=== PATIENT | male | born 1955 | race African-American/Black ===

== ENCOUNTER 2017-03-17 07:35 | Day surgery (SDC) | payer MEDICARE, MEDICAID ==
[2017-03-16 09:30] VITALS: BMI 19.5
--- NOTE | 2017-03-17 05:53 | HP ---
DATE OF ADMISSION: 03/17/2017 HISTORY OF PRESENT ILLNESS: This is a 61-year-old -Vietnamese male with hypertension, chronic h epatitis C, chronic kidney disease. The patient also has had ulcer disease in the past. The patient was seen in the office because of abdominal pain and nausea over the last several weeks. The patien t has been treated in the past with some PPI and also Zantac. He says it markedly improved with win tment, but then comes back again . The patient comes for an EGD because of abdominal pain, which has been recurrent over the last several months. ALLERGIES: None. MEDICAL ILLNESSES: 1. Hypertension. 2. Chronic kidney disease on dialysis. 3. Chronic hepatitis C. 4. Gastric ulcer in the past. PHYSICAL EXAMINATION: GENERAL: Thin built, appears comfortable. VITAL SIGNS: Pulse is 70, blood pressure 130/80. CARDIOVASCULAR: First and second heart sounds normal. LUNGS: Clear to auscultation. ABDOMEN: Soft to palpate. Abdomen is tender over the epigastric area. There is no rebound or guard ing. No organomegaly or masses. Admits to having abdominal pain. PLAN: EGD and also abdominal sonogram.
--- NOTE | 2017-03-17 08:45 | ULT ---
ULTRASOUND ABDOMEN COMPLETE HISTORY: Hepatitis C, abdominal pain. TECHNIQUE: Doshi-scale ultrasound evaluation of the liver, gallbladder, spleen, pancreas, common bile duct, kidne ys, abdominal aorta, and inferior vena cava (IVC). FINDINGS: There is prior surgical removal of the gallbladder. Common duct is normal at 3 mm. Enlargement of the spleen is demonstrated measuring greater than 14 cm in length. There is a fairly circumferential inc reased echogenicity about the periphery of the spleen, compatible with calcification. There are multi ple cysts of the small sized kidneys bilaterally. No overt hydronephrosis is seen. Imaged portions of the pancreas are grossly unremarkable. There is a coarsened echotexture of the hepatic parenchyma wh ich demonstrates a nodular contour. There are foci of increased echogenicity about the periphery of t he liver, compatible with calcification. IMPRESSION: 1. Splenomegaly, with peripheral calcification. 2. Status post cholecystectomy. 3. Coarsened echotexture of the liver with calcification and nodular contour. POS: [facility]
[2017-03-17] MEDS ORDERED: PROPOFOL 200 MG/20 ML VIAL ONE (14:59)
[2017-03-17] MEDS ORDERED: Lidocaine 1% PF 5 ML VIAL ONE (14:59)
--- NOTE | 2017-03-17 14:59 | OP ---
DATE OF PROCEDURE: 03/17/2017 OPERATIVE PROCEDURE: Esophagogastroduodenoscopy with 7 Estonian heater probe therapy. PREOPERATIVE DIAGNOSES: Abdominal pain, nausea, anemia. POSTOPERATIVE DIAGNOSES: 1. A 2-3+ esophageal varices. 2. 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 3. Normal duodenum. PROCEDURE IN DETAIL: The patient was placed on his left lateral position and was given sedation by [facility] Anesthesia Department. A Pentax video gastroscope under direct vision was passed down the orophar ynx, past the gastroesophageal junction, into the stomach and subsequently into the descending duoden um. The patient has a 2-3+ varicosities over the distal esophagus. The GE junction, no pathology se en. The fundus and cardia, no pathology seen. No gastric varices seen. Over the gastric body, the patient was found to have mild oozing of blood from the gastric AVM. There were two more gastric AVM s over the gastric body and plus antrum. All the three were cauterized with 7 Estonian heater probe wi th good hemostasis. The incisura angularis, no pathology seen. The duodenal bulb and descending duo denum, no pathology seen. The stomach was decompressed and the scope removed. DISCHARGE PLANNING: This is a 61-year-old -Malagasy male who came in for an EGD, because of a bdominal pain. The patient has history of gastric ulcers from before. The patient had an abdominal sonogram, which showed findings of liver cirrhosis and the liver appears normal, splenomegaly. The E GD showed gastric AVMs with mild oozing of blood. He underwent EGD with heater probe therapy. There is no pathology seen to explain abdominal pain. DISCHARGE RECOMMENDATIONS: 1. The patient advised to continue the medicines as before. 2. He will come back to me next week. We will talk to him about coming back for an EGD later on for possible variceal banding. He is already on beta-blockers, continue beta denny as before.
== END 2017-03-17 13:15 | disposition home or self-care (01) ==
LOC: SDC 07:35
PROVIDERS: ATTEND Internal Medicine Gastroenterology
PROC: 0D568ZZ Destruction of Stomach, Via Natural or Artificial Opening Endoscopic (ICD-10-PCS; principal; 2017-03-17)
DX: Q27.33 Arteriovenous malformation of digestive system vessel (principal); I85.00 Esophageal varices without bleeding; K74.60 Unspecified cirrhosis of liver; R16.1 Splenomegaly, not elsewhere classified; I12.9 Hypertensive chronic kidney disease with stage 1 through stage 4 chronic kidney disease, or unspecified chronic kidney disease; N18.9 Chronic kidney disease, unspecified; B18.2 Chronic viral hepatitis C; Z87.11 Personal history of peptic ulcer disease; Z90.49 Acquired absence of other specified parts of digestive tract; Z98.890 Other specified postprocedural states
CPT/HCPCS: 76700; J2001; J2704

== ENCOUNTER 2017-04-07 10:57 | Outpatient (CLI) | payer MEDICARE, MEDICAID ==
[2017-04-07] MEDS ORDERED: Iopamidol 370 76% 100 ML VIAL ONE (13:38)
--- NOTE | 2017-04-07 14:09 | CT ---
CT ABDOMEN WITH IV CONTRAST: INDICATIONS: A 61-year-old male with a history of left mid abdominal pain for two to three months. COMPARISON: Prior exam, dated 06/05/2016. FINDINGS: There is bibasilar emphysema. Capsular calcification involving the spleen and liver appear within normal limits. Mild hepatospleno megaly is stable. The pancreas and adrenal glands are unremarkable. Atrophic, cystic kidneys are similar appearing. Prominent vascular calcification is seen involving the abdominal vasculature. The visualized small and large bowel appear within normal limits. There is levoscoliosis of the lumbar spine, with scattered degenerative changes. There is a coarsene d appearance of the bony architecture, likely related to underlying osteodystrophy. IMPRESSION: Stable examination of the abdomen when compared to a recent CT evaluation, dated 06/05/2016. POS: [facility]
== END 2017-04-07 10:58 | disposition home or self-care (01) ==
LOC: CT 10:57
PROVIDERS: ATTEND Internal Medicine Gastroenterology
DX: R10.9 Unspecified abdominal pain (principal)
CPT/HCPCS: 74160

== ENCOUNTER 2017-04-14 09:02 | Observation (INO) | payer MEDICARE, MEDICAID ==
--- NOTE | 2017-04-14 01:24 | HP ---
SHORT STAY HISTORY AND PHYSICAL DATE OF ADMISSION: 04/14/2017 HISTORY OF PRESENT ILLNESS: This is a 61-year-old -[place]er male with chronic kidney disease on dialysis 3 times a week. The patient also has had chronic hepatitis C and was successfully treate d with medication. The most recent hepatitis C panel came back negative. The patient is having abdo carl pain over the last several weeks. The patient's EGD was negative recently. The patient had pa in across the upper abdomen. The pain is persistent. The patient also has history of colon polyp fr om before. The patient was brought in today for an EGD and colonoscopy because of abdominal pain and also history of colon polyp. ALLERGIES: None. MEDICAL ILLNESSES: 1. Hypertension. 2. Chronic kidney disease on dialysis. 3. 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 PHYSICAL EXAMINATION: GENERAL: The patient is a fragile looking black male, who appears comfortable. VITAL SIGNS: He is afebrile, pulse is 70, blood pressure 120/70. HEENT: Conjunctivae are clear. CARDIOVASCULAR: Lungs within normal limits. ABDOMEN: Soft to palpate. Abdomen is tender across the upper abdomen. There is no rebound or guard ing. No organomegaly or masses. Bowel sounds are normal. ADMITTING DIAGNOSIS: Persistent abdominal pain, history of colon polyp. PLAN: Colonoscopy.
--- NOTE | 2017-04-14 12:54 | OP ---
DATE OF PROCEDURE: 04/14/2017 SURGEON: Edilma Gant M.D. OPERATIVE PROCEDURE: Colonoscopy with biopsy. PREOPERATIVE DIAGNOSES: This is a 61-year-old male with abdominal pain that is chronic in nature. The patient had abdominal CAT scan a week ago. The CAT scan is basically negative. The patient is undergoing colonoscopy because of abdominal pain and also history of colon polyp. POSTOPERATIVE DIAGNOSES: 1. Hemorrhoids. 2. Occasional sigmoid diverticular disease. 3. Mucosal edma and hyperemia over the rectum, biopsied of unknown etiology. PROCEDURE NOTE: The patient was placed on his left lateral position and was given sedation by Anesthesia Department. A rectal exam was done before the scope was advanced into the rectum. No lesions were felt on rectal exam. A Pentax video colonoscope was introduced into the rectum and advanced all the way to the cecum. The prep was very good. The mucosa appeared normal. The appendiceal orifice, ileocecal valve, and cecum, no pathology seen. The ascending colon, hepatic flexure, and transverse colon, no pathology seen. The splenic flexure, no pathology seen. The descending colon, no pathology seen. The sigmoid colon showed occasional diverticular disease. The rectal wall shows some hyperemia and edema. This was biopsied. I could not retroflex the scope in the rectum. However, the rectum does show hemorrhoids. DISCHARGE PLANNING: This is a 61-year-old male who came in for an EGD and colonoscopy because of abdominal pain and history of colon polyp. The polyp was biopsied. DISCHARGE RECOMMENDATIONS: 1. The patient was advised to call me if he develops abdominal pain, hematochezia. 2. In the absence of any of the above symptoms he will come back to me in 2 weeks. MTDD
[2017-04-14 14:21] LABS: Hemoglobin 8.6 g/dL (14.0-18.0); Mean Corpuscular HGB CONC 30.7 g/dL (32.0-36.0); Mean Corpuscular Hemoglobin 28.9 pg (27.0-31.0); Mean Corpuscular Volume 93.9 fl (80.0-94.0); Mean Platelet Volume 10.7 fL (7.4-10.4); Platelet Count 79 thou/uL (130-400); RBC Distribution Width 15.7 % (11.5-14.5); Red Blood Cell (RBC) Count 2.97 mill/uL (4.70-6.10); White Blood Cell (WBC) Count 4.5 thou/uL (4.8-10.8)
[2017-04-14 14:42] LABS: Anisocytosis SLIGHT = 6-15 cells (100X) (0-5/hpf); Eosinophils 3 % (0-10); Lymphocytes 43 % (21-51); MDiff Complete? YES; Monocytes 7 % (0-10); Neutrophil 47 % (42-75); Ovalocytes SLIGHT = 2-5 cells (100X) (0-1/hpf); PLT Morphology Comment Appears Decreased; Polychromasia SLIGHT = 2-3 cells (100X) (0-2/hpf); Schistocytes SLIGHT = 2-5 cells (100X) (0-1/hpf)
[2017-04-14] MEDS ORDERED: Lidocaine 1% PF 5 ML VIAL ONE (15:47)
[2017-04-14] MEDS ORDERED: Propofol 200 MG/20 ML VIAL ONE ×2 (15:47→15:48)
[2017-04-14] MEDS ORDERED: Metoprolol Tartrate 5 MG/5 ML VIAL ONE (15:47)
[2017-04-14 16:11] LABS: #Eosinphils 0.1 thou/uL (0.0-0.7); #Monocytes 0.5 thou/uL (0.11-0.59); %Basophils 1.3 % (0.0-1.0); %Eosinophils 1.4 % (0.0-10.0); %Lymphocytes 28.6 % (21.0-51.0); %Neutrophils 55.7 % (42.0-75.0); Hemoglobin 8.5 g/dL (14.0-18.0); Mean Corpuscular Hemoglobin 30.2 pg (27.0-31.0); Mean Corpuscular Volume 91.6 fl (80.0-94.0); Mean Platelet Volume 10.4 fL (7.4-10.4); Platelet Count 66 thou/uL (130-400); RBC Distribution Width 15.5 % (11.5-14.5); White Blood Cell (WBC) Count 3.6 thou/uL (4.8-10.8)
[2017-04-14] MEDS ORDERED: Ondansetron ODT 4 MG TAB PO PRN (20:14)
[2017-04-14] MEDS ORDERED: Ondansetron ODT 4 MG TAB PO SCH (20:15)
[2017-04-14] MEDS: Lisinopril 20 MG TAB PO SCH (21:11)
[2017-04-14] MEDS: Metoprolol Tartrate 25 MG TAB PO SCH (21:11)
[2017-04-14] MEDS: Terazosin HCl 1 MG CAP PO SCH (21:12)
[2017-04-14 23:38] VITALS: BMI 19.1
[2017-04-15 05:48] LABS: Mean Corpuscular HGB CONC 31.9 g/dL (32.0-36.0); Mean Corpuscular Hemoglobin 29.7 pg (27.0-31.0); Mean Corpuscular Volume 93.1 fl (80.0-94.0); Mean Platelet Volume 10.6 fL (7.4-10.4); Platelet Count 64 thou/uL (130-400); RBC Distribution Width 15.1 % (11.5-14.5); Red Blood Cell (RBC) Count 2.36 mill/uL (4.70-6.10); White Blood Cell (WBC) Count 4.1 thou/uL (4.8-10.8)
--- NOTE | 2017-04-15 06:04 | HP ---
HISTORY OF PRESENT ILLNESS: Mr. Sharif Cruz is a 61-year-old -Mauritian male with chroni c kidney disease, hypertension, chronic hepatitis C. The patient take and tolerates Harvoni, and his hepatitis C virus came back negative. The patient had abdominal pain and nausea off and on. The rodrick zavala underwent an EGD recently and also had abdominal sonogram. Subsequently, an abdominal CAT scan showed negative for any pathology. He was brought in for EGD and colonoscopy today, because of abdo carl pain and also history of colon polyp. The colonoscopy showed mild sigmoid diverticulosis and t he rectum showed hemorrhoids. He had an area of edematous and erythematous mucosa over the rectal wa ll. This was biopsied. Three biopsies were obtained. The patient was able to go from day surgery a nd he started having bleeding from the rectum. Apparently, he passed quite a fairly large amount of fresh blood and clots. He was kept there for a while and he had another bleeding spell. He was take n back into a room. He underwent a flexible colonoscopy and was found to have a visible vessel at th e biopsy sites with active bleeding. This was cauterized and also injected with epinephrine. He had a stat CBC after surgery. The blood count was 8.6. The patient was in day surgery for a while and started having another bloody stool. He had another CBC done and blood count did not drop down. It was elected to admit the patient to the hospital for observation overnight. PHYSICAL EXAMINATION: GENERAL: He appears very comfortable. He is a fragile looking black male, in no distress. VITAL SIGNS: Stable. His pulse is 76, blood pressure 170/85. CARDIOVASCULAR: First and second heart sounds were normal. LUNGS: Clear to auscultation. ABDOMEN: Soft to palpate. No organomegaly. No tenderness. No masses. CLINICAL IMPRESSION: His active bleeding from the biopsy site controlled with injection of epinephri ne and also with heater probe. PLAN: 1. Clear liquid diet. 2. Repeat CBC tomorrow. 3. If there is no recurrence of bleeding and blood count is stable, we will consider discharge tomor row morning.
--- NOTE | 2017-04-15 08:04 | OP ---
DATE OF SURGERY: 04/14/2017 OPERATIVE PROCEDURE: Flexible sigmoidoscopy with injection of epinephrine followed by 10-Ukrainian heat er probe therapy. PREOPERATIVE DIAGNOSIS: Hematochezia following colonoscopy and biopsy. POSTOPERATIVE DIAGNOSES: 1. Active bleeding from the biopsy site with visible vessel with large amount of fresh clots and blo od in the rectum. 2. Two of the biopsy sites appears to have a clot on top of the surface and do not see any bleeding. PROCEDURE NOTE: The patient was placed on the left lateral position and was given sedation by Anesth esia department. A rectal exam was done, the scope was advanced into the rectum. There is blood see n in the exam finger. A Pentax video colonoscope was introduced into the rectum. The patient had th ree biopsies from the rectal area. Two of the biopsy sites appear to have a clot on top with good he mostasis. The biopsy site appears showing visible vessel with active bleeding. There is large amoun t of fresh blood and clots seen in the rectum. Water was used to irrigate and wash out. The visible vessel was injected with 1:10,000 epinephrine. A total of 10 mL injected. Following injection, the bleeding actually stopped. It was elected to cauterize the area with 10-Ukrainian probe with good hemo stasis. The biopsy site was also cauterized slightly with heater probe. At the end of the procedure , I do not see any bleeding. The scope was withdrawn and advanced back into the rectum one more time again. The cauterized areas appears very healthy and do not see any bleeding. Rectum was decompres sed and the scope removed. RECOMMENDATION: 1. To obtain stat CBC. 2. We will observe him for a while on the day of surgery and if there is no recurrence of bleeding, we will discharge him today.
[2017-04-15 08:10] VITALS: BP 144/78; TEMP 98.1
[2017-04-15] MEDS ORDERED: Amlodipine 5 MG TAB PO SCH (09:00)
[2017-04-15] MEDS ORDERED: FLU VACC QS2017-18 36 mo. & older 0.5 ML SYRINGE IM ONE (09:00)
[2017-04-15] MEDS: Metoprolol Tartrate 25 MG TAB PO SCH (09:48)
[2017-04-15] MEDS: Terazosin HCl 1 MG CAP PO SCH (09:49)
[2017-04-15] MEDS: Lisinopril 20 MG TAB PO SCH (09:49)
[2017-04-15] MEDS ORDERED: Cinacalcet HCl 30 MG TAB PO SCH (21:00)
== END 2017-04-15 12:15 | disposition home or self-care (01) ==
LOC: SDC 09:02 → ONC 18:02
PROVIDERS: ADMIT Internal Medicine Gastroenterology; ATTEND Internal Medicine Gastroenterology
PROC: 0DBP8ZX Excision of Rectum, Via Natural or Artificial Opening Endoscopic, Diagnostic (ICD-10-PCS; principal; 2017-04-14)
DX: R10.12 Left upper quadrant pain (principal); R10.11 Right upper quadrant pain; G89.29 Other chronic pain; K91.841 Postprocedural hemorrhage of a digestive system organ or structure following other procedure; K57.30 Diverticulosis of large intestine without perforation or abscess without bleeding; K64.9 Unspecified hemorrhoids; I12.0 Hypertensive chronic kidney disease with stage 5 chronic kidney disease or end stage renal disease; N18.6 End stage renal disease; K74.60 Unspecified cirrhosis of liver; B18.2 Chronic viral hepatitis C; Z99.2 Dependence on renal dialysis; Z79.899 Other long term (current) drug therapy; Z90.49 Acquired absence of other specified parts of digestive tract; Z98.890 Other specified postprocedural states
CPT/HCPCS: 45380; 85025 ×2; 85027; 88305; G0378; 36415; J2001; J2704; Q0162

== ENCOUNTER 2017-04-21 08:16 | Inpatient (IN) | payer MEDICARE, MEDICAID ==
[~2017-04-21 08:16] MED LIST: ISOVUE-370 76%-LOCM 1 ML ONE
[2017-04-21 09:02] LABS: ALT (SGPT) Less than 7 U/L (8-55); AST (SGOT) 21 U/L (5-34); Alkaline Phosphatase 97 U/L (40-150); Anion Gap 17 mmol/L (10-20); BUN (Urea Nitrogen) 36 mg/dL (8.4-25.7); Bilirubin, Total 0.4 mg/dL (0.2-1.2); Calc. Creatinine Clearance 0 mL/min (70-130); Calcium 8.4 mg/dL (7.8-10.44); Carbon Dioxide 30 mmol/L (22-29); Chloride 96 mmol/L (98-107); Estimated GFR-MDRD 7; Globulin 3.2 g/dL (2.4-3.5); Glucose 110 mg/dL (70-105); Lipase 35 U/L (8-78); Potassium 4.9 mmol/L (3.5-5.1); Protein, Total 6.2 g/dL (6.0-8.3); Sodium 138 mmol/L (136-145)
[2017-04-21 09:04] LABS: #Basophils 0.1 thou/uL (0.0-0.2); #Eosinphils 0.1 thou/uL (0.0-0.7); #Lymphocytes 1.3 thou/uL (1.20-3.40); #Monocytes 0.6 thou/uL (0.11-0.59); #Neutrophils 2.5 thou/uL (1.40-6.50); %Basophils 1.4 % (0.0-1.0); %Eosinophils 2.1 % (0.0-10.0); %Lymphocytes 28.1 % (21.0-51.0); %Monocytes 13.4 % (0.0-10.0); Hemoglobin 6.2 g/dL (14.0-18.0); Mean Corpuscular HGB CONC 33.6 g/dL (32.0-36.0); Mean Corpuscular Hemoglobin 30.6 pg (27.0-31.0); Mean Corpuscular Volume 91.1 fl (80.0-94.0); Platelet Count 92 thou/uL (130-400); RBC Distribution Width 15.4 % (11.5-14.5); Red Blood Cell (RBC) Count 2.03 mill/uL (4.70-6.10); White Blood Cell (WBC) Count 4.6 thou/uL (4.8-10.8)
[2017-04-21 09:10] LABS: CKMB 2.5 ng/mL (0-6.6); Troponin I 0.025 ng/mL (< 0.028)
[2017-04-21 09:35] LABS: INR-International Normal Ratio 1.5; Prothrombin Time 18.4 SEC (12.0-14.7)
--- NOTE | 2017-04-21 09:37 | CT ---
CT ABDOMEN WITH CONTRAST CT PELVIS WITH CONTRAST: DATE: 04-21-17 TIME: 8:58 a.m. HISTORY: 61-year-old male with generalized abdominal pain and rectal bleeding. COMPARISON: 04-07-17 CT of abdomen and 06-05-16 CT of abdomen and pelvis. TECHNIQUE: IV injection of iodinated contrast media: Isovue Oral contrast media: Not administered FINDINGS: Lung bases are clear. No pneumoperitoneum or ascites. High density fluid in the lumen of the rectum a nd sigmoid colon, consistent with blood. Dense subcapsular calcifications along the periphery of the liver, and to a lesser degree the periphery of the spleen. Mild splenomegaly. No portal vein thrombos is. No pancreatic abnormality. Heavy atherosclerotic calcification of the abdominal aorta and its bra nches, especially the common and internal iliac arteries. No interval change in the approximately 4 x 3.5 cm cystic mass extrinsically indenting the right anterior surface of the rectum. Suture lines at the rectum are again noted. Multiple prominent subchondral cysts at the bilateral femoral heads. Lev oscoliosis. Atrophic kidneys with innumerable small cysts. No adrenal mass. No small bowel dilation. The bilateral small pleural effusions on 06-05-16 are currently not present. The blood within the lume n of the distal colon is new compared to the previous CTs. No other major interval change. IMPRESSION: 1. Hemorrhagic fluid within the lumen of the distal colon. 2. Apparently benign 4 cm cystic mass extrinsically indenting the rectum, stable since for 06-05-16. 3. Chronic renal failure. 4. A very large number of bilateral small renal cysts. 5. Bilateral mild nephrolithiasis. 6. Splenomegaly. 7. Renal osteodystrophy. 8. Lumbar spondylosis and scoliosis. 9. Extensive calcifications along the hepatic and splenic capsules. MIGUEL ANGEL R POS: [facility]
--- NOTE | 2017-04-21 09:38 | RAD ---
CHEST 1 VIEW: Date: 04/21/17 HISTORY: Lightheadedness. Rectal bleeding. COMPARISON: 02/19/05. FINDINGS: Normal cardiac silhouette. Pulmonary vessels and hilum are normal. Costophrenic angles are clear. Que stionable opacity in the left lung apex. Nonspecific nodule in the right lung base. Better interrogat ion with chest CT is recommended. Vascular stent is noted. No pneumothorax or osseous abnormalities. Focal area of scarring/atelectasis in the right lung base is noted. Calcification along the lateral h epatic capsular margin in the left subdiaphragmatic region is noted. IMPRESSION: 1. Focal opacity in the left upper lobe which may be due to infiltrate. 2. Possible calcified granuloma in the right lung base. CODE LN. POS: [facility]
[2017-04-21] MEDS ORDERED: cefTRIAXone\\ROCEPHIN 2 GM in Sodium Chloride 0.9% 100 ML IVPB SCH (09:45)
[2017-04-21] MEDS ORDERED: Azithromycin 500 MG in Sodium Chloride 0.9% 250 ML 250 ML IVPB SCH (09:45)
--- NOTE | 2017-04-21 11:52 | HP ---
PRIMARY CARE PHYSICIAN: Selina Herring M.D. REASON FOR ADMISSION: Acute lower gastrointestinal bleed, symptomatic anemia, left upper lobe consolidation. HISTORY OF PRESENT ILLNESS: A 61-year-old -Finnish male with a history of end-stage renal disease who came to emergency room with complaint of hematochezia. This patient has chronic lower abdominal discomfort as well as dyspepsia symptoms. He has history of cholecystectomy and he had ultrasound of gallbladder, which showed perisplenic calcification and capsular calcification around liver as well with nodular contour. Subsequently, he also had CT abdomen which showed similar finding. Patient underwent upper endoscopy on and at that time, patient was found with esophageal varices and gastric AV malformation and normal duodenum. Subsequently, patient had colonoscopy on 04/14/2017, which showed hemorrhoid diverticular disease and erythema of the rectum and the patient had a biopsy of that area. Per patient, two polyps were removed, but based on colonoscopy report, biopsy was obtained from erythema of the rectum. The patient came back on the same day in the evening time after colonoscopy with bleeding and that is why patient required a flexible sigmoidoscope with injection of epinephrine followed by heater probe therapy, which was done and subsequently patient did not have any problem up until today. This morning he woke up, at that time he did not have any complaints. He had regular bowel movement first time, but subsequently 3 bowel movements was bloody and fresh blood. He was feeling dizzy and weak. The patient reports that since colonoscopy and biopsy, he was getting intermittent crampy abdominal pain, especially on last Thursday, but otherwise he did not have any pain, fever. He denies any weight loss. He denies any hematemesis, melena or vomiting. He denies any nausea as well. He denies any chest pain, palpitation or shortness of breath. Yesterday, he was in dialysis center and his dialysis was only 1-1/2 hours and it was interrupted because of loss of power supply at dialysis center. The patient does report mild cough. He denies any fever or chills. He denies any pleuritic chest pain, but today chest x-ray showed left upper lobe infiltration and he has lactic acid elevated. REVIEW OF SYSTEMS: The following complete review of systems was negative unless otherwise mentioned in the HPI or below: Constitutional: Weight loss or gain, ability to conduct usual activities. Skin: Rash, itching. Eyes: Double vision, pain. ENT/Mouth: Nose bleeding, neck stiffness, pain, tenderness. Cardiovascular: Palpitations, dyspnea on exertion, orthopnea. Respiratory: Shortness of breath, wheezing, cough, hemoptysis, fever or night sweats. Gastrointestinal: Poor appetite, abdominal pain, heartburn, nausea, vomiting, constipation, or diarrhea. Genitourinary: Urgency, frequency, dysuria, nocturia. Musculoskeletal: Pain, swelling. Neurologic/Psychiatric: Anxiety, depression. Allergy/Immunologic: Skin rash, bleeding tendency. Please see my HPI for pertinent positive and negative. All other review of system reviewed and negative except as mentioned in the HPI. PAST MEDICAL HISTORY: End-stage renal disease, on hemodialysis Thursday, Thursday, Thursday, followed by Dr. James Regan, hypertension, chronic hepatitis C, liver cirrhosis with portal hypertension and anemia of renal disease. PAST SURGICAL HISTORY: Appendicectomy, cholecystectomy, dialysis shunt placement in left upper extremity, left knee surgery. The patient had a colonoscopy and subsequently flexible sigmoidoscope. The patient also had upper endoscopy. PAST PSYCHIATRIC HISTORY: Reviewed and negative. SOCIAL HISTORY: Patient lives at home. He smokes about half pack per day. He denies any alcohol or other illicit drug abuse. FAMILY HISTORY: No strong family history of premature coronary artery disease, stroke or cancer. ALLERGIES: No known drug allergy. CURRENT HOME MEDICATIONS: Amlodipine 5 mg twice daily, Sensipar 30 mg daily, Harvoni 90/400 one tablet p.o. daily, lisinopril 20 mg twice daily, metoprolol 50 mg twice daily, omeprazole 40 mg p.o. daily, terazosin 3 mg p.o. twice daily. EMERGENCY ROOM COURSE: Patient is receiving a blood transfusion. The patient has received 1 liter of fluid and he is receiving Rocephin and azithromycin. PHYSICAL EXAMINATION: VITAL SIGNS: On arrival, blood pressure 139/78, pulse 81, respiratory rate 17, temperature 97.8, saturation 100% on room air, weight 65.2 kilograms. GENERAL: Patient is currently alert, awake, no obvious acute distress. HEENT: Head, normocephalic, atraumatic. Eyes: Pupils round, reactive to light. Extraocular muscle intact. ENT: Oropharynx within normal limits. Moist mucous membranes, no oral lesion, no pharyngeal erythema, no exudate. NECK: Supple, no JVD, no thyromegaly, no carotid bruit. LUNGS: Air entry reduced on both sides, but coarse breath sound at left upper lobe. No rales. CARDIAC: S1, S2 regular. No murmur. ABDOMEN: Vague lower abdominal discomfort. No guarding, no rigidity, no rebound, blood present in the rectal vault. The patient does have discomfort on deep palpation. BACK: Unremarkable, no CVA tenderness. EXTREMITIES: Upper extremity AV fistula and left upper extremity with good thrill. Lower extremity, no edema. Good peripheral pulsation. SKIN: No skin rash. HEMATOLOGICAL SYSTEM: No lymphadenopathy. PSYCHIATRIC: Normal affect. SIGNIFICANT LABORATORY DATA: EKG showing normal sinus rhythm, nonspecific ST-T changes. Chest x-ray showing left upper lobe infiltrate, right-sided lower lung base nodule, calcification of the hepatic capsular region. CT of the abdomen and pelvis showing calcification, hemorrhagic fluid within the lumen of the distal colon, 4 cm cystic mass in the rectum, bilateral nephrolithiasis, splenomegaly, renal osteodystrophy, lumbar spondylosis, calcification of the hepatic and splenic capsule. CBC: WBC 4.6, hemoglobin 6.2, platelet 92. INR 1.5. BMP: Sodium 138, potassium 4.9, chloride 96, carbon dioxide 30, anion gap 17, BUN 36, creatinine 9.49, glucose 110, calcium 8.4. Lactic acid 2.7. LFT: AST 21, ALT 7, alkaline phosphatase 97, albumin 3.0, lipase 35, CK-MB 2.5 , troponin 0.025. ASSESSMENT AND PLAN: 1. Acute lower gastrointestinal bleed. This patient has vague lower abdominal discomfort and fresh hematochezia. This patient also had recently colonoscopy and subsequent bleeding require a flexible sigmoidoscopy and heater probe therapy as well as epinephrine injection and subsequently bleeding stopped up until today and now patient has recurrent bleeding, most likely the patient might have biopsy site probably visible vessel or ulcer. He has underlying coagulopathy that contributing to his bleeding. He is also getting heparin with dialysis. At this point, we will consult individual pension adviser and they will decide whether this patient requires any repeat flexible sigmoidoscopy versus colonoscopy. We will keep him on clear liquid diet. We will monitor H and H every 6 hourly. Patient is getting 1 unit of blood now and we will monitor his H and H and if hemoglobin remains below 7.5, then we will consider transfusing him again. 2. Anemia due to acute blood loss. This patient has chronic disease anemia as well as renal disease anemia, but currently acutely dropped from bleeding that is why the patient is receiving 1 unit of blood and we will monitor the H and H every 6 hourly and transfuse if hemoglobin is less than 7.5. Patient will receive Procrit as well as Nephro-Isabella therapy. 3. Pancytopenia including leukopenia and thrombocytopenia, likely due to hypersplenism from cirrhosis of liver and portal hypertension. 4. Cirrhosis of liver with portal hypertension secondary to chronic hepatitis C. 5. Lactic acidosis due to underlying infection. We will repeat lactic acid level tomorrow. 6. Left upper lobe community-acquired pneumonia. Patient will be given Rocephin and azithromycin while in hospital, DuoNeb therapy p.r.n. basis. We will follow up on culture result. 7. End-stage renal disease, on hemodialysis. Patient will need hemodialysis and that is why we will consult Dr. James Regan for maintenance hemodialysis while in hospital. 8. Secondary hyperparathyroidism of renal origin. Continue Sensipar 1 tablet daily. 9. Hypertension. If blood pressure permits, then we will continue amlodipine 5 mg p.o. b.i.d., lisinopril 20 mg p.o. b.i.d., metoprolol 50 mg twice daily. 10. Gastroesophageal reflux disease. We will continue Protonix 40 mg p.o. daily. 11. Benign enlargement of prostate. We will continue terazosin 3 mg p.o. b.i.d. 12. Coagulopathy due to liver disease. 13. Deep venous thrombosis prophylaxis. Sequential compression device boots. No Lovenox because of bleeding. 14. Gastrointestinal prophylaxis. Protonix 40 mg p.o. daily. CODE STATUS: The patient is FULL CODE. Patient does not have any surrogate decision maker. Disposition plan based on clinical course. We are expecting patient's stay in hospital more than 2 midnights. Plan of care discussed with the patient in detail. MTDD
[2017-04-21] MEDS ORDERED: Zolpidem Tartrate 5 MG TAB PO PRN (11:58)
[2017-04-21] MEDS ORDERED: Acetaminophen 325 MG TAB PO PRN (11:58)
[2017-04-21] MEDS ORDERED: Artificial Tears 18 DROP/0.9 ML EA EYE PRN (11:58)
[2017-04-21] MEDS ORDERED: Sodium Chloride 0.65% Nasal 44 ML BOT EA NARE PRN (11:58)
[2017-04-21] MEDS ORDERED: hydrALAZINE 20 MG/ML VIAL SLOW IVP PRN (11:58)
[2017-04-21] MEDS ORDERED: Mag-Al 1200 mg/1200 mg/30 ML UDCUP PO PRN (11:58)
[2017-04-21] MEDS ORDERED: Milk Of Magnesia 30 ML UDCUP PO PRN (11:58)
[2017-04-21] MEDS ORDERED: Ondansetron HCl/PF 4 MG/2 ML Vial IVP PRN ×2 (11:58→22:31)
[2017-04-21] MEDS ORDERED: Loperamide HCl 2 MG CAP PO PRN (11:58)
[2017-04-21] MEDS ORDERED: Senokot 8.6 MG TAB PO PRN (11:58)
[2017-04-21] MEDS ORDERED: Eucerin (Mineral Oil/Petrolatum,White) 30 gm Jar TOP PRN (11:58)
[2017-04-21] MEDS ORDERED: Chloraseptic Spray 180 ml Bottle PO PRN (11:58)
[2017-04-21] MEDS ORDERED: Loratadine 10 MG TAB PO PRN (11:58)
[2017-04-21] MEDS ORDERED: Nitroglycerin 0.4 MG TAB (25 Tab Bottle) SL PRN (11:58)
[2017-04-21] MEDS ORDERED: Ondansetron ODT 4 MG TAB PO PRN (11:58)
[2017-04-21] MEDS ORDERED: HYDROcodone/Acetaminophen 5/325 mg Tablet PO PRN (11:58)
[2017-04-21] MEDS ORDERED: Diabetic Tussin 200 MG/10 ML UDCUP PO PRN (11:58)
[2017-04-21] MEDS ORDERED: cefTRIAXone\\ROCEPHIN 1 GM in Sodium Chloride 0.9% 100 ML IVPB SCH (12:00)
[2017-04-21] MEDS ORDERED: Epoetin (ESRD) 10,000 UNITS/ML VIAL SC SCH (12:00)
[2017-04-21 13:52] LABS: Lactic Acid 1.3 mmol/L (0.5-2.2)
[2017-04-21] MEDS ORDERED: Lidocaine 1% PF 5 ML VIAL ONE (14:02)
[2017-04-21] MEDS ORDERED: Esmolol 100 MG/10 ML VIAL ONE (14:02)
[2017-04-21] MEDS ORDERED: GoLYTELY 4,000 ml Bottle PO SCH (16:30)
[2017-04-21 17:04] LABS: Hemoglobin 6.9 g/dL (14.0-18.0)
[2017-04-21 17:33] LABS: Troponin I 0.023 ng/mL (< 0.028)
[2017-04-21] MEDS ORDERED: EPINEPHrine 1 MG/10 ML Abboject SYRINGE ONE (22:15)
[2017-04-22] MEDS: Lisinopril 20 MG TAB PO SCH ×3 (00:15→21:34)
[2017-04-22] MEDS: Cinacalcet HCl 30 MG TAB PO SCH ×2 (00:15→21:34)
[2017-04-22] MEDS: Metoprolol Tartrate 50 MG TAB PO SCH ×3 (00:16→21:35)
[2017-04-22] MEDS: Terazosin HCl 1 MG CAP PO SCH ×3 (00:16→21:35)
[2017-04-22] MEDS: Amlodipine 5 MG TAB PO SCH ×3 (00:16→21:34)
[2017-04-22 00:19] LABS: Hemoglobin 7.4 g/dL (14.0-18.0)
[2017-04-22 05:32] LABS: #Eosinphils 0.2 thou/uL (0.0-0.7); #Lymphocytes 1.1 thou/uL (1.20-3.40); #Monocytes 0.5 thou/uL (0.11-0.59); %Eosinophils 3.3 % (0.0-10.0); %Lymphocytes 22.8 % (21.0-51.0); %Monocytes 9.9 % (0.0-10.0); Hemoglobin 7.2 g/dL (14.0-18.0); Mean Corpuscular HGB CONC 33.4 g/dL (32.0-36.0); Mean Corpuscular Hemoglobin 30.4 pg (27.0-31.0); Mean Platelet Volume 10.2 fL (7.4-10.4); Platelet Count 82 thou/uL (130-400); RBC Distribution Width 15.5 % (11.5-14.5); Red Blood Cell (RBC) Count 2.36 mill/uL (4.70-6.10); White Blood Cell (WBC) Count 4.8 thou/uL (4.8-10.8)
[2017-04-22 05:36] LABS: ALT (SGPT) Less than 7 U/L (8-55); AST (SGOT) 15 U/L (5-34); Albumin 2.9 g/dL (3.5-5.0); Alkaline Phosphatase 82 U/L (40-150); Anion Gap 17 mmol/L (10-20); BUN (Urea Nitrogen) 42 mg/dL (8.4-25.7); Bilirubin, Total 0.5 mg/dL (0.2-1.2); Calc. Creatinine Clearance 8 mL/min (70-130); Calcium 8.6 mg/dL (7.8-10.44); Carbon Dioxide 26 mmol/L (22-29); Chloride 100 mmol/L (98-107); Estimated GFR-MDRD 6; Globulin 2.9 g/dL (2.4-3.5); Glucose 71 mg/dL (70-105); Potassium 5.1 mmol/L (3.5-5.1); Protein, Total 5.8 g/dL (6.0-8.3); Sodium 138 mmol/L (136-145)
[2017-04-22 05:40] LABS: Lactic Acid 1.1 mmol/L (0.5-2.2)
--- NOTE | 2017-04-22 06:40 | OP ---
DATE OF PROCEDURE: 04/21/2017 SURGEON: Edilma Gant M.D. OPERATIVE PROCEDURE: 1. Colonoscopy. 2. Injection of 1:10,000 epinephrine over the visible vessel in the rectum. 3. Two Hemoclip placements. 4. A 10-Welsh heater probe therapy. PREOPERATIVE DIAGNOSIS: Acute gastrointestinal bleeding. POSTOPERATIVE DIAGNOSES: Two large ulcerations in the rectum with a visible vessel. At the time of endoscopy, the colon was completely free of any blood. I do not see bleeding from the proximal colon. PROCEDURE IN DETAIL: The patient was placed on his left lateral position and was given sedation by Anesthesia Department. A rectal exam was done. The scope was advanced into the rectum. No lesions felt on rectal exam. A Pentax video colonoscope was introduced into the rectum advanced into the rectum, advanced into the descending and sigmoid colon. On endoscopy, no active bleeding was seen. The colon lumen was free of any blood or any blood clots. There were 2 ulcerations in the rectal vault. Both ulcerations showed visible vessel. The scope was advanced in the proximal colon up to the hepatic flexure. There was no blood in the proximal colon. The scope was withdrawn into the rectum. Initially, the base of the ulceration of the visible vessel was injected with epinephrine solution at 1 mL increment to total of 9 mL. Following injection, 2 Hemoclips were placed. After Hemoclip placement there was mild oozing of blood noted. It was not very active bleeding, but a lot of oozing. Because of above reason I did pass a 10 Welsh probe and the area was cauterized. However, with more cautery there seemed to be more oozing of blood. The heater probe was withdrawn and I injected another 5 mL of epinephrine around the ulcer base. At the end of the procedure there is mild oozing of blood, but no active bleeding seen. The rectum was decompressed and the scope removed. RECOMMENDATIONS: 1. Clear liquid diet. 2. Follow up H&H. 3. We will decide if he needs another second look sigmoidoscopy tomorrow. [facility]PITALSandra
--- NOTE | 2017-04-22 06:51 | CON ---
DATE OF CONSULTATION: 04/21/2017 REFERRING PHYSICIAN: Dr. Ninfa Rabago REASON FOR CONSULTATION: Abdominal pain, hematochezia. HISTORY OF PRESENT ILLNESS: Mr. Sharif Cruz is a 61-year-old male who is known to have chronic kidney disease on dialysis 3 times a week. The patient also has had chronic hepatitis C many years. The patient take treatment in 2017 for 3 months with Harvoni. After 12 weeks of therapy his HCV came back negative. The patient apparently developed liver cirrhosis. The last CAT scan showed nodular liver. The patient has been having persistent abdominal pain over the last several weeks. He initially was tried on omeprazole 40 once a day. His symptoms persisted. Because of persistence he underwent an EGD. The EGD showed no pathology for abdominal pain. Subsequently , an abdominal CAT scan is negative. The patient had a colonoscopy on 2017 because of abdominal pain and history of colon polyp. He was found to have edematous and erythematous mucosa in the rectum. Took biopsy at [address] There were no polyps seen. The patient was found to have hematochezia on the biopsy and was taken back to the endoscopy room and had a flexible sigmoidoscopy and injection of epinephrine and the biopsy area was cauterized. He did well and was kept overnight for observation. He was discharged home approximately a week ago. The patient woke up this morning abdominal cramping and hematochezia. He passed a fairly large amount of blood. He came to the ER and had a CBC done. He was found to have anemia. The hemoglobin was around 6.7. He got 2 units of packed RBCs. The hemoglobin came up to 7. The patient was admitted after also because of hematochezia and anemia. PAST MEDICAL HISTORY: 1. Chronic kidney disease. 2. Hypertension. 3. Chronic hepatitis C, resolved with Harvoni treatment. 4. Liver cirrhosis. 5. Portal hypertension. 6. Anemia of chronic disease. SURGERIES: 1. Appendectomy. 2. Cholecystectomy. 3. Dialysis shunt placement. 4. Left knee surgery. 5. He also had a colonoscopy and EGD in the last couple of months. The colonoscopy done approximately a week ago. MEDICATIONS: List reviewed. SOCIAL HISTORY: The patient is a smoker. Smokes 1-1/2 packs per day. There is no alcohol abuse, drug abuse. ALLERGIES: None. REVIEW OF SYSTEMS: Remarkable for abdominal cramping, hematochezia. PHYSICAL EXAMINATION: GENERAL: The patient is thin built, appears comfortable. VITAL SIGNS: Vital signs are actually stable in spite of bleeding. His pulse rate is around 81, blood pressure 130/70. HEENT: Conjunctivae clear. CARDIOVASCULAR: First and second heart sounds normal. LUNGS: Clear to auscultation. ABDOMEN: Soft to palpate. Abdomen is nontender. No organomegaly or masses. Bowel sounds are normal. LABORATORY DATA: CBC shows WBC 4600, hemoglobin 6.2, platelet count 92,000. INR 1.5, sodium 138, potassium 4.9, chloride 97, bicarbonate 30, BUN is 36, creatinine 9.49, glucose 110, calcium 8.4, lipase 35. Liver function tests are normal. Abdominal CAT scan showed a pelvic calcification of hemorrhagic fluid within the lumen of distal colon. Mild nephrolithiasis and splenomegaly. CLINICAL IMPRESSION: Acute hematochezia, rectal bleeding, most likely from the previous biopsy site. The biopsy was done in 3 different locations and all the 3 different occasions had some blood clots after the biopsy. One of the areas showed a visible vessel, some bleeding actively a week ago. This was injected with epinephrine and cauterized. The patient comes in with bleeding again. The patient most likely has bleeding from the biopsy site. RECOMMENDATIONS: 1. Transfuse. 2. We will plan for colonoscopy later on today after bowel prep.. MTDD
--- NOTE | 2017-04-22 09:39 | PRG ---
DATE OF SERVICE: 04/22/2017 HISTORY OF PRESENT ILLNESS: Mr. Sharif Cruz is a 61-year-old male with chroni c abdominal pain, chronic kidney disease and also liver cirrhosis. The patient had been treated for hepatitis C last year and the hepatitis C has resolved. The patient underwent EGD and colonoscopy wi th biopsy approximately 8 days ago. The rectal mucosa appears slightly different and it was edematou s and swollen with some bile. The patient had bleeding after biopsy. He was taken back to the opera tin room and underwent injection of epinephrine and control of bleeding with heater probe therapy. The patient was sent home the following day. He came back yesterday with abdominal cramping, hematoc hezia. He was taken to endoscopy suite last night and again he was found to have a rectal ulcer x2. Both ulcers showed distal vessel. At the time of endoscopy, no active bleeding was seen. The ulcer base was injected with epinephrine 1 mL increments to a total dose of 14 mL There were 2 Hemoclips applied. Also, the area was lightly cauterized with heater probe. The patient had slept through the night. Yesterday the patient had no stool. He is not having stool today. He is not having abdomin al pain, no nausea, no vomiting. After 3 units of blood transfusions blood count really has come up very little. Admission hemoglobin was 6.2 and this morning it was 7.2, hematocrit 21.5. PHYSICAL EXAMINATION: GENERAL: He appears very comfortable. VITAL SIGNS: Pulse is 77, blood pressure is 139/70. CARDIOVASCULAR/LUNGS: Within normal limits. ABDOMEN: The abdomen is soft. The abdomen is nondistended. Abdomen is nontender. CLINICAL IMPRESSION: Rectal bleeding from a rectal biopsy a week ago. The sigmoidoscopy did show re ctal ulcer with visible vessel. He underwent a Hemoclip placement and lightly cauterized with heater probe. Through the night he has had no stool. RECOMMENDATIONS: Will keep him on clear liquid diet for another day in case he bleeds. If his blood count is stable, can advance diet to renal diet hopefully, either tonight or tomorrow. If the patie nt has recurrence of bleeding, one option is to send him out of town for angiogram and embolization. Apparently, this cannot be done in this hospital because of lack of interventional radiologist. Th is was conveyed to the patient and he has agreed.
[2017-04-22] MEDS: Folic Acid/Vit B Comp W-C PO SCH (10:17)
[2017-04-22] MEDS: Ferrous Sulfate 325 MG TAB PO SCH (10:18)
--- NOTE | 2017-04-22 10:21 | PDOC.PN ---
- Subjective Encounter Start Date: 04/22/17 Encounter Start Time: 07:30 Patient seen and examined. No new complaints. No overnight events - Objective Resuscitation Status: Resuscitation Status FULL:Full Resuscitation MAR Reviewed: Yes Vital Signs & Weight: Vital Signs (12 hours) Temp Pulse Resp BP Pulse Ox 04/22/17 08:00 98.1 F 77 16 139/75 96 04/22/17 04:00 98.8 F 82 18 128/75 98 04/21/17 23:57 97.3 F L 86 18 152/76 H 99 Weight Weight 162 lb 6.4 oz I&O: 04/21/17 04/22/17 04/23/17 06:59 06:59 06:59 Intake Total 2470 Output Total 1600 Balance 870 Result Diagrams: 04/22/17 05:02 04/22/17 05:02 EKG Reviewed by me: Yes Phys Exam - Physical Examination Constitutional: NAD HEENT: PERRLA, moist MMs, sclera anicteric Neck: no JVD, supple Respiratory: no wheezing, no rales, no rhonchi Cardiovascular: RRR, no significant murmur, no rub Gastrointestinal: soft, non-tender, no distention, positive bowel sounds Musculoskeletal: no edema, pulses present Neurological: non-focal, normal sensation Lymphatic: no nodes Psychiatric: normal affect, A&O x 3 Skin: no rash, normal turgor Dx/Plan (1) Community acquired bacterial pneumonia Code(s): J15.9 - UNSPECIFIED BACTERIAL PNEUMONIA Status: Acute (2) Anemia due to acute blood loss Code(s): D62 - ACUTE POSTHEMORRHAGIC ANEMIA Status: Acute (3) Lower GI bleed Code(s): K92.2 - GASTROINTESTINAL HEMORRHAGE, UNSPECIFIED Status: Acute (4) Rectal ulcer Code(s): K62.6 - ULCER OF ANUS AND RECTUM Status: Acute (5) Anemia of renal disease Code(s): D63.1 - ANEMIA IN CHRONIC KIDNEY DISEASE Status: Chronic (6) BPH (benign prostatic hyperplasia) Code(s): N40.0 - BENIGN PROSTATIC HYPERPLASIA WITHOUT LOWER URINRY TRACT SYMP Status: Chronic (7) Chronic hepatitis C Code(s): B18.2 - CHRONIC VIRAL HEPATITIS C Status: Chronic (8) Cirrhosis of liver Code(s): K74.60 - UNSPECIFIED CIRRHOSIS OF LIVER Status: Chronic (9) Coagulopathy Status: Chronic (10) ESRD (end stage renal disease) on dialysis Code(s): N18.6 - END STAGE RENAL DISEASE; Z99.2 - DEPENDENCE ON RENAL DIALYSIS Status: Chronic (11) GERD (gastroesophageal reflux disease) Code(s): K21.9 - GASTRO-ESOPHAGEAL REFLUX DISEASE WITHOUT ESOPHAGITIS Status: Chronic (12) Hypertension Code(s): I10 - ESSENTIAL (PRIMARY) HYPERTENSION Status: Chronic (13) Hypoalbuminemia Code(s): E88.09 - OTH DISORDERS OF PLASMA-PROTEIN METABOLISM, NEC Status: Chronic (14) Macrocytosis Code(s): D75.89 - OTHER SPECIFIED DISEASES OF BLOOD AND BLOOD-FORMING ORGANS Status: Chronic (15) Secondary hyperparathyroidism of renal origin Code(s): N25.81 - SECONDARY HYPERPARATHYROIDISM OF RENAL ORIGIN Status: Chronic - Plan cont current plan of care, continue antibiotics * monitor H & h and transfuse as needed. * HD as per nephrology * continue rocephin and azithromycin * GI following * continue clear liquid diet * selected home medication * medication reviewed as below * symptomatic treatment * will repeat labs tomorrow Review of Systems - Review of Systems Constitutional: negative: fever, chills, sweats, weakness, malaise, other Eyes: negative: Pain, Vision Change, Conjunctivae Inflammation, Eyelid Inflammation, Redness, Other ENT: negative: Ear Pain, Ear Discharge, Nose Pain, Nose Discharge, Nose Congestion, Mouth Pain, Mouth Swelling, Throat Pain, Throat Swelling, Other Respiratory: negative: Cough, Dry, Shortness of Breath, Hemoptysis, SOB with Excertion, Pleuritic Pain, Sputum, Wheezing Cardiovascular: negative: chest pain, palpitations, orthopnea, paroxysmal nocturnal dyspnea, edema, light headedness, other Gastrointestinal: negative: Nausea, Vomiting, Abdominal Pain, Diarrhea, Constipation, Melena, Hematochezia, Other Genitourinary: negative: Dysuria, Frequency, Incontinence, Hematuria, Retention , Other Musculoskeletal: negative: Neck Pain, Shoulder Pain, Arm Pain, Back Pain, Hand Pain, Leg Pain, Foot Pain, Other Skin: negative: Rash, Lesions, Seferino, Bruising, Other - Medications/Allergies Allergies/Adverse Reactions: Allergies Allergy/AdvReac Type Severity Reaction Status Date / Time No Known Allergies Allergy Verified 04/15/17 06:33 Medications: Current Medications Acetaminophen (Tylenol) 650 mg PO Q4H PRN PRN Reason: Headache/Fever or Pain Hydrocodone Bitart/Acetaminophen ([place] 5/325) 1 tab PO Q4H PRN PRN Reason: Moderate Pain (4-6) Al Hydroxide/Mg Hydroxide (Maalox) 30 ml PO Q6H PRN PRN Reason: Heartburn or Indigestion Amlodipine Besylate (Norvasc) 5 mg PO BID [facility] Last Admin: 04/22/17 10:18 Dose: 5 mg Artificial Tears (Tears Naturale) 0 drop EA EYE PRN PRN PRN Reason: Dry Eyes Cinacalcet (Sensipar) 30 mg PO QPM [facility] Last Admin: 04/22/17 00:15 Dose: Not Given Ferrous Sulfate (Feosol) 325 mg PO QAM[facility] Last Admin: 04/22/17 10:18 Dose: 325 mg Guaifenesin (Robitussin Sf) 200 mg PO Q4H PRN PRN Reason: Cough Hydralazine HCl (Apresoline) 10 mg SLOW IVP Q4H PRN PRN Reason: Systolic BP > 180 Azithromycin 500 mg/ Sodium (Chloride) 250 mls @ 250 mls/hr IVPB Q24HR [facility] Ceftriaxone Sodium 1 gm/ (Syringe 0.4 ml/ Sterile Water) 10 mls @ 120 mls/hr SLOW IVP 1000 [facility] Lisinopril (Zestril) 20 mg PO BID [facility] Last Admin: 04/22/17 10:18 Dose: 20 mg Loperamide HCl (Imodium) 2 mg PO PRN PRN PRN Reason: Diarrhea/Loose Stools Loratadine (Claritin) 10 mg PO DAILYPRN PRN PRN Reason: Sinus Symptoms Magnesium Hydroxide (Milk Of Magnesium) 30 ml PO DAILYPRN PRN PRN Reason: Constipation Metoprolol Tartrate (Lopressor) 50 mg PO BID [facility] Last Admin: 04/22/17 10:18 Dose: 50 mg Mineral Oil/White Petrolatum (Eucerin Cream) 0 gm TOP BIDPRN PRN PRN Reason: Dry Skin Nitroglycerin (Nitrostat) 0.4 mg SL Q5MIN PRN PRN Reason: Chest Pain Ondansetron HCl (Zofran Odt) 4 mg PO Q6H PRN PRN Reason: Nausea/Vomiting Ondansetron HCl (Zofran) 4 mg IVP Q6H PRN PRN Reason: Nausea/Vomiting Pantoprazole Sodium (Protonix) 40 mg PO DAILY [facility] Last Admin: 04/22/17 10:18 Dose: 40 mg Phenol (Chloraseptic [place] 180 Ml Bot) 0 ml PO PRN PRN PRN Reason: Sore Throat Senna (Senokot) 2 tab PO HSPRN PRN PRN Reason: Constipation Sodium Chloride ([place] Nasal [place] 0.65%) 0 ml EA NARE QIDPRN PRN PRN Reason: Nasal Congestion Terazosin HCl (Hytrin) 3 mg PO BID [facility] Last Admin: 04/22/17 10:17 Dose: 3 mg Vitamin B Complex/Vit C/Folic Acid (Nephro-Isabella Tablet) 1 tab PO DAILY [facility] Last Admin: 04/22/17 10:17 Dose: 1 tab Zolpidem Tartrate (Ambien) 5 mg PO HSPRN PRN PRN Reason: Insomnia
[2017-04-22] MEDS: cefTRIAXone\\ROCEPHIN 1 GM, Syringe 0.4 ML in Sterile Water 9.6 ML SLOW IVP SCH (10:23)
[2017-04-22 17:19] LABS: INR-International Normal Ratio 1.4; PTT 31.9 SEC (22.9-36.1); Prothrombin Time 17.1 SEC (12.0-14.7)
[2017-04-22] MEDS: Azithromycin 500 MG in Sodium Chloride 0.9% 250 ML 250 ML IVPB SCH (18:03)
[2017-04-23 05:46] LABS: #Eosinphils 0.2 thou/uL (0.0-0.7); #Lymphocytes 1.5 thou/uL (1.20-3.40); #Monocytes 0.7 thou/uL (0.11-0.59); #Neutrophils 3.9 thou/uL (1.40-6.50); %Basophils 0.7 % (0.0-1.0); %Eosinophils 3.1 % (0.0-10.0); %Lymphocytes 23.7 % (21.0-51.0); %Monocytes 10.3 % (0.0-10.0); %Neutrophils 62.2 % (42.0-75.0); Hemoglobin 8.8 g/dL (14.0-18.0); Mean Corpuscular HGB CONC 31.4 g/dL (32.0-36.0); Mean Corpuscular Hemoglobin 28.3 pg (27.0-31.0); Mean Corpuscular Volume 90.1 fl (80.0-94.0); Mean Platelet Volume 10.2 fL (7.4-10.4); Platelet Count 76 thou/uL (130-400); RBC Distribution Width 15.4 % (11.5-14.5); Red Blood Cell (RBC) Count 3.12 mill/uL (4.70-6.10); White Blood Cell (WBC) Count 6.3 thou/uL (4.8-10.8)
[2017-04-23 06:00] LABS: Albumin 2.8 g/dL (3.5-5.0); Anion Gap 16 mmol/L (10-20); BUN (Urea Nitrogen) 16 mg/dL (8.4-25.7); Calc. Creatinine Clearance 13 mL/min (70-130); Calcium 8.3 mg/dL (7.8-10.44); Carbon Dioxide 24 mmol/L (22-29); Chloride 100 mmol/L (98-107); Estimated GFR-MDRD 11; Glucose 71 mg/dL (70-105); Phosphorus 3.6 mg/dL (2.3-4.7); Potassium 4.1 mmol/L (3.5-5.1); Sodium 136 mmol/L (136-145)
[2017-04-23] MEDS: Metoprolol Tartrate 50 MG TAB PO SCH ×2 (08:52→20:24)
[2017-04-23] MEDS: Terazosin HCl 1 MG CAP PO SCH ×2 (08:52→20:48)
[2017-04-23] MEDS: Ferrous Sulfate 325 MG TAB PO SCH (08:52)
[2017-04-23] MEDS: Folic Acid/Vit B Comp W-C PO SCH (08:52)
[2017-04-23] MEDS: Lisinopril 20 MG TAB PO SCH ×2 (08:52→20:24)
[2017-04-23] MEDS: Amlodipine 5 MG TAB PO SCH ×2 (08:52→20:25)
--- NOTE | 2017-04-23 09:50 | PDOC.PN ---
- Subjective Encounter Start Date: 04/23/17 Encounter Start Time: 07:40 Patient seen and examined. No new complaints. No overnight events no further bleeding hunger pain - Objective Resuscitation Status: Resuscitation Status FULL:Full Resuscitation MAR Reviewed: Yes Vital Signs & Weight: Vital Signs (12 hours) Temp Pulse Resp BP Pulse Ox 04/23/17 08:52 75 04/23/17 07:43 98.8 F 75 16 168/88 H 96 04/23/17 04:00 98 F 75 14 148/75 H 98 04/22/17 23:15 92 14 164/82 H 96 Weight Weight 159 lb 4.48 oz I&O: 04/22/17 04/23/17 04/24/17 06:59 06:59 06:59 Intake Total 2470 1070 Output Total 1600 900 Balance 870 170 Result Diagrams: 04/23/17 05:17 04/23/17 05:17 EKG Reviewed by me: Yes Phys Exam - Physical Examination Constitutional: NAD HEENT: PERRLA, moist MMs, sclera anicteric Neck: no JVD, supple Respiratory: no wheezing, no rales, no rhonchi Cardiovascular: RRR, no significant murmur, no rub Gastrointestinal: soft, non-tender, no distention, positive bowel sounds Musculoskeletal: no edema, pulses present Neurological: non-focal, normal sensation, moves all 4 limbs Psychiatric: normal affect, A&O x 3 Skin: no rash, normal turgor Dx/Plan (1) Community acquired bacterial pneumonia Code(s): J15.9 - UNSPECIFIED BACTERIAL PNEUMONIA Status: Acute (2) Anemia due to acute blood loss Code(s): D62 - ACUTE POSTHEMORRHAGIC ANEMIA Status: Acute (3) Lower GI bleed Code(s): K92.2 - GASTROINTESTINAL HEMORRHAGE, UNSPECIFIED Status: Acute (4) Rectal ulcer Code(s): K62.6 - ULCER OF ANUS AND RECTUM Status: Acute (5) Anemia of renal disease Code(s): D63.1 - ANEMIA IN CHRONIC KIDNEY DISEASE Status: Chronic (6) BPH (benign prostatic hyperplasia) Code(s): N40.0 - BENIGN PROSTATIC HYPERPLASIA WITHOUT LOWER URINRY TRACT SYMP Status: Chronic (7) Chronic hepatitis C Code(s): B18.2 - CHRONIC VIRAL HEPATITIS C Status: Chronic (8) Cirrhosis of liver Code(s): K74.60 - UNSPECIFIED CIRRHOSIS OF LIVER Status: Chronic (9) Coagulopathy Status: Chronic (10) ESRD (end stage renal disease) on dialysis Code(s): N18.6 - END STAGE RENAL DISEASE; Z99.2 - DEPENDENCE ON RENAL DIALYSIS Status: Chronic (11) GERD (gastroesophageal reflux disease) Code(s): K21.9 - GASTRO-ESOPHAGEAL REFLUX DISEASE WITHOUT ESOPHAGITIS Status: Chronic (12) Hypertension Code(s): I10 - ESSENTIAL (PRIMARY) HYPERTENSION Status: Chronic (13) Hypoalbuminemia Code(s): E88.09 - OTH DISORDERS OF PLASMA-PROTEIN METABOLISM, NEC Status: Chronic (14) Macrocytosis Code(s): D75.89 - OTHER SPECIFIED DISEASES OF BLOOD AND BLOOD-FORMING ORGANS Status: Chronic (15) Secondary hyperparathyroidism of renal origin Code(s): N25.81 - SECONDARY HYPERPARATHYROIDISM OF RENAL ORIGIN Status: Chronic - Plan cont current plan of care, continue antibiotics * continue antibiotics for pneumonia * DC tele * transfer to medical * start renal diet * monitor one more day * medication reviewed as below * symptomatic treatment. Review of Systems - Review of Systems Eyes: negative: Pain, Vision Change, Conjunctivae Inflammation, Eyelid Inflammation, Redness, Other ENT: negative: Ear Pain, Ear Discharge, Nose Pain, Nose Discharge, Nose Congestion, Mouth Pain, Mouth Swelling, Throat Pain, Throat Swelling, Other Respiratory: negative: Cough, Dry, Shortness of Breath, Hemoptysis, SOB with Excertion, Pleuritic Pain, Sputum, Wheezing Cardiovascular: negative: chest pain, palpitations, orthopnea, paroxysmal nocturnal dyspnea, edema, light headedness, other Gastrointestinal: negative: Nausea, Vomiting, Abdominal Pain, Diarrhea, Constipation, Melena, Hematochezia, Other Genitourinary: negative: Dysuria, Frequency, Incontinence, Hematuria, Retention , Other Musculoskeletal: negative: Neck Pain, Shoulder Pain, Arm Pain, Back Pain, Hand Pain, Leg Pain, Foot Pain, Other Skin: negative: Rash, Lesions, Seferino, Bruising, Other - Medications/Allergies Allergies/Adverse Reactions: Allergies Allergy/AdvReac Type Severity Reaction Status Date / Time No Known Allergies Allergy Verified 04/15/17 06:33 Medications: Current Medications Acetaminophen (Tylenol) 650 mg PO Q4H PRN PRN Reason: Headache/Fever or Pain Hydrocodone Bitart/Acetaminophen ([place] 5/325) 1 tab PO Q4H PRN PRN Reason: Moderate Pain (4-6) Al Hydroxide/Mg Hydroxide (Maalox) 30 ml PO Q6H PRN PRN Reason: Heartburn or Indigestion Amlodipine Besylate (Norvasc) 5 mg PO BID [facility] Last Admin: 04/23/17 08:52 Dose: 5 mg Artificial Tears (Tears Naturale) 0 drop EA EYE PRN PRN PRN Reason: Dry Eyes Cinacalcet (Sensipar) 30 mg PO QPM [facility] Last Admin: 04/22/17 21:34 Dose: 30 mg Ferrous Sulfate (Feosol) 325 mg PO QAM-[facility] Last Admin: 04/23/17 08:52 Dose: 325 mg Guaifenesin (Robitussin Sf) 200 mg PO Q4H PRN PRN Reason: Cough Hydralazine HCl (Apresoline) 10 mg SLOW IVP Q4H PRN PRN Reason: Systolic BP > 180 Azithromycin 500 mg/ Sodium (Chloride) 250 mls @ 250 mls/hr IVPB Q24HR [facility] Last Admin: 04/22/17 18:03 Dose: 250 mls Ceftriaxone Sodium 1 gm/ (Syringe 0.4 ml/ Sterile Water) 10 mls @ 120 mls/hr SLOW IVP 1000 [facility] Last Admin: 04/22/17 10:23 Dose: 10 mls Lisinopril (Zestril) 20 mg PO BID [facility] Last Admin: 04/23/17 08:52 Dose: 20 mg Loperamide HCl (Imodium) 2 mg PO PRN PRN PRN Reason: Diarrhea/Loose Stools Loratadine (Claritin) 10 mg PO DAILYPRN PRN PRN Reason: Sinus Symptoms Magnesium Hydroxide (Milk Of Magnesium) 30 ml PO DAILYPRN PRN PRN Reason: Constipation Last Admin: 04/23/17 08:53 Dose: 30 ml Metoprolol Tartrate (Lopressor) 50 mg PO BID [facility] Last Admin: 04/23/17 08:52 Dose: 50 mg Mineral Oil/White Petrolatum (Eucerin Cream) 0 gm TOP BIDPRN PRN PRN Reason: Dry Skin Nitroglycerin (Nitrostat) 0.4 mg SL Q5MIN PRN PRN Reason: Chest Pain Ondansetron HCl (Zofran Odt) 4 mg PO Q6H PRN PRN Reason: Nausea/Vomiting Ondansetron HCl (Zofran) 4 mg IVP Q6H PRN PRN Reason: Nausea/Vomiting Pantoprazole Sodium (Protonix) 40 mg PO DAILY [facility] Last Admin: 04/23/17 08:52 Dose: 40 mg Phenol (Chloraseptic [place] 180 Ml Bot) 0 ml PO PRN PRN PRN Reason: Sore Throat Senna (Senokot) 2 tab PO HSPRN PRN PRN Reason: Constipation Sodium Chloride ([place] Nasal [place] 0.65%) 0 ml EA NARE QIDPRN PRN PRN Reason: Nasal Congestion Terazosin HCl (Hytrin) 3 mg PO BID [facility] Last Admin: 04/23/17 08:52 Dose: 3 mg Vitamin B Complex/Vit C/Folic Acid (Nephro-Isabella Tablet) 1 tab PO DAILY [facility] Last Admin: 04/23/17 08:52 Dose: 1 tab Zolpidem Tartrate (Ambien) 5 mg PO HSPRN PRN PRN Reason: Insomnia
[2017-04-23] MEDS: cefTRIAXone\\ROCEPHIN 1 GM, Syringe 0.4 ML in Sterile Water 9.6 ML SLOW IVP SCH (10:41)
[2017-04-23] MEDS: Azithromycin 500 MG in Sodium Chloride 0.9% 250 ML 250 ML IVPB SCH (13:20)
[2017-04-23 17:58] VITALS: BMI 18.8
[2017-04-23] MEDS: Cinacalcet HCl 30 MG TAB PO SCH (20:24)
--- NOTE | 2017-04-23 22:47 | PRG ---
DATE OF SERVICE: 04/23/2017 SUBJECTIVE: This is a 61-year-old -[place] male hospitalized 2 days ago with hematochezia an d abdominal cramping. He underwent a sigmoidoscopy and was found to have also the rectal vault with the stool as well. This was cauterized and also had a Hemoclip placement. Over the last 36 ho urs, he did very well. He states he has multiple loose stools and the stools are actually greenish a nd not bloody. Blood count is stable. He has abdominal pain, no nausea or vomiting. The CBC done t taylor shows hemoglobin 8.8, hematocrit 28.1, platelet count is 76,000. PHYSICAL EXAMINATION: GENERAL: He appears comfortable. VITAL SIGNS: Afebrile. Pulse is 76, blood pressure 168/84. HEENT: Conjunctivae clear. CARDIOVASCULAR AND LUNGS: Within normal limits. ABDOMEN: Soft to palpate. No organomegaly. No tenderness. No masses. RECOMMENDATIONS: 1. Advance diet to renal diet. 2. Follow up H&H. If he has no recurrence of bleeding, hopefully he can be discharged home tomorrow .
--- NOTE | 2017-04-24 10:48 | PDOC.PN ---
- Subjective Encounter Start Date: 04/24/17 Encounter Start Time: 09:40 Patient seen and examined. No new complaints. No overnight events - Objective Resuscitation Status: Resuscitation Status FULL:Full Resuscitation MAR Reviewed: Yes Vital Signs & Weight: Vital Signs (12 hours) Temp Pulse Resp BP Pulse Ox 04/24/17 07:43 98.1 F 73 18 160/76 H 99 04/24/17 07:20 98.1 F 73 18 99 04/24/17 05:00 98 F 73 18 158/82 H 100 04/24/17 00:50 97.7 F 70 16 140/67 97 04/24/17 00:00 97.7 F 70 16 140/67 97 Weight Weight 143 lb 11.2 oz I&O: 04/23/17 04/24/17 04/25/17 06:59 06:59 06:59 Intake Total 1070 310 Output Total 900 Balance 170 310 Result Diagrams: 04/23/17 05:17 04/23/17 05:17 Phys Exam - Physical Examination Constitutional: NAD HEENT: PERRLA, moist MMs, sclera anicteric Neck: no JVD, supple Respiratory: no wheezing, no rales, no rhonchi Cardiovascular: RRR, no significant murmur, no rub Gastrointestinal: soft, non-tender, no distention, positive bowel sounds Musculoskeletal: no edema, pulses present Neurological: non-focal, normal sensation Lymphatic: no nodes Psychiatric: normal affect Skin: no rash, normal turgor Dx/Plan (1) Community acquired bacterial pneumonia Code(s): J15.9 - UNSPECIFIED BACTERIAL PNEUMONIA Status: Acute (2) Anemia due to acute blood loss Code(s): D62 - ACUTE POSTHEMORRHAGIC ANEMIA Status: Acute (3) Lower GI bleed Code(s): K92.2 - GASTROINTESTINAL HEMORRHAGE, UNSPECIFIED Status: Acute (4) Rectal ulcer Code(s): K62.6 - ULCER OF ANUS AND RECTUM Status: Acute (5) Anemia of renal disease Code(s): D63.1 - ANEMIA IN CHRONIC KIDNEY DISEASE Status: Chronic (6) BPH (benign prostatic hyperplasia) Code(s): N40.0 - BENIGN PROSTATIC HYPERPLASIA WITHOUT LOWER URINRY TRACT SYMP Status: Chronic (7) Chronic hepatitis C Code(s): B18.2 - CHRONIC VIRAL HEPATITIS C Status: Chronic (8) Cirrhosis of liver Code(s): K74.60 - UNSPECIFIED CIRRHOSIS OF LIVER Status: Chronic (9) Coagulopathy Status: Chronic (10) ESRD (end stage renal disease) on dialysis Code(s): N18.6 - END STAGE RENAL DISEASE; Z99.2 - DEPENDENCE ON RENAL DIALYSIS Status: Chronic (11) GERD (gastroesophageal reflux disease) Code(s): K21.9 - GASTRO-ESOPHAGEAL REFLUX DISEASE WITHOUT ESOPHAGITIS Status: Chronic (12) Hypertension Code(s): I10 - ESSENTIAL (PRIMARY) HYPERTENSION Status: Chronic (13) Hypoalbuminemia Code(s): E88.09 - OTH DISORDERS OF PLASMA-PROTEIN METABOLISM, NEC Status: Chronic (14) Macrocytosis Code(s): D75.89 - OTHER SPECIFIED DISEASES OF BLOOD AND BLOOD-FORMING ORGANS Status: Chronic (15) Secondary hyperparathyroidism of renal origin Code(s): N25.81 - SECONDARY HYPERPARATHYROIDISM OF RENAL ORIGIN Status: Chronic - Plan cont current plan of care, continue antibiotics * medication reviewed as below * symptomatic treatment * see discharge crow. Review of Systems - Review of Systems ENT: negative: Ear Pain, Ear Discharge, Nose Pain, Nose Discharge, Nose Congestion, Mouth Pain, Mouth Swelling, Throat Pain, Throat Swelling, Other Respiratory: negative: Cough, Dry, Shortness of Breath, Hemoptysis, SOB with Excertion, Pleuritic Pain, Sputum, Wheezing Cardiovascular: negative: chest pain, palpitations, orthopnea, paroxysmal nocturnal dyspnea, edema, light headedness, other Gastrointestinal: negative: Nausea, Vomiting, Abdominal Pain, Diarrhea, Constipation, Melena, Hematochezia, Other Genitourinary: negative: Dysuria, Frequency, Incontinence, Hematuria, Retention , Other Musculoskeletal: negative: Neck Pain, Shoulder Pain, Arm Pain, Back Pain, Hand Pain, Leg Pain, Foot Pain, Other Skin: negative: Rash, Lesions, Seferino, Bruising, Other - Medications/Allergies Allergies/Adverse Reactions: Allergies Allergy/AdvReac Type Severity Reaction Status Date / Time No Known Allergies Allergy Verified 04/15/17 06:33 Medications: Current Medications Acetaminophen (Tylenol) 650 mg PO Q4H PRN PRN Reason: Headache/Fever or Pain Hydrocodone Bitart/Acetaminophen ([place] 5/325) 1 tab PO Q4H PRN PRN Reason: Moderate Pain (4-6) Al Hydroxide/Mg Hydroxide (Maalox) 30 ml PO Q6H PRN PRN Reason: Heartburn or Indigestion Amlodipine Besylate (Norvasc) 5 mg PO BID [facility] Last Admin: 04/23/17 20:25 Dose: 5 mg Artificial Tears (Tears Naturale) 0 drop EA EYE PRN PRN PRN Reason: Dry Eyes Cinacalcet (Sensipar) 30 mg PO QPM [facility] Last Admin: 04/23/17 20:24 Dose: 30 mg Ferrous Sulfate (Feosol) 325 mg PO QAM-WM [facility] Last Admin: 04/23/17 08:52 Dose: 325 mg Guaifenesin (Robitussin Sf) 200 mg PO Q4H PRN PRN Reason: Cough Hydralazine HCl (Apresoline) 10 mg SLOW IVP Q4H PRN PRN Reason: Systolic BP > 180 Azithromycin 500 mg/ Sodium (Chloride) 250 mls @ 250 mls/hr IVPB Q24HR [facility] Last Admin: 04/23/17 13:20 Dose: 250 mls Ceftriaxone Sodium 1 gm/ (Syringe 0.4 ml/ Sterile Water) 10 mls @ 120 mls/hr SLOW IVP 1000 [facility] Last Admin: 04/23/17 10:41 Dose: 10 mls Lisinopril (Zestril) 20 mg PO BID [facility] Last Admin: 04/23/17 20:24 Dose: 20 mg Loperamide HCl (Imodium) 2 mg PO PRN PRN PRN Reason: Diarrhea/Loose Stools Loratadine (Claritin) 10 mg PO DAILYPRN PRN PRN Reason: Sinus Symptoms Magnesium Hydroxide (Milk Of Magnesium) 30 ml PO DAILYPRN PRN PRN Reason: Constipation Last Admin: 04/23/17 08:53 Dose: 30 ml Metoprolol Tartrate (Lopressor) 50 mg PO BID [facility] Last Admin: 04/23/17 20:24 Dose: 50 mg Mineral Oil/White Petrolatum (Eucerin Cream) 0 gm TOP BIDPRN PRN PRN Reason: Dry Skin Nitroglycerin (Nitrostat) 0.4 mg SL Q5MIN PRN PRN Reason: Chest Pain Ondansetron HCl (Zofran Odt) 4 mg PO Q6H PRN PRN Reason: Nausea/Vomiting Ondansetron HCl (Zofran) 4 mg IVP Q6H PRN PRN Reason: Nausea/Vomiting Pantoprazole Sodium (Protonix) 40 mg PO DAILY [facility] Last Admin: 04/23/17 08:52 Dose: 40 mg Phenol (Chloraseptic [place] 180 Ml Bot) 0 ml PO PRN PRN PRN Reason: Sore Throat Senna (Senokot) 2 tab PO HSPRN PRN PRN Reason: Constipation Sodium Chloride ([place] Nasal [place] 0.65%) 0 ml EA NARE QIDPRN PRN PRN Reason: Nasal Congestion Terazosin HCl (Hytrin) 3 mg PO BID [facility] Last Admin: 04/23/17 20:48 Dose: 3 mg Vitamin B Complex/Vit C/Folic Acid (Nephro-Isabella Tablet) 1 tab PO DAILY [facility] Last Admin: 04/23/17 08:52 Dose: 1 tab Zolpidem Tartrate (Ambien) 5 mg PO HSPRN PRN PRN Reason: Insomnia
--- NOTE | 2017-04-24 11:56 | DIS ---
DATE OF ADMISSION: 04/21/2017 DATE OF DISCHARGE: 04/24/2017 PRIMARY CARE PROVIDER: Selina Herring M.D. DISCHARGE DISPOSITION: Home. PRIMARY DISCHARGE DIAGNOSES: 1. Lower gastrointestinal bleed due to rectal ulcer. 2. Anemia due to acute blood loss, status post 4 units transfusion. 3. Community-acquired pneumonia. 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 PRIMARY PROCEDURES/OPERATIONS: Colonoscopy by Dr. Gant. The patient had epinephrine injection and heater probe therapy was done. RADIOLOGICAL INVESTIGATION: Chest x-ray was normal. Abdomen and pelvis CT scan showed hemorrhagic f luid within the distal colon, cystic mass in the rectum, chronic renal failure, bilateral renal cysts , nephrolithiasis, splenomegaly, renal osteodystrophy, lumbar spondylosis and extensive calcification of the hepatic and splenic capsule. SIGNIFICANT LABORATORY DATA: WBC 6.3, hemoglobin 8.8 and platelet 276. INR 1.4. Sodium 136, potass ium 4.1, BUN 16, creatinine 6.40 and calcium 8.3. LFT normal. Cardiac enzymes negative. Stool for guaiac positive. DISCHARGE MEDICATIONS: Amlodipine 5 mg p.o. b.i.d., Omnicef 300 mg p.o. daily for 7 days for pneumon ia, Sensipar 1 tablet p.o. daily, ferrous sulfate 325 mg p.o. daily, Nephro-Isabella 1 tablet p.o. daily, lisinopril 20 mg p.o. b.i.d., metoprolol 50 mg p.o. b.i.d., omeprazole 40 mg p.o. daily and Hytrin 3 mg p.o. b.i.d. CONTRAINDICATIONS: None. CODE STATUS: FULL CODE. INPATIENT SECURITIES TRADER: Dr. Gant was following while in hospital. TEST RESULTS PENDING ON DISCHARGE: None. ALLERGIES: No known drug allergy. DISCHARGE PLAN: Post hospital, the patient is advised to follow up with primary care physician in [address] Gant as instructed. HOSPITAL COURSE: A 61-year-old male who is suffering from chronic abdominal symptoms and that is why he had upper endoscopy and subsequently colonoscopy was performed and biopsy was taken from the rect um. The patient had a post colonoscopy bleeding that required epinephrine injection and he did not h ave any further problem up until this admission. He had again similar problem with lower GI bleed an d he was brought to the ER. In the emergency room, his hemoglobin this time was 6.2. He was given t otal of 4 units of blood transfusion and then his hemoglobin is 8.8. During this admission, Dr. Twan mendez did a colonoscopy and epinephrine injection was given over the rectal ulcer with visible vessel and heater probe therapy was performed and Hemoclip was applied. Subsequently, this patient did not have any further bleeding. At this point, if this patient recurrently gets bleeding, then in that case, the patient will need tr ansfer to other hospital as this patient may need IR-guided procedure, which is not done in our [facility]ospi [facility]. This patient may need angiogram and embolization of artery in case of recurrent bleeding. At t his point, the patient does not have any further bleeding in our hospital since couple of days and hi s hemoglobin and hematocrit also remained stable and improving. The patient is also tolerating his d iet. The rest of medication was continued as per previous. During this admission, the patient also had pneumonia based on chest x-ray and that is why we treated him with Rocephin and azithromycin. On discharge, we changed to Omnicef for 7 more days. While in hospital, he remained hemodynamically st able, afebrile, tolerating p.o. well. The patient is seen and examined at bedside today. Please see my progress note from today for furthe r details.
[2017-04-24 12:08] VITALS: BP 157/79; TEMP 97.7
[2017-04-24] MEDS: Lisinopril 20 MG TAB PO SCH (12:09)
[2017-04-24] MEDS: Metoprolol Tartrate 50 MG TAB PO SCH (12:09)
[2017-04-24] MEDS: Folic Acid/Vit B Comp W-C PO SCH (12:09)
[2017-04-24] MEDS: Ferrous Sulfate 325 MG TAB PO SCH (12:09)
[2017-04-24] MEDS: Amlodipine 5 MG TAB PO SCH (12:09)
[2017-04-24] MEDS: Terazosin HCl 1 MG CAP PO SCH (12:10)
[2017-04-24] MEDS: cefTRIAXone\\ROCEPHIN 1 GM, Syringe 0.4 ML in Sterile Water 9.6 ML SLOW IVP SCH (12:15)
[2017-04-24] MEDS: Azithromycin 500 MG in Sodium Chloride 0.9% 250 ML 250 ML IVPB SCH (12:16)
--- NOTE | 2017-04-27 12:50 | PQF ---
ISAIAH COLON, FRANCISCO HUNTER MD [id number] [facility]-[id number] CLINICAL DOCUMENTATION CLARIFICATION FORM: POST DISCHARGE Addendum to original discharge summary date: 04/24/2017 DATE: 04/27/2017 ATTN: Dr. Rabago Please exercise your independent, professional judgment in responding to the clarification form. Clinical indicators are provided on the bottom of this form for your review Please check appropriate box(s): Please specify the cause of patient's acute lower gastrointestinal bleed as: [ x ] Due to rectal ulcer at previous biopsy site [ ] Due to rectal ulcer not due to previous biopsy [ ] Other (please specify) [ ] Unable to determine In addition, please specify: Present on Admission (POA): [x ] Yes [ ] No [ ] Unable to determine For continuity of documentation, please document condition throughout progress notes and discharge summary. Thank You. CLINICAL INDICATORS - SIGNS / SYMPTOMS / LABS (per H&P) Bloody bowel movements. Intermittent crampy abdominal pain. Dizziness/weakness. Per 04/21 consultation: Acute hematochezia/rectal bleeding, most likely from the previous biopsy site. Per discharge summary: Lower gastrointestinal bleed due to rectal ulcer. RISK FACTORS (per H&P) Status post rectal biopsy 04/14/17. Finding of rectal ulcer on colonoscopy. TREATMENTS: (per operative report) Epinephrine injection of visible vessel in the rectum with 10-[place] heater probe therapy and two hemoclips placed on 04/21. . (This form is maintained as a part of the permanent medical record) 2014 [employer]. All Rights Reserved Adrienne [email or web address] [phone] MTDD
== END 2017-04-24 13:41 | disposition home or self-care (01) | DRG 919 ==
LOC: ERS 08:16 → ERHOLD 10:19 → 2NO 13:56 → T4-B 04-23 16:04 → 2NO 04-23 16:34 → T4-B 04-23 17:23
PROVIDERS: ADMIT Internal Medicine; ATTEND Internal Medicine
PROC: 0W3P8ZZ Control Bleeding in Gastrointestinal Tract, Via Natural or Artificial Opening Endoscopic (ICD-10-PCS; principal; 2017-04-21)
PROC: 30233N1 Transfusion of Nonautologous Red Blood Cells into Peripheral Vein, Percutaneous Approach (ICD-10-PCS; 2017-04-21)
PROC: 5A1D70Z Performance of Urinary Filtration, Intermittent, Less than 6 Hours Per Day (ICD-10-PCS; 2017-04-22)
PROC: 5A1D70Z Performance of Urinary Filtration, Intermittent, Less than 6 Hours Per Day (ICD-10-PCS; 2017-04-24)
DX: K91.840 Postprocedural hemorrhage of a digestive system organ or structure following a digestive system procedure (principal); J18.9 Pneumonia, unspecified organism; N18.6 End stage renal disease; D68.4 Acquired coagulation factor deficiency; E87.2 Acidosis; I12.0 Hypertensive chronic kidney disease with stage 5 chronic kidney disease or end stage renal disease; K62.6 Ulcer of anus and rectum; E88.09 Other disorders of plasma-protein metabolism, not elsewhere classified; K76.6 Portal hypertension; D62 Acute posthemorrhagic anemia; N25.81 Secondary hyperparathyroidism of renal origin; K74.60 Unspecified cirrhosis of liver; Z99.2 Dependence on renal dialysis; K21.9 Gastro-esophageal reflux disease without esophagitis; N40.0 Benign prostatic hyperplasia without lower urinary tract symptoms; F17.210 Nicotine dependence, cigarettes, uncomplicated; D75.89 Other specified diseases of blood and blood-forming organs; D63.1 Anemia in chronic kidney disease; Z79.899 Other long term (current) drug therapy; Y84.8 Other medical procedures as the cause of abnormal reaction of the patient, or of later complication, without mention of misadventure at the time of the procedure
CPT/HCPCS: 36415; 36430; 71045; 74177; 80053; 80069; 82274; 82553; 83605; 83690; 84484; 85025; 85610; 85730; 86850; 86900; 86901; 90935; 93005; 96361; 96365; 96367; A4216; G0257; J0171; J0456; J0696; J2001; J7050; P9016; Q4081

== ENCOUNTER 2017-05-03 08:45 | Inpatient (IN) | payer MEDICARE, OTHER ==
[2017-05-03 09:49] LABS: #Basophils 0.1 thou/uL (0.0-0.2); #Eosinphils 0.2 thou/uL (0.0-0.7); #Lymphocytes 1.3 thou/uL (1.20-3.40); #Monocytes 0.7 thou/uL (0.11-0.59); #Neutrophils 3.8 thou/uL (1.40-6.50); %Eosinophils 2.7 % (0.0-10.0); %Lymphocytes 21.7 % (21.0-51.0); %Monocytes 11.7 % (0.0-10.0); Mean Corpuscular HGB CONC 32.2 g/dL (32.0-36.0); Mean Corpuscular Hemoglobin 29.5 pg (27.0-31.0); Mean Corpuscular Volume 91.6 fl (80.0-94.0); Mean Platelet Volume 9.5 fL (7.4-10.4); Platelet Count 107 thou/uL (130-400); RBC Distribution Width 15.7 % (11.5-14.5); Red Blood Cell (RBC) Count 2.73 mill/uL (4.70-6.10); White Blood Cell (WBC) Count 6.1 thou/uL (4.8-10.8)
[2017-05-03 09:54] LABS: INR-International Normal Ratio 1.4; PTT 36.2 SEC (22.9-36.1); Prothrombin Time 17.4 SEC (12.0-14.7)
[2017-05-03 10:08] LABS: ALT (SGPT) 8 U/L (8-55); AST (SGOT) 24 U/L (5-34); Albumin 3.1 g/dL (3.5-5.0); Alkaline Phosphatase 110 U/L (40-150); Anion Gap 15 mmol/L (10-20); BUN (Urea Nitrogen) 28 mg/dL (8.4-25.7); Bilirubin, Total 0.4 mg/dL (0.2-1.2); Calc. Creatinine Clearance 0 mL/min (70-130); Calcium 9.3 mg/dL (7.8-10.44); Carbon Dioxide 31 mmol/L (22-29); Chloride 96 mmol/L (98-107); Estimated GFR-MDRD 9; Globulin 3.4 g/dL (2.4-3.5); Glucose 131 mg/dL (70-105); Protein, Total 6.5 g/dL (6.0-8.3); Sodium 138 mmol/L (136-145)
[2017-05-03 10:27] LABS: CKMB 1.7 ng/mL (0-6.6)
[2017-05-03 10:51] LABS: D-Dimer Test 1.81 *mcg/mL (0.27-0.43)
[2017-05-03] MEDS ORDERED: Iopamidol 370 76% 50 ML VIAL FS ONE (13:57)
--- NOTE | 2017-05-03 14:11 | RAD ---
AP VIEW CHEST: HISTORY: Rectal bleeding, abdominal pain onset, dizziness. FINDINGS: AP view chest was obtained on 05/03/17. Comparison is made to previous exam from 04/21/17. AP view chest demonstrates the lungs to be well aerated. No evidence of active intrathoracic disease is seen. There is a left subclavian endovascular stent in place. No evidence of effusions, pneumonia, or pneumothorax seen. IMPRESSION: Unremarkable AP view chest. POS: [facility]
--- NOTE | 2017-05-03 14:29 | CT ---
NONCONTRAST ENHANCED CT IMAGES OF THE ABDOMEN AND PELVIS: History: 61-year-old with rectal bleeding. The patient is on dialysis. Technique: Noncontrast enhanced CT images of the abdomen and pelvis obtained after administration of oral contrast. FINDINGS: Images demonstrate intraperitoneal calcification compatible with possible previous infection. The nicol g bases are unremarkable. No evidence of free intraperitoneal air is seen at this time. Evaluation of the solid organs is less than optimal as IV contrast was not given. There is some enlargement of the left cardiac lateral ventricle. Splenomegaly. No definite evidence of hepatic parenchymal lesions seen. The pancreas is unremarkable. The gallbladder has been surgically removed. Both kidneys are atrophied with some cystic changes see n. No evidence of periaortic lymphadenopathy is seen. Atherosclerotic calcification of the abdominal aorta and iliac arteries seen. No dilated loops of small bowel seen. The colon is not significantly d istended but colonic pathology cannot be excluded on CT, correlate with direct visualization if this is of concern. IMPRESSION: 1. No evidence of free intraperitoneal air. 2. Predominate upper peritoneal calcifications possibly due to previous infection or inflammatory pro cess. Correlate with clinical history. These calcifications appear to have been previous on the patie nt's previous CT in May 2016. POS: [facility]
[2017-05-03] MEDS ORDERED: Ondansetron HCl/PF 4 MG/2 ML Vial IVP PRN (15:30)
[2017-05-03] MEDS ORDERED: Ondansetron ODT 4 MG TAB PO PRN (15:30)
--- NOTE | 2017-05-03 17:33 | HP ---
PRIMARY CARE PHYSICIAN: Selina Herring M.D. PRESENTING COMPLAINT: Bright red blood per rectum. HISTORY OF PRESENT ILLNESS: A 61-year-old male with a history of end-stage renal disease, on hemodia lysis; rectal ulcer; thrombocytopenia; chronic hepatitis C; liver cirrhosis; with portal hypertension ; hypertension; and anemia of chronic inflammation; who presents to the emergency room with complaint s of passing bright red blood per rectum. This started yesterday where he had 1 episode and the seco nd episode today and then again in the emergency room. He had a polypectomy from his colon removed a bout 2 weeks ago, on colonoscopy had revealed a rectal ulcer. He has had 2 failed attempts at clippi ng and cauterization by Gastroenterology. His incident episode is associated with dizziness. He den ies abdominal pain, reports rectal pain, sharp, 5/10, does not radiate. He has no other complaints. PAST MEDICAL HISTORY: As stated in the HPI. PAST SURGICAL HISTORY: Appendectomy, cholecystectomy, left knee surgery. PSYCHIATRIC HISTORY: None. SOCIAL HISTORY: He smokes cigarettes, half a pack a day. He does not drink alcohol or use illicit d rugs. FAMILY HISTORY: Reviewed. Noncontributory. No family history of premature CAD, stroke, cancers, or early . ALLERGIES: None. HOME MEDICATIONS: Omnicef 300 mg daily, cinacalcet 1 tablet q.p.m., ferrous sulfate 325 mg q.a.m., f olic acid/vitamin B complex 1 tablet daily, omeprazole 40 mg q.a.m., terazosin 3 mg b.i.d., amlodipin e 5 mg b.i.d., lisinopril 20 mg b.i.d., metoprolol tartrate 50 mg b.i.d. ALLERGIES: None. REVIEW OF SYSTEMS: Constitutional: Denies fevers, chills, malaise. HEENT: Negative. Cardiovascul ar: Negative. Respiratory: Negative. GI: Per HPI. No nausea or vomiting. Genitourinary: No dy suria, hematuria, urgency, frequency. Musculoskeletal: Negative. Skin: Negative. Neurological: Positive for dizziness. No headaches or other neurological symptoms . Hematologic/Lymphatic: Negative. Allergy/Immunology: Negative. Psychiatric: Negative. PHYSICAL EXAMINATION: VITAL SIGNS: Blood pressure 118/69; pulse 103 on arrival, but improved to 75; respiratory rate 17; o xygen saturation 100% on room air; temperature 97.4 degree Fahrenheit. GENERAL: Not in acute distress, sitting comfortably in a wheelchair. HEENT: Normocephalic, atraumatic, pale conjunctivae, anicteric, PERRLA, EOMI. NECK: Supple, full range of movements. RESPIRATORY: Vesicular breath sounds bilaterally. No wheezes, rales, or rhonchi. CARDIOVASCULAR: S1 and S2, only with regular rate and rhythm. No murmurs, rubs, or gallops. ABDOMEN: Soft, nontender, nondistended. Bowel sounds positive. No hepatosplenomegaly. MUSCULOSKELETAL: No skeletal abnormalities. NEUROLOGIC: Alert and well oriented to time, place, and person. No focal deficits. SKIN: Warm, dry, well-perfused. PSYCHIATRIC: Normal mood and affect. LABORATORY DATA: Important labs include hemoglobin of 8.0 with hematocrit of 25, platelet count of 1 07. Serum chemistry showed elevated BUN/creatinine of 28/7.62, glucose of 131. BNP of 1005. Initia l troponin 0.020. EKG: Chest x-ray, this showed unremarkable image. CT abdomen/pelvis showed no ev idence of free intraperitoneal air. There were predominate upper peritoneal calcification possibly d ue to previous infection or inflammatory process. ASSESSMENT AND PLAN: 1. Bright red blood per rectum. This is likely from patient's previous rectal ulcers as seen on his colonoscopy. Previous clipping and cauterization attempts have failed by Gastroenterology. He has been scheduled for a tagged red blood cell study. We will also consult General Surgery for further m anagement. For now, we will keep n.p.o. Type and screen at least 2 units of PRBC, trend hemoglobin, and transfuse for hemoglobin less than 7. Monitor vital signs closely. 2. Thrombocytopenia. This seems to be chronic and could be due to his underlying cirrhosis. No sig ns of acute bleeding. We will avoid heparin products and place on sequential compression devices. 3. End-stage renal disease, patient on hemodialysis. We will consult Nephrology and patient will be dialyzed while in the hospital. 4. Hypertension. Patient takes amlodipine, lisinopril, and metoprolol. Due to his gastrointestinal bleed, we will hold medications. 5. Gastroesophageal reflux disease. We will continue the patient on Protonix p.o. when able to take orally. 6. Coagulopathy due to liver disease. No signs of active bleeding. We will monitor. 7. Cirrhosis of liver with portal hypertension. This is secondary to chronic hepatitis C. We will monitor. 8. Anemia of chronic inflammation. We will monitor vital signs. Patient has ongoing gastrointestin al bleed.
--- NOTE | 2017-05-03 17:57 | CON ---
DATE OF CONSULTATION: 05/03/2017 HISTORY OF PRESENT ILLNESS: The patient is a 61-year-old -[place] gentleman who was in yvonne state of health until this morning when he passed a large amount of blood per rectum. He did not h ave any abdominal pain, no nausea or vomiting. He has had no recent weight loss. He was seen by Dr. Gant in 04/2016 and underwent EGD and colonoscopy for passing some dark stools. EGD revealed g rade I esophageal varix and nonbleeding gastric AV. Colonoscopy was also performed and was normal ex cept for hemorrhoids. The patient was seen by Dr. Gant in February of this year and the patient underwent an EGD for abdominal pain. Upper endoscopy in February showed 2+ to 3+ esophageal varices. No other abnormalities were noted. There were two also gastric AVMs which were oozing and those wer e treated with a Citizen [place] BiCap probe. On 04/14/2017, patient underwent a colonoscopy which showed chad e hyperemic and edematous rectal wall and this was biopsied. Histopathology of the biopsy showed unr emarkable colonic mucosa. On 04/14/2017, the patient returned from active bleeding from the biopsy s ite and these were appeared to be clotted off, one was treated with 1:10,000 epinephrine injection an d A 10-Citizen [place] BiCap electrocautery probe was also instituted. On 04/21/2017, the patient underwent a colonoscopy. Two ulcerations were noted in the rectal vault. Both ulcerations showed visible vesse l. This ulceration was injected with epinephrine and Hemoclips were placed. [facility]. He has had passed some large amount of blood and clots going approxi mately 5 times. PAST MEDICAL HISTORY: Includes end-stage renal disease on hemodialysis, chronic hepatitis C, cirrhos is, portal hypertension, esophageal varices. PAST MEDICAL HISTORY: Includes appendectomy, cholecystectomy, dialysis shunt placement, left knee santo rgery, previous endoscopies as mentioned above. HOME MEDICATIONS: Hytrin 3 mg p.o. b.i.d., omeprazole 40 mg p.o. q.a.m., metoprolol 50 mg p.o. b.i.d ., lisinopril 20 mg p.o. b.i.d., Nephro-Isabella 1 p.o. daily, ferrous sulfate 325 mg p.o. daily, Sensipa r 1 p.o. daily, Omnicef 300 mg p.o. daily, Norvasc 5 mg p.o. b.i.d. ALLERGIES: No known allergies. SOCIAL HISTORY: He does smoke. No alcohol. FAMILY HISTORY: Negative for GI or liver disease. REVIEW OF SYSTEMS: Constitutional: No fever or chills, no weight loss. Eyes: No blurred vision or double vision. ENT: No sore throat or earaches. Cardiovascular: No chest pain or palpitations. Pulmonary: No shortness of breath, cough or wheezing. Gastrointestinal: See above. : No hematu harry or dysuria. Musculoskeletal: No joint pain or muscle weakness. Skin: No rashes. Neurologic: No numbness or seizure activity. PHYSICAL EXAMINATION: GENERAL: Shows a thin -[place] gentleman in no acute distress. VITAL SIGNS: Stable. He is afebrile. HEENT: Significant for poor dentition. NECK: Supple. CHEST: Clear. CARDIOVASCULAR: Regular rate and rhythm. ABDOMEN: Soft, nontender, without organomegaly or masses. Bowel sounds are present and normoactive. RECTAL: Deferred. EXTREMITIES: Normal. NEUROLOGIC: Nonfocal. LABORATORY DATA: Shows hemoglobin 8.0 compared to a hemoglobin of 8.8 ten days earlier. His platele t count is 107. PT is 17.4 with an INR of 1.4. Chemistry significant for a CO2 of 31, BUN 28, creat inine 7.62, glucose 131, albumin 3.1. BNP of 1005. ASSESSMENT: 1. Recurrent gastrointestinal bleeding -- I suspect the patient's bleeding from sites that were win my in the rectum previously for bleeding. 2. Cirrhosis with portal hypertension and esophageal varices. 3. History of hepatitis C with sustained viral response. 4. End-stage renal disease, on hemodialysis. RECOMMENDATIONS: 1. Serial H&H. 2. Flexible sigmoidoscopy in a.m.
[2017-05-03] MEDS ORDERED: GoLYTELY 4,000 ml Bottle PO SCH (18:00)
[2017-05-03 18:20] LABS: Hemoglobin 6.5 g/dL (14.0-18.0)
[2017-05-03 18:44] LABS: Troponin I 0.029 ng/mL (< 0.028)
[2017-05-03 18:46] VITALS: BMI 19.1
--- NOTE | 2017-05-03 19:24 | NM ---
NUCLEAR MEDICINE GI BLEEDING SCAN: Date: 05-03-17 Comparison: None. History: 61-year-old male with rectal bleeding. Technique: Anterior planar imaging of the abdomen is obtained over 93 minutes following the intravenous administ ration of 27 mCi Technetium 99M labelled tagged red blood cells. FINDINGS: There is normal blood flow activity noted. There is no scintigraphic evidence of active GI bleeding. IMPRESSION: No scintigraphic evidence of active GI bleeding. POS: [facility]
[2017-05-03 22:28] LABS: Troponin I 0.024 ng/mL (< 0.028)
[2017-05-04 04:32] LABS: #Basophils 0.1 thou/uL (0.0-0.2); #Eosinphils 0.1 thou/uL (0.0-0.7); #Lymphocytes 1.5 thou/uL (1.20-3.40); #Monocytes 0.6 thou/uL (0.11-0.59); #Neutrophils 2.9 thou/uL (1.40-6.50); %Basophils 1.2 % (0.0-1.0); %Eosinophils 2.8 % (0.0-10.0); %Lymphocytes 29.4 % (21.0-51.0); %Monocytes 11.4 % (0.0-10.0); %Neutrophils 55.2 % (42.0-75.0); Mean Corpuscular HGB CONC 32.3 g/dL (32.0-36.0); Mean Corpuscular Hemoglobin 29.8 pg (27.0-31.0); Mean Corpuscular Volume 92.2 fl (80.0-94.0); Mean Platelet Volume 9.5 fL (7.4-10.4); Platelet Count 86 thou/uL (130-400); RBC Distribution Width 15.5 % (11.5-14.5); Red Blood Cell (RBC) Count 2.01 mill/uL (4.70-6.10); White Blood Cell (WBC) Count 5.2 thou/uL (4.8-10.8)
[2017-05-04 04:43] LABS: Anion Gap 18 mmol/L (10-20); BUN (Urea Nitrogen) 36 mg/dL (8.4-25.7); Calc. Creatinine Clearance 7 mL/min (70-130); Calcium 8.5 mg/dL (7.8-10.44); Carbon Dioxide 28 mmol/L (22-29); Chloride 97 mmol/L (98-107); Estimated GFR-MDRD 7; Glucose 66 mg/dL (70-105); Potassium 4.9 mmol/L (3.5-5.1); Sodium 138 mmol/L (136-145)
[2017-05-04 07:28] LABS: Hemoglobin 5.8 g/dL (14.0-18.0)
--- NOTE | 2017-05-04 10:28 | OP ---
DATE OF PROCEDURE: 05/04/2017 SURGEON: Dr. Barrie Doshi PREOPERATIVE DIAGNOSIS: Gastrointestinal bleed. PROCEDURE: After informed consent was obtained, the patient placed in the left lateral decubitus pos ition. Anesthesia administered per the Anesthesia Department. Forward-viewing endoscope was inserte d into the rectum after perianal inspection and rectal exam were normal. There was no blood seen in the colon. The scope was passed to the mid descending colon and upon withdrawal there was an ulcer i n the rectum. This ulcer had no visible vessels, no active bleeding. It was unclear whether this wa s a source of the bleeding. Retroflexion in rectum was normal. ASSESSMENT: 1. Rectal ulcer - unsure if this is the source of the bleeding, no visible vessel or active bleeding seen, no blood in the colon. 2. Otherwise, normal unsedated flexible sigmoidoscopy. RECOMMENDATIONS: 1. Would consider EGD at this point; however, would not be able to do that unsedated and would not b e able to do it with a hemoglobin of 5.6. 2. Transfuse. 3. Continue proton-pump inhibitor. 4. Will consider EGD at a later date if the patient concurs.
--- NOTE | 2017-05-04 11:55 | CON ---
DATE OF CONSULTATION: 05/04/2017 HISTORY OF PRESENT ILLNESS: Sharif Cruz is a 61-year-old black male admitted for GI bleed. He has a history of cirrhosis, gastroesophageal varices, rectal ulcers and AVMs previously, endoscopies performed Dr. Gant and Dr. Doshi. He is an end-stage renal disease on hemodialysis. I have pro vided his dialysis access. In the past he has been known to have bilateral subclavian vein stents, a rterial inflow problems in a left upper arm fistula. I have seen him for prolapsing hemorrhoids and in 2008 he underwent PPH stapled hemorrhoidectomy with excision of other complexes. The patient has a left upper arm fistula and I have used reverse greater saphenous vein from the right leg interposit ion between the proximal radial artery, left forearm to the fistula with removal of infected prosthet ic PTFE graft and repair of brachial artery above the antecubital fossa with saphenous vein patch art erioplasty. This fistula has served him well for dialysis since that time. The patient underwent fl exible sigmoidoscopy today by Dr. Doshi, noted to have a rectal ulcer. His hemoglobin was 5.7. Thus upper endoscopy was not performed until he can be transfused. The patient has remained hemodynamical ly stable, temperature 97.1, 18, 120/69, heart rate 70. Surgical Service was asked to see him for his anemia, GI bleeding, although he is stable and has not had any bleeding since this morning. ALLERGIES: None. TOBACCO: More or less half pack a day. ALCOHOL: None. DRUG USE: None. PAST SURGICAL HISTORY: Appendectomy, cholecystectomy, left knee surgery, dialysis access left arm, m ultiple operations for fistula access, subclavian vein stents, multiple dialysis access. PAST MEDICAL HISTORY: Cirrhosis, hepatitis C, history of varices, thrombocytopenia, history of recta l ulcer, portal hypertension, history of polypectomies with post-polypectomy bleeding. NOTE: Chest x-ray reveals a left subclavian vein stent and he has a patent left arm fistula. PHYSICAL EXAMINATION: VITAL SIGNS: Height 6 foot, 140 pounds, 19 kilograms. He is in no distress, temperature 97.1, 18, 1 20/69, heart rate 78. LUNGS: Clear to auscultation. CARDIAC: Regular rate and rhythm without murmur or gallop. ABDOMEN: Soft, nontender. EXTREMITIES: Left arm fistula, good thrill and bruit. Extremities unremarkable otherwise. ASSESSMENT AND PLAN: Gastrointestinal bleeding with the above medical problems. Continue medical th erapy, observe. No indication for surgical intervention at this time. We will follow along with you .
--- NOTE | 2017-05-04 12:06 | PDOC.PN ---
- Subjective Encounter Start Date: 05/04/17 Encounter Start Time: 12:18 Subjective: No new complaints. No dizziness and has remained asymptomatic -: No acute events overnight. - Objective Resuscitation Status: Resuscitation Status FULL:Full Resuscitation MAR Reviewed: Yes Vital Signs & Weight: Vital Signs (12 hours) Temp Pulse Pulse Resp BP BP Pulse Ox 05/04/17 11:45 97 F L 91 18 114/65 05/04/17 11:33 97.1 F L 81 18 119/67 05/04/17 11:15 97.1 F L 78 18 120/69 05/04/17 11:00 96.4 F L 76 18 126/72 05/04/17 10:40 96.4 F L 77 18 125/66 05/04/17 10:25 96.2 F L 75 16 129/73 05/04/17 09:02 98.1 F 80 14 148/77 H 100 05/04/17 05:07 98.1 F 83 20 131/69 99 Weight Weight 140 lb 9 oz I&O: 05/03/17 05/04/17 05/05/17 06:59 06:59 06:59 Intake Total 3097 0 Output Total 2178 Balance 919 0 Result Diagrams: 05/04/17 07:12 05/04/17 03:58 Phys Exam - Physical Examination Constitutional: NAD HEENT: PERRLA, moist MMs, sclera anicteric Neck: no JVD, supple, full ROM Respiratory: no wheezing, no rales, no rhonchi, clear to auscultation bilateral Cardiovascular: RRR, no significant murmur, no rub Gastrointestinal: soft, non-tender, no distention, positive bowel sounds Musculoskeletal: no edema, pulses present Neurological: non-focal, moves all 4 limbs Psychiatric: normal affect, A&O x 3 Skin: no rash, normal turgor Dx/Plan (1) Lower GI bleed Code(s): K92.2 - GASTROINTESTINAL HEMORRHAGE, UNSPECIFIED Status: Acute Comment: Likely 2/2 previously diagnosed rectal ulcers. Going for flexible sigmoidoscopy today. GI and General Surgery on board. Recs appreciated. (2) Anemia due to acute blood loss Code(s): D62 - ACUTE POSTHEMORRHAGIC ANEMIA Status: Acute Comment: 2/2 GI bleed. Will transfuse with 2 units PRBC during dialysis and recheck Hb. (3) ESRD (end stage renal disease) on dialysis Code(s): N18.6 - END STAGE RENAL DISEASE; Z99.2 - DEPENDENCE ON RENAL DIALYSIS Status: Chronic Comment: On MWF HD. Will dialyse per Renal. (4) BPH (benign prostatic hyperplasia) Code(s): N40.0 - BENIGN PROSTATIC HYPERPLASIA WITHOUT LOWER URINRY TRACT SYMP Status: Chronic Qualifiers: Lower urinary tract symptom presence: symptoms absent Qualified Code(s): N40.0 - Benign prostatic hyperplasia without lower urinary tract symptoms Comment: Will continue home meds once BP permits. (5) Cirrhosis of liver Code(s): K74.60 - UNSPECIFIED CIRRHOSIS OF LIVER Status: Chronic (6) Coagulopathy Status: Chronic (7) GERD (gastroesophageal reflux disease) Code(s): K21.9 - GASTRO-ESOPHAGEAL REFLUX DISEASE WITHOUT ESOPHAGITIS Status: Chronic Qualifiers: Esophagitis presence: esophagitis presence not specified Qualified Code(s) : K21.9 - Gastro-esophageal reflux disease without esophagitis Comment: Continue PPI (8) Hypertension Code(s): I10 - ESSENTIAL (PRIMARY) HYPERTENSION Status: Chronic Qualifiers: Hypertension type: essential hypertension Qualified Code(s): I10 - Essential (primary) hypertension Comment: Medications being held 2/2 GI bleed. - Plan cont current plan of care, out of bed/ambulate, DVT proph w/SCDs * . Review of Systems - Medications/Allergies Allergies/Adverse Reactions: Allergies Allergy/AdvReac Type Severity Reaction Status Date / Time No Known Allergies Allergy Verified 04/15/17 06:33 Medications: Current Medications Acetaminophen (Tylenol) 650 mg PO Q4H PRN PRN Reason: Headache/Fever or Pain Ondansetron HCl (Zofran Odt) 4 mg PO Q6H PRN PRN Reason: Nausea/Vomiting Ondansetron HCl (Zofran) 4 mg IVP Q6H PRN PRN Reason: Nausea/Vomiting
[2017-05-04 15:22] LABS: INR-International Normal Ratio 1.3
[2017-05-04 15:37] LABS: Hemoglobin 9.3 g/dL (14.0-18.0)
[2017-05-04] MEDS: Acetaminophen 325 MG TAB PO PRN (18:37)
[2017-05-04] MEDS: Terazosin HCl 1 MG CAP PO SCH (20:23)
[2017-05-04] MEDS: Cinacalcet HCl 30 MG TAB PO SCH (20:23)
[2017-05-04] MEDS ORDERED: Cinacalcet HCl 30 MG TAB PO SCH (21:00)
[2017-05-04] MEDS ORDERED: Terazosin HCl 1 MG CAP PO SCH (21:00)
[2017-05-05 05:12] LABS: Anion Gap 14 mmol/L (10-20); BUN (Urea Nitrogen) 18 mg/dL (8.4-25.7); Calc. Creatinine Clearance 10 mL/min (70-130); Calcium 8.5 mg/dL (7.8-10.44); Carbon Dioxide 29 mmol/L (22-29); Chloride 99 mmol/L (98-107); Estimated GFR-MDRD 11; Glucose 77 mg/dL (70-105); Potassium 4.4 mmol/L (3.5-5.1); Sodium 138 mmol/L (136-145)
[2017-05-05 05:13] LABS: #Eosinphils 0.2 thou/uL (0.0-0.7); #Lymphocytes 1.6 thou/uL (1.20-3.40); #Monocytes 0.6 thou/uL (0.11-0.59); #Neutrophils 2.7 thou/uL (1.40-6.50); %Basophils 0.8 % (0.0-1.0); %Lymphocytes 30.9 % (21.0-51.0); %Monocytes 12.4 % (0.0-10.0); %Neutrophils 52.8 % (42.0-75.0); Hemoglobin 8.1 g/dL (14.0-18.0); Mean Corpuscular Hemoglobin 29.2 pg (27.0-31.0); Mean Corpuscular Volume 88.7 fl (80.0-94.0); Mean Platelet Volume 9.5 fL (7.4-10.4); Platelet Count 88 thou/uL (130-400); RBC Distribution Width 15.1 % (11.5-14.5); Red Blood Cell (RBC) Count 2.76 mill/uL (4.70-6.10); White Blood Cell (WBC) Count 5.2 thou/uL (4.8-10.8)
[2017-05-05] MEDS: Ferrous Sulfate 325 MG TAB PO SCH (08:27)
[2017-05-05] MEDS: Folic Acid/Vit B Comp W-C PO SCH (08:27)
[2017-05-05] MEDS: Terazosin HCl 1 MG CAP PO SCH ×2 (08:27→22:03)
[2017-05-05] MEDS ORDERED: Non-Formulary Item 1 EACH (Omeprazole [Omeprazole] 40 MG) PO SCH (09:00)
--- NOTE | 2017-05-05 11:33 | PDOC.PN ---
- Subjective Encounter Start Date: 05/05/17 Encounter Start Time: 11:34 Subjective: No new complaints. -: No acute events overnight. - Objective Resuscitation Status: Resuscitation Status FULL:Full Resuscitation MAR Reviewed: Yes Vital Signs & Weight: Vital Signs (12 hours) Temp Pulse Resp BP Pulse Ox 05/05/17 08:00 98.8 F 83 16 100 05/05/17 07:41 98.8 F 83 16 131/75 100 05/05/17 04:00 98.5 F 86 18 111/67 100 Weight Weight 129 lb I&O: 05/04/17 05/05/17 05/06/17 06:59 06:59 06:59 Intake Total 3097 1390 Output Total 2178 0 Balance 919 1390 Result Diagrams: 05/05/17 08:36 05/05/17 03:56 Phys Exam - Physical Examination Constitutional: NAD HEENT: PERRLA, moist MMs, sclera anicteric Neck: supple, full ROM Respiratory: no wheezing, no rales, no rhonchi, clear to auscultation bilateral Cardiovascular: RRR, no significant murmur, no rub Gastrointestinal: soft, non-tender, no distention, positive bowel sounds Musculoskeletal: no edema, pulses present Neurological: non-focal, moves all 4 limbs Psychiatric: normal affect, A&O x 3 Skin: no rash, normal turgor Dx/Plan (1) Lower GI bleed Code(s): K92.2 - GASTROINTESTINAL HEMORRHAGE, UNSPECIFIED Status: Acute Comment: Hb trended down somewhat overnight. GI bleed likely 2/2 previously diagnosed rectal ulcers. Flexible sigmoidoscopy w no findings. GI and General Surgery on board. Recs appreciated. (2) Anemia due to acute blood loss Code(s): D62 - ACUTE POSTHEMORRHAGIC ANEMIA Status: Acute Plan: Monitor Hb. Comment: 2/2 GI bleed. Will transfuse with 2 units PRBC during dialysis and recheck Hb. (3) ESRD (end stage renal disease) on dialysis Code(s): N18.6 - END STAGE RENAL DISEASE; Z99.2 - DEPENDENCE ON RENAL DIALYSIS Status: Chronic Comment: On MWF HD. Will dialyse per Renal. (4) BPH (benign prostatic hyperplasia) Code(s): N40.0 - BENIGN PROSTATIC HYPERPLASIA WITHOUT LOWER URINRY TRACT SYMP Status: Chronic Qualifiers: Lower urinary tract symptom presence: symptoms absent Qualified Code(s): N40.0 - Benign prostatic hyperplasia without lower urinary tract symptoms Comment: Will continue home meds once BP permits. (5) Hypertension Code(s): I10 - ESSENTIAL (PRIMARY) HYPERTENSION Status: Chronic Qualifiers: Hypertension type: essential hypertension Qualified Code(s): I10 - Essential (primary) hypertension Comment: Medications being held 2/2 GI bleed. (6) GERD (gastroesophageal reflux disease) Code(s): K21.9 - GASTRO-ESOPHAGEAL REFLUX DISEASE WITHOUT ESOPHAGITIS Status: Chronic Qualifiers: Esophagitis presence: esophagitis presence not specified Qualified Code(s) : K21.9 - Gastro-esophageal reflux disease without esophagitis Comment: Continue PPI (7) Cirrhosis of liver Code(s): K74.60 - UNSPECIFIED CIRRHOSIS OF LIVER Status: Chronic Qualifiers: Hepatic cirrhosis type: other cirrhosis Qualified Code(s): K74.69 - Other cirrhosis of liver (8) Coagulopathy Status: Chronic - Plan cont current plan of care, plan discussed w/ family, out of bed/ambulate, DVT proph w/SCDs * . Review of Systems - Medications/Allergies Allergies/Adverse Reactions: Allergies Allergy/AdvReac Type Severity Reaction Status Date / Time No Known Allergies Allergy Verified 04/15/17 06:33 Medications: Current Medications Acetaminophen (Tylenol) 650 mg PO Q4H PRN PRN Reason: Headache/Fever or Pain Last Admin: 05/04/17 18:37 Dose: 650 mg Cinacalcet (Sensipar) 30 mg PO QPM [facility] Last Admin: 05/04/17 20:23 Dose: 30 mg Ferrous Sulfate (Feosol) 325 mg PO QAM[facility] Last Admin: 05/05/17 08:27 Dose: 325 mg Ondansetron HCl (Zofran Odt) 4 mg PO Q6H PRN PRN Reason: Nausea/Vomiting Ondansetron HCl (Zofran) 4 mg IVP Q6H PRN PRN Reason: Nausea/Vomiting Pantoprazole Sodium (Protonix) 40 mg PO DAILY [facility] Last Admin: 05/05/17 08:27 Dose: 40 mg Sodium Chloride (Flush - Normal Saline) 10 ml IVF Q12HR [facility] Last Admin: 05/05/17 08:28 Dose: 10 ml Sodium Chloride (Flush - Normal Saline) 10 ml IVF PRN PRN PRN Reason: Saline Flush Terazosin HCl (Hytrin) 3 mg PO BID [facility] Last Admin: 05/05/17 08:27 Dose: 3 mg Vitamin B Complex/Vit C/Folic Acid (Nephro-Isabella Tablet) 1 tab PO DAILY [facility] Last Admin: 05/05/17 08:27 Dose: 1 tab
--- NOTE | 2017-05-05 13:28 | PRG ---
DATE OF SERVICE: 05/05/2017 SUBJECTIVE: The patient is having little pink tinge water when he has a bowel movement, but no blood clots or other abnormalities. LABORATORY DATA: Hemoglobin is 9.0, hematocrit 27.0, white blood cell count 5.2, platelet count 88,0 00. Chemistries are normal except for a creatinine 6.3. ASSESSMENT: 1. Rectal ulcer - unclear whether this is the source of the bleeding. 2. Anemia secondary to gastrointestinal blood loss. 3. End-stage renal disease. RECOMMENDATIONS: EGD tomorrow.
[2017-05-05 14:14] LABS: Hemoglobin 7.8 g/dL (14.0-18.0)
[2017-05-05] MEDS: Cinacalcet HCl 30 MG TAB PO SCH (21:49)
[2017-05-06 05:27] LABS: #Eosinphils 0.1 thou/uL (0.0-0.7); #Lymphocytes 1.3 thou/uL (1.20-3.40); #Monocytes 0.7 thou/uL (0.11-0.59); #Neutrophils 3.8 thou/uL (1.40-6.50); %Basophils 0.7 % (0.0-1.0); %Eosinophils 2.3 % (0.0-10.0); %Lymphocytes 21.3 % (21.0-51.0); %Monocytes 11.5 % (0.0-10.0); %Neutrophils 64.1 % (42.0-75.0); Hemoglobin 7.7 g/dL (14.0-18.0); Mean Corpuscular HGB CONC 32.9 g/dL (32.0-36.0); Mean Corpuscular Hemoglobin 29.1 pg (27.0-31.0); Mean Corpuscular Volume 88.3 fl (80.0-94.0); Mean Platelet Volume 9.7 fL (7.4-10.4); Platelet Count 83 thou/uL (130-400); RBC Distribution Width 14.8 % (11.5-14.5); Red Blood Cell (RBC) Count 2.65 mill/uL (4.70-6.10); White Blood Cell (WBC) Count 5.9 thou/uL (4.8-10.8)
[2017-05-06 05:36] LABS: Anion Gap 14 mmol/L (10-20); BUN (Urea Nitrogen) 31 mg/dL (8.4-25.7); Calc. Creatinine Clearance 7 mL/min (70-130); Calcium 8.3 mg/dL (7.8-10.44); Carbon Dioxide 29 mmol/L (22-29); Chloride 98 mmol/L (98-107); Estimated GFR-MDRD 7; Glucose 74 mg/dL (70-105); Potassium 4.8 mmol/L (3.5-5.1); Sodium 136 mmol/L (136-145)
--- NOTE | 2017-05-06 10:10 | PDOC.PN ---
- Subjective Encounter Start Date: 05/06/17 Encounter Start Time: 10:12 Subjective: No complaints today. Had one episode w speckled blood and one normal BM -: No acute events overnight. - Objective Resuscitation Status: Resuscitation Status FULL:Full Resuscitation Vital Signs & Weight: Vital Signs (12 hours) Temp Pulse Resp BP Pulse Ox 05/06/17 07:29 97.9 F 85 16 100 05/06/17 07:27 97.9 F 85 16 130/73 100 05/06/17 04:00 98.3 F 90 18 136/75 100 05/06/17 00:00 98.2 F 87 18 141/78 H 100 Weight Weight 130 lb 1.164 oz I&O: 05/05/17 05/06/17 05/07/17 06:59 06:59 06:59 Intake Total 1390 1360 Output Total 0 Balance 1390 1360 Result Diagrams: 05/06/17 04:32 05/06/17 04:32 Phys Exam - Physical Examination Constitutional: NAD HEENT: PERRLA, moist MMs, sclera anicteric Neck: no JVD, supple, full ROM Respiratory: no wheezing, no rales, no rhonchi, clear to auscultation bilateral Cardiovascular: RRR, no significant murmur, no rub Gastrointestinal: soft, non-tender, no distention, positive bowel sounds Musculoskeletal: no edema, pulses present Neurological: non-focal, moves all 4 limbs Psychiatric: normal affect, A&O x 3 Skin: no rash, normal turgor Dx/Plan (1) Lower GI bleed Code(s): K92.2 - GASTROINTESTINAL HEMORRHAGE, UNSPECIFIED Status: Acute Comment: Hb stabilized. Source of GI bleed unclear- Flexible sigmoidoscopy w no findings. GI and General Surgery on board. Recs appreciated. Will have EGD today. (2) Anemia due to acute blood loss Code(s): D62 - ACUTE POSTHEMORRHAGIC ANEMIA Status: Acute Comment: 2/2 GI bleed. Will transfuse with 1 unit PRBC during dialysis and recheck Hb. (3) ESRD (end stage renal disease) on dialysis Code(s): N18.6 - END STAGE RENAL DISEASE; Z99.2 - DEPENDENCE ON RENAL DIALYSIS Status: Chronic Comment: On MWF HD. Will dialyse per Renal recommendations. (4) BPH (benign prostatic hyperplasia) Code(s): N40.0 - BENIGN PROSTATIC HYPERPLASIA WITHOUT LOWER URINRY TRACT SYMP Status: Chronic Qualifiers: Lower urinary tract symptom presence: symptoms absent Qualified Code(s): N40.0 - Benign prostatic hyperplasia without lower urinary tract symptoms Comment: Continue Terazosin. (5) Hypertension Code(s): I10 - ESSENTIAL (PRIMARY) HYPERTENSION Status: Chronic Qualifiers: Hypertension type: essential hypertension Qualified Code(s): I10 - Essential (primary) hypertension Comment: At goal. Medications being held 2/2 GI bleed. (6) GERD (gastroesophageal reflux disease) Code(s): K21.9 - GASTRO-ESOPHAGEAL REFLUX DISEASE WITHOUT ESOPHAGITIS Status: Chronic Qualifiers: Esophagitis presence: esophagitis presence not specified Qualified Code(s) : K21.9 - Gastro-esophageal reflux disease without esophagitis Comment: Continue PPI (7) Cirrhosis of liver Code(s): K74.60 - UNSPECIFIED CIRRHOSIS OF LIVER Status: Chronic Qualifiers: Hepatic cirrhosis type: other cirrhosis Qualified Code(s): K74.69 - Other cirrhosis of liver (8) Coagulopathy Status: Chronic - Plan cont current plan of care, DVT proph w/SCDs Transfuse with PRBC during Dialysis * . Review of Systems - Medications/Allergies Allergies/Adverse Reactions: Allergies Allergy/AdvReac Type Severity Reaction Status Date / Time No Known Allergies Allergy Verified 04/15/17 06:33 Medications: Current Medications Acetaminophen (Tylenol) 650 mg PO Q4H PRN PRN Reason: Headache/Fever or Pain Last Admin: 05/04/17 18:37 Dose: 650 mg Cinacalcet (Sensipar) 30 mg PO QPM [facility] Last Admin: 05/05/17 21:49 Dose: 30 mg Ferrous Sulfate (Feosol) 325 mg PO QAM[facility] Last Admin: 05/05/17 08:27 Dose: 325 mg Ondansetron HCl (Zofran Odt) 4 mg PO Q6H PRN PRN Reason: Nausea/Vomiting Ondansetron HCl (Zofran) 4 mg IVP Q6H PRN PRN Reason: Nausea/Vomiting Pantoprazole Sodium (Protonix) 40 mg PO DAILY [facility] Last Admin: 05/05/17 08:27 Dose: 40 mg Sodium Chloride (Flush - Normal Saline) 10 ml IVF Q12HR [facility] Last Admin: 05/05/17 21:55 Dose: 10 ml Sodium Chloride (Flush - Normal Saline) 10 ml IVF PRN PRN PRN Reason: Saline Flush Terazosin HCl (Hytrin) 3 mg PO BID [facility] Last Admin: 05/05/17 22:03 Dose: 3 mg Vitamin B Complex/Vit C/Folic Acid (Nephro-Isabella Tablet) 1 tab PO DAILY [facility] Last Admin: 05/05/17 08:27 Dose: 1 tab
[2017-05-06] MEDS ORDERED: Ondansetron HCl/PF 4 MG/2 ML Vial IVP PRN (11:22)
--- NOTE | 2017-05-06 11:51 | OP ---
DATE OF PROCEDURE: 05/06/2017 SURGEON: Damien Ordonez M.D. PREOPERATIVE DIAGNOSES: 1. History of gastrointestinal bleed. 2. History of cirrhosis. 3. Possible varices. ANESTHESIA: TIVA. POSTOPERATIVE DIAGNOSES: 1. No evidence of esophageal varices. 2. No evidence of gastric varices. 3. Gastritis nodular antrum, biopsied. 4. Duodenum, normal to the third portion. RECOMMENDATIONS: 1. Await histopathology. 2. Advance diet. 3. Monitor H&H. PROCEDURE IN DETAIL: After the patient was informed of the risks, benefits, and possible complicatio ns of endoscopy including perforation, bleeding, reaction to medications and aspiration, informed con sent was obtained. The patient was brought to endoscopy suite where he was sedated in gradual fashio n. Once he was comfortable, a bite block was placed in the incisor orifice. The endoscope was intro duced esophagus, stomach, second and third portion of duodenum. The esophagus was normal. No eviden ce of varices. There were no varices on retroflexed views in the proximal stomach and there were no gastric varices noted. There was no overt portal hypertensive gastropathy. There was some mild nodu lar gastritis in the antrum with one small erosion, but no bleeding. Biopsies were taken from this. There was quite a bit of oozing, but ultimately hemostasis was achieved without intervention. Retro flexion in the stomach were normal with a normally distensible stomach and the duodenum was entered a nd traversed to the third portion, which was normal. The scope was removed. The patient tolerated t he procedure well with no complications.
[2017-05-06] MEDS: Folic Acid/Vit B Comp W-C PO SCH (12:19)
[2017-05-06] MEDS: Ferrous Sulfate 325 MG TAB PO SCH (12:19)
[2017-05-06] MEDS: Terazosin HCl 1 MG CAP PO SCH ×2 (12:20→22:12)
[2017-05-06 12:29] LABS: Hemoglobin 8.2 g/dL (14.0-18.0)
[2017-05-06 15:07] LABS: Hemoglobin 7.4 g/dL (14.0-18.0)
[2017-05-06] MEDS ORDERED: Propofol 200 MG/20 ML VIAL ONE (15:37)
[2017-05-06] MEDS ORDERED: Lidocaine 1% PF 5 ML VIAL ONE (15:37)
[2017-05-06 19:07] LABS: Hemoglobin 10.1 g/dL (14.0-18.0)
[2017-05-06 19:11] LABS: INR-International Normal Ratio 1.3; PTT 31.9 SEC (22.9-36.1); Prothrombin Time 16.4 SEC (12.0-14.7)
[2017-05-06] MEDS: Cinacalcet HCl 30 MG TAB PO SCH (22:12)
[2017-05-06] MEDS: Acetaminophen 325 MG TAB PO PRN (22:15)
[2017-05-07 05:09] LABS: Anion Gap 13 mmol/L (10-20); BUN (Urea Nitrogen) 13 mg/dL (8.4-25.7); Calc. Creatinine Clearance 13 mL/min (70-130); Calcium 8.5 mg/dL (7.8-10.44); Carbon Dioxide 28 mmol/L (22-29); Chloride 99 mmol/L (98-107); Estimated GFR-MDRD 14; Glucose 78 mg/dL (70-105); Potassium 4.4 mmol/L (3.5-5.1); Sodium 136 mmol/L (136-145)
[2017-05-07 05:28] LABS: Eosinophils 1 % (0-10); Hemoglobin 9.7 g/dL (14.0-18.0); Lymphocytes 26 % (21-51); MDiff Complete? YES; Mean Corpuscular HGB CONC 32.5 g/dL (32.0-36.0); Mean Corpuscular Hemoglobin 29.2 pg (27.0-31.0); Monocytes 11 % (0-10); Neutrophil 61 % (42-75); PLT Morphology Comment Appears Decreased; Platelet Count 76 thou/uL (130-400); RBC Morphology Normal; Reactive Lymphocytes 1 % (0-10); Red Blood Cell (RBC) Count 3.31 mill/uL (4.70-6.10); White Blood Cell (WBC) Count 6.7 thou/uL (4.8-10.8)
[2017-05-07 07:42] VITALS: BP 152/77; TEMP 98.6
[2017-05-07] MEDS: Folic Acid/Vit B Comp W-C PO SCH (09:12)
[2017-05-07] MEDS: Ferrous Sulfate 325 MG TAB PO SCH (09:12)
[2017-05-07] MEDS: Terazosin HCl 1 MG CAP PO SCH (09:13)
--- NOTE | 2017-05-07 16:27 | DIS ---
DATE OF ADMISSION: 05/03/2017 DATE OF DISCHARGE: 05/07/2017 DISCHARGE DIAGNOSES: Lower gastrointestinal bleed; end-stage renal disease, on hemodialysis; anemia due to blood loss; benign prostatic hypertrophy; hypertension; gastroesophageal reflux disease; liver cirrhosis and coagulopathy. HISTORY OF PRESENT ILLNESS/HOSPITAL COURSE: Mr. Sharif Cruz is a 61-year-old male with a histo ry of end-stage renal disease on hemodialysis, rectal ulcers, thrombocytopenia, chronic hepatitis C, liver cirrhosis with portal hypertension, hypertension, and anemia of chronic disease, who presented to the emergency room with bright red blood per rectum, which started the day before presentation. H e had about 2 episodes in total. He recently had a polypectomy from his colon removed 2 weeks before he presented to the hospital and he was admitted for a similar presentation where a colonoscopy reve aled rectal ulcers. He has had two attempts at clipping and catheterization by Gastroenterology. Hi s recent episode is associated with dizziness. Denied abdominal pain, but reports some sharp rectal 5/10 pain that does not radiate. He had no other complaints. His labs are significant for hemoglobi n of 8 with hematocrit of 25. Chest x-ray was unremarkable. He had a CT of his abdomen/pelvis, whic h showed no evidence of free intraperitoneal air. There was some predominate upper peritoneal calcif ication possibly due to previous infection, inflammatory process and assessment of lower GI bleed was made and his hemoglobin was trended. It trended downwards and patient eventually received a total o f 4 units of packed red blood cells. He was also reviewed by General Surgery and there was no indica tion for surgery. He underwent an EGD and colonoscopy, which showed no major findings. His gastriti s was found and samples were taken for biopsy. He also had a tagged red blood cell study, which came up negative as well. On the day of discharge, he was stable. He no longer had bleeding episodes ov ernight and his hemoglobin was trended and was stable. He was therefore deemed stable for discharge and patient agreed with this plan. He is to follow up with his primary care physician within 1 week for repeat labs. DISCHARGE MEDICATIONS: Amlodipine 5 mg twice a day, omeprazole 40 mg daily, cinacalcet 1 tab every e vening, metoprolol tartrate 50 mg twice a day, lisinopril 20 mg twice a day, terazosin 3 tablets twic e daily, cefdinir 300 mg daily, ferrous sulfate 325 mg every morning with breakfast, folic acid/vitam in B complex 1 tablet daily. PHYSICAL EXAMINATION: He was examined on the day of discharge. VITAL SIGNS: Temperature 98.6 degree Fahrenheit, respiratory rate 18, pulse rate 88, oxygen saturati on 100% on room air and blood pressure 152/77. GENERAL: Not in acute distress, lying comfortably in bed. HEENT: PERRLA, EOMI. Moist mucous membranes, not pale, anicteric. NECK: No JVD. Supple, with full range of movement. RESPIRATORY: Vesicular breath sounds bilaterally with no wheezing, rales or rhonchi. CARDIOVASCULAR: Regular rate and rhythm with no significant murmurs, rubs or gallops. GASTROINTESTINAL: Soft, nontender and nondistended. Positive bowel sounds. No hepatosplenomegaly. MUSCULOSKELETAL: No edema. Pulses present. NEUROLOGIC: Nonfocal, moves all limbs. Alert and well oriented to time, place and person. PSYCHIATRIC: Normal mood and affect. SKIN: Warm, dry and well-perfused. No rashes or lesions. LABORATORY DATA: Hemoglobin 9.7, WBC 6.7 and platelet count 76. Chemistry with normal electrolytes, apart from BUN and creatinine of 13/5.07. IMAGING DATA: GI nuclear medicine, red tagged scan, chest x-ray, abdomen and pelvis CT. CONSULTS: General Surgery, Nephrology and GI. PROCEDURES: Esophagogastroduodenoscopy and colonoscopy. CONDITION AT DISCHARGE: Stable and improved. DIET: Renal. ACTIVITY: To resume as tolerated. HEALTH CARE GOALS: To follow up with his primary care physician within 1 week of discharge. The pat ient is encouraged to keep his appointment and return to the emergency room if he develops any furthe r bleeding episodes. Discharge time 55 minutes including chart review and documentation. Of note, the patient also had end-stage renal disease and received hemodialysis on his regularly sche duled days while he was in hospital.
== END 2017-05-07 10:56 | disposition home or self-care (01) | DRG 377 ==
LOC: ERS 08:45 → 2NO 14:34 → T4-A 05-05 19:11
PROVIDERS: ADMIT Internal Medicine; ATTEND Internal Medicine
PROC: 0DJD8ZZ Inspection of Lower Intestinal Tract, Via Natural or Artificial Opening Endoscopic (ICD-10-PCS; 2017-05-04)
PROC: 5A1D70Z Performance of Urinary Filtration, Intermittent, Less than 6 Hours Per Day (ICD-10-PCS; 2017-05-04)
PROC: 0DB68ZX Excision of Stomach, Via Natural or Artificial Opening Endoscopic, Diagnostic (ICD-10-PCS; principal; 2017-05-06)
PROC: 5A1D70Z Performance of Urinary Filtration, Intermittent, Less than 6 Hours Per Day (ICD-10-PCS; 2017-05-06)
PROC: 30233N1 Transfusion of Nonautologous Red Blood Cells into Peripheral Vein, Percutaneous Approach (ICD-10-PCS; 2017-05-06)
DX: K92.1 Melena (principal); N18.6 End stage renal disease; D69.6 Thrombocytopenia, unspecified; I12.0 Hypertensive chronic kidney disease with stage 5 chronic kidney disease or end stage renal disease; K76.6 Portal hypertension; K62.6 Ulcer of anus and rectum; D62 Acute posthemorrhagic anemia; Z99.2 Dependence on renal dialysis; K74.60 Unspecified cirrhosis of liver; D63.1 Anemia in chronic kidney disease; B18.2 Chronic viral hepatitis C; F17.210 Nicotine dependence, cigarettes, uncomplicated; K21.9 Gastro-esophageal reflux disease without esophagitis; K29.70 Gastritis, unspecified, without bleeding; N40.0 Benign prostatic hyperplasia without lower urinary tract symptoms; M19.90 Unspecified osteoarthritis, unspecified site; I25.10 Atherosclerotic heart disease of native coronary artery without angina pectoris
CPT/HCPCS: 36415; 36430; 71045; 74176; 78278; 80048; 80053; 82553; 83880; 84484; 85025; 85379; 85610; 85730; 86850; 86900; 86901; 88305; 88312; 90935; 99152; A4216; A9604; G0257; J2001; J2704; P9016; Q0162

== ENCOUNTER 2017-05-28 10:56 | Emergency (ER) | payer MEDICARE, OTHER ==
[2017-05-28 12:01] LABS: #Basophils 0.1 thou/uL (0.0-0.2); #Eosinphils 0.1 thou/uL (0.0-0.7); #Lymphocytes 0.9 thou/uL (1.20-3.40); #Monocytes 0.5 thou/uL (0.11-0.59); #Neutrophils 3.5 thou/uL (1.40-6.50); %Basophils 1.3 % (0.0-1.0); %Eosinophils 1.4 % (0.0-10.0); %Lymphocytes 17.7 % (21.0-51.0); %Monocytes 9.8 % (0.0-10.0); %Neutrophils 69.8 % (42.0-75.0); Hemoglobin 7.7 g/dL (14.0-18.0); Mean Corpuscular Hemoglobin 28.7 pg (27.0-31.0); Mean Corpuscular Volume 95.5 fl (80.0-94.0); Mean Platelet Volume 10.3 fL (7.4-10.4); Platelet Count 94 thou/uL (130-400); RBC Distribution Width 16.6 % (11.5-14.5); Red Blood Cell (RBC) Count 2.68 mill/uL (4.70-6.10)
[2017-05-28 12:16] LABS: ALT (SGPT) 8 U/L (8-55); AST (SGOT) 22 U/L (5-34); Albumin 3.3 g/dL (3.5-5.0); Alkaline Phosphatase 120 U/L (40-150); Anion Gap 13 mmol/L (10-20); BUN (Urea Nitrogen) 15 mg/dL (8.4-25.7); Bilirubin, Total 0.4 mg/dL (0.2-1.2); Calc. Creatinine Clearance 0 mL/min (70-130); Calcium 9.2 mg/dL (7.8-10.44); Carbon Dioxide 31 mmol/L (22-29); Chloride 99 mmol/L (98-107); Estimated GFR-MDRD 13; Globulin 3.6 g/dL (2.4-3.5); Glucose 85 mg/dL (70-105); Potassium 3.8 mmol/L (3.5-5.1); Protein, Total 6.9 g/dL (6.0-8.3); Sodium 139 mmol/L (136-145)
== END 2017-05-28 14:59 | disposition home or self-care (01) ==
LOC: ERS 10:56
DX: D64.9 Anemia, unspecified (principal); I12.0 Hypertensive chronic kidney disease with stage 5 chronic kidney disease or end stage renal disease; N18.6 End stage renal disease; F17.210 Nicotine dependence, cigarettes, uncomplicated; Z99.2 Dependence on renal dialysis
CPT/HCPCS: 36430; 80053; 85025; 86850; 86900; 86901; 86920; 99284; P9016

== ENCOUNTER 2017-06-09 08:45 | Outpatient (CLI) | payer MEDICARE, MEDICAID ==
--- NOTE | 2017-06-09 14:25 | RAD ---
UPPER GI STUDY: HISTORY: Gastrointestinal hemorrhage. COMPARISON: None. TECHNIQUE/FINDINGS: The metal fabricating supervisor radiograph of the chest demonstrates left axillary vascular stent. The patient was taken to the nephrostomy suite. All questions were answered. The patient was initially given gas-forming crystals. The patient tolerated this well. Subsequently, the patient was given thick liquid barium. Primary and secondary peristalsis is poor. The esophagus has trouble draining the contrast. On the left lateral margin of the distal 1/3 of th e esophagus is what appears to be a shelf of extrinsic compression. Small sliding hiatal hernia. Numerous tertiary contractions. There is reflux at the upper 1/3 esoph dawit. There is an abnormal thickening of the gastric folds of the fundus. The proximal small bowel rotatio n is normal. The contrast is seen throughout the small and large bowel. Terminal ileum is normal. The patient did talk about his focal area of pain in the left hemiabdomen. No abnormality was seen in this area. IMPRESSION: 1. Extrinsic mass effect along the left lateral margin of the distal 1/[address] of the chest recommended. This may be an extrinsic or intramural-based mass. Recommend correlation with the pat ient's prior upper endoscopy. 2. Poor primary and secondary peristalsis, likely the sequelae of chronic reflux. 3. Thickened gastric mucosa of the fundus suggesting chronic gastritis. CODE T POS: [facility]
== END 2017-06-09 08:46 | disposition home or self-care (01) ==
LOC: RAD 08:45
PROVIDERS: ATTEND Internal Medicine Nephrology
DX: K92.2 Gastrointestinal hemorrhage, unspecified (principal); K22.8 Other specified diseases of esophagus; K31.89 Other diseases of stomach and duodenum
CPT/HCPCS: 74247; 74250

== ENCOUNTER 2017-06-11 19:03 | Inpatient (IN) | payer MEDICARE, OTHER ==
[2017-06-11 20:40] LABS: #Basophils 0.1 thou/uL (0.0-0.2); #Eosinphils 0.1 thou/uL (0.0-0.7); #Lymphocytes 1.1 thou/uL (1.20-3.40); #Monocytes 0.4 thou/uL (0.11-0.59); #Neutrophils 2.6 thou/uL (1.40-6.50); %Basophils 1.2 % (0.0-1.0); %Eosinophils 1.9 % (0.0-10.0); %Lymphocytes 26.4 % (21.0-51.0); %Monocytes 8.9 % (0.0-10.0); %Neutrophils 61.6 % (42.0-75.0); Hemoglobin 7.4 g/dL (14.0-18.0); Mean Corpuscular HGB CONC 33.6 g/dL (32.0-36.0); Mean Corpuscular Hemoglobin 30.5 pg (27.0-31.0); Mean Corpuscular Volume 90.9 fl (80.0-94.0); Mean Platelet Volume 10.8 fL (7.4-10.4); Platelet Count 65 thou/uL (130-400); Red Blood Cell (RBC) Count 2.43 mill/uL (4.70-6.10); White Blood Cell (WBC) Count 4.3 thou/uL (4.8-10.8)
[2017-06-11 21:09] LABS: ALT (SGPT) Less than 7 U/L (8-55); AST (SGOT) 19 U/L (5-34); Albumin 3.3 g/dL (3.5-5.0); Alkaline Phosphatase 125 U/L (40-150); Anion Gap 19 mmol/L (10-20); BUN (Urea Nitrogen) 37 mg/dL (8.4-25.7); Bilirubin, Total 0.4 mg/dL (0.2-1.2); Calc. Creatinine Clearance 0 mL/min (70-130); Calcium 8.8 mg/dL (7.8-10.44); Carbon Dioxide 27 mmol/L (22-29); Chloride 96 mmol/L (98-107); Estimated GFR-MDRD 6; Globulin 3.4 g/dL (2.4-3.5); Glucose 82 mg/dL (70-105); Magnesium 2.1 mg/dL (1.6-2.6); Phosphorus 5.9 mg/dL (2.3-4.7); Potassium 4.2 mmol/L (3.5-5.1); Protein, Total 6.7 g/dL (6.0-8.3); Sodium 138 mmol/L (136-145)
[2017-06-12] MEDS ORDERED: Ondansetron ODT 4 MG TAB SL PRN (00:08)
[2017-06-12] MEDS ORDERED: Acetaminophen 325 MG TAB PO PRN (00:08)
[2017-06-12] MEDS ORDERED: Ondansetron HCl/PF 4 MG/2 ML Vial IVP PRN (00:08)
[2017-06-12 01:11] VITALS: BMI 19.8
--- NOTE | 2017-06-12 11:23 | PDOC.FPRHP ---
- History of Present Illness Chief Complaint: HD fistula clogged History of Present Illness: 61 yo male with PMH ESRD on HD MWF who is here for clotted fistula yesterday at HD. Missed HD Thursday because he was not feeling well. Patient was sent to ER for evaluation and possible revision. He reports last HD was Thursday. Denies any LEE, N/V, CP, SOB, swelling in legs. Only reports abd pain which he reports is from GI bleed which is being worked up in outpatient setting. ED Course: Electrolytes stable - Allergies/Adverse Reactions Allergies Allergy/AdvReac Type Severity Reaction Status Date / Time No Known Allergies Allergy Verified 04/15/17 06:33 - Home Medications Medication Instructions Recorded Confirmed Type Amlodipine Besylate [amLODIPine 5 mg PO BID 03/13/16 06/12/17 History Besylate] Cinacalcet HCl [Sensipar] 1 tab PO QPM 03/13/16 06/12/17 History Lisinopril 20 mg PO BID 03/13/16 06/12/17 History Metoprolol Tartrate 50 tab PO BID 03/13/16 06/12/17 History Omeprazole 40 mg PO QAM 03/13/16 06/12/17 History Terazosin HCl [Hytrin] 3 tab PO BID 03/13/16 06/12/17 History Ranitidine HCl 150 mg PO DAILY 06/12/17 06/12/17 History - History PMHx: Hepatitis C, treated ESRD on HD MWF gastric bleed, distal 1/3 esophageal varices HTN PSHx: cholecystectomy 2004 appendectomy 1968 carpal tunnel 2006 knee surgery 1971 FHx: non-contrib Social: 1/2ppd smoker - Review of Systems General: reports: weight/appetite/sleep changes (2kg weight gain yesterday at HD , unable to be removed). denies: fever/chills ENT: denies: nasal congestion Respiratory: denies: cough, congestion Cardiovascular: denies: chest pain, edema Gastrointestinal: reports: abdominal pain, GI bleeding. denies: nausea, vomiting Genitourinary: reports: other (on hemodialysis, produces a small amount of urine ) Skin: denies: rashes, lesions Musculoskeletal: reports: pain (pain on right lateral hip when walking, chronic) Psychological: denies: anxiety, depression - Vital signs BP: 168 HR: 77 RR: 18 Tmax: 97.7 Pox: 100% on RA Wt: 66kg - Physical Exam Constitutional: NAD, awake, alert and oriented HEENT: normocephalic and atraumatic Heart: RRR, normal S1/S2 Lungs: CTAB, no respiratory distress Abdomen: soft -Abdomen: LLQ TTP Neurological: no focal deficit Skin: no rash/lesions -Skin: no sign of infection at site of HD fistula on left arm Heme/Lymphatic: no unusual bruising or bleeding Psychiatric: normal mood and affect FMR H&P: Results - Labs Result Diagrams: 06/11/17 20:29 06/11/17 20:29 Lab results: WBC 4.3 thou/uL (4.8-10.8) L 06/11/17 20: Hgb 7.4 g/dL (14.0-18.0) L 06/11/17 20: Hct 22.1 % (42.0-52.0) L 06/11/17 20: MCV 90.9 fl (80.0-94.0) 06/11/17 20: Plt Count 65 thou/uL (130-400) L 06/11/17 20: Neutrophils % 61.6 % (42.0-75.0) 06/11/17 20: Sodium 138 mmol/L (136-145) 06/11/17 20: Potassium 4.2 mmol/L (3.5-5.1) 06/11/17 20: Chloride 96 mmol/L (98-107) L 06/11/17 20: Carbon Dioxide 27 mmol/L (22-29) 06/11/17 20: BUN 37 mg/dL (8.4-25.7) H 06/11/17 20: Creatinine 10.27 mg/dL (0.6-1.3) H 06/11/17 20: Glucose 82 mg/dL (70-105) 06/11/17 20: Calcium 8.8 mg/dL (7.8-10.44) 06/11/17 20: Total Bilirubin 0.4 mg/dL (0.2-1.2) 06/11/17 20: AST 19 U/L (5-34) 06/11/17 20: ALT Less than 7 U/L (8-55) L 06/11/17 20:29 Alkaline Phosphatase 125 U/L (40-150) 06/11/17 20:29 Serum Total Protein 6.7 g/dL (6.0-8.3) 06/11/17 20:29 Albumin 3.3 g/dL (3.5-5.0) L 06/11/17 20:29 FMR H&P: A/P - Problem List (1) ESRD (end stage renal disease) on dialysis Current Visit: No Status: Chronic Code(s): N18.6 - END STAGE RENAL DISEASE; Z99.2 - DEPENDENCE ON RENAL DIALYSIS Comment: On MWF HD. Will dialyse per Renal recommendations. (2) Anemia of renal disease Current Visit: No Status: Chronic Code(s): D63.1 - ANEMIA IN CHRONIC KIDNEY DISEASE (3) GERD (gastroesophageal reflux disease) Current Visit: No Status: Chronic Code(s): K21.9 - GASTRO-ESOPHAGEAL REFLUX DISEASE WITHOUT ESOPHAGITIS Qualifiers: Esophagitis presence: esophagitis presence not specified Qualified Code(s) : K21.9 - Gastro-esophageal reflux disease without esophagitis Comment: Continue PPI (4) Hypertension Current Visit: No Status: Chronic Code(s): I10 - ESSENTIAL (PRIMARY) HYPERTENSION Qualifiers: Hypertension type: essential hypertension Qualified Code(s): I10 - Essential (primary) hypertension Comment: At goal. Medications being held 2/2 GI bleed. - Plan 1. ESRD on HD with suspected clotted HD fistula Patient of Dr. Regan per patient, consulted from ER, recs greatly appreciated Dr. Parker consulted for possible revision of HD fistula; pt NPO at this time 2. HTN continue home meds 3. Pancytopenia has been present for the last couple hospital visits, unsure if patient has had workup; consider workup in outpatient setting 4. Hx of upper GI bleed continue home meds; continue with outpatient evaluation 5. Hx Hep C treated Disposition/LOS: Stable, inpatient heme/onc for likely at least 2 midnights depending on surgery eval Full code Attending Addendum - Attending Addendum Date/Time: 06/12/17 1030 I personally evaluated the patient and discussed the management with Dr. Hugo. H&P repeated by me. I agree with the History, Examination, Assessment and Plan documented above with any addition or exceptions noted below. Patient is a [facility] patient as he last saw Dr. Land over 6 years ago. Patient has ESRD with dialysis M,W,F. He missed Wed because he was fatigued and went yesterday to catch up. They couldn't access his left AV fistula and sent him to the [facility] where they were unable to unclog so sent him to the ER for admission. His electrolytes were normal. Dr. Parker consulted for evaluation of surgical evacuation of clot. This am his only complaint is some intermittent tingling in his R lateral thigh that comes and goes. Nothing currently. 1) Clotted AV fistula 2) ESRD-stable lytes 3) Chronic GI bleed-o/p workup 4) R leg pain- sounds like sciatica. Encouraged stretching exercises and f/u as outpatient. 5) Pancytopenia- mild dec WBC and chronically low Hgb/Plts- Asymptomatic. will need to see PCP for further outpatient evaluation.
[2017-06-12] MEDS ORDERED: CEFAZOLIN/Water 2 GM/20 ML SYRINGE SLOW IVP SCH ×2 (13:45→16:00)
[2017-06-12] MEDS ORDERED: Heparin 10,000 UNITS/ 10 ML VIAL FS SCH (15:00)
--- NOTE | 2017-06-12 15:46 | HP ---
HISTORY OF PRESENT ILLNESS: Sharif Cruz is a 61-year-old black male patient on dialysis, well known to me. He has not dialyzed since Thursday, it this Thursday. He has a left upper arm dialysi s fistula. Patient has left subclavian vein stents. He has exhausted his right upper extremity acce ss. He has left upper arm fistula. This fistula has been revised on several occasions. Patient's l eft upper arm fistula has been evaluated frequently with angiograms. He has undergone surveillance P TAs. Yesterday at the [facility], patient's fistula was thrombosed and covering radiologist adebayoo rmed an interventional procedure, but could not successfully declotted his left upper arm fistula. T he fistula inflow supposedly look good with a [employer]IDENT performed, fistula outflow and central circulation was patent, but [employer]IDENT cephalic vein was performed with good results, but the fistula could not be opene d. The patient's left arm fistula placed in 2005. He had a WORK[employer]EL[employer]ICE [employer]IDENT pre-segment as arterial inflow to th e arterial vein fistula. This segment became infected and had to be removed with reverse saphenous v ein from the thigh. He had been to the [facility] several occasions and stents have been placed in his left subclavian vein. He has had prior stents in his right subclavian vein. Today, he has undergone repeated interventions to keep the stents patent. On 08/12/2006, this PTFE segment wa s removed and a saphenous vein used to reestablish arterial inflow, previous sagittal vein from left thigh was found to be atretic and thus the PTFE segment used on that occasion when he presented with infected PTFE graft. Vein harvested from his right thigh and adequate vein obtained. The vein used to reestablish arterial inflow, proximal radial artery inflow established and the entire graft segmen t had been removed. Attempts to repair the brachiocephalic fistula on the right arm in 2004. This fistula thrombosed and the sidearm was abandoned due to subclavian vein stenting. The patient's electrolytes are normal. He is not dyspneic. He was admitted by Hospitalist from the ER and I found him on the list this morn ing as I was not notified by the hospital or any physicians. I called immediately and made him n.p.o . Plan is to place hemodialysis catheter today, dialyze him and I will plan to try to salvage his le ft arm fistula Thursday. ALLERGIES: None. SOCIAL HISTORY: Tobacco, half pack a day or less. Alcohol: None. DRUG USE: None. PAST SURGICAL HISTORY: Appendectomy, cholecystectomy, left knee surgery, dialysis access procedure a s described above. PAST MEDICAL HISTORY: Cirrhosis, hepatitis C, history of varices, thrombocytopenia, history of recta l ulcer, portal hypertension, history of polypectomy and post-polypectomy bleeding. REVIEW OF SYSTEMS: Noncontributory otherwise. PHYSICAL EXAMINATION: VITAL SIGNS: 97.8, 72, 157/83, 6 foot, 146 pounds, and 19 BMI. HEENT: Unremarkable. LUNGS: Clear to auscultation. CARDIAC: Regular rate and rhythm without murmur or gallop. ABDOMEN: Soft, nontender. There are no masses. EXTREMITIES: Unremarkable. Left upper extremity fistula thrombosed. ASSESSMENT AND PLAN: Thrombosed fistula in a difficult dialysis access patient. He has not dialyzed in 5 days. We will plan placement of hemodialysis catheter to dialyze him today and plan Thursday to perform thrombectomy of his fistula and revision is necessary to try to salvage this.
--- NOTE | 2017-06-12 16:50 | OP ---
DATE OF OPERATION: 06/12/2017 PREOPERATIVE DIAGNOSES: Thrombosed left upper arm dialysis fistula, need of dialysis access, and end -stage renal disease. POSTOPERATIVE DIAGNOSES: Thrombosed left upper arm dialysis fistula, need of dialysis access, and en d-stage renal disease. PROCEDURE: Right femoral vein temporary dialysis catheter. SURGEON: Jamse Parker M.D. ANESTHESIA: 1% Xylocaine. PROCEDURE: At the patient's bedside, right groin prepared with ChloraPrep, draped in routine fashion . Local anesthetic with 1% Xylocaine infiltrated skin seems tissue. Trocar catheter cannulated the femoral vein and J-wire threaded, trocar catheter removed. Skin incised and enlarged sharply. Seldi nger technique used to place a dual lumen large bore hemodialysis catheter into the femoral vein with some difficulty due to scarring from previous catheters. Each port aspirated blood and flushed with heparinized saline solution. The patient tolerated the procedure well.
[2017-06-12] MEDS ORDERED: Terazosin HCl 1 MG CAP PO SCH (21:00)
[2017-06-12] MEDS ORDERED: Metoprolol Tartrate 50 MG TAB PO SCH (21:00)
[2017-06-12] MEDS ORDERED: Cinacalcet HCl 30 MG TAB PO SCH (21:00)
[2017-06-12] MEDS: Amlodipine 5 MG TAB PO SCH (22:07)
[2017-06-12] MEDS: Cinacalcet HCl 30 MG TAB PO SCH (22:08)
[2017-06-12] MEDS: Lisinopril 20 MG TAB PO SCH (22:08)
[2017-06-12] MEDS: Metoprolol Tartrate 50 MG TAB PO SCH (22:09)
[2017-06-12] MEDS: Terazosin HCl 1 MG CAP PO SCH (22:09)
[2017-06-12] MEDS: traMADol HCl 50 MG TAB PO PRN (23:06)
[2017-06-13] MEDS: Acetaminophen 325 MG TAB PO PRN ×2 (01:47→19:59)
[2017-06-13 04:53] LABS: #Basophils 0.1 thou/uL (0.0-0.2); #Eosinphils 0.1 thou/uL (0.0-0.7); #Lymphocytes 0.9 thou/uL (1.20-3.40); #Monocytes 0.6 thou/uL (0.11-0.59); #Neutrophils 3.1 thou/uL (1.40-6.50); %Basophils 1.1 % (0.0-1.0); %Eosinophils 1.5 % (0.0-10.0); %Lymphocytes 19.1 % (21.0-51.0); %Monocytes 13.2 % (0.0-10.0); %Neutrophils 65.1 % (42.0-75.0); Hemoglobin 7.6 g/dL (14.0-18.0); Mean Corpuscular HGB CONC 32.4 g/dL (32.0-36.0); Mean Corpuscular Hemoglobin 29.3 pg (27.0-31.0); Mean Corpuscular Volume 90.5 fl (80.0-94.0); Mean Platelet Volume 10.8 fL (7.4-10.4); Platelet Count 65 thou/uL (130-400); White Blood Cell (WBC) Count 4.8 thou/uL (4.8-10.8)
[2017-06-13 05:21] LABS: Anion Gap 15 mmol/L (10-20); BUN (Urea Nitrogen) 24 mg/dL (8.4-25.7); Calc. Creatinine Clearance 10 mL/min (70-130); Calcium 8.4 mg/dL (7.8-10.44); Carbon Dioxide 26 mmol/L (22-29); Chloride 99 mmol/L (98-107); Estimated GFR-MDRD 9; Glucose 49 mg/dL (70-105); Magnesium 1.8 mg/dL (1.6-2.6); Phosphorus 4.1 mg/dL (2.3-4.7); Potassium 4.8 mmol/L (3.5-5.1); Sodium 135 mmol/L (136-145)
--- NOTE | 2017-06-13 06:07 | PDOC.FM ---
- Subjective Subjective: Patient is resting comfortably this morning. He reports mild pain at R groin where dialysis catheter was placed, improved from yesterday. Reports on and off black stools that he is seeing Dr. Gant for outpatient. He reports BM yesterday was normal. Did get dialysis yesterday and feels much improved. Early this morning, labs reveal low blood sugar of 49 which improved to the 110' s with food. - Objective MAR Reviewed: Yes Vital Signs & Weight: Vital Signs (12 hours) Temp Pulse Resp BP BP Pulse Ox 06/12/17 22:08 139/76 06/12/17 22:07 75 139/76 06/12/17 22:00 98.6 F 75 18 139/76 99 Weight Admit Weight 66.224 kg Weight 66.224 kg I&O: 06/11/17 06/12/17 06/13/17 06:59 06:59 06:59 Intake Total 480 Balance 480 Result Diagrams: 06/13/17 04:29 06/13/17 04:29 <Mari Smith - Last Filed: 06/13/17 07:09> - Objective Vital Signs & Weight: Vital Signs (12 hours) Temp Pulse Resp BP BP Pulse Ox 06/13/17 09:36 62 175/84 H 06/13/17 08:00 98 F 62 17 175/84 H 99 Weight Admit Weight 66.224 kg Weight 66.224 kg I&O: 06/12/17 06/13/17 06/14/17 06:59 06:59 06:59 Intake Total 840 Balance 840 Result Diagrams: 06/13/17 04:29 06/13/17 04:29 <Facundo Hills - Last Filed: 06/13/17 11:44> Phys Exam - Physical Examination Constitutional: NAD HEENT: moist MMs Neck: full ROM Respiratory: no wheezing, no rales, clear to auscultation bilateral Cardiovascular: RRR systolic murmur Gastrointestinal: soft R groin with dialysis catheter in place, no erythema or surrounding swellin Musculoskeletal: no edema, pulses present L arm fistula without bruit Psychiatric: normal affect, A&O x 3 Skin: cap refill <2 seconds <Mari Smith - Last Filed: 06/13/17 07:09> Dx/Plan (1) Arteriovenous fistula thrombosis Code(s): T82.868A - THROMBOSIS DUE TO VASCULAR PROSTH DEV/GRFT, INIT Status: Acute (2) Hypertension Code(s): I10 - ESSENTIAL (PRIMARY) HYPERTENSION Status: Chronic QualifierTitle: Hypertension type: essential hypertension Qualified Code( s): I10 - Essential (primary) hypertension (3) ESRD (end stage renal disease) on dialysis Code(s): N18.6 - END STAGE RENAL DISEASE; Z99.2 - DEPENDENCE ON RENAL DIALYSIS Status: Chronic (4) Lower GI bleed Code(s): K92.2 - GASTROINTESTINAL HEMORRHAGE, UNSPECIFIED Status: Acute (5) Chronic hepatitis C Code(s): B18.2 - CHRONIC VIRAL HEPATITIS C Status: Chronic - Plan Plan: 1. ESRD on HD with thrombosed fistula Patient of Dr. Regan per patient, consulted from ER, recs greatly appreciated Dr. Parker placed new dialysis access in groin, s/p dialysis yesterday. Labs improved. New fistula placement to be done on Thursday 2. HTN continue home meds 3. Pancytopenia has been present for the last couple hospital visits, unsure if patient has had workup; consider workup in outpatient setting 4. Hx of upper GI bleed continue home meds; continue with outpatient evaluation Hg stable 5. Hx Hep C treated 6. Hypoglycemia, resolved acute, with no hx of DM likely 2/2 poor intake. improved to 110's after feeding continue to monitor <Mari Smith - Last Filed: 06/13/17 07:09> Attending Addendum - Attending Addendum Date/Time: 06/13/17 1144 I personally evaluated the patient and discussed the management with Dr. Smith I agree with the History, Examination, Assessment and Plan documented above with any addition or exceptions noted below. <Facundo Hills - Last Filed: 06/13/17 11:44>
[2017-06-13] MEDS ORDERED: Non-Formulary Item 1 EACH (Omeprazole [Omeprazole] 40 MG) PO SCH (09:00)
[2017-06-13] MEDS: Terazosin HCl 1 MG CAP PO SCH ×2 (09:36→19:59)
[2017-06-13] MEDS: Lisinopril 20 MG TAB PO SCH ×2 (09:36→20:00)
[2017-06-13] MEDS: Metoprolol Tartrate 50 MG TAB PO SCH ×2 (09:36→20:00)
[2017-06-13] MEDS: Amlodipine 5 MG TAB PO SCH ×2 (09:36→20:01)
--- NOTE | 2017-06-13 10:25 | CT ---
CT CHEST WITH IV CONTRAST: DATE: 06/13/17. PROVIDED CLINICAL HISTORY: Abnormal upper GI. FINDINGS: Comparison is made with the CT examination dated 05/16/08. Correlation is made with the upper GI seri es dated 06/09/17. There is a coarse focus of calcification present adjacent to the left aspect of the thoracic esophagu s at the level of the left atrium. This presumably reflects the focus of extrinsic mass effect upon the thoracic esophagus in this location. This appears similar to findings on 05/16/08 CT examination and may reflect dystrophic calcification or sequelae of prior granulomatous disease. Vascular calcifications including coronary calcium are demonstrated. The heart, pericardium, and gre at vessels appear otherwise unremarkable. There are patchy foci of tree-in-bud nodular opacity present in the right upper lobe posterolaterally . The lungs appear otherwise clear. There is a small right pleural effusion. Capsular calcifications involving the liver and spleen are seen as are multiple partially visualized cysts involving each kidney. The osseous structures demonstrate no concerning lytic or blastic lesio ns. IMPRESSION: 1. Benign-appearing calcification in the posterior mediastinum at the level of the extrinsic mass ef fect upon the thoracic esophagus seen at recent UGI. This appears stable with respect to the 2009 st udy and is of uncertain etiology. This could reflect sequelae of prior granulomatous disease. 2. Findings compatible with infectious pneumonitis involving the right upper lobe. Small right pleu ral effusion. POS: [facility]
[2017-06-13] MEDS ORDERED: Epoetin (ESRD) 20,000 UNITS/ML SC SCH (11:00)
[2017-06-13] MEDS: traMADol HCl 50 MG TAB PO PRN (11:18)
[2017-06-13] MEDS: Cinacalcet HCl 30 MG TAB PO SCH (20:01)
[2017-06-14 05:53] LABS: INR-International Normal Ratio 1.4; Prothrombin Time 17.6 SEC (12.0-14.7)
--- NOTE | 2017-06-14 06:03 | PDOC.FM ---
Addendum entered and electronically signed by Mari Smith DO 06/14/17 11:01: Possible cirrhosis with hx of hep C, elevated coag studies, and thrombocytopenia. Will get RUQ u/s to evaluate. Original Note: - Subjective Subjective: Patient is doing well this morning. Reports good sleep, regular BM yesterday, no pain. He denies cough, congestion, fever/chills, and SOB. No acute events overnight. - Objective MAR Reviewed: Yes Vital Signs & Weight: Vital Signs (12 hours) Temp Pulse Resp BP BP Pulse Ox 06/14/17 03:35 99.6 F 06/13/17 23:22 99.1 F 61 12 114/60 98 06/13/17 20:01 121 H 141/76 H 06/13/17 20:00 99.8 F H 121 H 16 141/76 H 99 06/13/17 19:35 99.8 F H 121 H 16 141/76 H 99 Weight Admit Weight 66.224 kg Weight 66.224 kg I&O: 06/12/17 06/13/17 06/14/17 06:59 06:59 06:59 Intake Total 840 Balance 840 Result Diagrams: 06/14/17 05:22 06/14/17 05:22 <Mari Smith - Last Filed: 06/14/17 07:48> - Objective Vital Signs & Weight: Vital Signs (12 hours) Temp Pulse Resp BP BP Pulse Ox 06/14/17 08:48 66 140/72 06/14/17 08:00 98.9 F 66 14 140/72 99 06/14/17 03:35 99.6 F Weight Admit Weight 66.224 kg Weight 66.224 kg I&O: 06/13/17 06/14/17 06/15/17 06:59 06:59 06:59 Intake Total 840 Balance 840 Result Diagrams: 06/14/17 05:22 06/14/17 05:22 <Facundo Hills - Last Filed: 06/14/17 11:27> Phys Exam - Physical Examination Constitutional: NAD HEENT: moist MMs Respiratory: no wheezing, no rales, clear to auscultation bilateral Cardiovascular: RRR, no significant murmur Gastrointestinal: soft, non-tender Musculoskeletal: no edema Neurological: moves all 4 limbs Psychiatric: normal affect, A&O x 3 <Mari Smith - Last Filed: 06/14/17 07:48> Dx/Plan (1) Arteriovenous fistula thrombosis Code(s): T82.868A - THROMBOSIS DUE TO VASCULAR PROSTH DEV/GRFT, INIT Status: Acute (2) Hypertension Code(s): I10 - ESSENTIAL (PRIMARY) HYPERTENSION Status: Chronic QualifierTitle: Hypertension type: essential hypertension Qualified Code( s): I10 - Essential (primary) hypertension (3) ESRD (end stage renal disease) on dialysis Code(s): N18.6 - END STAGE RENAL DISEASE; Z99.2 - DEPENDENCE ON RENAL DIALYSIS Status: Chronic (4) Lower GI bleed Code(s): K92.2 - GASTROINTESTINAL HEMORRHAGE, UNSPECIFIED Status: Acute (5) Chronic hepatitis C Code(s): B18.2 - CHRONIC VIRAL HEPATITIS C Status: Chronic - Plan Plan: 1. ESRD on HD with thrombosed fistula Patient of Dr. Regan per patient, consulted from ER, recs greatly appreciated Dr. Parker placed new dialysis access in groin, s/p dialysis on Thursday. Will go to dialysis today and get2 units pRBC's during that time per Dr. Regan. Labs improved. New fistula placement to be done on Thursday 2. HTN continue home meds stable 3. Pancytopenia has been present for the last couple hospital visits, unsure if patient has had workup; consider workup in outpatient setting coag panel pending 4. Hx of upper GI bleed continue home meds; continue with outpatient evaluation Hg stable transfuse 2 units with dialysis today 5. Hx Hep C treated 6. CT chest finding of pneumonitis Patient without any fever or s/sx of pneumonitis at this point. Will continue to monitor. 7. Hyperphosphatemia Dialysis today 8. Hyponatremia Unknown cause. Not currently getting fluids. Will repeat after dialysis and order serum osm. Dispo: Likely d/c after permanent dialysis access obtained on Thursday. <Mari mSith - Last Filed: 06/14/17 07:48> Attending Addendum - Attending Addendum Date/Time: 06/14/17 1123 I personally evaluated the patient and discussed the management with Dr. Smith I agree with the History, Examination, Assessment and Plan documented above with any addition or exceptions noted below. ESRD with thrombosed fistula for revision, pancytopenia will receive 2 units RBC with dialysis today, history of prior treated hepatitis C questionable current status consider viral load studies,no further hypoglycemic episode ,c/o yesterday LLE pain c/w meralgia paresthetica <aFcundo Hills - Last Filed: 06/14/17 11:27>
[2017-06-14 06:14] LABS: Anion Gap 17 mmol/L (10-20); BUN (Urea Nitrogen) 34 mg/dL (8.4-25.7); Calc. Creatinine Clearance 8 mL/min (70-130); Calcium 8.2 mg/dL (7.8-10.44); Carbon Dioxide 23 mmol/L (22-29); Chloride 96 mmol/L (98-107); Estimated GFR-MDRD 7; Glucose 70 mg/dL (70-105); Phosphorus 5.3 mg/dL (2.3-4.7); Potassium 4.7 mmol/L (3.5-5.1); Sodium 131 mmol/L (136-145)
[2017-06-14 07:23] LABS: Anisocytosis SLIGHT = 6-15 cells (100X) (0-5/hpf); Band 1 % (5-11); Eosinophils 2 % (0-10); Hemoglobin 7.7 g/dL (14.0-18.0); Lymphocytes 20 % (21-51); MDiff Complete? YES; Mean Corpuscular HGB CONC 32.2 g/dL (32.0-36.0); Mean Corpuscular Hemoglobin 28.7 pg (27.0-31.0); Mean Platelet Volume 10.5 fL (7.4-10.4); Monocytes 10 % (0-10); Neutrophil 66 % (42-75); PLT Morphology Comment Appears Decreased; Platelet Count 64 thou/uL (130-400); RBC Distribution Width 16.4 % (11.5-14.5); Red Blood Cell (RBC) Count 2.68 mill/uL (4.70-6.10); White Blood Cell (WBC) Count 4.3 thou/uL (4.8-10.8)
[2017-06-14] MEDS: Amlodipine 5 MG TAB PO SCH ×2 (08:48→21:10)
[2017-06-14] MEDS: Lisinopril 20 MG TAB PO SCH ×2 (08:48→21:11)
[2017-06-14] MEDS: Metoprolol Tartrate 50 MG TAB PO SCH ×2 (08:48→21:10)
[2017-06-14] MEDS: Terazosin HCl 1 MG CAP PO SCH ×2 (08:49→21:09)
[2017-06-14] MEDS ORDERED: Heparin 1,000 UNITS/ML VIAL ONE (11:11)
--- NOTE | 2017-06-14 11:38 | ULT ---
RIGHT UPPER QUADRANT ULTRASOUNDRT UPPER QUADRANT ULTRASOUND: DATE: 06/14/17. PROVIDED CLINICAL HISTORY: Evidence for cirrhosis. FINDINGS: Comparison is made with the chest CT dated 06/13/17. The pancreas and IVC are obscured. Evaluation o f the hepatic parenchyma is limited due to shadowing from the capsular calcifications seen on prior C T. The liver demonstrates no evidence for focal mass or intrahepatic biliary ductal dilatation. The common duct is not dilated. Gallbladder is surgically absent. Numerous cysts are seen involving th e right kidney. Normal flow is seen within the main portal vein. IMPRESSION: No definite sonographic characteristics to suggest cirrhosis. Evaluation is somewhat limited due to capsular calcifications. POS: [facility]
[2017-06-14] MEDS: Acetaminophen 325 MG TAB PO PRN (21:10)
[2017-06-14] MEDS: Cinacalcet HCl 30 MG TAB PO SCH (21:11)
[2017-06-14] MEDS ORDERED: Bisacodyl 5 MG TAB PO PRN (21:39)
[2017-06-15 06:05] LABS: Eosinophils 2 % (0-10); Hemoglobin 9.4 g/dL (14.0-18.0); Lymphocytes 10 % (21-51); MDiff Complete? YES; Mean Corpuscular HGB CONC 32.8 g/dL (32.0-36.0); Mean Corpuscular Hemoglobin 29.1 pg (27.0-31.0); Mean Corpuscular Volume 88.7 fl (80.0-94.0); Mean Platelet Volume 11.2 fL (7.4-10.4); Monocytes 20 % (0-10); Neutrophil 68 % (42-75); PLT Morphology Comment Appears Decreased; Platelet Count 65 thou/uL (130-400); RBC Distribution Width 15.5 % (11.5-14.5); Red Blood Cell (RBC) Count 3.24 mill/uL (4.70-6.10); White Blood Cell (WBC) Count 4.3 thou/uL (4.8-10.8)
[2017-06-15 06:08] LABS: Anion Gap 13 mmol/L (10-20); BUN (Urea Nitrogen) 19 mg/dL (8.4-25.7); Calc. Creatinine Clearance 11 mL/min (70-130); Calcium 8.2 mg/dL (7.8-10.44); Carbon Dioxide 27 mmol/L (22-29); Chloride 98 mmol/L (98-107); Estimated GFR-MDRD 10; Glucose 74 mg/dL (70-105); Magnesium 1.9 mg/dL (1.6-2.6); Phosphorus 3.9 mg/dL (2.3-4.7); Potassium 4.2 mmol/L (3.5-5.1); Sodium 134 mmol/L (136-145)
--- NOTE | 2017-06-15 06:34 | PDOC.FM ---
- Subjective Subjective: Pt doing well overnight. No acute events. HD yesterday and L arm procedure scheduled today. - Objective MAR Reviewed: Yes Vital Signs & Weight: Vital Signs (12 hours) Temp Pulse Resp BP BP Pulse Ox 06/15/17 00:00 99.1 F 06/14/17 21:11 161/80 H 06/14/17 21:10 75 161/80 H 06/14/17 20:00 100.6 F H 75 16 161/80 H 99 Weight Admit Weight 66.224 kg Weight 66.224 kg I&O: 06/13/17 06/14/17 06/15/17 06:59 06:59 06:59 Intake Total 840 Balance 840 Result Diagrams: 06/15/17 05:02 06/15/17 05:02 <Thony Valentin - Last Filed: 06/15/17 08:02> - Objective Vital Signs & Weight: Vital Signs (12 hours) Temp Pulse Resp BP Pulse Ox 06/15/17 07:26 98.0 F 69 18 151/75 H 98 06/15/17 00:00 99.1 F Weight Admit Weight 66.224 kg Weight 66.224 kg Result Diagrams: 06/15/17 05:02 06/15/17 05:02 <Tojna Plata - Last Filed: 06/15/17 11:26> Phys Exam - Physical Examination Constitutional: NAD thin HEENT: PERRLA, moist MMs Neck: no nodes, no JVD Respiratory: no wheezing, no rales, no rhonchi Cardiovascular: RRR, no significant murmur, no rub LUE Fistula in place. Gastrointestinal: soft, non-tender, no distention Musculoskeletal: no edema, pulses present Psychiatric: normal affect, A&O x 3 Skin: no rash, normal turgor <Thony Valentin - Last Filed: 06/15/17 08:02> Dx/Plan (1) Arteriovenous fistula thrombosis Code(s): T82.868A - THROMBOSIS DUE TO VASCULAR PROSTH DEV/GRFT, INIT Status: Acute (2) Anemia due to acute blood loss Code(s): D62 - ACUTE POSTHEMORRHAGIC ANEMIA Status: Acute (3) ESRD (end stage renal disease) on dialysis Code(s): N18.6 - END STAGE RENAL DISEASE; Z99.2 - DEPENDENCE ON RENAL DIALYSIS Status: Chronic (4) GERD (gastroesophageal reflux disease) Code(s): K21.9 - GASTRO-ESOPHAGEAL REFLUX DISEASE WITHOUT ESOPHAGITIS Status: Chronic QualifierTitle: Esophagitis presence: esophagitis presence not specified Qualified Code(s): K21.9 - Gastro-esophageal reflux disease without esophagitis (5) Hypertension Code(s): I10 - ESSENTIAL (PRIMARY) HYPERTENSION Status: Chronic QualifierTitle: Hypertension type: essential hypertension Qualified Code( s): I10 - Essential (primary) hypertension (6) Hypoalbuminemia Code(s): E88.09 - OTH DISORDERS OF PLASMA-PROTEIN METABOLISM, NEC Status: Chronic (7) Macrocytosis Code(s): D75.89 - OTHER SPECIFIED DISEASES OF BLOOD AND BLOOD-FORMING ORGANS Status: Chronic (8) Secondary hyperparathyroidism of renal origin Code(s): N25.81 - SECONDARY HYPERPARATHYROIDISM OF RENAL ORIGIN Status: Chronic - Plan Plan: 1. ESRD on HD with thrombosed fistula Dr. Parker placed new dialysis access in groin, s/p dialysis on Thursday/ Thursday. New fistula placement to be done today. 2. HTN stable, continue home meds 3. Pancytopenia has been present for the last couple hospital visits, unsure if patient has had workup; consider workup in outpatient setting coag panel pending 4. Hx of upper GI bleed continue home meds; continue with outpatient evaluation Hg stable s/p 2u PRBC with HD 5. Hx Hep C treated 6. CT chest finding of pneumonitis Patient without any fever or s/sx of pneumonitis at this point. Will continue to monitor. 7. Hyperphosphatemia Resolved with HD 8. Hyponatremia Unknown cause. Not currently getting fluids. Now 134, continue to monitor Dispo: Likely d/c after permanent dialysis access today <Thony Valentin - Last Filed: 06/15/17 08:02> Attending Addendum - Attending Addendum Date/Time: 06/15/17 1122 I personally evaluated the patient and discussed the management with Dr. Valentin on 06/15/17. I agree with the History, Examination, Assessment and Plan documented above with any addition or exceptions noted below. Patient going to OR today for fistula placement. Per Dr. Parker, patient OK to discharge at that point. <Tonja Plata - Last Filed: 06/15/17 11:26>
[2017-06-15] MEDS: Metoprolol Tartrate 50 MG TAB PO SCH (08:02)
[2017-06-15] MEDS ORDERED: Promethazine HCl 25 MG/ML VIAL IM PRN ×2 (08:46→11:33)
[2017-06-15] MEDS ORDERED: Promethazine HCl 25 MG/ML VIAL SLOW IVP PRN ×2 (08:46→11:33)
[2017-06-15] MEDS ORDERED: Ondansetron HCl/PF 4 MG/2 ML Vial IVP PRN ×2 (08:46→11:33)
[2017-06-15] MEDS ORDERED: Midazolam HCl 2 mg/2 ml Vial ONE ×2 (08:52→10:37)
[2017-06-15] MEDS ORDERED: Fentanyl 100 MCG/2 ML VIAL ONE ×2 (08:52→10:36)
[2017-06-15] MEDS ORDERED: CEFAZOLIN/Water 2 GM/20 ML SYRINGE ONE (09:16)
[2017-06-15] MEDS ORDERED: Bupivacaine HCl 0.5%/Epinephrine 1:200,000/PF 30 ml Vial ONE ×2 (10:24→14:57)
[2017-06-15] MEDS ORDERED: Lidocaine 2% 10 ML INJ ONE (10:24)
[2017-06-15] MEDS ORDERED: Heparin 5,000 UNITS/ML VIAL ONE (10:24)
[2017-06-15] MEDS ORDERED: Protamine Sulfate 50 MG/5 ML VIAL ONE (10:24)
[2017-06-15] MEDS ORDERED: Ioversol 68 % 50 ML VIAL ONE (10:30)
[2017-06-15] MEDS ORDERED: Propofol 500 MG/50 ML VIAL ONE (10:37)
[2017-06-15] MEDS ORDERED: Ketamine 50 MG/ML VIAL ONE (10:38)
[2017-06-15] MEDS ORDERED: Morphine Sulfate 2 MG/ML SYRINGE SLOW IVP PRN (11:33)
[2017-06-15] MEDS ORDERED: Meperidine HCl/PF 25 MG/ML VIAL SLOW IVP PRN (11:33)
[2017-06-15] MEDS ORDERED: HYDROmorphone 2 MG/ML VIAL SLOW IVP PRN (11:33)
[2017-06-15] MEDS ORDERED: Sodium Chloride 0.9% 20 ML ONE (11:38)
[2017-06-15] MEDS ORDERED: Heparin 10,000 UNITS/1 ML VIAL ONE ×2 (11:38→11:45)
--- NOTE | 2017-06-15 13:14 | OP ---
DATE OF OPERATION: 06/15/2017 PREOPERATIVE DIAGNOSES: End-stage renal disease, left subclavian vein stent, prior history of fistul ous right arm thrombosed including basilic vein fistula transposition and PTAs right subclavian-axill migel vein without stenting on the right. POSTOPERATIVE DIAGNOSES: End-stage renal disease, left subclavian vein stent, prior history of fistu lous right arm thrombosed including basilic vein fistula transposition and PTAs right subclavian-axil claire vein without stenting on the right with multiple stents in the left arm fistula including the ar terial inflow, antecubital fossa and above, and upper left arm. PROCEDURE: Thrombectomy left arm fistula with unsuccessful confucianism of function. Ultrasound-guid ed placement of left internal jugular cuffed tunnel dialysis catheter. Ultrasound of the right side of the neck revealed failure to visualize internal jugular vein right (multiple previous catheters). SURGEON: Dr. James Parker. ANESTHESIA: TIVA, local 0.5% Marcaine with epinephrine 30 mL mixed with 2% Xylocaine 10 mL and left arm regional anesthesia. PLAN: Future thigh dialysis graft, palpable pedal pulses both legs, despite history of tobacco use. PROCEDURE IN DETAIL: The patient was taken to the operating room where under regional anesthesia and intravenous sedation, neck and chest and left arm and axilla prepared with ChloraPrep and draped in routine fashion. Patient had had a fistula in his left arm, origin proximal radial artery, outflow a xillary vein with previous revisions using PTFE graft, because of atretic saphenous vein left thigh. He subsequently developed an infection of the PTFE graft segment and that was removed and a right sa phenous vein used successfully. The patient, in the last 8-9 years, has had multiple interventions w ith stents in his left subclavian vein, stents along his fistula as described above. This patient wa s not able to communicate this history to me, but this was discovered in the operating room. I made an incision transversely in the distal upper arm above the antecubital fossa, dissecting the fistula, surrounded with Silastic loop, transverse venotomy made appreciating the stent within this. Thrombe ctomy performed restoring arterial inflow, but I could not restore venous outflow, although multiple clots were removed. The catheter would pass throughout the fistula length. The patient was noted to have a stent in his upper arm, and with his subclavian vein stent, it was felt not to be worthwhile to persist and efforts to restore function of this fistula. The fistula was closed with a running co ntinuous suture of 4-0 Prolene, subcutaneous tissues, 3-0 Monocryl, skin with subdermal 4-0 Monocryl, DermaGlue applied. Attention was then turned to placement of a hemodialysis catheter. The right side of neck was inspec my with an ultrasound and there was no visible internal jugular vein due to the patient's multiple p rior catheters. The left internal jugular vein was visualized and the trocar catheter placed under u ltrasound guidance and J-wire threaded and trocar catheter removed. J-wire passed easily the superio r vena cava. Local anesthetic infiltrated into skin and subcutaneous tissue about the operative site s. A stab incision made over the left chest and the J-wire entrance site, and using the tunneling de vice, the precurved angiodynamics cuffed tunneled hemodialysis catheter, precurved tunnel between the 2 incisions, placing the fabric cuff beneath the skin exit site and catheter secured with 2 interrup my sutures of 3-0 nylon. Smaller medium-sized dilators placed over the J-wire in the internal jugul ar vein and removed. Dilator and pull-away sheath placed under fluoroscopic visualization in the sup erior vena cava. Dilator and J-wire removed. Catheter placed with pull-away sheath and pull-away sh eath removed. Platysma approximated 4-0 Monocryl, skin with subdermal 4-0 Monocryl, and DermaGlue ap plied. Each port aspirated blood and flushed with saline solution and heparinized saline solution, 1 000 units of heparin per mL indicated volume of the port.
--- NOTE | 2017-06-15 13:21 | RAD ---
PORTABLE CHEST 1 VIEW: Date: 06/15/17 Time: 1211 hours HISTORY: Dialysis catheter placement. FINDINGS/IMPRESSION: Comparison made with exam of 05/03/17. There has been interval placement of left-sided internal jugular dialysis catheter with tip in the pr ojection of the SVC. Stent in the left subclavian region is again seen. The heart size is normal. No focal areas of consolidation, pneumothorax, or pleural effusions are seen. POS: ANISAH
[2017-06-15] MEDS: Lisinopril 20 MG TAB PO SCH (13:57)
[2017-06-15] MEDS: Terazosin HCl 1 MG CAP PO SCH (14:00)
[2017-06-15] MEDS: Amlodipine 5 MG TAB PO SCH (14:56)
[2017-06-15] MEDS ORDERED: Lidocaine 1% PF 5 ML VIAL ONE (15:10)
[2017-06-15] MEDS ORDERED: PROPOFOL 200 MG/20 ML VIAL ONE (15:10)
[2017-06-15] MEDS: traMADol HCl 50 MG TAB PO PRN (19:19)
[2017-06-15 20:14] VITALS: BP 143/73; TEMP 97.8
--- NOTE | 2017-06-16 21:55 | DIS-2 ---
DATE OF ADMISSION: 06/11/2017 DATE OF DISCHARGE: 06/15/2017 RESIDENT: Thony Valentin DO. ADMITTING ATTENDING: Christy Hernandez M.D. DISCHARGE ATTENDING: Tonja Plata D.O. CONSULTATIONS: Dr. Regan and Dr. James Parker. PROCEDURES: 1. The patient underwent attempted left arm AV fistula repair that was unsuccessful. 2. Femoral Vas-Cath placement and removal as temporary dialysis line. PRIMARY DIAGNOSIS: End-stage renal disease on dialysis. SECONDARY DIAGNOSES: Chronic anemia, hypertension, pancytopenia, hyperphosphatemia, sciatica, chroni c hyponatremia, also history of upper gastrointestinal bleed and also history of treated hepatitis C. DISCHARGE MEDICATIONS: Amlodipine 5 mg b.i.d., cinacalcet HCL 1 tab p.o. nightly resume that, lisino pril 20 mg p.o. b.i.d. resume that, metoprolol tartrate 50 mg p.o. b.i.d. resume that, 40 mg of omepr azole p.o. q.a.m. resume that, ranitidine 150 mg p.o. daily resume that, terazosin 1 mg tablet p.o. b .i.d. resume that. There were no new medications added during this hospital stay. HISTORY OF PRESENT ILLNESS AND HOSPITAL COURSE: A 61-year-old male with past medical history of end- stage renal disease on hemodialysis Thursday, Thursday, Thursday, who presented to the ER initially for a clotted fistula yesterday at dialysis. He did miss dialysis the Thursday before admission because he was not feeling well. He was having abdominal pain upon presentation to the hospital for history of GI bleed, which is currently being worked up in outpatient setting. During the hospital stay, he underwent dialysis through a temporary femoral Vas-Cath that was removed on discharge day. He was g iven 2 units of packed red blood cells during dialysis. Overall, patient went for AV fistula revisio n on 06/15/[address] Parker which was unsuccessful. Dr. Parker was unable to fix the fistula. H e did arrange to have an IJ tunneled catheter placed outpatient. Mr. Cruz remained pancytopenic throughout the admission; however, hemoglobin and hematocrit improved with the packed red blood cell s. DISPOSITION: The patient was stable. DISCHARGE INSTRUCTIONS: 1. Location: Home. 2. Diet: Regular diet. 3. Activity: Regular activity. 4. Followup: That is going to be with Dr. Regan, his electro mechanical designer within 7 days. Also, he is woodrow g to follow up with the surgeon, Dr. James Parker.
== END 2017-06-15 19:28 | disposition home or self-care (01) | DRG 252 ==
LOC: ERS 19:03 → ONC 21:49
PROVIDERS: ADMIT Family Medicine; ATTEND Family Medicine
PROC: 5A1D70Z Performance of Urinary Filtration, Intermittent, Less than 6 Hours Per Day (ICD-10-PCS; 2017-06-14)
PROC: 05CB0ZZ Extirpation of Matter from Right Basilic Vein, Open Approach (ICD-10-PCS; principal; 2017-06-15)
PROC: 03CB0ZZ Extirpation of Matter from Right Radial Artery, Open Approach (ICD-10-PCS; 2017-06-15)
PROC: 02HV33Z Insertion of Infusion Device into Superior Vena Cava, Percutaneous Approach (ICD-10-PCS; 2017-06-15)
PROC: B548ZZA Ultrasonography of Superior Vena Cava, Guidance (ICD-10-PCS; 2017-06-15)
DX: T82.868A Thrombosis due to vascular prosthetic devices, implants and grafts, initial encounter (principal); N18.6 End stage renal disease; D61.818 Other pancytopenia; I12.0 Hypertensive chronic kidney disease with stage 5 chronic kidney disease or end stage renal disease; E83.39 Other disorders of phosphorus metabolism; E87.1 Hypo-osmolality and hyponatremia; D62 Acute posthemorrhagic anemia; E88.09 Other disorders of plasma-protein metabolism, not elsewhere classified; N25.81 Secondary hyperparathyroidism of renal origin; Z99.2 Dependence on renal dialysis; D63.1 Anemia in chronic kidney disease; M54.30 Sciatica, unspecified side; J44.9 Chronic obstructive pulmonary disease, unspecified; F17.210 Nicotine dependence, cigarettes, uncomplicated; K21.9 Gastro-esophageal reflux disease without esophagitis
CPT/HCPCS: 36415; 36416; 36430; 71045; 71260; 74247; 74250; 76705; 80048; 80053; 82274; 83735; 83930; 84100; 85025; 85610; 85730; 86850; 86900; 86901; 93005; 99406; A4216; C1752; C1769; J0670; J1644; J2001; J2250; J2704; J2720; J3010; P9016; Q4081; Q9967

== ENCOUNTER 2017-06-22 06:07 | Inpatient (IN) | payer MEDICARE, MEDICAID ==
[2017-06-22] MEDS ORDERED: Midazolam HCl 2 mg/2 ml Vial ONE ×2 (06:37→06:38)
[2017-06-22] MEDS ORDERED: Fentanyl 100 MCG/2 ML VIAL ONE ×5 (06:37→10:39)
[2017-06-22] MEDS ORDERED: Protamine Sulfate 50 MG/5 ML VIAL ONE (06:38)
[2017-06-22] MEDS ORDERED: Bupivacaine HCl 0.5%/Epinephrine 1:200,000/PF 30 ml Vial ONE (06:38)
[2017-06-22] MEDS ORDERED: Lidocaine 2% 10 ML INJ ONE (06:38)
[2017-06-22] MEDS ORDERED: Heparin 5,000 UNITS/ML VIAL ONE (06:38)
[2017-06-22] MEDS ORDERED: HYDROmorphone 0.5 MG/0.5 ML SYRINGE ONE (06:57)
[2017-06-22 07:03] LABS: #Eosinphils 0.2 thou/uL (0.0-0.7); #Lymphocytes 1.5 thou/uL (1.20-3.40); #Monocytes 0.5 thou/uL (0.11-0.59); #Neutrophils 2.6 thou/uL (1.40-6.50); %Basophils 0.6 % (0.0-1.0); %Lymphocytes 30.7 % (21.0-51.0); %Monocytes 10.9 % (0.0-10.0); %Neutrophils 52.8 % (42.0-75.0); Hemoglobin 8.6 g/dL (14.0-18.0); Mean Corpuscular HGB CONC 31.8 g/dL (32.0-36.0); Mean Corpuscular Hemoglobin 28.3 pg (27.0-31.0); Mean Corpuscular Volume 89.1 fl (80.0-94.0); Mean Platelet Volume 10.2 fL (7.4-10.4); Platelet Count 98 thou/uL (130-400); RBC Distribution Width 15.1 % (11.5-14.5); Red Blood Cell (RBC) Count 3.02 mill/uL (4.70-6.10)
[2017-06-22] MEDS ORDERED: CEFAZOLIN/Water 2 GM/20 ML SYRINGE ONE (07:10)
[2017-06-22 07:25] LABS: Anion Gap 18 mmol/L (10-20); BUN (Urea Nitrogen) 39 mg/dL (8.4-25.7); Calc. Creatinine Clearance 8 mL/min (70-130); Calcium 8.6 mg/dL (7.8-10.44); Carbon Dioxide 27 mmol/L (22-29); Chloride 94 mmol/L (98-107); Estimated GFR-MDRD 7; Glucose 79 mg/dL (70-105); Sodium 135 mmol/L (136-145)
[2017-06-22] MEDS ORDERED: Promethazine HCl 25 MG/ML VIAL SLOW IVP PRN (09:13)
[2017-06-22] MEDS ORDERED: Meperidine HCl/PF 25 MG/ML VIAL SLOW IVP PRN (09:13)
[2017-06-22] MEDS ORDERED: Ondansetron HCl/PF 4 MG/2 ML Vial IVP PRN (09:13)
[2017-06-22] MEDS ORDERED: Promethazine HCl 25 MG/ML VIAL IM PRN (09:13)
[2017-06-22] MEDS ORDERED: Dextrose 50% Abboject 50 ML SYRINGE SLOW IVP PRN (09:54)
[2017-06-22] MEDS ORDERED: Dextrose 5% in Water 1,000 ML IV PRN (09:54)
[2017-06-22] MEDS ORDERED: hydrALAZINE 20 MG/ML VIAL SLOW IVP PRN (09:54)
[2017-06-22] MEDS ORDERED: Acetaminophen 500 MG TAB PO PRN (09:59)
[2017-06-22] MEDS ORDERED: HYDROcodone/Acetaminophen 5/325 mg Tablet PO PRN (09:59)
[2017-06-22] MEDS ORDERED: traMADol HCl 50 MG TAB PO PRN ×4 (09:59→10:35)
--- NOTE | 2017-06-22 11:11 | OP ---
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 PROCEDURE: Left thigh loop PTFE graft tapered 4 T07 between the superficial femoral artery and the c ommon femoral vein. SURGEON: Dr. James Parker ANESTHESIA: General. Local 0.5% Marcaine with epinephrine, 30 mL total volume mixture used. ESTIMATED BLOOD LOSS: 50 mL. PROCEDURE: The patient was taken to the operating room where under general anesthesia, the left thig h, groin prepared with ChloraPrep, draped in routine fashion. Local anesthetic infiltrated in the sk in and subcutaneous tissue about the operative site. Longitudinal incision made in left groin dissec ting the common, superficial and profunda femoral artery and the femoral vein, surrounding them proxi lucho and distally with vessel loops. A Autumn-Wick tunneler used to tunnel the graft for a loop rusty t configuration with the 4 mm tapered end of the graft laterally overlying the artery and the 7 mm gr aft overlying the vein. A counter incision closed with approximated subcutaneous tissue, 3-0 Monocry l, skin with subdermal 4-0 Monocryl. The patient given 6000 units heparin intravenously. After adeq uate circulation time, the common femoral vein and profunda femoral vein clamped proximally and dista lly with vascular clamps. Longitudinal venotomy made sharply and elongated with the Pereira scissors a nd graft 7 mm tapered appropriately for a 3 cm anastomosis using continuous sutures of 5-0 Prolene. SurgiSeal applied. The venous control released. Good backflow of blood noted in the graft. Vascula r clamp placed on the graft. Common profunda and superficial femoral artery clamped with vascular cl amps. Longitudinal arteriotomy made sharply, and the superficial femoral artery and graft tailored a ccordingly for a 2 cm anastomosis using continuous suture of 5-0 Prolene for the anastomosis. After completing anastomosis prior to tying the final knot the graft was filled with blood releasing the ve nous backflow and then the common superficial and profunda femoral artery clamps were released and he mostasis gained with 5-0 Prolene and SurgiSeal. The patient was given 50 mg of protamine intravenous ly. Surgicel applied. Subcutaneous tissues approximated with 3-0 Monocryl in 3 layers and skin appr oximated with 4-0 Monocryl. DermaGlue applied.
[2017-06-22] MEDS ORDERED: Heparin 10,000 UNITS/ 10 ML VIAL ONE (11:58)
[2017-06-22] MEDS ORDERED: Lidocaine 1% PF 5 ML VIAL ONE (11:58)
[2017-06-22] MEDS ORDERED: PROPOFOL 200 MG/20 ML VIAL ONE (11:58)
[2017-06-22] MEDS ORDERED: Heparin 10,000 UNITS/ 10 ML VIAL FS PRN (12:45)
[2017-06-22] MEDS ORDERED: Prevnar 13-Val Conj/PF 0.5 ML SYRINGE IM ONE (13:00)
[2017-06-22] MEDS: HYDROcodone/Acetaminophen 5/325 mg Tablet PO PRN (18:09)
[2017-06-22] MEDS: Amlodipine 5 MG TAB PO SCH (20:47)
[2017-06-22] MEDS: Lisinopril 20 MG TAB PO SCH (20:47)
[2017-06-22] MEDS: Terazosin HCl 1 MG CAP PO SCH (20:48)
[2017-06-22] MEDS: Metoprolol Tartrate 50 MG TAB PO SCH (20:48)
[2017-06-22] MEDS ORDERED: Cinacalcet HCl 30 MG TAB PO SCH (21:00)
[2017-06-22] MEDS ORDERED: Famotidine 20 MG TAB PO SCH (21:00)
[2017-06-23] MEDS: HYDROcodone/Acetaminophen 5/325 mg Tablet PO PRN (04:07)
[2017-06-23 05:22] LABS: #Eosinphils 0.1 thou/uL (0.0-0.7); #Lymphocytes 0.9 thou/uL (1.20-3.40); #Monocytes 0.5 thou/uL (0.11-0.59); #Neutrophils 3.5 thou/uL (1.40-6.50); %Basophils 0.4 % (0.0-1.0); %Eosinophils 1.5 % (0.0-10.0); %Monocytes 10.7 % (0.0-10.0); %Neutrophils 69.4 % (42.0-75.0); Mean Corpuscular HGB CONC 32.4 g/dL (32.0-36.0); Mean Corpuscular Hemoglobin 28.5 pg (27.0-31.0); Mean Corpuscular Volume 87.8 fl (80.0-94.0); Mean Platelet Volume 10.7 fL (7.4-10.4); Platelet Count 99 thou/uL (130-400); RBC Distribution Width 14.9 % (11.5-14.5); White Blood Cell (WBC) Count 5.1 thou/uL (4.8-10.8)
[2017-06-23 05:23] LABS: Anion Gap 17 mmol/L (10-20); BUN (Urea Nitrogen) 46 mg/dL (8.4-25.7); Calc. Creatinine Clearance 7 mL/min (70-130); Calcium 7.8 mg/dL (7.8-10.44); Carbon Dioxide 27 mmol/L (22-29); Chloride 95 mmol/L (98-107); Estimated GFR-MDRD 6; Potassium 4.3 mmol/L (3.5-5.1); Sodium 135 mmol/L (136-145)
[2017-06-23 05:26] LABS: Glucose 51 mg/dL (70-105)
[2017-06-23] MEDS: Amlodipine 5 MG TAB PO SCH (07:59)
[2017-06-23] MEDS: Lisinopril 20 MG TAB PO SCH (07:59)
[2017-06-23] MEDS: Metoprolol Tartrate 50 MG TAB PO SCH (07:59)
--- NOTE | 2017-06-23 08:31 | PRG ---
DATE OF SERVICE: 06/23/2017 PHYSICAL EXAMINATION: VITAL SIGNS: Stable, afebrile, 98 degrees, 79, 141/72. GENERAL: He has delayed dialysis this morning so he can eat breakfast. He has refused to go down un til after breakfast. LUNGS: Clear to auscultation. CARDIAC: Regular rate and rhythm without murmur or gallop. ABDOMEN: Soft, nontender. White count 5, hemoglobin 8. Basic metabolic profile consistent with end-stage renal disease. LUNGS: Clear to auscultation. CARDIAC: Regular rate and rhythm without murmur or gallop. ABDOMEN: Soft, nontender. EXTREMITIES: Left groin wound and thigh wounds clean and dry. Good thrill and bruit in his graft. ASSESSMENT AND PLAN: End-stage renal disease. Plan to continue dialysis through his hemodialysis ca theter until 3-4 weeks at which time they can begin accessing his graft. He can be discharged home t [facility] after dialysis. Follow up in my office in 2-3 weeks. Hydrocodone given for pain. Resume home pain medication.
[2017-06-23] MEDS ORDERED: Polyethylene Glycol 3350 17 GM Packet PO SCH (09:00)
[2017-06-23] MEDS ORDERED: Non-Formulary Item 1 EACH (Ranitidine Hcl [Ranitidine Hcl] 150 MG) PO SCH (09:00)
--- NOTE | 2017-06-23 09:09 | DIS ---
DATE OF ADMISSION: 06/22/2017 DATE OF DISCHARGE: 06/23/2017 DISCHARGE DIAGNOSES: End-stage renal disease, exhausted left upper extremity access with subclavian vein stent and multiple stents in his left upper arm fistula thrombosed. Failed attempt at thrombect lit recently. 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 Multiple fistulas and right arm unsuccessful. DISCHARGE MEDICATIONS: Hydrocodone 5/325. DISCHARGE DIAGNOSES: Cirrhosis; hepatitis C; history of varices; thrombocytopenia; history of peptic ulcer; portal hypertension; and end-stage renal disease, on dialysis. PROCEDURES: Left thigh dialysis graft, femoral artery vein tapered graft, PTFE 4T07. Consultation, Dr. James Regan this hospitalization. Dialysis this hospitalization. Patient will resume home medications, tramadol, terazosin three tabs b.i.d., ranitidine 150 mg a day, omeprazole 4 0 mg a day, metoprolol 50 mg b.i.d., lisinopril 20 mg b.i.d., Sensipar 1 tab p.o. q.p.m., amlodipine 5 mg b.i.d. Follow up in my office in 2-3 weeks.
[2017-06-23 13:41] VITALS: BP 149/78; TEMP 98.6
[2017-06-23] MEDS: Terazosin HCl 1 MG CAP PO SCH (13:41)
== END 2017-06-23 14:49 | disposition home or self-care (01) | DRG 252 ==
LOC: SDC 06:07 → T4-A 10:45
PROVIDERS: ADMIT Specialist; ATTEND Specialist
PROC: 041 Lower Arteries, Bypass (ICD-10-PCS; principal; 2017-06-22)
DX: T82.868A Thrombosis due to vascular prosthetic devices, implants and grafts, initial encounter (principal); N18.6 End stage renal disease; K76.6 Portal hypertension; F17.210 Nicotine dependence, cigarettes, uncomplicated; K74.60 Unspecified cirrhosis of liver; Y71.3 Surgical instruments, materials and cardiovascular devices (including sutures) associated with adverse incidents; B19.20 Unspecified viral hepatitis C without hepatic coma; D69.6 Thrombocytopenia, unspecified
CPT/HCPCS: 36415; 80048; 85025; 86850; 86900; 86901; 90935; G0257; J0131; J0670; J1170; J1644; J2001; J2250; J2704; J2720; J3010; L8670

== ENCOUNTER 2017-08-25 19:57 | Inpatient (IN) | payer MEDICARE, OTHER ==
[2017-08-25 21:38] LABS: ALT (SGPT) Less than 7 U/L (8-55); AST (SGOT) 16 U/L (5-34); Albumin 3.5 g/dL (3.5-5.0); Alkaline Phosphatase 98 U/L (40-150); Anion Gap 14 mmol/L (10-20); BUN (Urea Nitrogen) 22 mg/dL (8.4-25.7); Bilirubin, Total 0.5 mg/dL (0.2-1.2); CK (CPK) 133 U/L (30-200); Calc. Creatinine Clearance 0 mL/min (70-130); Calcium 9.2 mg/dL (7.8-10.44); Carbon Dioxide 31 mmol/L (22-29); Chloride 96 mmol/L (98-107); Estimated GFR-MDRD 10; Globulin 3.6 g/dL (2.4-3.5); Glucose 109 mg/dL (70-105); Lipase 26 U/L (8-78); Potassium 3.7 mmol/L (3.5-5.1); Protein, Total 7.1 g/dL (6.0-8.3); Sodium 137 mmol/L (136-145)
[2017-08-25 21:40] LABS: CKMB 2.1 ng/mL (0-6.6); Troponin I 0.016 ng/mL (< 0.028)
[2017-08-25 21:42] LABS: #Basophils 0.1 thou/uL (0.0-0.2); #Eosinphils 0.1 thou/uL (0.0-0.7); #Lymphocytes 1.5 thou/uL (1.20-3.40); #Monocytes 0.7 thou/uL (0.11-0.59); #Neutrophils 2.2 thou/uL (1.40-6.50); %Basophils 1.3 % (0.0-1.0); %Eosinophils 2.7 % (0.0-10.0); %Lymphocytes 32.8 % (21.0-51.0); %Monocytes 14.7 % (0.0-10.0); %Neutrophils 48.6 % (42.0-75.0); Anisocytosis SLIGHT = 6-15 cells (100X) (0-5/hpf); Elliptocytes SLIGHT = 2-5 cells (100X) (0-1/hpf); Hemoglobin 6.9 g/dL (14.0-18.0); MDiff Complete? YES; Mean Corpuscular HGB CONC 32.1 g/dL (32.0-36.0); Mean Corpuscular Hemoglobin 27.2 pg (27.0-31.0); Mean Corpuscular Volume 84.7 fL (78.0-98.0); Mean Platelet Volume 10.8 fL (7.4-10.4); PLT Morphology Comment Appears Decreased; Platelet Count 99 thou/uL (130-400); RBC Distribution Width 16.3 % (11.5-14.5); Red Blood Cell (RBC) Count 2.53 mill/uL (4.70-6.10); White Blood Cell (WBC) Count 4.5 thou/uL (4.8-10.8)
[2017-08-26] MEDS ORDERED: Calcium Carbonate 500 MG ChewTAB PO PRN (03:15)
[2017-08-26] MEDS ORDERED: Ondansetron ODT 4 MG TAB PO PRN (03:15)
[2017-08-26] MEDS ORDERED: Acetaminophen 325 MG TAB PO PRN (03:15)
--- NOTE | 2017-08-26 03:29 | PDOC.FPRHP ---
- History of Present Illness Chief Complaint: SOB, weakness, tingling, abdominal pain History of Present Illness: 61 yo M with PMH of ESRD came into ED for SOB, weakness, tingling, lower extremity muscle pain for the past several months. Last night he received a call from Dr. Regan (snowsport instructor) saying to come to ED because of recent labs showing a low hemoglobin and concern for bleeding. Mr. Cruz endorses worsening of symptoms over past several months reporting a few episodes of black stool, most recently a few days ago. Per patient he's been hospitalized twice this year for actively bleeding stomach polyps. ED Course: Type and cross was ordered in ED, but pending transfusion. - Allergies/Adverse Reactions Allergies Allergy/AdvReac Type Severity Reaction Status Date / Time No Known Allergies Allergy Verified 08/26/17 03:38 - Home Medications Medication Instructions Recorded Confirmed Type Amlodipine Besylate [amLODIPine 5 mg PO BID 03/13/16 08/26/17 History Besylate] Cinacalcet HCl [Sensipar] 1 tab PO QPM 03/13/16 06/19/17 History Lisinopril 20 mg PO BID 03/13/16 08/26/17 History Metoprolol Tartrate 50 tab PO BID 03/13/16 06/19/17 History Omeprazole 40 mg PO QAM 03/13/16 08/26/17 History Terazosin HCl [Hytrin] 3 tab PO BID 03/13/16 06/19/17 History Ranitidine HCl 150 mg PO QAM 06/12/17 08/26/17 History traMADol HCl [Tramadol HCl] 50 mg PO Q4H PRN 06/19/17 08/26/17 History Acetaminophen [Tylenol Extra 1,000 mg PO Q6H PRN tab 06/23/17 08/26/17 Rx Strength] HYDROcodone Bit/APAP 5/325 [[place] 1 - 2 tab PO Q6HR PRN 06/23/17 08/26/17 History 5/325] - History PMHx:ESRD, chronic Anemia, GI bleeds, PSHx: AV fistula placement (RUE) FHx: HTN (brother, sister) Social: 20 pack year history, denies EtOH and drug use - Review of Systems General: reports: weight/appetite/sleep changes (decreased appetite and weight loss). denies: fever/chills, night sweats, fatigue Eyes: denies: eye pain, vision changes ENT: denies: nasal congestion, rhinorrhea Respiratory: reports: shortness of breath Cardiovascular: denies: chest pain, palpitation, edema Gastrointestinal: reports: GI bleeding (black, tarry stool a few days ago). denies: nausea, vomiting, diarrhea Skin: denies: rashes Musculoskeletal: reports: pain (lower extremity pain worse with walking and movement) Neurological: denies: numbness, syncope, weakness Psychological: denies: anxiety, depression - Vital signs BP: [135/75] HR: [82] RR: [18] Tmax: [97.9] Pox: [98]% on [RA] Wt: [16.4] - Physical Exam Constitutional: NAD, awake, alert and oriented HEENT: normocephalic and atraumatic, PERRLA, EOMI, other (scleral icterus, conjunctival pallor) Neck: supple Chest: no-tender to palpation Heart: RRR, other (right upper extremity AV fistula) Lungs: CTAB, no respiratory distress, no wheezing Abdomen: soft, other (tender to palpation, no guarding or ridgidity) Musculoskeletal: normal tone Skin: no rash/lesions, other (increased capillary refill, skin tenting) Heme/Lymphatic: no unusual bruising or bleeding Psychiatric: normal mood and affect FMR H&P: Results - Labs Result Diagrams: 08/26/17 04:31 08/26/17 04:31 Lab results: WBC 4.5 thou/uL (4.8-10.8) L 08/25/17 21:06 Hgb 6.9 g/dL (14.0-18.0) L 08/25/17 21:06 Hct 21.5 % (42.0-52.0) L 08/25/17 21:06 MCV 84.7 fL (78.0-98.0) 08/25/17 21:06 Plt Count 99 thou/uL (130-400) L 08/25/17 21:06 Neutrophils % 48.6 % (42.0-75.0) 08/25/17 21:06 Sodium 137 mmol/L (136-145) 08/25/17 21:06 Potassium 3.7 mmol/L (3.5-5.1) 08/25/17 21:06 Chloride 96 mmol/L (98-107) L 08/25/17 21:06 Carbon Dioxide 31 mmol/L (22-29) H 08/25/17 21:06 BUN 22 mg/dL (8.4-25.7) 08/25/17 21:06 Creatinine 6.65 mg/dL (0.6-1.3) H 08/25/17 21:06 Glucose 109 mg/dL (70-105) H 08/25/17 21:06 Calcium 9.2 mg/dL (7.8-10.44) 08/25/17 21:06 Total Bilirubin 0.5 mg/dL (0.2-1.2) 08/25/17 21:06 AST 16 U/L (5-34) 08/25/17 21:06 ALT Less than 7 U/L (8-55) L 08/25/17 21:06 Alkaline Phosphatase 98 U/L (40-150) 08/25/17 21:06 Creatine Kinase 133 U/L (30-200) 08/25/17 21:06 CK-MB (CK-2) 2.1 ng/mL (0-6.6) 08/25/17 21:06 Serum Total Protein 7.1 g/dL (6.0-8.3) 08/25/17 21:06 Albumin 3.5 g/dL (3.5-5.0) 08/25/17 21:06 Lipase 26 U/L (8-78) 08/25/17 21:06 - EKG Interpretation EKG: Normal sinus rhythm with possible left atrial enlargement FMR H&P: A/P - Problem List (1) Symptomatic anemia Current Visit: Yes Status: Acute Code(s): D64.9 - ANEMIA, UNSPECIFIED (2) Anemia of renal disease Current Visit: No Status: Chronic Code(s): D63.1 - ANEMIA IN CHRONIC KIDNEY DISEASE (3) Hypertension Current Visit: No Status: Chronic Code(s): I10 - ESSENTIAL (PRIMARY) HYPERTENSION Qualifiers: Hypertension type: essential hypertension Qualified Code(s): I10 - Essential (primary) hypertension Comment: At goal. Medications being held 2/2 GI bleed. (4) ESRD (end stage renal disease) on dialysis Current Visit: No Status: Chronic Code(s): N18.6 - END STAGE RENAL DISEASE; Z99.2 - DEPENDENCE ON RENAL DIALYSIS Comment: On MWF HD. Will dialyse per Renal recommendations. (5) Pancytopenia Current Visit: Yes Status: Chronic Code(s): D61.818 - OTHER PANCYTOPENIA (6) History of GI bleed Current Visit: Yes Status: Chronic Code(s): Z87.19 - PERSONAL HISTORY OF OTHER DISEASES OF THE DIGESTIVE SYSTEM - Plan 61 yo M with ESRD on HD MWF with symptomatic anemia and concern for possible active bleeding. 1. Symptomatic anemia -Hb 6.9, concern for active bleeding -Vitally stable -Ordered Type & cross, will transfuse x1 -CBC, BMP -Will collect and send for stool guaiac test -Trend H/H 2. Pancytopenia 2/2 likely to liver disease -Will monitor for now 3. ESRD -Scheduled for HD today -Renal function around baseline 4. HTN -Pressures have been stable and wnl -Continue Lisinopril 20mg and Amlodipine 5mg 5. History of GI bleeds -Stool guaiac pending 6. Anemia of chronic disease -Treating for symptomatic anemia DVT ppx: SCDs FMR H&P: Upper Level - Pertinent history 61 yr old male with history of ESRD 2/2 HTN, chronic anemia presents for low hgb. He was called by his dialysis center to come in for low hgb. He reports being SOB with exertion for 2 weeks. He reports feeling weak/fatigue. He states he has black tarry stools every couple days for the last 2 weeks- seems to be worse on days he has dialysis. He reports a chronic abdominal pain- worse in LLQ. He states this has been present every since he has been having a workup for GI bleeds. - Pertinent findings Gen: NAD, cardiac: RRR, no M/R/G lungs: Expiratory wheezes in post bases, no rhales/rhonchi Abd: LLQ tenderness, no guarding, no rebound, no rigidity eXT: no edema - Plan Date/Time: 08/26/17 0323 I, [Nkechi Lai], have evaluated this patient and agree with findings/plan as outlined by real estate internship resident. Pertinent changes/additions are listed here. 1. Symptomatic chronic anemia -possible upper GI bleed- no evidence for esophageal or gastric varices on recent EGD. -pending stool guiac- consider GI consult -recent colonscopy 05/03 with evidence for diverticular disease/large ulcerations in rectum -GI bleed scan in 05/03- Neg -type and crossmatch 1 unit and transfuse during dialysis. -trend H/H- no evidence for active GI bleed, no tachy, SOB with exertion 2. ESRD on dialysis -M/W/F dialysis -plan for dialysis today 3. chronic pancytopenia -cont to monitor 4. history of upper GI bleed 5. hep C s/p treatment 6. HTN -cont home meds. Attending Addendum - Attending Addendum Date/Time: 08/26/17 1922 I personally evaluated the patient and discussed the management with Dr. Evangelista/ Ming. I agree with the History, Examination, Assessment and Plan documented above with any addition or exceptions noted below. Patient is 61 yo male with history of ESRD on HD, and multiple hospitalizations for GI bleeds though no active bleed seems to have been noted on any imaging modality. He endorses symptoms of anemia over the last several months, and was advised to present to the hospital after outpatient lab draw indicated low Hgb. Upon arrival, patient was hemodynamically stable, but noted to have Hgb of 6.6. He will be admitted for symptomatic anemia 2/2 either chronic renal disease or possibly GI bleed recurrence. Will transfuse 1u PRBCs, in addition to arranging HD for patient so as to prevent volume overload. FOBT pending, but if positive or if evidence of continued bleeding occurs, will need GI consult. Continue Protonix as he has been noted previously to have a chronic gastropathy. Continue home medications for his chronic medical conditions.
[2017-08-26 04:54] LABS: Anion Gap 12 mmol/L (10-20); BUN (Urea Nitrogen) 25 mg/dL (8.4-25.7); Calc. Creatinine Clearance 9 mL/min (70-130); Calcium 9.2 mg/dL (7.8-10.44); Carbon Dioxide 33 mmol/L (22-29); Chloride 97 mmol/L (98-107); Estimated GFR-MDRD 9; Glucose 88 mg/dL (70-105); Potassium 3.5 mmol/L (3.5-5.1); Sodium 138 mmol/L (136-145)
[2017-08-26 05:44] LABS: Anisocytosis SLIGHT = 6-15 cells (100X) (0-5/hpf); Band 1 % (5-11); Elliptocytes SLIGHT = 2-5 cells (100X) (0-1/hpf); Eosinophils 2 % (0-10); Hemoglobin 6.6 g/dL (14.0-18.0); Lymphocytes 38 % (21-51); MDiff Complete? YES; Mean Corpuscular HGB CONC 32.5 g/dL (32.0-36.0); Mean Corpuscular Hemoglobin 27.7 pg (27.0-31.0); Mean Corpuscular Volume 85.1 fL (78.0-98.0); Mean Platelet Volume 10.4 fL (7.4-10.4); Monocytes 3 % (0-10); Neutrophil 55 % (42-75); PLT Morphology Comment Appears Decreased; Platelet Count 85 thou/uL (130-400); RBC Distribution Width 16.1 % (11.5-14.5); White Blood Cell (WBC) Count 3.9 thou/uL (4.8-10.8)
[2017-08-26 07:08] LABS: HIV (1/2) Antibody/Antigen Non-Reactive (NonReactive); HIV 1/2 INDEX 0.12 S/CO (<1.00)
[2017-08-26] MEDS ORDERED: Amlodipine 5 MG TAB PO SCH (09:00)
[2017-08-26] MEDS ORDERED: Heparin 5,000 UNITS/ML VIAL SC SCH (09:00)
[2017-08-26] MEDS ORDERED: Lisinopril 20 MG TAB PO SCH (09:00)
[2017-08-26] MEDS ORDERED: Metoprolol Tartrate 50 MG TAB PO SCH (09:00)
[2017-08-26 10:38] LABS: Syphilis Antibody Index 13.52 S/CO (<1.00 Non-Reactive)
[2017-08-26 13:41] LABS: Hep C IgG Ab Reflex HepC Qnt (NonReactive)
[2017-08-26 14:23] VITALS: BMI 18.2
[2017-08-26 17:38] VITALS: BP 168/82; TEMP 98.5
--- NOTE | 2017-08-26 18:18 | PDOC.EVN ---
Event Note - Event Note Event Note: Paged to bedside due to pt complaint of wanting to leave hospital. Pt had HD today and received 2 units of pRBC for symptomatic acute on chronic anemia 2/2 ESRD. Pt had FOBT that was negative and recent extensive GI workup that revealed no evidence of GI bleeding. Discussed case with Dr. James Regan who was ok with discharging patient home. Pt has f/u with nephrology for HD on Thursday and can have labs rechecked at that time. Pt stable for discharge at this time.
[2017-08-27 00:31] LABS: Syphilis Antibody INDETERMINATE (Nonreactive)
[2017-08-27 00:32] LABS: Syphilis Titer Non-Reactive (Negative)
--- NOTE | 2017-08-27 03:11 | DIS-2 ---
DATE OF ADMISSION: 08/26/2017 DATE OF DISCHARGE: 08/26/2017 RESIDENT: Asher Garner MD ADMITTING ATTENDING: Lior Kirk MD DISCHARGE ATTENDING: Lior Kirk MD CONSULTATION: Nephrology, Dr. James Regan. PROCEDURE: Hemodialysis performed on 08/26/2017 with 2 units packed red blood cells transfused during dialysis. PRIMARY DIAGNOSES: 1. Symptomatic acute on chronic anemia secondary to end-stage renal disease. 2. 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 3. History of hepatitis C virus cirrhosis. 4. Pancytopenia, likely secondary to hepatitis C virus cirrhosis. SECONDARY DIAGNOSES: 1. Hypertension. 2. End-stage renal disease; on Thursday, Thursday, Thursday dialysis. 3. Gastritis. DISCHARGE MEDICATIONS: 1. Amlodipine 5 mg p.o. b.i.d. 2. Omeprazole 40 mg p.o. daily. 3. Sensipar 1 tab p.o. q.p.m. 4. Metoprolol tartrate 50 mg p.o. b.i.d. 5. Lisinopril 20 mg p.o. b.i.d. 6. Terazosin 1 mg 3 tabs p.o. b.i.d. 7. Tramadol 50 mg p.o. q.4 hours p.r.n. 8. Tylenol p.r.n. 9. [place] 5 p.o. q.6 hours p.r.n. DISCONTINUED MEDICATION: Ranitidine 150 mg p.o. daily. HISTORY OF PRESENT ILLNESS AND HOSPITAL COURSE: The patient is a 61-year-old -[place] gentleman with a history of end-stage renal disease on Thursday, Thursday, Thursday hemodialysis who initially presented after his creative resource manager called with recent outpatient lab work that revealed an acute on chronic anemia. The patient was found on admission to have a hemoglobin of 6.9 with previous baseline around 8. The patient complained of shortness of breath on exertion at the time of admission, likely secondary to his acute on chronic anemia. Recommendation was made by the patient's creative resource manager to have 2 units of packed red blood cells transfused with his hemodialysis session on 2017. The patient tolerated hemodialysis extremely well. Due to the patient's chronic pancytopenia, a workup was completed including screening for HIV, hepatitis C, and syphilis. His initial syphilis screening antibody test came back positive with a reflex for an RPR titer pending at this time. The patient was counseled about this and was not aware of any previous diagnosis of syphilis. The patient was instructed as to the importance of following up with his primary care physician for potential treatment of latent syphilis. The patient also had an initial hepatitis C virus antibody positive that is being reflexed as well at the time of this dictation. With the patient's history of gastritis, his home medication reconciliation revealed he was on Omeprazole and Ranitidine. His Ranitidine was discontinued and the patient was told to continue his Omeprazole daily for the time being until follow up can be established with his PCP or cigar bander hand. After tolerating dialysis, the patient was very adamant to be discharged home as he has followup on Thursday with his creative resource manager and planned dialysis. A courtesy call was placed to Dr. James Regan, who was content with discharge as the patient has close followup. The patient's hospital course was otherwise uncomplicated. DISPOSITION: Stable. DISCHARGE INSTRUCTIONS: 1. Location: To home. 2. Diet: Renal diet. 3. Activity: As tolerated. 4. Followup: The patient was instructed to follow up with his primary care physician, Dr. Land, within 1 week to follow up on hospital stay. The patient was also instructed to follow up with creative resource manager, Dr. James Regan, for his scheduled dialysis on Mondays, Wednesdays and Fridays. The patient was counseled on the importance of following up for his potential treatment for latent syphilis and voiced understanding. LAYO
== END 2017-08-26 18:52 | disposition home or self-care (01) | DRG 682 ==
LOC: ERS 19:57 → ERHOLD 08-26 00:48 → 2SW 08-26 03:13
PROVIDERS: ADMIT Student in an Organized Health Care Education/Training Program; ATTEND Student in an Organized Health Care Education/Training Program
PROC: 30233N1 Transfusion of Nonautologous Red Blood Cells into Peripheral Vein, Percutaneous Approach (ICD-10-PCS; principal; 2017-08-26)
PROC: 5A1D70Z Performance of Urinary Filtration, Intermittent, Less than 6 Hours Per Day (ICD-10-PCS; 2017-08-26)
DX: I12.0 Hypertensive chronic kidney disease with stage 5 chronic kidney disease or end stage renal disease (principal); N18.6 End stage renal disease; D61.818 Other pancytopenia; Z68.1 Body mass index [BMI] 19.9 or less, adult; D63.1 Anemia in chronic kidney disease; K29.70 Gastritis, unspecified, without bleeding; B19.20 Unspecified viral hepatitis C without hepatic coma; A53.0 Latent syphilis, unspecified as early or late; Z99.2 Dependence on renal dialysis; R63.4 Abnormal weight loss; Z87.891 Personal history of nicotine dependence; Z87.19 Personal history of other diseases of the digestive system
CPT/HCPCS: 36415; 36430; 80048; 80053; 82274; 82553; 83690; 84484; 85025; 86593; 86780; 86803; 86850; 86900; 86901; 87389; 87522; 93005; P9016

== ENCOUNTER 2017-09-29 08:07 | Emergency (ER) | payer MEDICARE, OTHER ==
[2017-09-29 09:06] LABS: #Lymphocytes 0.6 thou/uL (1.20-3.40); #Monocytes 0.6 thou/uL (0.11-0.59); #Neutrophils 7.2 thou/uL (1.40-6.50); %Basophils 0.6 % (0.0-1.0); %Eosinophils 0.3 % (0.0-10.0); %Lymphocytes 6.7 % (21.0-51.0); %Monocytes 7.5 % (0.0-10.0); Hemoglobin 11.1 g/dL (14.0-18.0); Mean Corpuscular HGB CONC 32.6 g/dL (32.0-36.0); Mean Corpuscular Hemoglobin 29.1 pg (27.0-31.0); Mean Corpuscular Volume 89.4 fL (78.0-98.0); Mean Platelet Volume 11.4 fL (7.4-10.4); Platelet Count 75 thou/uL (130-400); RBC Distribution Width 19.6 % (11.5-14.5); Red Blood Cell (RBC) Count 3.82 mill/uL (4.70-6.10); White Blood Cell (WBC) Count 8.4 thou/uL (4.8-10.8)
[2017-09-29 09:17] LABS: ALT (SGPT) Less than 7 U/L (8-55); AST (SGOT) 15 U/L (5-34); Albumin 3.8 g/dL (3.4-4.8); Alkaline Phosphatase 106 U/L (40-150); Anion Gap 18 mmol/L (10-20); BUN (Urea Nitrogen) 18 mg/dL (8.4-25.7); Bilirubin, Total 1.1 mg/dL (0.2-1.2); Calc. Creatinine Clearance 0 mL/min (70-130); Calcium 10.2 mg/dL (7.8-10.44); Carbon Dioxide 27 mmol/L (23-31); Chloride 95 mmol/L (98-107); Estimated GFR-MDRD 13; Globulin 4.2 g/dL (2.4-3.5); Glucose 91 mg/dL (80-115); Potassium 4.3 mmol/L (3.5-5.1); Sodium 136 mmol/L (136-145)
[2017-09-29] MEDS ORDERED: Acetaminophen 325 MG TAB ONE (10:20)
== END 2017-09-29 12:44 | disposition home or self-care (01) ==
LOC: ERS 08:07
DX: K92.2 Gastrointestinal hemorrhage, unspecified (principal); I12.0 Hypertensive chronic kidney disease with stage 5 chronic kidney disease or end stage renal disease; N18.6 End stage renal disease; F17.210 Nicotine dependence, cigarettes, uncomplicated; Z79.899 Other long term (current) drug therapy
CPT/HCPCS: 36415; 80053; 82274; 85025; 99285

== ENCOUNTER 2018-02-17 11:09 | Inpatient (IN) | payer MEDICARE, OTHER ==
[2018-02-17 13:30] LABS: #Lymphocytes 0.9 thou/uL (1.20-3.40); #Monocytes 0.7 thou/uL (0.11-0.59); #Neutrophils 13.3 thou/uL (1.40-6.50); %Basophils 0.1 % (0.0-1.0); %Eosinophils 0.3 % (0.0-10.0); %Lymphocytes 6.3 % (21.0-51.0); %Monocytes 4.8 % (0.0-10.0); %Neutrophils 88.6 % (42.0-75.0); Hemoglobin 9.3 g/dL (14.0-18.0); Mean Corpuscular HGB CONC 30.4 g/dL (32.0-36.0); Mean Corpuscular Hemoglobin 27.2 pg (27.0-31.0); Mean Corpuscular Volume 89.3 fL (78.0-98.0); Mean Platelet Volume 11.3 fL (7.4-10.4); Platelet Count 77 thou/uL (130-400); RBC Distribution Width 15.3 % (11.5-14.5); Red Blood Cell (RBC) Count 3.42 mill/uL (4.70-6.10)
--- NOTE | 2018-02-17 13:51 | CT ---
NONCONTRAST CT ABDOMEN AND PELVIS: 02/17/2018 HISTORY: Abdominal pain and weight loss. COMPARISON: 04/23/2017 as well as post contrast study on 06/05/2016. FINDINGS: There are incompletely imaged nodular parenchymal densities seen within the right middle lobe and at the right lung base, which were not present on the CT thorax from 06/13/2017. Findings could be rela my to focal areas of pneumonitis. There is a tiny left pleural effusion present. Again noted is extensive peripheral calcification about the liver and spleen, which is unchanged when compared to the prior exams. The spleen is at the upper limits of normal in size. There are extensive vascular calcifications again noted. The bilateral kidneys are atrophic with multiple hypodense lesions seen involving each kidney, with a stable increased density lesion within the right kidney, which may be related to associated calcific ations. The pancreas and bilateral adrenal glands demonstrate a grossly normal nonenhanced CT appearance. The urinary bladder is mostly decompressed. There is a large amount of intraperitoneal free fluid, which is an interval change from prior exam. There are thickened loops of small bowel seen, but this may be related to generalized edema; however, enteritis cannot be entirely excluded. There are multilevel severe degenerative changes seen within the lumbar spine, greatest at the L3-L4 level, where there are prominent endplate degenerative changes, which were also seen on the prior exa m, as well as a study on 06/05/2016. There are also endplate irregularities involving the left lateral aspect of the L5-S1 level, also see n on prior exams, likely attributable to degenerative changes as well. There is left convex scoliosi s of the lumbar spine. There are greater endplate degenerative changes seen at the T12-L1 level. There is no significant lo ss of intervertebral disk height, but the findings are thought to most likely be attributable to dege nerative changes, which have progressed from the prior exam, as opposed to endplate changes from oste omyelitis. There is narrowing of the central spinal canal at the L3-L4 level due to disk osteophyte complex and ligamentous thickening, with severe right-sided neural foraminal narrowing at this level. There is also bilateral neural foraminal narrowing at the L4-L5 level, which also appears to be sev ere in severity. There is also bilateral neural foraminal narrowing at the L5-S1 level, greater on t he left. There is a generalized sclerotic appearance of the osseous structures, likely related to renal osteod ystrophy. There are stable subchondral cystic areas within each femoral neck and femoral head/neck j unctions, similar to the prior exam. There is a stable cystic mass seen in the pelvis, which abuts the right lateral aspect of the sigmoid colon. This is unchanged when compared to the study on 06/05/2016. There is mild subcutaneous edema present. There is also a small to moderate sized pericardial effusi on identified. IMPRESSION: 1. Large volume ascites. 2. Small to moderate sized pericardial effusion. 3. Renal atrophy with multiple hypodense lesions seen in each kidney, with areas of calcification, s table from prior study. 4. Extensive peripheral calcifications involving the liver and spleen. 5. Mildly thickened [place] of loops of small bowel, which may be related to edema; however, enteritis cannot be excluded. 6. Findings suggestive of renal osteodystrophy with multilevel degenerative changes in the lumbar sp ine. POS: [facility]
[2018-02-17] MEDS ORDERED: Morphine 4 MG/ML VIAL ONE (14:06)
[2018-02-17 14:07] LABS: ALT (SGPT) 11 U/L (8-55); AST (SGOT) 38 U/L (5-34); Albumin 2.2 g/dL (3.4-4.8); Alkaline Phosphatase 108 U/L (40-150); Anion Gap 22 mmol/L (10-20); BUN (Urea Nitrogen) 56 mg/dL (8.4-25.7); Bilirubin, Total 0.8 mg/dL (0.2-1.2); Calc. Creatinine Clearance 0 mL/min (70-130); Carbon Dioxide 22 mmol/L (23-31); Chloride 97 mmol/L (98-107); Estimated GFR-MDRD 7; Globulin 4.7 g/dL (2.4-3.5); Glucose 97 mg/dL (80-115); Potassium 5.4 mmol/L (3.5-5.1); Protein, Total 6.9 g/dL (5.8-8.1); Sodium 136 mmol/L (136-145)
--- NOTE | 2018-02-17 14:34 | CT ---
CT LUMBAR SPINE WITHOUT CONTRAST: Date: 02/17/18 Multiple axial tomograms obtained through lumbar spine with multiplanar reconstruction. INDICATION: Low back pain with bilateral leg pain. Comparison made to CT of abdomen and pelvis with evaluation of the lumbar spine from 06/05/16 and . FINDINGS: Lumbar vertebra maintain height in the sagittal projection. Degenerative disc and end plate changes a re very prominent at L3-4. There are end plate abnormalities seen involving both superior and inferio r end plates at T12-L1. Superior end plate deformity at L3. The degenerative disc and end plate changes are most pronounced at the L3-4 level. There is loss of d isc space. There is irregularity of both superior and inferior end plates at this L3-4 level with abn ormal sclerosis and cystic changes along both end plates, primarily to the right of midline. These ch anges were present on CTs dating through 06/05/16. At L1-2, no significant disc bulge or protrusion. No central canal or foraminal stenosis. At L2-3, there is mild disc bulge. Mild facet hypertrophy. Mild central canal stenosis. At L3-4, severe degenerative disc and end plate changes with irregularity of the end plates as discus sed above. These end plate changes were present on the exam dating back to 2017 which would indicate a chronic process. These changes have progressed since that exam. There is a broad based disc bulge c ombined with facet and ligamentous hypertrophy resulting in moderate central canal stenosis. There is bilateral foraminal stenosis, more pronounced on the right due to asymmetric disc bulge extending to the right combined with facet hypertrophy. At L4-5, a broad based disc bulge/protrusion flattening the thecal sac. Facet and ligamentous hypertr ophy. Moderate to severe central canal stenosis. Bilateral foraminal stenosis. At L5-S1, broad based disc bulge combined with facet and ligamentous hypertrophy results in moderate central canal stenosis. Bilateral foraminal stenosis due to the diffuse disc bulge extending into bot h foramina. IMPRESSION: 1. Degenerative disc and end plate changes throughout the lumbar spine, most pronounced at L3-4, wit h irregularity of the end plates with cystic and sclerotic changes. The disc and end plate changes at this level were present in 2017 although there has been progression. Disc bulge with central canal s tenosis at L3-4, L4-5, and L5-S1 as described above with foraminal encroachment as noted above. 2. Incidentally noted on review of soft tissues, is evidence of a large amount of free fluid in the abdomen and deep pelvis consistent with ascites. Recommend clinical correlation. A cystic lesion whic h appears to involve the rectal wall on the right is again seen and was noted on the 2018 exam. Atrop hic and cystic kidneys are partially imaged on today's exam and were noted previously. POS: [facility]
[2018-02-17] MEDS ORDERED: Heparin 1,000 UNITS/ML VIAL ONE ×3 (15:00→15:38)
[2018-02-17 15:30] LABS: CKMB 9.3 ng/mL (0-6.6)
[2018-02-17 15:34] LABS: INR-International Normal Ratio 1.6; PTT 38.3 SEC (22.9-36.1); Prothrombin Time 18.9 SEC (12.0-14.7)
--- NOTE | 2018-02-17 15:39 | CT ---
CT ANGIOGRAM ABDOMEN AND PELVIS WITH RUNOFF TO THE FEET: Date: 02/17/18 HISTORY: Lower extremity claudication. COMPARISON: CT angiogram from 2007. TECHNIQUE: CT angiogram of the abdomen and pelvis with runoff to the feet performed. 3D rendering provided. FINDINGS: There is a triangular shaped nodular mass within the right middle lobe which is incompletely evaluate d and measures at least up to 1.9 cm. Mild atelectatic changes in the lung bases. No pericardial effu esther. There is peripheral calcification of the spleen and liver, likely from chronic ascites. There is larg e volume ascites in the abdomen and pelvis. Polycystic kidneys are present, which are relatively poor parenchymal enhancement. Both kidneys are s mall. Pancreas is unremarkable. No dilated loops of large or small bowel. No retroperitoneal adenopathy. Th ere is moderate third spacing of fluid with poor visual enhancement. There is mild S-shape scoliosis thoracolumbar spine. There are erosive end plate changes at L3-4, whi ch are similar dating back to comparison examinations. There are large subcortical cyst formation of both femoral heads/neck junctions. There is poor corticomedullary differentiation throughout the skeleton suggesting chronic hyperparath yroidism. Vessels: There is narrowing of the celiac trunk due to arcuate ligament of the diaphragm, approximately 50-60% narrowing, with mild post-stenotic dilatation. Splenic artery and hepatic arteries are patent. The r ight hepatic artery emanates from the superior mesenteric artery, which is patent. Inferior mesenteri c artery is patent proximally, although there is a central thrombus approximately 2.6 cm from the erin gin. There is peripheral flow past this, likely from collaterals. There is complete thrombosis of the left renal artery 2.0 cm after its origin. There is high grade na rrowing of the right renal artery due to atherosclerotic plaque. The aorta is nonaneurysmal. Extensive atherosclerotic plaque. There is a graft to the left common femoral artery and vein which is patent, with significant flow wi thin the left iliac system. The external iliac arteries are patent and the internal iliac arteries sh ow moderate atherosclerotic plaque. There appears to be complete occlusion of the left internal iliac artery for a length of approximately 4.0 cm for distal reconstitution due to calcific and soft plaqu e. Right Side: Common femoral artery is patent. Femoral artery is patent. The deep femoral artery is patent. Popliteal artery is patent with mild atherosclerotic plaque. There is multifocal 30-40% narrowing of the popliteal artery. The trifurcation is patent. Slow flow within the peroneal and posterior tibial arteries. Left Side: Common femoral artery is patent. Femoral artery is patent. The left popliteal vein has peripheral lawrence cifications, likely chronic thrombosis. Complete occlusion distal popliteal artery just above the trifurcation. The posterior tibial and quin gonzález artery is completely occluded. Minimal flow within the proximal anterior tibial artery for a gissell gth of about 5.0 cm without any significant flow from mid tib-fib down to the ankle. IMPRESSION: 1. 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 There is no flow distal to this. N o flow within the left posterior tibial or peroneal arteries. 2. Old left distal femur fracture with bone infarcts. 3. Nodule in the right middle lobe, for which a nonemergent CT of chest is recommended to evaluate a s this is concerning for underlying mass. 4. Osseous findings with secondary hyperparathyroidism. CODE T.
[2018-02-17] MEDS ORDERED: Iopamidol 370 76% 100 ML VIAL ONE (16:31)
[2018-02-17] MEDS ORDERED: Ondansetron PF 4 MG/2 ML Vial IVP PRN (19:27)
[2018-02-17] MEDS ORDERED: Pantoprazole 40 MG VIAL ONE (21:36)
[2018-02-17 22:26] LABS: Critical Call Chem Troponin I RESULT DECREASING; Troponin I 1.611 ng/mL (< 0.028)
--- NOTE | 2018-02-17 22:45 | CON ---
DATE OF CONSULTATION: 02/17/2018 TYPE OF CONSULTATION: GI Inpatient. REASON FOR CONSULTATION: Concern for GI bleeding. HISTORY OF PRESENT ILLNESS: Sharif Cruz is a 62-year-old gentleman normally seen by Dr. Gant, also seen in the past by my GI Colleague Dr. Ahmet Norman. Mr. Cruz has a history significant for end-stage renal disease and severe peripheral vascular disease. He also evidently has a history of hepatitis C treated in the past by Dr. Gant with sustained virologic response. Over the past year, he has had several endoscopic workups for gastrointestinal bleeding. Looking back, it appears his baseline hemoglobin is anywhere between 7 and 8. He has had multiple presentations complaining of dark tarry stools or more overt bright red bleeding. Briefly, in April 2016, he underwent EGD and colonoscopy. EGD demonstrated nonbleeding gastric AVM and mention of a grade 1 esophageal varix. The colonoscopy was normal except for hemorrhoids. Then, in February 2017, the patient again underwent EGD and there were noted 2 gastric arteriovenous malformations, which were oozing and treated with bipolar probe. In March 2017, the patient underwent another colonoscopy, which showed some hyperemic and edematous rectal wall mucosa. This was biopsied and the biopsies came back normal, but the patient returned later in March with active bleeding from the biopsy site, one of which was treated with epinephrine injection and bipolar cautery. Then again in April 2017, the patient underwent another colonoscopy, 2 ulcerations were noted in the rectal vault, both with visible vessels, injected with epinephrine and hemoclips placed to these areas. He was seen again later in April 2017 with recurrent gastrointestinal bleeding. He underwent repeat colonoscopy on 05/04/2017; there was a rectal ulcer with no visible vessel demonstrated and the exam was otherwise normal. So, then he underwent repeat EGD on 05/06/2017; he was noted to have no esophageal or gastric varices and some nodular antral gastritis with gastric biopsy showing only reactive gastropathy. Since that time, the patient has been dealing with some intermittent pains in the left upper quadrant, shooting down to the right lower quadrant. He says that intermittently his stools will be very dark; they have been dark again for about the past week; there has been no bright red blood per rectum. Bowel habits are generally irregular, particularly since having started dicyclomine recently. On presentation, his FOBT is positive and hemoglobin is 9.3, which is actually a bit above his prior baseline. He is thrombocytopenic with platelets 77, and his INR is 1.6. His presentation today is actually for severe leg pain for about the past 3 weeks, particularly in the left lower extremity consistent with claudication. He had a CT angiogram, which shows complete left popliteal artery occlusion and he also has an indeterminate 1.9 cm mass in the right middle lobe of the lung. The CT angiogram is also significant for ascites. He has elevated BNP as well as elevated troponin. We are consulted due to concern for gastrointestinal bleeding in the context of arterial occlusion and possible upcoming intervention for this. REVIEW OF SYSTEMS: Full review of systems including constitutional, head, eyes, ears, nose, throat, GI, , cardiovascular, respiratory, musculoskeletal, and neurologic systems is negative except as noted in the HPI. PAST MEDICAL HISTORY: 1. End-stage renal disease, on dialysis. 2. Severe peripheral vascular disease. 3. Left popliteal artery occlusion. 4. Multiple EGDs and colonoscopies within the past year as detailed in the HPI. 5. Hepatitis C, status post successful treatment with sustained virologic response. 6. Gastric arteriovenous malformations, status post APC treatment in February 2017. 7. Rectal ulcer, secondary to biopsies taken in March 2017, subsequently managed with epinephrine injection and hemoclip placement. 8. Cirrhosis. 9. Portal hypertension. 10. Appendectomy. 11. Cholecystectomy. 12. Dialysis shunt placement. 13. Left knee surgery. ALLERGIES: NO KNOWN DRUG ALLERGIES. FAMILY HISTORY: Negative for GI or liver disease. SOCIAL HISTORY: The patient continues to smoke cigarettes one-half pack per day since age 19. No alcohol or drug abuse. OUTPATIENT MEDICATIONS: 1. Amlodipine. 2. Lisinopril. 3. Omeprazole 40 mg daily. 4. Terazosin. 5. Metoprolol. 6. Ranitidine 150 mg daily. 7. Dicyclomine 10 mg 3 times daily. PHYSICAL EXAMINATION: VITAL SIGNS: Temperature 97.6, pulse 88, blood pressure 106/62, and 100% oxygen saturation on room air. GENERAL: Chronically ill-appearing 62-year-old man, lying in bed comfortably, in no distress. SKIN: No rash. No jaundice. EYES: No scleral icterus. Extraocular movements intact. ENT: Mucous membranes moist. No oral lesions. LYMPH: No submandibular or supraclavicular lymphadenopathy. Thyroid nontender to palpation. HEART: Regular rate and rhythm. LUNGS: Bibasilar crackles. No wheezing. No respiratory distress. ABDOMEN: Mild distention. Dull to percussion throughout. Bowel sounds present. Soft. Some tenderness to palpation in the periumbilical area. No guarding or rebound tenderness. EXTREMITIES: The left lower extremity is definitely cold to the touch. There is bilateral 1+ to 2+ lower extremity edema. NEURO: Cranial nerves 2 through 12 intact bilaterally. LABORATORY STUDIES: Hemoglobin 9.3, WBC 15.0, platelets 77. INR 1.6. Sodium 136, potassium 5.4, BUN 56, creatinine 9.29. Total bilirubin 0.8, alkaline phosphatase 108, AST 38, ALT 11, albumin 2.2. BNP is 1736. Troponin is 1.748. CK-MB is 9.3. IMAGING STUDIES: CT angiogram as detailed in the HPI. ASSESSMENT AND PLAN: 1. Melena, intermittent, chronic. 2. Heme-positive stool. 3. Chronic anemia. DISCUSSION: I had a long discussion with the patient today regarding his presentation as well as his prior, fairly recent extensive endoscopic workups for the gastrointestinal bleeding. He has had various findings, but what most stands out to me are the gastric arteriovenous malformations, which were treated earlier in 2018. These were not apparent on subsequent EGD in April 2017, but it is likely that he has arteriovenous malformations throughout the small intestine. He had no other findings on prior colonoscopy other than internal hemorrhoids and those rectal ulcerations, which were actually complications of biopsies that have been taken on a prior exam. With this current presentation, note his hemoglobin is about at baseline and I really do not see evidence of acute bleeding, but rather he probably has chronic low-level gastrointestinal blood loss and this is likely from AVMs. I really do not see any clear utility to performing repeat endoscopy at this time. I think if he is going to require anticoagulation or anti-platelet therapy for whatever interventions he needs for his lower extremity, then performing endoscopy is really not going to affect that risk one way or another. Even if the exams were normal, again he likely has arteriovenous malformations throughout the small bowel. Particularly since he ate a meal earlier today and has not yet gotten a hospital room, we will not plan on any bowel preparation right now or any endoscopy tomorrow. I would have him on a clear liquid diet tomorrow, I will keep our options open, and welcome the input of the Vascular Surgery Team as well. We will reassess with the patient tomorrow, but right now, no plan for any endoscopy. Job ID: [id number]
--- NOTE | 2018-02-17 23:00 | HP ---
PRIMARY CARE PHYSICIAN: Dr. Selina Herring. CHIEF COMPLAINT: Left leg pain and abdominal pain. HISTORY OF PRESENT ILLNESS: Mr. Cruz is a pleasant 62-year-old gentleman, who has a history of end-stage renal disease, on hemodialysis. He also has a history of hypertension and chronic hepatitis C. He says that about 3 weeks ago, he started feeling numbness and coldness in his left leg. He says he tried to walk, but he would have difficulty using his leg and he would stumble. He also noted some pain in the leg as well. He also says that his appetite has been off and he says that he has been having difficulty swallowing at times. He says that he has been having some weight loss. He also admits to having abdominal pain. When asked how long he has had abdominal pain, he says for 14 years. He says that over the years he has had multiple what sounds like endoscopies and colonoscopies and has seen several human resources operations specialist in the past including Dr. Cat at [facility], Dr. Doshi, as well as Dr. Gant and says that they really had not found much other than polyps and some type of "scar tissue" in his abdomen. He also does admit to having a bleeding ulcer at times. Due to the pain in his leg and the abdominal pain, he came to the ER for evaluation. He had an extensive workup done in the ER and then found that he had an occlusion of the popliteal artery on the left and mild anemia as well as some guaiac positive stools and he is being admitted for further evaluation and treatment. REVIEW OF SYSTEMS: All systems are reviewed and are negative. PAST MEDICAL HISTORY: Past medical history is significant for end-stage renal disease, on hemodialysis; anemia of chronic renal disease; hypertension; chronic hepatitis C; and history of bleeding ulcer in the past. PAST SURGICAL HISTORY: He has had a cholecystectomy, appendectomy, carpal tunnel surgery, right knee surgery, AV fistulas in both arms as well as an AV fistula in the left leg. ALLERGIES: NO KNOWN DRUG ALLERGIES. SOCIAL HISTORY: He is a smoker. He smokes about a third of a pack of cigarettes for the last 40 years. He denies any alcohol use. He has a common-law with whom they have been living together for 17 years. He has 4 children. He would like to be a full code. His surrogate decision makers are his common-law and her name is Brannon Churchill and his sister Ivelisse Crabtree is also able to make decisions for him. FAMILY HISTORY: Significant for cancer, diabetes, and heart disease. CURRENT MEDICATIONS: Current medications are taken from the ER records and include; 1. Amlodipine 5 mg twice a day. 2. Lisinopril 20 mg twice a day. 3. Omeprazole 40 mg daily. 4. Terazosin 5 mg once daily. 5. Metoprolol 50 mg twice a day. 6. Ranitidine 150 mg once daily. 7. Dicyclomine 10 mg three times a day. PHYSICAL EXAMINATION: GENERAL: He is alert and oriented. He appears to be in no acute distress. He is cachectic with severe muscle wasting and temporal wasting. HEENT: His pupils are equal, round, and reactive. Extraocular muscles are intact. Sclerae anicteric. Throat, there is no erythema. No exudates. However, he has very poor dentition and missing and broken teeth. NECK: There is no adenopathy. No bruits. CHEST: His lungs are clear to auscultation. There is no wheezing, no rales. CARDIOVASCULAR: He has normal S1, S2. There is no S3 or S4. No murmurs, clicks, or rubs. ABDOMEN: Scaphoid. He has some positive fluid wave, mildly distended, and he has some diffuse tenderness primarily in the right upper and lower quadrant. There is no rebound, no guarding. EXTREMITIES: He has some trace pedal edema. Changes of chronic venous stasis in both lower extremities, and the left extremity is cool as compared to the right. I am able to palpate a dorsalis pedis pulse on the right but not on the left. However, capillary refill is present on the left, but somewhat sluggish. There are no gangrenous ulcers on the extremities. NEUROLOGIC: He is moving all of his extremities and grossly it is nonfocal. SKIN AND INTEGUMENT: As above. No skin breakdown. No changes. No ulcers. DIAGNOSTIC STUDIES: He had the CT scan showing an occlusion of the popliteal artery. On his CT angiogram, there is an evidence of old femur fracture and a nodule in the right mid lung. He had a CT scan of the abdomen and pelvis, showing a large volume of ascites and a small to moderate pericardial effusion and some renal osteodystrophy. CT scan of the lumbar spine showed significant degenerative disease. LABORATORY DATA: His white blood cell count 15.0, hemoglobin 9.3, hematocrit is 30.6, and platelet count is 77. INR is 1.6. Sodium is 136, potassium 5.4, chloride is 97, CO2 is 22, BUN of 56, creatinine 9.29, and glucose is 97. He had a natriuretic peptide of 1736. Troponin is 1.7, albumin is 2.2. ASSESSMENT: 1. Arterial occlusive disease of the left lower extremity. CV surgery has been consulted. He is already auto-anticoagulated likely due to his liver disease. Further recommendations will be as per the Vascular Surgery Team. 2. Occult gastrointestinal bleed. GI has been consulted. We will place him on a Protonix IV q.12 for now and continue to monitor his hemoglobins and hematocrits. 3. Chronic hepatitis C. The patient's INR is elevated at 1.6. He also has thrombocytopenia I suspect and he also has ascites. These are all findings of probable chronic liver disease and cirrhosis. We will need to obtain his records from [facility]. We will consider a diagnostic paracentesis given his complaint of abdominal pain, however, we will allow GI to make this call. 4. End-stage renal disease, on hemodialysis. 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 5. Elevated troponin as well as elevated BNP. Cardiology will be consulted and again records from [facility] will be requested as the patient says he has had numerous "echos and studies" for his heart, which had been "negative." He is again auto-anticoagulated with an INR of 1.6 and thrombocytopenia, therefore, we will not place him on any anticoagulation, also with concerns for gastrointestinal bleed. The patient has multiple medical conditions and is generally severely deconditioned and has [id number] malnutrition and therefore, his prognosis is guarded. 6. Pulmonary nodule. This was discussed with the patient in the emergency room as well as his common-law and the need for pulmonary followup was discussed. Job ID: [id number]
--- NOTE | 2018-02-17 23:13 | CON ---
DATE OF CONSULTATION: HISTORY OF PRESENT ILLNESS: Mr. Cruz is a 62-year-old gentleman who is on chronic renal dialysis. He has had a left leg dialysis graft placed which he has recently had thrombectomized. He presented to the emergency department with 2 weeks of left leg coolness and pain. He had a CT angiogram performed which showed popliteal occlusion just below the knee joint. He has poor runoff to his foot with heavily calcified tibial arteries. I have been asked to see him for further recommendations. PAST MEDICAL HISTORY: 1. End-stage renal disease, on hemodialysis. 2. Hypertension. 3. Chronic anemia. 4. History of multiple GI bleeds. PAST SURGICAL HISTORY: 1. Multiple fistulas. 2. Cholecystectomy. 3. Multiple endoscopies. SOCIAL HISTORY: He continues to smoke. He does not use alcohol or other drugs. REVIEW OF SYSTEMS: A 10-point review of systems is performed, is negative except as above. PHYSICAL EXAMINATION: GENERAL: This is a well-developed, very thin, cachectic almost appearing gentleman, resting in the emergency department. VITAL SIGNS: His heart rate is 80 and regular, blood pressure 130/72. LUNGS: Clear. NECK: Supple without bruit. CHEST: Heart rhythm is regular. ABDOMEN: Soft. EXTREMITIES: The right lower extremity is warm. He has palpable femoral pulses bilaterally. He has a thrill in his AV fistula on the left leg. At the midcalf level on the left, the leg becomes cool. He has Doppler signal only in the dorsalis pedis and posterior tibial arteries. LABORATORY DATA: I reviewed his CT angio which shows good flow down into the popliteal artery, but just below the knee joint is occluded. The tibials do reconstitute, but they are heavily calcified throughout. ASSESSMENT AND PLAN: Peripheral vascular disease with history of 2 weeks of pain in his left lower extremity and coolness below the knee. He has had a greater saphenous vein harvested from the right leg for a previous fistula operation. His left femoral artery and vein are compromised due to the fistula which overlies this area. He does not appear to have adequate saphenous vein in the lower thigh for any sort of bypass. While we were discussing our plans, he had melenic stool and is going to need to be seen by GI and further workup for his GI bleed. My guess is he is going to require amputation of this leg if his pain is severe enough to warrant this. I will follow along with you and make decisions accordingly. Job ID: [id number] MTDD
[2018-02-18 00:35] LABS: Critical Call Chem Troponin I RESULT DECREASING; Troponin I 1.506 ng/mL (< 0.028)
[2018-02-18] MEDS: Pantoprazole 40 MG VIAL IVP SCH ×3 (01:14→20:37)
[2018-02-18] MEDS: Nitroglycerin 2% Ointment 1 INCH/1 GM Packet TOP SCH ×4 (02:06→20:37)
[2018-02-18 05:48] LABS: INR-International Normal Ratio 1.7; Prothrombin Time 19.8 SEC (12.0-14.7)
[2018-02-18 06:00] LABS: #Eosinphils 0.1 thou/uL (0.0-0.7); #Lymphocytes 0.9 thou/uL (1.20-3.40); #Monocytes 0.5 thou/uL (0.11-0.59); #Neutrophils 13.4 thou/uL (1.40-6.50); %Basophils 0.1 % (0.0-1.0); %Eosinophils 0.4 % (0.0-10.0); %Lymphocytes 6.1 % (21.0-51.0); %Monocytes 3.5 % (0.0-10.0); Hemoglobin 8.4 g/dL (14.0-18.0); Mean Corpuscular HGB CONC 31.8 g/dL (32.0-36.0); Mean Corpuscular Hemoglobin 27.4 pg (27.0-31.0); Mean Corpuscular Volume 86.1 fL (78.0-98.0); Mean Platelet Volume 10.5 fL (7.4-10.4); Platelet Count 67 thou/uL (130-400); RBC Distribution Width 15.1 % (11.5-14.5); Red Blood Cell (RBC) Count 3.08 mill/uL (4.70-6.10); White Blood Cell (WBC) Count 14.9 thou/uL (4.8-10.8)
[2018-02-18 06:02] LABS: Anion Gap 18 mmol/L (10-20); BUN (Urea Nitrogen) 61 mg/dL (8.4-25.7); Calc. Creatinine Clearance 6 mL/min (70-130); Calcium 8.6 mg/dL (7.8-10.44); Carbon Dioxide 27 mmol/L (23-31); Cardiac Risk 5.2 (Less than 4.5); Chloride 96 mmol/L (98-107); Cholesterol 94 mg/dl (< 200 Desired); Estimated GFR-MDRD 7; Glucose 65 mg/dL (80-115); HDL Cholesterol 18 mg/dL (>60 Neg Risk); LDL Cholesterol, Calculated 57 mg/dL; Potassium 5.2 mmol/L (3.5-5.1); Sodium 136 mmol/L (136-145); Triglycerides 93 mg/dL (Less than 150)
[2018-02-18] MEDS ORDERED: Digoxin 0.5 MG/2 ML AMP SLOW IVP SCH (06:15)
[2018-02-18] MEDS: HYDROcodone/Acetaminophen 5/325 mg Tablet PO PRN ×2 (08:55→13:24)
[2018-02-18 10:11] LABS: HBSAg Index 0.21 S/CO (0-0.99); Hep B Surf Ag Non-Reactive S/CO (NonReactive)
[2018-02-18] MEDS ORDERED: Morphine 4 MG/ML VIAL SLOW IVP PRN (10:37)
[2018-02-18] MEDS: Morphine 4 MG/ML VIAL SLOW IVP PRN ×2 (11:02→14:55)
[2018-02-18] MEDS ORDERED: Lidocaine 2% Jelly 5 ML TUBE TOP SCH (12:00)
--- NOTE | 2018-02-18 13:56 | PRG ---
DATE OF SERVICE: 02/18/2018 SUBJECTIVE: This is a 62-year-old male hospitalized with peripheral vascular disease of the left leg. He has been having some pain over the left leg over the last couple of weeks. The pain started yesterday and underwent evaluation and was found to have a left popliteal artery occlusion. He has been seen by Dr. Timothy Goodwin, vascular surgeon. The patient was seen by GI because of history of melena. However, the patient has had history of melena for many years. The patient has had multiple endoscopies done in 2018. I believe he has had 3 colonoscopies in 2018 and also had 2 or 3 EGDs in 2018 also. Most of the time , the findings were very minimal. The patient's last EGD was done by Dr. Ordonez in April of 2017 and at that time, he had no pathology except for some. The colonoscopy was again was basically negative. The patient's blood count has been fairly stable and has not been dropping any more. He has had no stool today. He currently is complaining of pain over the left lower extremity and plan is being made for possible surgery later on today. The CBC today; WBC 14,900, hemoglobin 8.4, slight drop from 9.3, hematocrit 26.5, MCV 86.1, platelet count is 67,000. OBJECTIVE: GENERAL: He is very skinny, fragile looking male, in moderate distress. VITAL SIGNS: Afebrile. Pulse is 97, blood pressure 123/70. CARDIOVASCULAR: Within normal limits. LUNGS: Within normal limits. ABDOMEN: Soft. Abdomen is nontender. EXTREMITIES: The left leg is cold to touch, but does have good left femoral pulse. IMPRESSION: 1. Peripheral vascular disease with pain and also cold to touch of the left leg. 2. Intermittent melena, most likely from AVMs of the small bowel. The patient has had multiple esophagogastroduodenoscopies and colonoscopies. RECOMMENDATIONS: 1. May proceed with surgical intervention as planned. 2. Follow up H and H. 3. Transfuse p.r.n. 4. I do not see any benefit in repeating the endoscopic studies at the present time. Job ID: [id number] MTDD
--- NOTE | 2018-02-18 14:43 | PDOC.PN ---
- Subjective Encounter Start Date: 02/18/18 Encounter Start Time: 11:00 Mr. Mckeon was seen today in follow-up of arterial occlusion of the left leg. He complains of severe pain in his left leg. - Objective Resuscitation Status - Order Detail: 02/17/18 16:51 Resuscitation Status Routine Resuscitation Status: FULL: Full Resuscitation Vital Signs & Weight: Vital Signs (12 hours) Temp Pulse Resp BP Pulse Ox 02/18/18 11:02 97.7 F 97 18 123/70 99 02/18/18 08:56 97 02/18/18 07:40 99.2 F 97 20 108/66 99 02/18/18 06:04 99 02/18/18 03:35 99.1 F 95 14 121/70 98 Weight Admit Weight 127 lb Weight 127 lb Result Diagrams: 02/18/18 05:30 02/18/18 05:30 Phys Exam - Physical Examination HEENT: PERRLA poor dentition Respiratory: no wheezing, no rales, no rhonchi, clear to auscultation bilateral Cardiovascular: RRR, no significant murmur, no rub Gastrointestinal: soft, non-tender, no distention, positive bowel sounds Musculoskeletal: no edema palpable pulse on the right, absent on the left left foot is cooler than the right Neurological: non-focal, moves all 4 limbs Dx/Plan (1) Peripheral arterial occlusive disease Code(s): I77.9 - DISORDER OF ARTERIES AND ARTERIOLES, UNSPECIFIED Status: Acute (2) AVM (arteriovenous malformation) of colon Code(s): K55.20 - ANGIODYSPLASIA OF COLON WITHOUT HEMORRHAGE Status: Chronic (3) GERD (gastroesophageal reflux disease) Code(s): K21.9 - GASTRO-ESOPHAGEAL REFLUX DISEASE WITHOUT ESOPHAGITIS Status: Chronic Qualifiers: Esophagitis presence: esophagitis presence not specified Qualified Code(s) : K21.9 - Gastro-esophageal reflux disease without esophagitis Comment: Continue PPI (4) Hypertension Code(s): I10 - ESSENTIAL (PRIMARY) HYPERTENSION Status: Chronic Qualifiers: Hypertension type: essential hypertension Qualified Code(s): I10 - Essential (primary) hypertension Comment: At goal. Medications being held 2/2 GI bleed. (5) End stage renal disease on dialysis Code(s): N18.6 - END STAGE RENAL DISEASE; Z99.2 - DEPENDENCE ON RENAL DIALYSIS Status: Chronic - Plan * Peripheral Arterial occlusive disease- CTA results noted, and Vascular Surgery recommendations noted * Chronic GI blood loss from AVM's- He has had extensive work-up in he past- will monitor his H&H and transfuse if needed * ESRD- continue dialysis as per Nephrology * HTN- blood pressure is controlled * Chronic Hepatitis C- ? treatment in the past- he has some findings suggestive of Cirrhosis * Plan was for amputation of the left leg, as he does not have saphenous veins which are amenable to bypass- patient has refused this- will re-assess tomorrow .
--- NOTE | 2018-02-18 19:02 | CON ---
DATE OF CONSULTATION: 02/18/2018 REASON FOR CONSULTATION: Elevated BNP and positive troponins. HISTORY OF PRESENT ILLNESS: Mr. Cruz is a 62-year-old gentleman, who comes to the hospital for abdominal pain and leg pain. He is on hemodialysis for end-stage renal disease and has chronic hepatitis C. He started feeling numbness and coldness of his left leg, tried to walk, but could not do this, he would stumble. He noted some pain both in the leg as well. He was admitted for this and had an angiogram of both lower extremities. CT angiogram and it shows severe occlusive disease. During his admission, he was found to have an elevated troponin and elevated BNP, so Cardiology is being consulted for further evaluation of this. He tells me that he has been at [facility] and was seen by Dr. Doshi, and he had a full evaluation of his heart; however, we have asked for records from [facility], and we do not see any cardiac workup. Currently, he denies any chest pain, tightness, or pressure. His only issue is bilateral lower extremity pain. PAST MEDICAL HISTORY: 1. End-stage renal disease, on hemodialysis. 2. Anemia of chronic disease. 3. Hypertension. 4. Chronic hepatitis C. 5. Bleeding ulcer in the past. 6. Severe PVD. PAST SURGICAL HISTORY: 1. Cholecystectomy. 2. Appendectomy. 3. Carpal tunnel release. 4. Right knee surgery. 5. AV fistula in both arms. 6. AV fistula in left leg. OUTPATIENT MEDICATIONS: Include: 1. Lidocaine/prilocaine cream. 2. Ranitidine 150 mg a day. 3. Bentyl. 4. Lisinopril 20 mg b.i.d. 5. Amlodipine 5 mg a day. 6. Terazosin 5 mg a day. 7. Omeprazole 40 mg q.a.m. 8. Metoprolol 50 mg b.i.d. 9. Tramadol p.r.n. ALLERGIES: NO KNOWN DRUG ALLERGIES. SOCIAL HISTORY: Smokes probably half a pack a day much more before for about 40 years. No alcohol. No drug use. FAMILY HISTORY: There is coronary artery disease in parents. REVIEW OF SYSTEMS: A 12-point review of systems is done, is all negative unless stated in the history of present illness. PHYSICAL EXAMINATION: VITAL SIGNS: Temperature 97.3, pulse 95, respiratory rate 20, saturating 100% on room air, and blood pressure 127/70. GENERAL: Awake, alert, and oriented x3, in no distress. HEENT: Normocephalic and atraumatic. NECK: Supple. LUNGS: Clear. Reduced breath sounds bilaterally. CARDIOVASCULAR: S1 and S2. No S3 or S4. No murmurs. ABDOMEN: Soft. Positive bowel sounds. EXTREMITIES: 1+ edema. Cannot palpate any pulses distally in both legs. DIAGNOSTIC DATA: CT of the lower extremities shows occlusion of the left popliteal artery and proximal trifurcation with minimal flow in the left anterior tibial artery and collaterals for the first 5 cm before. No flow distal to this. No flow within the left posterior tibial or peroneal arteries. There is an old distal femur fracture with bone infarct. There is a nodule in the right middle lobe of the chest, concerning for underlying mass. Abdominal pelvic CT shows a large amount of ascites, auqox-cq-viwggphw pericardial effusion, renal atrophy, peripheral calcifications in liver and spleen, thick loops of small bowel which could be edema or enteritis. ASSESSMENT: 1. Anasarca. 2. Critical limb ischemia. PLAN: 1. We will get an echocardiogram as we cannot find any cardiac records on the [facility] reports that were sent over. We will evaluate for LV function and valvular structures. 2. Volume overload can be treated with hemodialysis. 3. May need amputation of his left lower extremity given to severe PVD and critical ischemia. 4. Echocardiogram. 5. Hemodialysis for volume extraction. 6. We will follow. Job ID: [id number]
--- NOTE | 2018-02-19 03:08 | HP ---
HISTORY OF PRESENT ILLNESS: Sharif Cruz is a 62-year-old black male with end-stage renal disease with complicated dialysis access past history. The patient on 06/12/2017 had right femoral vein temporary dialysis catheter. He had a thrombosed left upper arm dialysis fistula. He underwent on 06/15/2017 thrombectomy of left arm fistula with unsuccessful lutheran of function. Ultrasound-guided placement of left internal jugular vein cuffed tunneled dialysis catheter. Ultrasound of the right side of the neck revealed failure to visualize internal jugular vein right from previous catheters. It was thrombosed. He has had prior history of fistulas in his right arm thrombosed including basilic vein fistula transposition and PTH, right subclavian axillary vein without stenting on the right with multiple stents in the left arm fistula including the arterial inflow antecubital fossa and above the upper left arm. On 09/04/2017, left thigh dialysis graft tapered for T07. Dr. Eva Navarro has since then performed intervention on the graft. The patient has a left subclavian vein stent. Multiple stents in the fistula in left upper arm and left arm is exhausted for dialysis access. He has had multiple PTAs of the right subclavian pain without stenting and previously thrombosed right upper arm fistula, but not amenable to salvage. He has history of tobacco abuse. I saw the patient in my office recently. He complained of lower extremity weakness. He complained of weakness in his legs on ambulation. He complained of pain in his left foot. He did not have palpable pedal pulses nor dopplerable in his left foot. It was felt on that evaluation that he had a combination of neurogenic claudication and PAD as a cause of weakness in both legs and specifically pain in his left foot. Arrangements were made to see Cardiovascular Surgery as an outpatient. A lumbar CT scan ordered and followup ordered. In the interim, the patient reports to the emergency room because of pain in his left foot. From the emergency room, because of his weight loss and cachexia, he had abdominal pelvis CAT scan that was essentially unremarkable except for extensive vascular calcifications. There is nothing to suggest malignancy. The patient had a lumbar CT scan on 04/15/2017 noting mild central canal stenosis at L2-L3. At L3-L4, he had severe degenerative disk disease with endplate changes, progressive since 2017, broad disk bulge with resultant moderate central canal stenosis, bilateral foraminal stenosis more pronounced on the right. At L4-5, he had a broad disk bulge and flattening of the thecal sac, facet and ligamentous hypertrophy with moderate to severe canal stenosis and bilateral foraminal stenosis. At L5-S1, broad-based disk bulge, ligamentous hypertrophy with moderate central canal stenosis, bilateral foraminal stenosis. I had initially ordered Neurosurgery consultation, but that has been canceled by medical services. Also asked emergency room physician to order a CTA, which was performed. This revealed occluded left internal iliac artery, patent deep femoral system. On the right side, the popliteal artery is patent with multi focal 30-40% narrowing of the popliteal artery trifurcation. Patent slow flow within the peroneal and posterior tibial arteries. On the left side, the common femoral artery is patent. The left popliteal vein has chronic thrombosis. There is complete occlusion of the distal popliteal artery above the trifurcation. The posterior tibial and peroneal arteries are completely occluded. Minimal flow within the anterior tibial artery for a length of 5 cm noted without any significant flow from the mid tibia fibula down to the ankle. There is a nodule noted in the right middle lobe for which nonemergent CAT scan was recommended. Dr. Timothy Goodwin has seen the patient, evaluated him and I discussed the situation with Dr. Goodwin. There is nothing interventional or bypass to offer the patient as there was no available vein and his PAD is so severe with small-vessel disease. Recommendations are for a left yhxdq-wdr-drze amputation. The patient has a functioning left thigh dialysis graft. This is certainly contributing to some ischemia of his left foot. He does need dialysis access. His upper extremities are exhausted. Options are to ligate his left thigh dialysis graft and he may still end up with a wcrjq-jit-bzxg amputation despite efforts to optimize circulation. Another option is left oxofb-njb-mjqf amputation considering the patient's combined neurogenic claudication and ischemic changes. His foot pain is probably due to a combination of both neurogenic and vascular problems. He is able to move his left toes and left foot and color in the left foot is symmetrical to the right. There is no evidence of gangrene. For this reason, I think he has a combination of neurogenic and vascular problems. I do not think he would be a good candidate for Neurosurgery, but I did ask Neurosurgery to see him. ALLERGIES: NONE. TOBACCO: Ongoing use. ALCOHOL: None. PAST SURGICAL HISTORY: Cholecystectomy, appendectomy, carpal tunnel release, right knee surgery, dialysis access surgery as outlined above, left arm dialysis prosthetic graft due to exhausted access left upper extremity. PAST MEDICAL HISTORY: Exhausted stenting left subclavian vein and fistula of left arm, exhausted left upper arm non-stenting, but PTAs of the right subclavian vein making the right arm unacceptable for dialysis access. End-stage renal disease, PAD, ongoing tobacco abuse, hepatitis C, history of multiple AVMs, status post multiple upper and lower endoscopies. GI has been consulted this hospitalization, Dr. Claire has seen him and outlined his gastrointestinal bleeding workup and there is nothing to offer from a GI standpoint. He has had several upper and lower endoscopies performed by Dr. Cat at [facility] and Dr. Doshi as well as Dr. Gant performed at [facility] and [facility]. LABORATORY DATA: His hemoglobin is stable. There is no evidence of bleeding currently. He has been having some dysphagia, but has had upper endoscopy. There is no evidence of malignancy accounting for his difficulty swallowing. Note, Dr. Jack saw him this hospitalization on 02/18/2018 for elevated BNP and positive troponins. It was felt he had anasarca. Echocardiogram has been ordered. PHYSICAL EXAMINATION: VITAL SIGNS: Height 6 foot, 127 pounds, 17 BMI, temperature 97.3, heart rate 95, blood pressure 127/70. LUNGS: Clear to auscultation. CARDIAC: Regular rate and rhythm. No murmur or gallop. ABDOMEN: Soft and nontender. EXTREMITIES: Left thigh dialysis graft. Good thrill and bruit. The patient is able to move his left toes and foot and ankle without problems. Skin color, left foot, left leg symmetrical to the right foot and leg. No evidence of gangrene. The patient has femoral pulses palpable bilaterally. Left foot is cool relative to the right. He has Doppler signal only in the dorsalis pedis and posterior tibial arteries. ASSESSMENT AND PLAN: Left foot pain due to combination of neurogenic and vascular problems. His left foot is cool and there is evidence of peripheral arterial disease. Options include ligation of his left thigh graft, establishment of a temporary hemodialysis catheter, consideration of either a HeRO graft left arm or right thigh graft in the future could be considered. Another amputation would be amputation of the left leg below the knee. This likely would heal and leave him with a BK stump for mobility and transfers. Overall prognosis is poor. Regardless of the options, I have talked to the family extensively as well as the patient consideration of DNR status and if he decides no operative intervention, we could treat him palliative, consider hospice care. He has multiple medical problems with severe weight loss, ongoing anasarca, cachexia. Job ID: [id number]
[2018-02-19] MEDS: Nitroglycerin 2% Ointment 1 INCH/1 GM Packet TOP SCH ×3 (05:14→21:39)
[2018-02-19 05:47] LABS: Anion Gap 19 mmol/L (10-20); BUN (Urea Nitrogen) 47 mg/dL (8.4-25.7); Calc. Creatinine Clearance 8 mL/min (70-130); Calcium 8.6 mg/dL (7.8-10.44); Carbon Dioxide 26 mmol/L (23-31); Chloride 98 mmol/L (98-107); Estimated GFR-MDRD 9; Potassium 4.8 mmol/L (3.5-5.1); Sodium 138 mmol/L (136-145)
[2018-02-19 05:51] LABS: Glucose 51 mg/dL (80-115)
[2018-02-19] MEDS ORDERED: Dextrose 50% Abboject 50 ML SYRINGE ONE (05:54)
[2018-02-19 06:09] LABS: Band 9 % (5-11); Eosinophils 1 % (0-10); Hemoglobin 8.7 g/dL (14.0-18.0); Lymphocytes 3 % (21-51); MDiff Complete? YES; Mean Corpuscular Hemoglobin 27.6 pg (27.0-31.0); Mean Corpuscular Volume 86.2 fL (78.0-98.0); Mean Platelet Volume 10.7 fL (7.4-10.4); Monocytes 5 % (0-10); Neutrophil 82 % (42-75); Platelet Count 61 thou/uL (130-400); Platelet Morphology Comment Appears Decreased; RBC Distribution Width 15.3 % (11.5-14.5); Red Blood Cell (RBC) Count 3.14 mill/uL (4.70-6.10); Target Cells SLIGHT = 2-5 cells (100X) (0-1/hpf); White Blood Cell (WBC) Count 21.7 thou/uL (4.8-10.8)
[2018-02-19] MEDS ORDERED: Vancomycin HCl 1 GM in Premix Bag 1 BAG IVPB SCH ×2 (07:45→09:00)
[2018-02-19] MEDS ORDERED: Vancomycin Sliding Scale 1 EACH FS ONE (07:45)
[2018-02-19] MEDS ORDERED: Vancomycin HCl 500 MG in Sodium Chloride 0.9% 100 ML IVPB SCH (07:45)
[2018-02-19] MEDS ORDERED: Vancomycin HCl 250 MG in Sodium Chloride 0.9% 100 ML IVPB SCH (07:45)
[2018-02-19] MEDS ORDERED: HOLD VANCOMYCIN FOR LEVEL >20 FS SCH (07:45)
[2018-02-19] MEDS ORDERED: Vancomycin HCl 750 MG in Sodium Chloride 0.9% 250 ML 250 ML IVPB SCH (07:45)
[2018-02-19] MEDS: Pantoprazole 40 MG VIAL IVP SCH ×2 (10:49→21:40)
--- NOTE | 2018-02-19 11:18 | SPC ---
INJECTION FOR VENOGRAPHY BILATERAL: HISTORY: Jugular vein thrombosis. COMPARISON: None. TECHNIQUE: The patient was brought to the special suite. All questions were answered. Informed consent was obt ained. A time out was performed. The patient's neck, bilaterally, was prepped and draped in the normal sterile fashion. Access to bot h internal jugular veins was performed using a micropuncture set. Contrast was instilled into the in ternal jugular vein. There was thrombosis of both internal jugular veins, proximal to the communicat ion with the subclavian vein in the neck. There is a large right-sided collateral and a small left c ollateral. IMPRESSION: Thrombosed bilateral internal jugular veins. CODE: DARNELL POS: RALPH
[2018-02-19] MEDS: Piperacillin/Tazobactam 3.375 GM in Sodium Chloride 0.9% 100 ML IVPB SCH ×2 (12:00→21:36)
[2018-02-19] MEDS ORDERED: PHENYLEPHRINE-NS 100 MCG/ML 10 ML SYRINGE ONE (12:09)
[2018-02-19] MEDS ORDERED: Dexamethasone 20 MG/5 ML VIAL ONE (12:09)
[2018-02-19] MEDS ORDERED: Lidocaine 1% PF 5 ML VIAL ONE (12:09)
[2018-02-19] MEDS ORDERED: Ondansetron PF 4 MG/2 ML Vial ONE (12:09)
[2018-02-19] MEDS ORDERED: ePHEDrine/0.9% NaCl/PF SYRINGE 50 mg/10 ml ONE (12:09)
[2018-02-19] MEDS ORDERED: PROPOFOL 200 MG/20 ML VIAL ONE (12:09)
[2018-02-19] MEDS: Epoetin (ESRD) 20,000 UNITS/ML SC SCH (12:10)
[2018-02-19] MEDS ORDERED: Fentanyl 100 MCG/2 ML VIAL ONE (14:27)
[2018-02-19] MEDS ORDERED: traMADol HCl 50 MG TAB PO PRN ×2 (14:43)
[2018-02-19] MEDS ORDERED: Acetaminophen 500 MG TAB PO PRN (14:43)
[2018-02-19] MEDS ORDERED: fentaNYL 50 mcg/hour Patch TD SCH (15:00)
--- NOTE | 2018-02-19 15:27 | PDOC.CTH ---
Cardiology Progress Note - Subjective No new issues. Still significant leg pain. - Objective Vital Signs Temp Pulse Resp BP Pulse Ox 02/19/18 08:00 97.8 F 95 16 132/72 95 02/19/18 05:41 99 02/19/18 03:44 99.1 F 118 H 20 128/88 99 Admit Weight 127 lb Weight 126 lb 02/18/18 02/19/18 02/20/18 06:59 06:59 06:59 Intake Total 325 Output Total 1000 Balance -675 - Physical Examination General/Neuro: NAD Neck: no JVD present Lungs: unlabored respirations Heart: RRR Abdomen: NT/ND Extremities: other: (no edema) - Telemetry Telemetry Rhythm: NSR - Labs Result Diagrams: 02/19/18 04:43 02/19/18 04:43 Troponin/CKMB CK-MB (CK-2) 9.3 ng/mL (0-6.6) H* 02/17/18 13:12 Troponin I 1.611 ng/mL (< 0.028) H* 02/17/18 21:51 - Assessment/Plan 1. Flailing mas attached to Aortic valve concerning for endocarditis. 2. Moderate AI 3. Flailing mass on Tricuspid valve concerning for endocarditis versus thrombus. Given thrombosis of bilateral jugular veins would favor thrombus. 4. Critical limb ischemia. 5. Anasarca 6. ESRD PLAN: - IV abx per primary team. - Consider full anticoagulation - Poor nursing home prognosis. - If valve replacement were to be required he would not survive valve replacement surgery at this time. - Most likely will need amputation.
[2018-02-19] MEDS ORDERED: Promethazine HCl 25 MG/ML VIAL SLOW IVP PRN (16:28)
[2018-02-19] MEDS ORDERED: diphenhydrAMINE 50 MG/ML VIAL IVP PRN (16:28)
[2018-02-19] MEDS ORDERED: Promethazine HCl 25 MG/ML VIAL IM PRN (16:28)
[2018-02-19] MEDS ORDERED: Ondansetron HCl/PF 4 MG/2 ML Vial IVP PRN (16:28)
[2018-02-19] MEDS ORDERED: diphenhydrAMINE 25 MG CAP PO PRN (16:28)
[2018-02-19] MEDS ORDERED: diphenhydrAMINE 50 MG/ML VIAL IM PRN (16:28)
[2018-02-19] MEDS ORDERED: Zolpidem Tartrate 5 MG TAB PO PRN (16:28)
[2018-02-19] MEDS ORDERED: Naloxone HCl 0.4 mg/ml Vial IV PRN (16:28)
[2018-02-19] MEDS ORDERED: Communication Order-Pharmacy FS SCH (16:30)
--- NOTE | 2018-02-19 16:30 | CON ---
DATE OF CONSULTATION: 02/19/2018 REASON FOR CONSULTATION: Cardiac valve vegetations. HISTORY OF PRESENT ILLNESS: A 62-year-old gentleman who has history of end- stage renal disease of unknown etiology associated with hypertension as well as a chronic hepatitis C, recently treated with presumptive cure and liver cirrhosis as well as peripheral vascular disease, who was admitted with left lower extremity pain. The patient also has a history of chronic abdominal pain and continues to have this pain intermittently, which has not been formally diagnosed after extensive evaluation. Possibility of ischemic bowel disease is considered. The patient is quite cachectic and he was admitted because of the lower extremity pain, mostly after workup, there was evidence of obstruction of the popliteal left side above the knee. Since he has an AV graft in the left lower extremity and has no options for other dialysis access after having exhausted all other sites, the patient has been offered a left below-knee amputation, which he seems to have accepted. As part of the evaluation, an echocardiogram was done, which demonstrated vegetations in tricuspid, aortic , and mitral valves. We are asked to evaluate that finding. Currently, Mr. Cruz is lying on bed in the right lateral decubitus, family members in the room with him. He is not in acute distress. He is has some vfov-op-oogqpuuq pain in the left lower extremity. Denies headaches. No sore throat, odynophagia or dysphagia. No dyspnea or chest pain. Intermittent abdominal cramps which have been present for the past 14 years. He does not have urine output. PAST MEDICAL HISTORY: End-stage renal disease of uncertain etiology, hemodialysis through a graft in the left thigh after exhaustion of other access options. Hypertension, chronic hep C with liver cirrhosis, chronic hepatitis C has been treated successfully last year. PAST SURGICAL HISTORY: Cholecystectomy, appendectomy, multiple dialysis access placements. ALLERGIES: NONE. SOCIAL HISTORY: Still currently a smoker. One of his children works at [employer]. MEDICATION: Baisden, Procrit, xylocaine, morphine, vancomycin, sliding scale, piperacillin/tazobactam. PHYSICAL EXAMINATION: VITAL SIGNS: T-max 99.1, blood pressure 130/72, pulse 95, respirations 16, and O2 saturation 95%. GENERAL/HEENT: Cachectic with temporal wasting. Yellow discoloration of his sclerae. Pupils are equal. Oral cavity dry with only a few remaining teeth. NECK: Supple. No jugular vein distention. LUNGS: Symmetric air entry. No crackles or wheezing S1, S2. Diminished heart sounds. Soft aortic murmur. ABDOMEN: Soft. Mild tenderness in various areas. No distention. No ascites. No bladder distention. No genital abnormalities. EXTREMITIES: The temperature of the extremities is very similar and appears to be normal temperature. I could not palpate pulses in dorsalis pedis on either side. Calf refill is delayed on the left side. He is able to move extremities, but is diffusely weak but no focal weakness. He knows where he is, knows his name, recognizes the family members. There is no edema in lower extremities. LABORATORY DATA: White cell count was 15,000, now 21,700, hemoglobin 8.7, platelets 61,000. INR 1.7. Sodium 138, creatinine 7.82. AST 38, ALT 11, alkaline phosphatase 108, total bilirubin 0.8, albumin 2.2, globulin 4.7. The echo report identified an EF of 50% to 55%, aortic valve vegetation, mitral valve vegetation , and tricuspid vegetation as well. Azkeqavx-bv-dtbzpp aortic regurgitation noted and moderate mitral regurgitation. The patient had an abdomen and pelvis CT scan from February 17 with large volume ascites, small to moderate sized pericardial effusion, and renal atrophy. Calcifications in the liver and spleen. Mildly thickened walden of loops of small bowel, renal osteodystrophy noted and aorta with runoff. CTA demonstrated complete occlusion of the distal popliteal artery just above the trifurcation of the popliteal artery, posterior tibial and peroneal artery completely occluded with minimal flow within the proximal anterior tibial artery. ASSESSMENT: 1. End-stage renal disease of unclear etiology, on chronic hemodialysis, having exhausted all access options for dialysis except for the current left femoral graft site. 2. Peripheral vascular disease with ischemia of the left lower extremity and occlusion of the popliteal artery without options for revascularization in view of the anatomy and the graft in the left lower extremity. 3. Abnormalities found serendipitously in the echocardiogram with multiple areas of vegetations. DISCUSSION: The patient is headed for a BK amputation at least, I believe, is a BKA in the left lower extremity and we will submit blood cultures and the usual workup for vegetations without positive blood cultures. The vegetations could be result of thrombosis without actual infection, but infective endocarditis will be difficult to rule out. Therefore, unless something grows in blood cultures or we have a positive serology, we will have to treat empirically with either oral Cipro or a oral cephalosporin plus vancomycin sliding scale given at dialysis. Job ID: [id number] MTDD
[2018-02-19] MEDS ORDERED: Iopamidol 300 61% 100 ML VIAL FS ONE (17:05)
--- NOTE | 2018-02-19 17:11 | PQF ---
ISAIAH COLON TONI MD [id number] EFRAIN SCHUSTER [id number] CLINICAL DOCUMENTATION IMPROVEMENT CLARIFICATION FORM: ICD-10 Updated PLEASE DO AN ADDENDUM TO THE PROGRESS NOTE WITH ANY DOCUMENTATION UPDATES OR ADDITIONS AND CARRY THROUGH TO DC SUMMARY. THANK YOU. Date: 02/19/2018 ATTN: DR. ESPINOSA Please exercise your independent, professional judgment in responding to the clarification form. Clinical indicators are provided on the bottom of this form for your review Please check appropriate box(s): [ ] Protein Calorie Malnutrition: [ ] Mild [ ] Moderate [ X] Severe [ ] Cachexia [ ] Other diagnosis [ ] Unable to determine CLINICAL INDICATORS - SIGNS / SYMPTOMS / LABS Malnutrition BMI of 17.2; WT 127-lbs, HT 6-0 Two or More of the Following: Unintentional Insufficient Energy Intake/Weight Loss: 1-AVM MALFORMATIONS THROUGHOUT SMALL BOWEL. 2-WEIGHT WAS 134.6-LBS DURING 08/26/2017 ADMIT; 127-LBS ON THIS ADMIT 3-POOR APPETITE FOR THE LAST 6 WKS; EATING TIFFANY SMALL AMOUNTS. DRINKS NEPRO EVERY DAY OR EVERY OTHER DAY Loss of Muscle Mass: SEVERE MUSCLE WASTING AND TEMPORAL WASTING Loss of Subcutaneous Fat: 1-CACHECTIC APPEARING IN FACE 2-SCAPHOID ABDOMEN Localized/Generalized Fluid Accumulation: POSITIVE FLUID WAVE RISK FACTORS AVM of small bowel/colon ESRD on HD CHRONIC CIRRHOSIS SEVERE LEG PAIN/ARTERIAL OCCLUSION OF LEG WITH POSSIBLE AMPUTATION OF LEG TREATMENT: Dietary consult Nutritional supplements AND DRINKS Moderate Malnutrition (in acute illness) Energy Intake: <75% of estimated energy requirement for > 7 days Weight Loss: 1-2%/1 week; 5%/ 1 month; 7.5%/3 months Other: mild body fat loss; mild muscle mass loss; mild fluid accumulation; Severe Malnutrition (in acute illness) Energy Intake: < 50% of estimated energy requirement for > 5 days Weight Loss: >1-2%/1 week; >5%/1 month; >7.5%/3 months Other: moderate body fat loss; moderate muscle mass loss; moderate- severe fluid accumulation; measurably reduced geographic information systems engineer strength Moderate Malnutrition (in chronic illness) Energy Intake: <75% of estimated energy requirement for >1 month Weight Loss: 5%/1 month; 7.5%/3 months; 10%/6 months; 20%/1 year Other: mild body fat loss; mild muscle mass loss; mild fluid accumulation Severe Malnutrition (in chronic illness) Energy Intake: <75% of estimated energy requirement for >1 month Weight Loss: >5%/1 month; >7.5%/3 months; >10%/6 months; >20%/1 year Other: severe body fat loss; severe muscle mass loss; severe fluid accumulation ; measurably reduced geographic information systems engineer strength Thank you, Luann Charles RN, CDIS [email or web address] [phone] (This form is maintained as a part of the permanent medical record) 2015 [employer] All Rights Reserved [facility]
--- NOTE | 2018-02-19 17:55 | PDOC.EVN ---
Event Note - Event Note Event Note: Patient is currently in surgery. ID was consulted for vegetations noted on the mitral valve. Will start Vancomycin empirically, and send blood cultures.
--- NOTE | 2018-02-19 23:16 | OP ---
DATE OF PROCEDURE: 02/19/2018 PREOPERATIVE DIAGNOSES: 1. Arteriosclerotic disease. 2. Peripheral artery disease. 3. Ischemic rest pain, left foot. 4. Spinal stenosis. 5. End-stage renal disease, dialysis graft in left thigh. 6. Stents, left subclavian vein obstructed. 7. Previous PTH right subclavian vein obstructed, exhausted upper extremity dialysis access. 8. Contrast venograms. 9. Left IJ occluded, right IJ thrombosis from previous dialysis catheters. 10. Peripheral artery disease not amenable to interventional revascularization or operative intervention. POSTOPERATIVE DIAGNOSES: 1. Arteriosclerotic disease. 2. Peripheral artery disease. 3. Ischemic rest pain, left foot. 4. Spinal stenosis. 5. End-stage renal disease, dialysis graft in left thigh. 6. Stents, left subclavian vein obstructed. 7. Previous PTH right subclavian vein obstructed, exhausted upper extremity dialysis access. 8. Contrast venograms. 9. Left IJ occluded, right IJ thrombosis from previous dialysis catheters. 10. Peripheral artery disease not amenable to interventional revascularization or operative intervention. PROCEDURE PERFORMED: Left vunsc-zdx-jbhv amputation. ANESTHESIA: General, 1 unit of blood transfused. DESCRIPTION OF PROCEDURE: The patient was taken to the operating room, where under general anesthesia, his left lower extremity was prepared with ChloraPrep and draped in routine fashion. Incision was made for a below-knee amputation with a long posterior flap carried down to skin and subcutaneous tissue, muscular layers divided, vascular bundles between clamps, ligated with 2-0 silk ties, cleared the periosteum proximally, transected with a Gigli saw, beveling the anterior edge cephalad and the tibia cut about an inch above the cut edge of the tibia. Tibia edges smoothed with a rasp. Wound irrigated. Hemostasis obtained with cautery and 2-0 silk ties. Fascia approximated with 2-0 Vicryl jyreqe-pt-mnbhu sutures and skin approximated with dai. Sterile dressing applied. Job ID: [id number]
[2018-02-19] MEDS ORDERED: Metoprolol Tartrate 50 MG TAB PO SCH (23:30)
[2018-02-20] MEDS: Piperacillin/Tazobactam 3.375 GM in Sodium Chloride 0.9% 100 ML IVPB SCH ×5 (02:30→20:44)
[2018-02-20 05:32] LABS: Anion Gap 19 mmol/L (10-20); BUN (Urea Nitrogen) 52 mg/dL (8.4-25.7); Calc. Creatinine Clearance 7 mL/min (70-130); Calcium 8.8 mg/dL (7.8-10.44); Carbon Dioxide 24 mmol/L (23-31); Chloride 98 mmol/L (98-107); Estimated GFR-MDRD 8; Glucose 99 mg/dL (80-115); Potassium 6.5 mmol/L (3.5-5.1); Sodium 134 mmol/L (136-145)
[2018-02-20] MEDS: Nitroglycerin 2% Ointment 1 INCH/1 GM Packet TOP SCH ×3 (06:06→20:45)
[2018-02-20 07:23] LABS: #Lymphocytes 1.1 thou/uL (1.20-3.40); #Monocytes 1.1 thou/uL (0.11-0.59); %Basophils 0.2 % (0.0-1.0); %Eosinophils 0.1 % (0.0-10.0); %Lymphocytes 6.1 % (21.0-51.0); %Neutrophils 87.7 % (42.0-75.0); Anisocytosis SLIGHT = 6-15 cells (100X) (0-5/hpf); Elliptocytes SLIGHT = 2-5 cells (100X) (0-1/hpf); Hemoglobin 10.3 g/dL (14.0-18.0); MDiff Complete? YES; Mean Corpuscular HGB CONC 30.9 g/dL (32.0-36.0); Mean Corpuscular Hemoglobin 27.7 pg (27.0-31.0); Mean Corpuscular Volume 89.7 fL (78.0-98.0); Mean Platelet Volume 7.9 fL (7.4-10.4); Platelet Count 62 thou/uL (130-400); Platelet Morphology Comment Appears Decreased; Red Blood Cell (RBC) Count 3.71 mill/uL (4.70-6.10); White Blood Cell (WBC) Count 18.2 thou/uL (4.8-10.8)
[2018-02-20 08:50] LABS: Vancomycin, Trough 11.4 ug/mL
[2018-02-20] MEDS ORDERED: Sodium Chloride 0.9% 1,000 ML IV SCH (09:15)
[2018-02-20] MEDS ORDERED: Vancomycin HCl 500 MG in Sodium Chloride 0.9% 100 ML IVPB SCH (11:00)
[2018-02-20] MEDS: Ondansetron PF 4 MG/2 ML Vial IVP PRN ×2 (11:24→20:39)
[2018-02-20] MEDS: Pantoprazole 40 MG VIAL IVP SCH ×2 (11:27→20:44)
[2018-02-20] MEDS: Metoprolol Tartrate 50 MG TAB PO SCH ×2 (11:49→20:46)
--- NOTE | 2018-02-20 12:38 | PDOC.PN ---
- Subjective Encounter Start Date: 02/20/18 Encounter Start Time: 12:36 Mr. Cruz was seen today in follow-up of ischemic left leg. He is post left BKA. He is being seen in dialysis. He complains of severe pain in his left leg. - Objective Resuscitation Status - Order Detail: 02/17/18 16:51 Resuscitation Status Routine Resuscitation Status: FULL: Full Resuscitation MAR Reviewed: Yes Vital Signs & Weight: Vital Signs (12 hours) Temp Pulse Resp BP Pulse Ox 02/20/18 07:48 97.7 F 68 18 133/69 98 02/20/18 03:51 97.1 F L 68 13 135/73 99 Weight Admit Weight 127 lb Weight 117 lb 6.4 oz I&O: 02/19/18 02/20/18 02/21/18 06:59 06:59 06:59 Intake Total 325 367 Output Total 1000 0 Balance -675 367 Result Diagrams: 02/20/18 04:37 02/20/18 04:37 Additional Labs: Accuchecks 02/19/18 02/19/18 16:11 14:34 POC Glucose 94 90 Phys Exam - Physical Examination HEENT: PERRLA temporal wasting, poor dentition Respiratory: no wheezing, no rales, no rhonchi, clear to auscultation bilateral Cardiovascular: RRR, no significant murmur, no rub Gastrointestinal: soft, non-tender, positive bowel sounds Musculoskeletal: no edema, pulses present left BKA- wound dressed Dx/Plan (1) Peripheral arterial occlusive disease Code(s): I77.9 - DISORDER OF ARTERIES AND ARTERIOLES, UNSPECIFIED Status: Acute (2) AVM (arteriovenous malformation) of colon Code(s): K55.20 - ANGIODYSPLASIA OF COLON WITHOUT HEMORRHAGE Status: Chronic (3) GERD (gastroesophageal reflux disease) Code(s): K21.9 - GASTRO-ESOPHAGEAL REFLUX DISEASE WITHOUT ESOPHAGITIS Status: Chronic Qualifiers: Esophagitis presence: esophagitis presence not specified Qualified Code(s) : K21.9 - Gastro-esophageal reflux disease without esophagitis Comment: Continue PPI (4) Hypertension Code(s): I10 - ESSENTIAL (PRIMARY) HYPERTENSION Status: Chronic Qualifiers: Hypertension type: essential hypertension Qualified Code(s): I10 - Essential (primary) hypertension Comment: At goal. Medications being held 2/2 GI bleed. (5) End stage renal disease on dialysis Code(s): N18.6 - END STAGE RENAL DISEASE; Z99.2 - DEPENDENCE ON RENAL DIALYSIS Status: Chronic - Plan * Ischemic Left leg- he is post amputation- continue symptom management with [employer]ICING [employer]IST pump, and local wound care * ? Vegetation on the Mitral valve- will continue empiric antibiotics, and await culture results * Chronic blood loss anemia- stable * ESRD- continue dialysis * Hyperkalemia- will be corrected in dialysis * HTN- blood pressure is stable.
--- NOTE | 2018-02-20 15:26 | PRG ---
DATE OF SERVICE: 02/20/2018 HISTORY: A 62-year-old man with history of end-stage renal disease, dialysis dependent. The patient also has history of severe peripheral vascular disease. He was admitted on 02/17/2018 with bilateral lower extremity and abdominal pain. Workup at that time included 2D echocardiography, which was remarkable for vegetation of the aortic valve, suspicions for endocarditis. The patient is one day status post left [id number] amputation for occlusive lower extremity disease. He is awake and alert this morning. He is complaining of severe abdominal pain, which has been persistent since admission. He had a small volume of bilious emesis this morning. He is anorexic that may be exacerbating his abdominal pain. The patient is quite fatigued. He had recent GI bleed of etiology unknown. He is tolerating hemodialysis this morning. Vital signs today include blood pressure 133/69, pulse 68, respiratory rate 18, temperature 97.7 degrees Fahrenheit, and oxygen saturation 98% on room air. Abdomen is soft and moderately distended. He has diffuse severe tenderness to palpation with gross rebound tenderness present. Bowel are sounds hypoactive in all four quadrants. Left BKA stump dressing is intact, clean, and dry. LABORATORY FINDINGS: Today includes a CBC with 18,200 white blood cells, hemoglobin and hematocrit are stable at 10.3 and 33.3 respectively. Platelet count is also stable at 62,000. Note the white blood cell count yesterday was 21,700, which is in patricio contrast to admission WBC of 15,000 on 02/17/2018. Metabolic profile today includes sodium of 134, potassium 6.5, chloride 98, bicarb 24, BUN 52, creatinine is 8.59, glucose is 99, this was predialysis. IMPRESSIONS: 1. Acute abdominal pain, etiology unknown, likely secondary to ischemic enterocolitis versus spontaneous bacterial peritonitis. 2. History of severe peripheral vascular disease. 3. Recent intracardiac thrombus, likely endocarditis. Given the history of occlusive left lower extremity disease in the face of this echocardiographic findings, I am very concerned that the patient may very well have showered thrombus to the mesenteric vasculature. RECOMMENDATIONS: Repeat CT angiography of the abdomen and pelvis to exclude ischemic enterocolitis with necrosis. Above findings and plan discussed with the patient, who indicates understanding of information given. I have answered questions. Job ID: [id number]
--- NOTE | 2018-02-20 16:18 | CT ---
CT ANGIOGRAM OF ABDOMEN AND PELVIS WITH CONTRAST 02/20/18 HISTORY: Ischemic bowel. COMPARISON: CT 02/17/18 . FINDINGS: There are new large left and moderate right pleural effusions. Mild atelectatic changes are present i n the lower lobes. Nodular density is present in the right middle lobe is similar. Slightly increasing pericardial effusion. Capsular calcifications of the liver is similar. There is large volume ascites. There is nearly complete collapse of the right hemicolon. Although the re somewhat appears to be a possible focus of extraluminal gas along the right anterior border of th e liver, this is still felt to possibly be within a diverticulum of the hepatic flexure as bowel was seen in this location on the 02/17/18 exam. Similar to the comparison examination is the partial occlusion inferior mesenteric artery approximate ly 2.6 cm from the origin for a length of approximately 1 cm with distal reconstitution. There are no dilated loops of large or small bowel. Unchanged occlusion of the left renal artery as previously stated with high grade narrowing of the ri ght renal artery. The celiac trunk and superior mesenteric arteries are patent. The right colonic branches of the SMA are somewhat attenuated distally. Distal DMITRI branches are very attenuated. Loculated fluid in the pelvis causes leftward deviation of the rectum at the area of sutu re. Remainder of the vasculature is similar as stated on the prior examination. IMPRESSION: 1. Large left and moderate right layering pleural effusions are new with small volume pulmonary edema. 2. Mildly enlarged pericardial effusion. The proximal celiac trunk and superior mesenteric chilo carimne are patent. The distal colonic branches of the superior mesenteric artery are very attenuated an d may be sequela of mass effect and a large volume ascites. Paracentesis may be beneficial. 3. As stated on the prior examination, there is an occlusion of the inferior mesenteric artery f or a length of approximately 3 cm from the ostia with distal reconstitution. The distal left colonic branches and sigmoid branches are very attenuated. 4. Flattened right hemicolon likely sequela of underlying mass effect from the large volume asci zoila. 5. Osseous findings severe secondary hyperparathyroidism. POS: [facility]
--- NOTE | 2018-02-20 16:32 | PRG ---
DATE OF SERVICE: 02/20/2018 SUBJECTIVE: Mr. Cruz is being dialyzed at this time, having pain at the site of amputation in left lower extremity. No respiratory symptoms. No abdominal pain. OBJECTIVE: VITAL SIGNS: T-max 98, blood pressure 122/65, pulse 77. GENERAL: Cachectic. HEENT: Ocular movements conjugate. Sclerae with kind of yellow color. LUNGS: Symmetric air entry with faint basilar crackles. HEART: S1, S2. Regular rate. ABDOMEN: Soft. EXTREMITIES: Left BKA guillotine site. LABORATORY DATA: White cell count 18.2, hemoglobin 10, platelets 62,000. Sodium 134, creatinine 8.59. BNP 1900. Microbiology with Streptococcus species, 1/2 sets of blood cultures. ASSESSMENT AND DISCUSSION: 1. End-stage renal disease, on chronic hemodialysis, unclear etiology for that. 2. Peripheral vascular disease with ischemia, left lower extremity, status post guillotine amputation in view of lack of options for revascularization and serendipitous finding in the echocardiogram with multiple vegetations. 3. Streptococcal bacteremia 1/2 sets. Typically with endocarditis, the patients have continuous bacteremia, so this is a finding of bacteremia, which appears to be transient. Would not corroborate that diagnosis, although it does not rule it out either. It could be originating from the left lower extremity site or could be a contaminant, but we will wait for the final identification of the organism to make decision. If it is a kind of streptococci associated with endocarditis, then we will use that as the guidance for our long-term antimicrobial therapy, which more than likely will be vancomycin, sliding scale. Job ID: [id number]
[2018-02-20] MEDS ORDERED: Iopamidol 370 76% 100 ML VIAL ONE (17:08)
--- NOTE | 2018-02-20 20:55 | PDOC.CTH ---
Cardiology Progress Note - Subjective The pt seen and examined. No overnight events. No cardiac complaints. - Objective Vital Signs Temp Pulse Resp BP Pulse Ox 02/20/18 15:02 98.0 F 77 20 122/65 100 Admit Weight 127 lb Weight 117 lb 6.4 oz 02/19/18 02/20/18 02/21/18 06:59 06:59 06:59 Intake Total 325 367 Output Total 1000 0 Balance -675 367 - Physical Examination General/Neuro: alert & oriented x3 Neck: no JVD present Lungs: other: (diminished at bases) Heart: RRR Abdomen: soft Extremities: other: - Telemetry Telemetry Rhythm: SR with intermittnet Afib - Labs Result Diagrams: 02/20/18 04:37 02/20/18 04:37 Troponin/CKMB CK-MB (CK-2) 9.3 ng/mL (0-6.6) H* 02/17/18 13:12 Troponin I 1.611 ng/mL (< 0.028) H* 02/17/18 21:51 - Assessment/Plan 1. Flailing mas attached to Aortic valve concerning for endocarditis - on IV abx. 2. Flailing mass on Tricuspid valve concerning for endocarditis versus thrombus. Given thrombosis of bilateral jugular veins would favor thrombus. 3. Strep.Bactremia 2/2Endocarditis - F/u with ID service. 4. Critical limb ischemia with s/p LLE BKA 5. HTN - 6. Anasarca 7. ESRD 8. Hyperkalemia- underwent HD today. 9. Parox Afib - several episodes of Afib since night on 02/19/2018. On Metoprolol. May start OAC when Sx team clear for OAC. MAR reviewed Review of Systems - Review of Systems Constitutional: reports: weakness EENTM: reports: no symptoms reported Respiratory: reports: no symptoms reported Cardiac (ROS): reports: no symptoms reported ABD/GI: reports: no symptoms reported : reports: no symptoms reported Musculoskeletal: reports: no symptoms reported
--- NOTE | 2018-02-20 23:04 | RAD ---
CHEST ONE VIEW 02/20/18 HISTORY: Chest pain. COMPARISON: Radiograph 06/15/[address] angiogram same day. FINDINGS: The pleural effusions are not well seen on the radiograph and must be layering. There is blunting of both costophrenic sulci. Heart size is enlarged. IMPRESSION: Poor visualization of the known pleural effusions. POS: [facility]
[2018-02-21] MEDS: Ondansetron PF 4 MG/2 ML Vial IVP PRN ×2 (02:03→09:13)
[2018-02-21] MEDS: Piperacillin/Tazobactam 3.375 GM in Sodium Chloride 0.9% 100 ML IVPB SCH ×4 (03:30→20:54)
[2018-02-21] MEDS: Nitroglycerin 2% Ointment 1 INCH/1 GM Packet TOP SCH ×3 (04:59→20:55)
[2018-02-21 05:34] LABS: Anion Gap 20 mmol/L (10-20); BUN (Urea Nitrogen) 40 mg/dL (8.4-25.7); Calc. Creatinine Clearance 8 mL/min (70-130); Calcium 8.3 mg/dL (7.8-10.44); Carbon Dioxide 21 mmol/L (23-31); Chloride 101 mmol/L (98-107); Estimated GFR-MDRD 11; Glucose 79 mg/dL (80-115); Potassium 4.8 mmol/L (3.5-5.1); Sodium 137 mmol/L (136-145)
[2018-02-21 05:46] LABS: Lactic Acid 2.3 mmol/L (0.5-2.2)
[2018-02-21 06:38] LABS: Hemoglobin 11.1 g/dL (14.0-18.0); Lymphocytes 2 % (21-51); MDiff Complete? YES; Mean Corpuscular HGB CONC 31.2 g/dL (32.0-36.0); Mean Corpuscular Volume 86.5 fL (78.0-98.0); Mean Platelet Volume 7.8 fL (7.4-10.4); Monocytes 8 % (0-10); Neutrophil 90 % (42-75); Platelet Count 57 thou/uL (130-400); Platelet Morphology Comment Appears Decreased; RBC Distribution Width 15.7 % (11.5-14.5); Red Blood Cell (RBC) Count 4.11 mill/uL (4.70-6.10); White Blood Cell (WBC) Count 15.8 thou/uL (4.8-10.8)
[2018-02-21] MEDS: Metoprolol Tartrate 50 MG TAB PO SCH ×3 (09:05→20:54)
[2018-02-21] MEDS: Pantoprazole 40 MG VIAL IVP SCH ×2 (09:05→20:54)
[2018-02-21] MEDS ORDERED: Heparin 1,000 UNITS/ML VIAL ONE (11:11)
--- NOTE | 2018-02-21 12:02 | PDOC.PN ---
- Subjective Encounter Start Date: 02/21/18 Encounter Start Time: 12:01 Mr. Cruz was seen today in follow-up. He has less abdominal pain, after the NG tube was placed. He says the pain in his leg is better controlled. - Objective Resuscitation Status - Order Detail: 02/17/18 16:51 Resuscitation Status Routine Resuscitation Status: FULL: Full Resuscitation MAR Reviewed: Yes Vital Signs & Weight: Vital Signs (12 hours) Temp Pulse Resp BP Pulse Ox 02/21/18 09:02 97.3 F L 74 18 117/70 100 02/21/18 04:52 97.2 F L 72 130/66 100 02/21/18 00:00 98.0 F 77 22 H 141/75 H 100 Weight Admit Weight 127 lb Weight 105 lb 2.568 oz I&O: 02/20/18 02/21/18 02/22/18 06:59 06:59 06:59 Intake Total 367 150 Output Total 0 0 Balance 367 150 Result Diagrams: 02/21/18 04:42 02/21/18 04:42 Phys Exam - Physical Examination HEENT: PERRLA Respiratory: no wheezing, no rales, no rhonchi, clear to auscultation bilateral Cardiovascular: RRR, no significant murmur, no rub Gastrointestinal: positive bowel sounds + distended, hypoactive BS, with diffuse tenderness Musculoskeletal: no edema S/p Left BKA- wound is dressed Dx/Plan (1) Peripheral arterial occlusive disease Code(s): I77.9 - DISORDER OF ARTERIES AND ARTERIOLES, UNSPECIFIED Status: Acute (2) AVM (arteriovenous malformation) of colon Code(s): K55.20 - ANGIODYSPLASIA OF COLON WITHOUT HEMORRHAGE Status: Chronic (3) GERD (gastroesophageal reflux disease) Code(s): K21.9 - GASTRO-ESOPHAGEAL REFLUX DISEASE WITHOUT ESOPHAGITIS Status: Chronic Qualifiers: Esophagitis presence: esophagitis presence not specified Qualified Code(s) : K21.9 - Gastro-esophageal reflux disease without esophagitis Comment: Continue PPI (4) Hypertension Code(s): I10 - ESSENTIAL (PRIMARY) HYPERTENSION Status: Chronic Qualifiers: Hypertension type: essential hypertension Qualified Code(s): I10 - Essential (primary) hypertension Comment: At goal. Medications being held 2/2 GI bleed. (5) End stage renal disease on dialysis Code(s): N18.6 - END STAGE RENAL DISEASE; Z99.2 - DEPENDENCE ON RENAL DIALYSIS Status: Chronic - Plan * Peripheral Arterial occlusive disease- he is s/p Left BKA. * Abdominal Pain- CTA results noted- he is likely developing obstruction as a result of the large amount of ascites- agree with therapeutic, as well as diagnostic paracentesis ( as it has not been established the reason for the ascites) * Vegetation on the Mitral Valve- this may be septic or non-septic- continue empiric antibiotics for Endocarditis- he has been having intermittent AFIB, and therefore this may represent thrombosis, once he has had the paracentesis, can consider anticoagulation * AVM of GI tract- he has a history of chronic blood loss from this- will monitor his H&H and transfuse as necessary * ESRD- continue Dialysis as tolerated * Moderate to severe Protein Calorie Malnutrition( present on admission)- this will complicate his recovery * Prognosis is guarded.
--- NOTE | 2018-02-21 12:13 | PRG ---
DATE OF SERVICE: 02/21/2018 SUBJECTIVE: Mr. Cruz is a 62-year-old man with a history of end-stage renal disease and severe peripheral vascular disease. The patient is status post left [id number] amputation postop day #2. He is still complaining of abdominal pain and has had multiple episodes of occasionally bilious emesis over the last several days. This morning, he complains of progressive abdominal distention. He denies any dyspnea, chest pain, or syncope. Repeat abdominal CT scan yesterday revealed large volume ascites as well as bilateral left greater than right pleural effusions. Thickened bowel wall is noted. No pneumatosis intestinalis or pneumoperitoneum is evident. OBJECTIVE: VITAL SIGNS: This morning include, blood pressure of 117/70, pulse 74, respiratory rate is 18, temperature is 97.3 degrees Fahrenheit, and oxygen saturation 100% on room air. HEENT: Reveals normocephalic and atraumatic. HEART: Reveals regular rate and rhythm. LUNGS: Reveal scattered rhonchi. Breathing nonlabored. ABDOMEN : Soft and distended with diffuse tenderness to palpation. Liver and spleen are nonpalpable below costal margin. He does have epigastric waves, suggestive of ascites. NEUROLOGIC: Reveals no focal deficits present. LABORATORY FINDINGS: Today include a CBC with 15,800 white blood cells, hemoglobin and hematocrit are 11.1 and 35.6 respectively. Platelet count remains stable at 57,000. Metabolic profile; sodium 137, potassium is 4.8, chloride is 101, bicarb is 21, BUN and creatinine as noted at 40 and 6.48 respectively, this is post dialysis. IMPRESSIONS: 1. Persistent abdominal pain in the patient with severe peripheral vascular disease, likely ischemic enterocolitis with no evidence of necrosis. 2. History of end-stage renal disease. 3. Acute adynamic ileus. PLAN: 1. Bowel rest with nasogastric tube decompression. 2. We will discuss with Interventional Radiology consideration for diagnostic and therapeutic paracenteses. 3. Above findings and plan were discussed with the patient, who indicates understanding of information given. I have answered his questions. Job ID: [id number]
[2018-02-21 12:54] LABS: INR-International Normal Ratio 1.8; Prothrombin Time 21.2 SEC (12.0-14.7)
[2018-02-21 14:17] LABS: Reference Lab Name LABCORP
--- NOTE | 2018-02-21 15:42 | ULT ---
SONOGRAPHIC GUIDED PARACENTESIS: Date: 02/21/18 HISTORY: Recurrent ascites. FINDINGS: After explaining the procedure and answering all questions, sonographic survey shows a large amount o f free fluid throughout the abdomen. Sterile technique, buffered local anesthesia, sonographic guidan ce, and a left lateral approach were used to carefully advance a 19 gauge Yueh needle and catheter in to the free fluid. The catheter was left to drain a total volume of 2.65 slightly cloudy yellow liqui d. Minimal fluid remained. Catheter was removed. The patient tolerated the procedure well and was ret urned in improved condition. IMPRESSION: Technically successful sonographic guided paracentesis. POS: [facility]
--- NOTE | 2018-02-21 18:16 | PDOC.CTH ---
Cardiology Progress Note - Subjective The pt seen and examined. No overnight events. No cardiac complaints. He complains of pain to amputation site. - Objective Vital Signs Temp Pulse Pulse Resp BP BP Pulse Ox 02/21/18 15:37 80 16 132/71 100 02/21/18 12:10 74 18 121/65 100 02/21/18 12:03 74 121/65 02/21/18 09:02 97.3 F L 74 18 117/70 100 Pulse Ox 02/21/18 15:37 02/21/18 12:10 02/21/18 12:03 100 02/21/18 09:02 Admit Weight 127 lb Weight 105 lb 2.568 oz 02/20/18 02/21/18 02/22/18 06:59 06:59 06:59 Intake Total 367 150 Output Total 0 0 Balance 367 150 - Physical Examination General/Neuro: alert & oriented x3 Neck: no JVD present Lungs: other: (diminished at bases) Heart: RRR Abdomen: soft Extremities: other: (Lt BKA;) - Telemetry Telemetry Rhythm: SR - Labs Result Diagrams: 02/22/18 04:29 02/22/18 04:29 Troponin/CKMB CK-MB (CK-2) 9.3 ng/mL (0-6.6) H* 02/17/18 13:12 Troponin I 1.611 ng/mL (< 0.028) H* 02/17/18 21:51 - Assessment/Plan 1. Flailing mas attached to Aortic valve concerning for endocarditis - on IV abx. 2. Flailing mass on Tricuspid valve concerning for endocarditis versus thrombus. Given thrombosis of bilateral jugular veins would favor thrombus. 3. Strep.Bactremia 2/2Endocarditis - F/u with ID service. 4. Critical limb ischemia with s/p LLE BKA 5. HTN - stable 6. Anasarca 7. ESRD 8. Hyperkalemia- underwent HD today. 9. Parox Afib - several episodes of Afib since night on 02/19/2018. On Metoprolol. May start OAC when Sx team clear for OAC. 10. Acute adynamic ileus with paracentesis and NG tube placement on 02/21/2018 MAR reviewed Pt. seen and eval. by me. I agree with the A/P by the [employer]ENT. Chest clear. RRR, No edema. Multiple problems. Pt.pulled out NG tube again. Review of Systems - Review of Systems Constitutional: reports: no symptoms reported EENTM: reports: no symptoms reported Respiratory: reports: no symptoms reported Cardiac (ROS): reports: no symptoms reported ABD/GI: reports: no symptoms reported : reports: no symptoms reported Musculoskeletal: reports: see HPI
[2018-02-22] MEDS: Piperacillin/Tazobactam 3.375 GM in Sodium Chloride 0.9% 100 ML IVPB SCH ×4 (03:15→21:30)
[2018-02-22 05:08] LABS: Anion Gap 21 mmol/L (10-20); BUN (Urea Nitrogen) 33 mg/dL (8.4-25.7); Calc. Creatinine Clearance 10 mL/min (70-130); Carbon Dioxide 23 mmol/L (23-31); Chloride 99 mmol/L (98-107); Estimated GFR-MDRD 13; Glucose 60 mg/dL (80-115); Potassium 4.6 mmol/L (3.5-5.1); Sodium 138 mmol/L (136-145)
[2018-02-22] MEDS: Nitroglycerin 2% Ointment 1 INCH/1 GM Packet TOP SCH ×3 (05:08→21:35)
[2018-02-22 06:55] LABS: Hemoglobin 10.7 g/dL (14.0-18.0); Mean Corpuscular HGB CONC 30.9 g/dL (32.0-36.0); Mean Corpuscular Hemoglobin 27.6 pg (27.0-31.0); Mean Corpuscular Volume 89.5 fL (78.0-98.0); Mean Platelet Volume 7.3 fL (7.4-10.4); Platelet Count 58 thou/uL (130-400); RBC Distribution Width 15.9 % (11.5-14.5); Red Blood Cell (RBC) Count 3.88 mill/uL (4.70-6.10); White Blood Cell (WBC) Count 15.1 thou/uL (4.8-10.8)
[2018-02-22 07:38] LABS: #Eosinphils 0.1 thou/uL (0.0-0.7); #Monocytes 0.9 thou/uL (0.11-0.59); #Neutrophils 13.1 thou/uL (1.40-6.50); %Basophils 0.3 % (0.0-1.0); %Eosinophils 0.6 % (0.0-10.0); %Lymphocytes 6.8 % (21.0-51.0); %Monocytes 5.7 % (0.0-10.0); %Neutrophils 86.7 % (42.0-75.0); Acanthocytes SLIGHT = 1-5 cells (100X) (None Seen); Burr Cells MARKED = >16 cells (100X) (0-1/hpf); MDiff Complete? YES; Platelet Morphology Comment Appears Decreased; Polychromasia SLIGHT = 2-3 cells (100X) (0-2/hpf); Reflex for Review?? NO
[2018-02-22 10:09] LABS: Vancomycin, Random 12.9 ug/mL (See Comment)
[2018-02-22] MEDS: Pantoprazole 40 MG VIAL IVP SCH ×2 (10:19→21:35)
[2018-02-22] MEDS: Metoprolol Tartrate 50 MG TAB PO SCH ×2 (10:19→21:35)
--- NOTE | 2018-02-22 15:08 | PDOC.PN ---
- Subjective Encounter Start Date: 02/22/18 Encounter Start Time: 09:00 Mr. Cruz was seen today in follow-up of ischemic left leg, and possible endocarditis. Today he says he is not feeling well. He refused dialysis today. He says he was just tired. However, he says he is beginning to consider stopping active treatment. When asked if he is depressed, he denies this. He says he just feels like he is " not in control" and " people are forcing him to do things. - Objective Resuscitation Status - Order Detail: 02/17/18 16:51 Resuscitation Status Routine Resuscitation Status: FULL: Full Resuscitation MAR Reviewed: Yes Vital Signs & Weight: Vital Signs (12 hours) Temp Pulse Resp BP Pulse Ox 02/22/18 13:56 97.6 F 76 18 130/70 100 02/22/18 10:20 117/62 02/22/18 08:55 97.5 F L 76 21 H 120/66 99 02/22/18 03:33 98 F 81 18 114/68 98 Weight Admit Weight 127 lb Weight 104 lb I&O: 02/21/18 02/22/18 02/23/18 06:59 06:59 06:59 Intake Total 150 160 Output Total 0 0 Balance 150 160 Result Diagrams: 02/22/18 04:29 02/22/18 04:29 Phys Exam - Physical Examination HEENT: PERRLA Respiratory: no wheezing, no rales, no rhonchi, clear to auscultation bilateral Cardiovascular: RRR, no significant murmur, no rub Gastrointestinal: soft, positive bowel sounds + diffuse tenderness, and some mild distention Musculoskeletal: no edema Stump site looks good, no draining or swelling Dx/Plan (1) Peripheral arterial occlusive disease Code(s): I77.9 - DISORDER OF ARTERIES AND ARTERIOLES, UNSPECIFIED Status: Acute (2) AVM (arteriovenous malformation) of colon Code(s): K55.20 - ANGIODYSPLASIA OF COLON WITHOUT HEMORRHAGE Status: Chronic (3) GERD (gastroesophageal reflux disease) Code(s): K21.9 - GASTRO-ESOPHAGEAL REFLUX DISEASE WITHOUT ESOPHAGITIS Status: Chronic Qualifiers: Esophagitis presence: esophagitis presence not specified Qualified Code(s) : K21.9 - Gastro-esophageal reflux disease without esophagitis Comment: Continue PPI (4) Hypertension Code(s): I10 - ESSENTIAL (PRIMARY) HYPERTENSION Status: Chronic Qualifiers: Hypertension type: essential hypertension Qualified Code(s): I10 - Essential (primary) hypertension Comment: At goal. Medications being held 2/2 GI bleed. (5) End stage renal disease on dialysis Code(s): N18.6 - END STAGE RENAL DISEASE; Z99.2 - DEPENDENCE ON RENAL DIALYSIS Status: Chronic (6) Cirrhosis Code(s): K74.60 - UNSPECIFIED CIRRHOSIS OF LIVER Status: Chronic (7) Ascites Code(s): R18.8 - OTHER ASCITES Status: Acute (8) Severe malnutrition Code(s): E43 - UNSPECIFIED SEVERE PROTEIN-CALORIE MALNUTRITION Status: Chronic - Plan * Peripheral Artery Occlusive disease- he is s/p Left BKA- source is likely to be embolic * Abdominal pain- in part due to ascites, and he may have some intermittent bowel ischemia as well- symptom relief * Ascites- likely due to cirrhosis- SAAG was 1.4 Awaiting culture results from the Ascitic fluid * Probable Endocarditis- 2/2 blood cultures are growing Strep Salivarius- he has extremely poor dentition, and what appears to be vegetations on the Aortic and Tricuspid Valves- Await further recommendations from Dr. Rivas * ESRD- continue dialysis as per Nephrology * Severe Protein Calorie Malnutrition- supplements PRN . * AVN- of GI tract- this causes chronic blood loss- has been extensively evaluated - he has been cleared for the use of anticoagulation by GI * HTN- blood pressure is stable * Probable depression- will add Zoloft * Patient's overall prognosis is very poor, even with aggressive care. He and his are aware of this. A palliative Care consult has been placed to help him determine his care going forward.
--- NOTE | 2018-02-22 17:24 | PRG ---
DATE OF SERVICE: 02/22/2018 SUBJECTIVE: Mr. Cruz is more alert and awake, in good spirits, smiled, and recognized me. Denies any headaches. No cough or chest pain. No abdominal pain or diarrhea. OBJECTIVE: VITAL SIGNS: T-max 98, blood pressure 112/68, and pulse 72. GENERAL: Cachexia as noted before. HEENT: Ocular movements conjugate. LUNGS: Symmetric air entry with somewhat coarse breath sounds. HEART: S1 and S2 without obvious murmurs. ABDOMEN: Soft, not distended. LABORATORY DATA: White cell count is at 15.1, hemoglobin 10.7, and platelets 58,000. A 2 out 2 sets of blood cultures with Streptococcus salivarius with a broad susceptibility profile. ASSESSMENT AND DISCUSSION: Incisional disease on chronic hemodialysis, peripheral vascular disease with recent left BKA and Streptococcus salivarius endocarditis, and multiple valvular involvement. Continue vancomycin sliding scale with dialysis. The organism has a very low KAY for vancomycin and treatment should be successful and date of therapy will be April 01. Job ID: [id number]
--- NOTE | 2018-02-22 17:33 | PRG ---
DATE OF SERVICE: 02/22/2018 SUBJECTIVE: Mr. Cruz is doing well today. He complains of pain. OBJECTIVE: VITAL SIGNS: Temperature 97.6 degrees, pulse 72, and blood pressure 112/68. LUNGS: Clear to auscultation. CARDIAC: Regular rate and rhythm without murmur or gallop. ABDOMEN: Soft and nontender. EXTREMITIES: Left [id number] amputation stump dressing is removed. The wound looks good. It is well healed. There are no wound problems. I have reiterated to the patient and his family that he should make an effort to keep his left knee extended to avoid contracture by keeping blankets or pillows under his BKA stump below the knee flexion. The patient is doing well. The patient did bring up the desire that he did not want to do dialysis today. I have asked him if he wants to continue dialysis, he says he does want to live. The patient, however, does not want intubation or CPR. I have discussed with the patient and family member is present and the patient desires DNR status, I will order that. At this point, the left BKA stump can be washed daily with soap and water, apply antibiotic ointment and stump savings counselor. The patient is stable for transfer to rehab at any time. I will see him in office in 2 weeks to remove his dai. I will see him as needed this hospitalization. The patient is stable for discharge per case operator, rehab, assessment. Job ID: [id number]
[2018-02-22] MEDS ORDERED: D5W-AA 4.25% with LYTES 1,000 ML BAG IV SCH (18:00)
--- NOTE | 2018-02-22 18:53 | PDOC.CTH ---
Cardiology Progress Note - Subjective Nurses informed me before going into room that he was refusing dialysis and had given up. He was started on Zoloft earlier today and on my evaluation he states he feels his family is wanting him to continue and he is willing to try this. He has severe pain around his amputation site. - Objective Vital Signs Temp Pulse Resp BP Pulse Ox 02/22/18 16:16 97.6 F 72 17 112/68 96 02/22/18 13:56 97.6 F 76 18 130/70 100 02/22/18 10:20 117/62 02/22/18 08:55 97.5 F L 76 21 H 120/66 99 Admit Weight 127 lb Weight 104 lb 02/21/18 02/22/18 02/23/18 06:59 06:59 06:59 Intake Total 150 160 Output Total 0 0 Balance 150 160 - Physical Examination General/Neuro: alert & oriented x3, NAD Neck: no JVD present Lungs: CTA, unlabored respirations Heart: RRR Abdomen: NT/ND Extremities: other: (BKA) - Telemetry Telemetry Rhythm: NSR - Labs Result Diagrams: 02/22/18 04:29 02/22/18 04:29 Troponin/CKMB CK-MB (CK-2) 9.3 ng/mL (0-6.6) H* 02/17/18 13:12 Troponin I 1.611 ng/mL (< 0.028) H* 02/17/18 21:51 - Assessment/Plan 1. Flailing mas attached to Aortic valve concerning for endocarditis. 2. Moderate AI 3. Flailing mass on Tricuspid valve concerning for endocarditis versus thrombus. 4. Critical limb ischemia s/p amputation. 5. Anasarca 6. ESRD 7. Strep bacteremia. PLAN: - IV abx per primary team. 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 - If valve replacement were to be required he would not survive valve replacement surgery at this time. - Will follow.
[2018-02-22] MEDS: Dicyclomine 10 MG CAP PO SCH (21:35)
[2018-02-23] MEDS: Piperacillin/Tazobactam 3.375 GM in Sodium Chloride 0.9% 100 ML IVPB SCH ×4 (02:45→21:58)
[2018-02-23] MEDS: Nitroglycerin 2% Ointment 1 INCH/1 GM Packet TOP SCH ×3 (05:41→21:53)
[2018-02-23] MEDS ORDERED: Amlodipine 5 MG TAB PO SCH (09:00)
[2018-02-23] MEDS: Pantoprazole 40 MG VIAL IVP SCH ×2 (09:39→21:54)
[2018-02-23] MEDS: Metoprolol Tartrate 50 MG TAB PO SCH ×2 (09:40→21:52)
[2018-02-23] MEDS: Dicyclomine 10 MG CAP PO SCH ×3 (09:40→21:54)
[2018-02-23 11:23] LABS: Bartonella henselae IgG Negative titer (Neg:<1:320); Bartonella henselae IgM Negative titer (Neg:<1:100); Bartonella quintana IgG Negative titer (Neg:<1:320); Bartonella quintana IgM Negative titer (Neg:<1:100)
--- NOTE | 2018-02-23 14:47 | PDOC.PN ---
- Subjective Encounter Start Date: 02/23/18 Encounter Start Time: 10:35 Subjective: no sob, girl friend and sister and at bedside -: pain in leg is better - Objective Resuscitation Status - Order Detail: 02/22/18 16:46 Resuscitation Status Routine Resuscitation Status: DNAR: NO Resuscitation Discussed with: as discussed with pt. & family MAR Reviewed: Yes Vital Signs & Weight: Vital Signs (12 hours) Temp Pulse Pulse Pulse Resp BP BP 02/23/18 12:00 97.3 F L 67 18 02/23/18 09:40 63 02/23/18 09:36 69 67 122/68 120/67 02/23/18 08:26 97.3 F L 63 18 02/23/18 03:51 97.1 F L 65 14 BP Pulse Ox Pulse Ox Pulse Ox 02/23/18 12:00 130/68 100 02/23/18 09:40 02/23/18 09:36 96 96 02/23/18 08:26 126/72 10 L 02/23/18 03:51 111/59 L 100 Weight Admit Weight 127 lb Weight 102 lb I&O: 02/22/18 02/23/18 02/24/18 06:59 06:59 06:59 Intake Total 160 505 Output Total 0 Balance 160 505 Result Diagrams: 02/22/18 04:29 02/22/18 04:29 Phys Exam - Physical Examination HEENT: PERRLA, moist MMs Neck: no JVD, supple Respiratory: no wheezing, no rales Cardiovascular: RRR, no significant murmur Gastrointestinal: soft, non-tender, positive bowel sounds ascitis+ Musculoskeletal: pulses present left bka site is clean, dai+ Neurological: non-focal, moves all 4 limbs Psychiatric: normal affect, A&O x 3 Dx/Plan (1) Bacteremia Code(s): R78.81 - BACTEREMIA Status: Acute Comment: strep salivarius (2) Endocarditis Code(s): I38 - ENDOCARDITIS, VALVE UNSPECIFIED Status: Acute Qualifiers: Endocarditis type: infective Infective endocarditis organism: bacterial Chronicity: acute Qualified Code(s): I33.0 - Acute and subacute infective endocarditis Comment: with veg over aortic, mitral and tricuspid (3) Ascites Code(s): R18.8 - OTHER ASCITES Status: Chronic Qualifiers: Ascites type: other type Qualified Code(s): R18.8 - Other ascites (4) Peripheral arterial occlusive disease Code(s): I77.9 - DISORDER OF ARTERIES AND ARTERIOLES, UNSPECIFIED Status: Acute Comment: s/p left bka (5) End stage renal disease on dialysis Code(s): N18.6 - END STAGE RENAL DISEASE; Z99.2 - DEPENDENCE ON RENAL DIALYSIS Status: Chronic (6) Severe malnutrition Code(s): E43 - UNSPECIFIED SEVERE PROTEIN-CALORIE MALNUTRITION Status: Chronic (7) Anemia of renal disease Code(s): D63.1 - ANEMIA IN CHRONIC KIDNEY DISEASE Status: Chronic (8) BPH (benign prostatic hyperplasia) Code(s): N40.0 - BENIGN PROSTATIC HYPERPLASIA WITHOUT LOWER URINRY TRACT SYMP Status: Chronic Qualifiers: Lower urinary tract symptom presence: symptoms absent Qualified Code(s): N40.0 - Benign prostatic hyperplasia without lower urinary tract symptoms Comment: Continue Terazosin. (9) Chronic hepatitis C Code(s): B18.2 - CHRONIC VIRAL HEPATITIS C Status: Chronic Qualifiers: Hepatic coma status: without hepatic coma Qualified Code(s): B18.2 - Chronic viral hepatitis C (10) Cirrhosis of liver Code(s): K74.60 - UNSPECIFIED CIRRHOSIS OF LIVER Status: Chronic Qualifiers: Hepatic cirrhosis type: other cirrhosis Qualified Code(s): K74.69 - Other cirrhosis of liver Comment: s/p paracentesis with removal of 2.65 lts on 02/21/2017 (11) ESRD (end stage renal disease) on dialysis Code(s): N18.6 - END STAGE RENAL DISEASE; Z99.2 - DEPENDENCE ON RENAL DIALYSIS Status: Chronic Comment: On MWF HD. Will dialyse per Renal recommendations. (12) GERD (gastroesophageal reflux disease) Code(s): K21.9 - GASTRO-ESOPHAGEAL REFLUX DISEASE WITHOUT ESOPHAGITIS Status: Chronic Qualifiers: Esophagitis presence: esophagitis presence not specified Qualified Code(s) : K21.9 - Gastro-esophageal reflux disease without esophagitis Comment: Continue PPI (13) Hypertension Code(s): I10 - ESSENTIAL (PRIMARY) HYPERTENSION Status: Chronic Qualifiers: Hypertension type: essential hypertension Qualified Code(s): I10 - Essential (primary) hypertension - Plan is on vanc and zosyn -: for HD today -: encourage po intake, ate a bit of his breakfast per family -: is on ppn, prognosis guarded, will need serial echo -: continue norvasc, toprol, bentyl, dc nitropaste * . Review of Systems - Medications/Allergies Allergies/Adverse Reactions: Allergies Allergy/AdvReac Type Severity Reaction Status Date / Time No Known Allergies Allergy Verified 08/26/17 03:38 Medications: Current Medications Acetaminophen (Tylenol) 1,000 mg PO Q6H PRN PRN Reason: Mild Pain (1-3) Amlodipine Besylate (Norvasc) 5 mg PO DAILY [facility] Last Admin: 02/23/18 09:40 Dose: 5 mg Dicyclomine HCl (Bentyl) 10 mg PO TID [facility] Last Admin: 02/23/18 13:49 Dose: 10 mg Diphenhydramine HCl (Benadryl) 25 mg IVP Q3H PRN PRN Reason: Itching Diphenhydramine HCl (Benadryl) 25 mg PO Q3H PRN PRN Reason: Itching Diphenhydramine HCl (Benadryl) 25 mg IM Q3H PRN PRN Reason: Itching Epoetin Zhang (Procrit) 5,000 units SC Fr@0900 [facility] Last Admin: 02/19/18 12:10 Dose: 5,000 units Vancomycin HCl 1 gm/ Device 200 mls @ 200 mls/hr IVPB [facility] Vancomycin HCl 750 mg/ Sodium (Chloride) 250 mls @ 250 mls/hr IVPB [facility] Vancomycin HCl 500 mg/ Sodium (Chloride) 100 mls @ 100 mls/hr IVPB [facility] Last Admin: 02/20/18 16:11 Dose: 100 mls Vancomycin HCl 250 mg/ Sodium (Chloride) 100 mls @ 100 mls/hr IVPB [facility] Fentanyl Citrate 2,000 mcg/ (Sodium Chloride) 100 mls @ 0 mls/hr IV INF PRN PRN Reason: Pain Piperacillin Sod/Tazobactam (Sod 3.375 gm/ Sodium Chloride) 100 mls @ 200 mls/ hr IVPB 0300,0900,1500,2100 [facility] Last Admin: 02/23/18 13:49 Dose: 100 mls Lidocaine HCl (Xylocaine 2%) 0 ml TOP ASDIR [facility] Metoprolol Tartrate (Lopressor) 50 mg PO BID [facility] Last Admin: 02/23/18 09:40 Dose: 50 mg Naloxone HCl (Narcan) 0.2 mg IV Q5MIN PRN PRN Reason: Opiate Reversal Nitroglycerin (Nitro-Bid 2% Ointment) 0.5 inch TOP Q8HR [facility] Last Admin: 02/23/18 13:47 Dose: Not Given Hold Vancomycin For (Level >20) 0 each FS .AT DIALYSIS [facility] Ondansetron HCl (Zofran Odt) 4 mg PO Q6H PRN PRN Reason: Nausea/Vomiting Ondansetron HCl (Zofran) 4 mg IVP Q6H PRN PRN Reason: Nausea/Vomiting Last Admin: 02/21/18 09:13 Dose: 4 mg Pantoprazole Sodium (Protonix) 40 mg IVP Q12HR [facility] Last Admin: 02/23/18 09:39 Dose: 40 mg Sertraline HCl (Zoloft) 50 mg PO 1800 [facility] Last Admin: 02/22/18 18:17 Dose: 50 mg Sodium Chloride (Flush - Normal Saline) 10 ml IVF Q12HR [facility] Last Admin: 02/23/18 09:41 Dose: Not Given Sodium Chloride (Flush - Normal Saline) 10 ml IVF PRN PRN PRN Reason: Saline Flush Last Admin: 02/20/18 11:28 Dose: 10 ml Zolpidem Tartrate (Ambien) 5 mg PO HSPRN PRN PRN Reason: Insomnia
--- NOTE | 2018-02-23 19:01 | PDOC.CTH ---
Cardiology Progress Note - Subjective No new issues. - Objective Vital Signs Temp Pulse Pulse Pulse Resp BP BP 02/23/18 16:00 97.7 F 69 18 02/23/18 12:00 97.3 F L 67 18 02/23/18 09:40 63 02/23/18 09:36 69 67 122/68 120/67 02/23/18 08:26 97.3 F L 63 18 BP Pulse Ox Pulse Ox Pulse Ox 02/23/18 16:00 115/66 99 02/23/18 12:00 130/68 100 02/23/18 09:40 02/23/18 09:36 96 96 02/23/18 08:26 126/72 10 L Admit Weight 127 lb Weight 102 lb 02/22/18 02/23/18 02/24/18 06:59 06:59 06:59 Intake Total 160 505 Output Total 0 Balance 160 505 - Physical Examination General/Neuro: alert & oriented x3, NAD Neck: no JVD present Lungs: CTA, unlabored respirations Heart: RRR Abdomen: NT/ND Extremities: other: (BKA) - Telemetry Telemetry Rhythm: NSR - Labs Result Diagrams: 02/22/18 04:29 02/22/18 04:29 Troponin/CKMB CK-MB (CK-2) 9.3 ng/mL (0-6.6) H* 02/17/18 13:12 Troponin I 1.611 ng/mL (< 0.028) H* 02/17/18 21:51 - Assessment/Plan 1. Flailing mas attached to Aortic valve concerning for endocarditis. 2. Moderate AI 3. Flailing mass on Tricuspid valve concerning for endocarditis versus thrombus. 4. Critical limb ischemia s/p amputation. 5. Anasarca 6. ESRD 7. Strep bacteremia. 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 - If valve replacement were to be required he would not survive valve replacement surgery.
[2018-02-23] MEDS ORDERED: Clopidogrel Bisulfate 75 MG TAB ONE (20:33)
[2018-02-23] MEDS: D5W-AA 4.25% with LYTES 1,000 ML BAG IV SCH ×2 (22:32→23:18)
[2018-02-24] MEDS: Piperacillin/Tazobactam 3.375 GM in Sodium Chloride 0.9% 100 ML IVPB SCH ×4 (03:29→21:57)
[2018-02-24] MEDS: fentaNYL Citrate/PF 2,000 MCG in Sodium Chloride 0.9% 60 ML IV PRN (03:50)
[2018-02-24 05:10] LABS: Anion Gap 21 mmol/L (10-20); BUN (Urea Nitrogen) 61 mg/dL (8.4-25.7); Calc. Creatinine Clearance 7 mL/min (70-130); Calcium 7.8 mg/dL (7.8-10.44); Carbon Dioxide 20 mmol/L (23-31); Chloride 100 mmol/L (98-107); Estimated GFR-MDRD 9; Glucose 105 mg/dL (80-115); Potassium 5.3 mmol/L (3.5-5.1); Sodium 136 mmol/L (136-145)
[2018-02-24] MEDS: Nitroglycerin 2% Ointment 1 INCH/1 GM Packet TOP SCH (06:10)
--- NOTE | 2018-02-24 10:34 | PDOC.PN ---
- Subjective Encounter Start Date: 02/24/18 Encounter Start Time: 10:15 Subjective: awake, no sob -: is npo except ice chips -: going for HD this am - Objective Resuscitation Status - Order Detail: 02/22/18 16:46 Resuscitation Status Routine Resuscitation Status: DNAR: NO Resuscitation Discussed with: as discussed with pt. & family MAR Reviewed: Yes Vital Signs & Weight: Vital Signs (12 hours) Temp Pulse Resp BP Pulse Ox 02/24/18 07:30 97.1 F L 65 18 108/65 100 02/24/18 04:00 97.4 F L 65 20 103/64 98 02/24/18 00:35 97.7 F 67 18 106/63 100 Weight Admit Weight 127 lb Weight 109 lb I&O: 02/23/18 02/24/18 02/25/18 06:59 06:59 06:59 Intake Total 505 1784 Output Total 0 Balance 505 1784 Result Diagrams: 02/22/18 04:29 02/24/18 04:44 Additional Labs: Accuchecks 02/24/18 02/23/18 00:35 21:09 POC Glucose 137 H 176 H Phys Exam - Physical Examination HEENT: PERRLA dry mucosa Neck: no JVD, supple Respiratory: no wheezing, no rales Cardiovascular: RRR, no significant murmur Gastrointestinal: soft, non-tender, positive bowel sounds Musculoskeletal: pulses present right bka Neurological: non-focal, moves all 4 limbs Psychiatric: A&O x 3 Dx/Plan (1) Bacteremia Code(s): R78.81 - BACTEREMIA Status: Acute Comment: strep salivarius (2) Endocarditis Code(s): I38 - ENDOCARDITIS, VALVE UNSPECIFIED Status: Acute Qualifiers: Endocarditis type: infective Infective endocarditis organism: bacterial Chronicity: acute Qualified Code(s): I33.0 - Acute and subacute infective endocarditis Comment: with veg over aortic, mitral and tricuspid (3) Ascites Code(s): R18.8 - OTHER ASCITES Status: Chronic Qualifiers: Ascites type: other type Qualified Code(s): R18.8 - Other ascites (4) Peripheral arterial occlusive disease Code(s): I77.9 - DISORDER OF ARTERIES AND ARTERIOLES, UNSPECIFIED Status: Acute Comment: s/p left bka (5) End stage renal disease on dialysis Code(s): N18.6 - END STAGE RENAL DISEASE; Z99.2 - DEPENDENCE ON RENAL DIALYSIS Status: Chronic (6) Severe malnutrition Code(s): E43 - UNSPECIFIED SEVERE PROTEIN-CALORIE MALNUTRITION Status: Chronic (7) Anemia of renal disease Code(s): D63.1 - ANEMIA IN CHRONIC KIDNEY DISEASE Status: Chronic (8) BPH (benign prostatic hyperplasia) Code(s): N40.0 - BENIGN PROSTATIC HYPERPLASIA WITHOUT LOWER URINRY TRACT SYMP Status: Chronic Qualifiers: Lower urinary tract symptom presence: symptoms absent Qualified Code(s): N40.0 - Benign prostatic hyperplasia without lower urinary tract symptoms Comment: Continue Terazosin. (9) Chronic hepatitis C Code(s): B18.2 - CHRONIC VIRAL HEPATITIS C Status: Chronic Qualifiers: Hepatic coma status: without hepatic coma Qualified Code(s): B18.2 - Chronic viral hepatitis C (10) Cirrhosis of liver Code(s): K74.60 - UNSPECIFIED CIRRHOSIS OF LIVER Status: Chronic Qualifiers: Hepatic cirrhosis type: other cirrhosis Qualified Code(s): K74.69 - Other cirrhosis of liver Comment: s/p paracentesis with removal of 2.65 lts on 02/21/2017 (11) ESRD (end stage renal disease) on dialysis Code(s): N18.6 - END STAGE RENAL DISEASE; Z99.2 - DEPENDENCE ON RENAL DIALYSIS Status: Chronic Comment: On MWF HD. Will dialyse per Renal recommendations. (12) GERD (gastroesophageal reflux disease) Code(s): K21.9 - GASTRO-ESOPHAGEAL REFLUX DISEASE WITHOUT ESOPHAGITIS Status: Chronic Qualifiers: Esophagitis presence: esophagitis presence not specified Qualified Code(s) : K21.9 - Gastro-esophageal reflux disease without esophagitis Comment: Continue PPI (13) Hypertension Code(s): I10 - ESSENTIAL (PRIMARY) HYPERTENSION Status: Chronic Qualifiers: Hypertension type: essential hypertension Qualified Code(s): I10 - Essential (primary) hypertension - Plan start liq diet and advance as tolerated -: continue ppn for now until he can eat better -: on norvasc and toprol -: is on zosyn and vanc -: ileus has resolved with patient passing stools yesterday * . Review of Systems - Medications/Allergies Allergies/Adverse Reactions: Allergies Allergy/AdvReac Type Severity Reaction Status Date / Time No Known Allergies Allergy Verified 08/26/17 03:38 Medications: Current Medications Acetaminophen (Tylenol) 1,000 mg PO Q6H PRN PRN Reason: Mild Pain (1-3) Amino Acids/Electrolytes/Dextrose (Clinimix E 4.25/5) 1,000 ml IV INF [facility] Last Admin: 02/23/18 23:18 Dose: 1,000 ml Dicyclomine HCl (Bentyl) 10 mg PO TID [facility] Last Admin: 02/23/18 21:54 Dose: 10 mg Diphenhydramine HCl (Benadryl) 25 mg IVP Q3H PRN PRN Reason: Itching Diphenhydramine HCl (Benadryl) 25 mg PO Q3H PRN PRN Reason: Itching Diphenhydramine HCl (Benadryl) 25 mg IM Q3H PRN PRN Reason: Itching Epoetin Zhang (Procrit) 5,000 units SC Fr@0900 [facility] Last Admin: 02/19/18 12:10 Dose: 5,000 units Vancomycin HCl 1 gm/ Device 200 mls @ 200 mls/[facility] Vancomycin HCl 750 mg/ Sodium (Chloride) 250 mls @ 250 mls/hr [facility]PB [facility] Vancomycin HCl 500 mg/ Sodium (Chloride) 100 mls @ 100 mls/hr IVPB [facility] Last Admin: 02/20/18 16:11 Dose: 100 mls Vancomycin HCl 250 mg/ Sodium (Chloride) 100 mls @ 100 mls/hr [facility] Fentanyl Citrate 2,000 mcg/ (Sodium Chloride) 100 mls @ 0 mls/hr IV INF PRN PRN Reason: Pain Last Admin: 02/24/18 03:50 Dose: 100 mls Piperacillin Sod/Tazobactam (Sod 3.375 gm/ Sodium Chloride) 100 mls @ 200 mls/ hr IVPB 0300,0900,1500,2100 [facility] Last Admin: 02/24/18 03:29 Dose: 100 mls Lidocaine HCl (Xylocaine 2%) 0 ml TOP ASDIR [facility] Metoprolol Tartrate (Lopressor) 50 mg PO BID [facility] Last Admin: 02/23/18 21:52 Dose: Not Given Naloxone HCl (Narcan) 0.2 mg IV Q5MIN PRN PRN Reason: Opiate Reversal Hold Vancomycin For (Level >20) 0 each FS .AT [facility] Ondansetron HCl (Zofran Odt) 4 mg PO Q6H PRN PRN Reason: Nausea/Vomiting Ondansetron HCl (Zofran) 4 mg IVP Q6H PRN PRN Reason: Nausea/Vomiting Last Admin: 02/21/18 09:13 Dose: 4 mg Pantoprazole Sodium (Protonix) 40 mg PO BID [facility] Sertraline HCl (Zoloft) 50 mg PO 1800 [facility] Last Admin: 02/23/18 17:39 Dose: 50 mg Sodium Chloride (Flush - Normal Saline) 10 ml IVF Q12HR [facility] Last Admin: 02/23/18 21:54 Dose: 10 ml Sodium Chloride (Flush - Normal Saline) 10 ml IVF PRN PRN PRN Reason: Saline Flush Last Admin: 02/23/18 21:54 Dose: 10 ml Zolpidem Tartrate (Ambien) 5 mg PO HSPRN PRN PRN Reason: Insomnia
[2018-02-24] MEDS: Dicyclomine 10 MG CAP PO SCH ×4 (10:47→21:55)
[2018-02-24] MEDS: Metoprolol Tartrate 50 MG TAB PO SCH ×2 (10:47→21:55)
[2018-02-24 14:31] LABS: Vancomycin, Random 8.8 ug/mL (See Comment)
[2018-02-24] MEDS: D5W-AA 4.25% with LYTES 1,000 ML BAG IV SCH (18:47)
[2018-02-24] MEDS: Ondansetron ODT 4 MG TAB PO PRN (21:54)
[2018-02-25] MEDS: Piperacillin/Tazobactam 3.375 GM in Sodium Chloride 0.9% 100 ML IVPB SCH ×2 (03:24→08:49)
[2018-02-25] MEDS: fentaNYL Citrate/PF 2,000 MCG in Sodium Chloride 0.9% 60 ML IV PRN (03:32)
[2018-02-25] MEDS: Ondansetron ODT 4 MG TAB PO PRN (03:52)
[2018-02-25] MEDS: Dicyclomine 10 MG CAP PO SCH ×4 (08:48→23:00)
[2018-02-25] MEDS: Metoprolol Tartrate 50 MG TAB PO SCH ×3 (08:48→23:00)
--- NOTE | 2018-02-25 10:28 | PDOC.PN ---
- Subjective Encounter Start Date: 02/25/18 Encounter Start Time: 08:25 Subjective: awake, a bit lethargic -: no sob - Objective Resuscitation Status - Order Detail: 02/22/18 16:46 Resuscitation Status Routine Resuscitation Status: DNAR: NO Resuscitation Discussed with: as discussed with pt. & family MAR Reviewed: Yes Vital Signs & Weight: Vital Signs (12 hours) Temp Pulse Resp BP Pulse Ox 02/25/18 08:41 97.4 F L 72 16 110/61 97 02/25/18 03:15 97.9 F 76 16 119/63 02/25/18 00:02 94 L 02/24/18 23:55 77 22 H 119/62 94 L Weight Admit Weight 127 lb Weight 112 lb 3.445 oz I&O: 02/24/18 02/25/18 02/26/18 06:59 06:59 06:59 Intake Total 1784 1739 Output Total 0 1050 Balance 1784 689 Result Diagrams: 02/22/18 04:29 02/24/18 04:44 Phys Exam - Physical Examination HEENT: PERRLA, moist MMs Neck: no JVD, supple Respiratory: no wheezing, no rales Cardiovascular: RRR, no significant murmur Gastrointestinal: soft, non-tender, positive bowel sounds Musculoskeletal: pulses present left BKA Neurological: non-focal, moves all 4 limbs Dx/Plan (1) Bacteremia Code(s): R78.81 - BACTEREMIA Status: Acute Comment: strep salivarius (2) Endocarditis Code(s): I38 - ENDOCARDITIS, VALVE UNSPECIFIED Status: Acute Qualifiers: Endocarditis type: infective Infective endocarditis organism: bacterial Chronicity: acute Qualified Code(s): I33.0 - Acute and subacute infective endocarditis Comment: with veg over aortic, mitral and tricuspid. Vanc till apr 01 (3) Ascites Code(s): R18.8 - OTHER ASCITES Status: Chronic Qualifiers: Ascites type: other type Qualified Code(s): R18.8 - Other ascites (4) Peripheral arterial occlusive disease Code(s): I77.9 - DISORDER OF ARTERIES AND ARTERIOLES, UNSPECIFIED Status: Acute Comment: s/p left bka (5) End stage renal disease on dialysis Code(s): N18.6 - END STAGE RENAL DISEASE; Z99.2 - DEPENDENCE ON RENAL DIALYSIS Status: Chronic (6) Severe malnutrition Code(s): E43 - UNSPECIFIED SEVERE PROTEIN-CALORIE MALNUTRITION Status: Chronic (7) Anemia of renal disease Code(s): D63.1 - ANEMIA IN CHRONIC KIDNEY DISEASE Status: Chronic (8) BPH (benign prostatic hyperplasia) Code(s): N40.0 - BENIGN PROSTATIC HYPERPLASIA WITHOUT LOWER URINRY TRACT SYMP Status: Chronic Qualifiers: Lower urinary tract symptom presence: symptoms absent Qualified Code(s): N40.0 - Benign prostatic hyperplasia without lower urinary tract symptoms Comment: Continue Terazosin. (9) Chronic hepatitis C Code(s): B18.2 - CHRONIC VIRAL HEPATITIS C Status: Chronic Qualifiers: Hepatic coma status: without hepatic coma Qualified Code(s): B18.2 - Chronic viral hepatitis C (10) Cirrhosis of liver Code(s): K74.60 - UNSPECIFIED CIRRHOSIS OF LIVER Status: Chronic Qualifiers: Hepatic cirrhosis type: other cirrhosis Qualified Code(s): K74.69 - Other cirrhosis of liver Comment: s/p paracentesis with removal of 2.65 lts on 02/21/2017 (11) ESRD (end stage renal disease) on dialysis Code(s): N18.6 - END STAGE RENAL DISEASE; Z99.2 - DEPENDENCE ON RENAL DIALYSIS Status: Chronic Comment: On MWF HD. Will dialyse per Renal recommendations. (12) GERD (gastroesophageal reflux disease) Code(s): K21.9 - GASTRO-ESOPHAGEAL REFLUX DISEASE WITHOUT ESOPHAGITIS Status: Chronic Qualifiers: Esophagitis presence: esophagitis presence not specified Qualified Code(s) : K21.9 - Gastro-esophageal reflux disease without esophagitis Comment: Continue PPI (13) Hypertension Code(s): I10 - ESSENTIAL (PRIMARY) HYPERTENSION Status: Chronic Qualifiers: Hypertension type: essential hypertension Qualified Code(s): I10 - Essential (primary) hypertension - Plan has tolerated liq diet, will adv to solid diet -: dc zosyn, is on vanc with HD dosing -: nepro 1 can tid -: to mobilize with OT as tolerated -: awaiting rehab placement * . continue PPN until he can eat better, toprol, norvasc. prognosis is guarded with multiple organ failure, endocarditis, cachexia. Review of Systems - Medications/Allergies Allergies/Adverse Reactions: Allergies Allergy/AdvReac Type Severity Reaction Status Date / Time No Known Allergies Allergy Verified 08/26/17 03:38 Medications: Current Medications Acetaminophen (Tylenol) 1,000 mg PO Q6H PRN PRN Reason: Mild Pain (1-3) Amino Acids/Electrolytes/Dextrose (Clinimix E 4.25/5) 1,000 ml IV INF [facility] Last Admin: 02/24/18 18:47 Dose: 1,000 ml Dicyclomine HCl (Bentyl) 10 mg PO TID [facility] Last Admin: 02/25/18 08:48 Dose: 10 mg Diphenhydramine HCl (Benadryl) 25 mg IVP Q3H PRN PRN Reason: Itching Diphenhydramine HCl (Benadryl) 25 mg PO Q3H PRN PRN Reason: Itching Diphenhydramine HCl (Benadryl) 25 mg IM Q3H PRN PRN Reason: Itching Epoetin Zhang (Procrit) 5,000 units SC Fr@0900 [facility] Last Admin: 02/19/18 12:10 Dose: 5,000 units Vancomycin HCl 1 gm/ Device 200 mls @ 200 mls/hr [facility] Vancomycin HCl 750 mg/ Sodium (Chloride) 250 mls @ 250 mls/hr IVPB [facility] Vancomycin HCl 500 mg/ Sodium (Chloride) 100 mls @ 100 mls/hr IVPB [facility] Last Admin: 02/20/18 16:11 Dose: 100 mls Vancomycin HCl 250 mg/ Sodium (Chloride) 100 mls @ 100 mls/hr IVPB [facility] Fentanyl Citrate 2,000 mcg/ (Sodium Chloride) 100 mls @ 0 mls/hr IV INF PRN PRN Reason: Pain Last Admin: 02/25/18 03:32 Dose: 100 mls Piperacillin Sod/Tazobactam (Sod 3.375 gm/ Sodium Chloride) 100 mls @ 200 mls/ hr IVPB 0300,0900,1500,2100 [facility] Last Admin: 02/25/18 08:49 Dose: 100 mls Lidocaine HCl (Xylocaine 2%) 0 ml TOP ASDIR [facility] Metoprolol Tartrate (Lopressor) 50 mg PO BID [facility] Last Admin: 02/25/18 08:48 Dose: 50 mg Naloxone HCl (Narcan) 0.2 mg IV Q5MIN PRN PRN Reason: Opiate Reversal Hold Vancomycin For (Level >20) 0 each FS .AT DIALYSIS [facility] Ondansetron HCl (Zofran Odt) 4 mg PO Q6H PRN PRN Reason: Nausea/Vomiting Last Admin: 02/25/18 03:52 Dose: 4 mg Ondansetron HCl (Zofran) 4 mg IVP Q6H PRN PRN Reason: Nausea/Vomiting Last Admin: 02/21/18 09:13 Dose: 4 mg Pantoprazole Sodium (Protonix) 40 mg PO BID [facility] Last Admin: 02/25/18 08:49 Dose: 40 mg Sertraline HCl (Zoloft) 50 mg PO 1800 [facility] Last Admin: 02/24/18 17:59 Dose: 50 mg Sodium Chloride (Flush - Normal Saline) 10 ml IVF Q12HR [facility] Last Admin: 02/25/18 08:49 Dose: 10 ml Sodium Chloride (Flush - Normal Saline) 10 ml IVF PRN PRN PRN Reason: Saline Flush Last Admin: 02/23/18 21:54 Dose: 10 ml Zolpidem Tartrate (Ambien) 5 mg PO HSPRN PRN PRN Reason: Insomnia
--- NOTE | 2018-02-25 12:10 | PDOC.CTH ---
Cardiology Progress Note - Subjective No new issues. - Objective Vital Signs Temp Pulse Pulse Pulse Resp BP BP 02/25/18 11:48 97.3 F L 63 15 02/25/18 09:30 74 69 118/64 105/60 02/25/18 08:41 97.4 F L 72 16 02/25/18 03:15 97.9 F 76 16 BP Pulse Ox 02/25/18 11:48 103/58 L 97 02/25/18 09:30 02/25/18 08:41 110/61 97 02/25/18 03:15 119/63 Admit Weight 127 lb Weight 112 lb 3.445 oz 02/24/18 02/25/18 02/26/18 06:59 06:59 06:59 Intake Total 1784 1739 Output Total 0 1050 Balance 1784 689 - Physical Examination General/Neuro: alert & oriented x3, NAD Neck: no JVD present Lungs: CTA, unlabored respirations Heart: RRR Abdomen: NT/ND Extremities: other: (no edema) - Telemetry Telemetry Rhythm: NSR - Labs Result Diagrams: 02/22/18 04:29 02/24/18 04:44 Troponin/CKMB CK-MB (CK-2) 9.3 ng/mL (0-6.6) H* 02/17/18 13:12 Troponin I 1.611 ng/mL (< 0.028) H* 02/17/18 21:51 - Assessment/Plan 1. Flailing mas attached to Aortic valve concerning for endocarditis. 2. Moderate AI 3. Flailing mass on Tricuspid valve concerning for endocarditis versus thrombus. 4. Critical limb ischemia s/p amputation. 5. Anasarca 6. ESRD 7. Strep bacteremia. PLAN: - [facility] IV abx per primary team. - If valve replacement were to be required he would not survive valve replacement surgery. - Currently no signs or symptoms of CHF. - Poor prognosis group home. - Will sign off. Please call with any questions.
[2018-02-25] MEDS: D5W-AA 4.25% with LYTES 1,000 ML BAG IV SCH (17:05)
[2018-02-25] MEDS ORDERED: traMADol HCl 50 MG TAB PO PRN (19:09)
--- NOTE | 2018-02-25 20:04 | PRG ---
DATE OF SERVICE: 02/25/2018 SUBJECTIVE: He was seen today. I was called later today, asked to place a central line for TPN access. The patient is a DNR, status post left BKA. He has a functional left thigh dialysis graft. He has occluded left subclavian vein with stents. He has occluded right subclavian vein without stents. He has exhausted upper extremity access, necessitating past hospitalization, placement of left thigh dialysis graft. He has developed arteriosclerotic distal disease, not amenable to revascularization with occluded popliteal artery and no veins available for bypass. He has occluded bilateral internal jugular veins. I considered HeRO graft left arm, but his left IJ was occluded by contrast injection, is patent by ultrasound, but contrast injection reveals occlusion at the confluence of the subclavian vein. I signed off his case a few days ago after obtaining his left leg, the wound looks good. The patient is still on a LIVESTOCK SALES REPRESENTATIVE, and I will discontinue this. The patient has had problems with nausea and vomiting and has been followed by Dr. Machuca. Apparently, an NG tube was placed for a period of time, but there is no measure of the output. The patient removed that. On 02/21/2018, paracentesis performed, 265 mL of cloudy yellow fluid was aspirated. Ascites fluid growth was negative. Cultures negative. Abdominal pelvis CAT scan on 02/17/2018, obtained for abdominal discomfort, was unremarkable except for ascites. OBJECTIVE: LUNGS: Clear to auscultation CARDIAC: Regular rate and rhythm without murmur or gallop. ABDOMEN: Soft, firm, slightly tender upper abdomen. LABORATORY DATA: White count 15 and hemoglobin 10.7. Carbon dioxide 20 and potassium 5.3 yesterday. ASSESSMENT AND PLAN: The patient has a LIVESTOCK SALES REPRESENTATIVE pump in place. We will discontinue that. His left below-knee amputation stump looks good. We will continue wound care. He refuses stump fractionation supervisor, and this is probably appropriate as he is probably not a candidate for future prosthesis. The patient is undergoing rehab screening at this time and hopefully, will be sent to rehab tomorrow. The patient overall condition is deteriorated, and he is DNR status. Currently, I do not have anything to offer at this point, and we would recommend transfer to rehab. I would not place a central line. He has endocarditis. He is getting vancomycin with dialysis, sliding scale. He has flailing mass attached to the aortic valve and tricuspid valve, both concerning for endocarditis, and it was felt he would not survive valve replacement. Poor prognosis, long-term. He is DNR at this point, I will see him as needed. We will stop his LIVESTOCK SALES REPRESENTATIVE. Job ID: [id number]
[2018-02-26] MEDS: traMADol HCl 50 MG TAB PO PRN ×2 (08:21→17:42)
[2018-02-26] MEDS: Metoprolol Tartrate 50 MG TAB PO SCH ×2 (08:24→20:34)
[2018-02-26 08:30] LABS: Vancomycin, Random 9.3 ug/mL (See Comment)
[2018-02-26] MEDS: Dicyclomine 10 MG CAP PO SCH ×3 (10:27→20:34)
[2018-02-26] MEDS: Epoetin (ESRD) 20,000 UNITS/ML SC SCH (10:29)
--- NOTE | 2018-02-26 11:15 | PDOC.PN ---
- Subjective Encounter Start Date: 02/26/18 Encounter Start Time: 09:00 Subjective: awake, follows verbal stimuli -: is not eating much - Objective Resuscitation Status - Order Detail: 02/22/18 16:46 Resuscitation Status Routine Resuscitation Status: DNAR: NO Resuscitation Discussed with: as discussed with pt. & family MAR Reviewed: Yes Vital Signs & Weight: Vital Signs (12 hours) Temp Pulse Resp BP Pulse Ox 02/26/18 08:18 93 L 02/26/18 08:15 97.3 F L 63 16 122/64 02/26/18 04:00 97.4 F L 63 16 115/65 100 02/26/18 00:00 97.5 F L 66 16 119/75 100 Weight Admit Weight 127 lb Weight 122 lb I&O: 02/25/18 02/26/18 02/27/18 06:59 06:59 06:59 Intake Total 1739 2225 Output Total 1050 Balance 689 2225 Result Diagrams: 02/22/18 04:29 02/24/18 04:44 Phys Exam - Physical Examination HEENT: PERRLA, sclera anicteric dry mucosa Neck: no JVD, supple Respiratory: no wheezing, no rales Cardiovascular: RRR, no significant murmur Gastrointestinal: soft, positive bowel sounds ascites++ Musculoskeletal: pulses present left bka Neurological: non-focal, moves all 4 limbs Dx/Plan (1) Bacteremia Code(s): R78.81 - BACTEREMIA Status: Acute Comment: strep salivarius (2) Endocarditis Code(s): I38 - ENDOCARDITIS, VALVE UNSPECIFIED Status: Acute Qualifiers: Endocarditis type: infective Infective endocarditis organism: bacterial Chronicity: acute Qualified Code(s): I33.0 - Acute and subacute infective endocarditis Comment: with veg over aortic and tricuspid. Vanc till apr 01 (3) Ascites Code(s): R18.8 - OTHER ASCITES Status: Chronic Qualifiers: Ascites type: other type Qualified Code(s): R18.8 - Other ascites (4) Peripheral arterial occlusive disease Code(s): I77.9 - DISORDER OF ARTERIES AND ARTERIOLES, UNSPECIFIED Status: Acute Comment: s/p left bka (5) End stage renal disease on dialysis Code(s): N18.6 - END STAGE RENAL DISEASE; Z99.2 - DEPENDENCE ON RENAL DIALYSIS Status: Chronic (6) Severe malnutrition Code(s): E43 - UNSPECIFIED SEVERE PROTEIN-CALORIE MALNUTRITION Status: Chronic (7) Anemia of renal disease Code(s): D63.1 - ANEMIA IN CHRONIC KIDNEY DISEASE Status: Chronic (8) BPH (benign prostatic hyperplasia) Code(s): N40.0 - BENIGN PROSTATIC HYPERPLASIA WITHOUT LOWER URINRY TRACT SYMP Status: Chronic Qualifiers: Lower urinary tract symptom presence: symptoms absent Qualified Code(s): N40.0 - Benign prostatic hyperplasia without lower urinary tract symptoms Comment: Continue Terazosin. (9) Chronic hepatitis C Code(s): B18.2 - CHRONIC VIRAL HEPATITIS C Status: Chronic Qualifiers: Hepatic coma status: without hepatic coma Qualified Code(s): B18.2 - Chronic viral hepatitis C (10) Cirrhosis of liver Code(s): K74.60 - UNSPECIFIED CIRRHOSIS OF LIVER Status: Chronic Qualifiers: Hepatic cirrhosis type: other cirrhosis Qualified Code(s): K74.69 - Other cirrhosis of liver Comment: s/p paracentesis with removal of 2.65 lts on 02/21/2017 (11) ESRD (end stage renal disease) on dialysis Code(s): N18.6 - END STAGE RENAL DISEASE; Z99.2 - DEPENDENCE ON RENAL DIALYSIS Status: Chronic Comment: On MWF HD. Will dialyse per Renal recommendations. (12) GERD (gastroesophageal reflux disease) Code(s): K21.9 - GASTRO-ESOPHAGEAL REFLUX DISEASE WITHOUT ESOPHAGITIS Status: Chronic Qualifiers: Esophagitis presence: esophagitis presence not specified Qualified Code(s) : K21.9 - Gastro-esophageal reflux disease without esophagitis Comment: Continue PPI (13) Hypertension Code(s): I10 - ESSENTIAL (PRIMARY) HYPERTENSION Status: Chronic Qualifiers: Hypertension type: essential hypertension Qualified Code(s): I10 - Essential (primary) hypertension - Plan poor oral intake, on ppn -: for HD today -: prognosis guarded given poor oral intake, multiple organ failures -: on vanc with HD -: continue toprol, norvasc, prn pain meds for left bka pain * . Review of Systems - Medications/Allergies Allergies/Adverse Reactions: Allergies Allergy/AdvReac Type Severity Reaction Status Date / Time No Known Allergies Allergy Verified 08/26/17 03:38 Medications: Current Medications Acetaminophen (Tylenol) 1,000 mg PO Q6H PRN PRN Reason: Mild Pain (1-3) Amino Acids/Electrolytes/Dextrose (Clinimix E 4.25/5) 1,000 ml IV INF [facility] Last Admin: 02/25/18 17:05 Dose: 1,000 ml Dicyclomine HCl (Bentyl) 10 mg PO TID [facility] Last Admin: 02/26/18 10:27 Dose: 10 mg Epoetin Zhang (Procrit) 5,000 units SC Fr@0900 [facility] Last Admin: 02/26/18 10:29 Dose: 5,000 units Vancomycin HCl 1 gm/ Device 200 mls @ 200 mls/hr IVPB [facility] Vancomycin HCl 750 mg/ Sodium (Chloride) 250 mls @ 250 mls/hr IVPB [facility] Vancomycin HCl 500 mg/ Sodium (Chloride) 100 mls @ 100 mls/hr IVPB [facility] Last Admin: 02/20/18 16:11 Dose: 100 mls Vancomycin HCl 250 mg/ Sodium (Chloride) 100 mls @ 100 mls/[facility] Lidocaine HCl (Xylocaine 2%) 0 ml TOP ASDIR [facility] Metoprolol Tartrate (Lopressor) 50 mg PO BID [facility] Last Admin: 02/26/18 08:24 Dose: 50 mg Hold Vancomycin For (Level >20) 0 each FS .AT DIALYSIS [facility] Ondansetron HCl (Zofran Odt) 4 mg PO Q6H PRN PRN Reason: Nausea/Vomiting Last Admin: 02/25/18 03:52 Dose: 4 mg Pantoprazole Sodium (Protonix) 40 mg PO BID [facility] Last Admin: 02/26/18 08:21 Dose: 40 mg Sertraline HCl (Zoloft) 50 mg PO 1800 [facility] Last Admin: 02/25/18 17:07 Dose: 50 mg Sodium Chloride (Flush - Normal Saline) 10 ml IVF Q12HR [facility] Last Admin: 02/26/18 08:35 Dose: 10 ml Sodium Chloride (Flush - Normal Saline) 10 ml IVF PRN PRN PRN Reason: Saline Flush Last Admin: 02/23/18 21:54 Dose: 10 ml Tramadol HCl (Ultram) 50 mg PO Q6H PRN PRN Reason: Moderate Pain (4-6) Last Admin: 02/26/18 08:21 Dose: 50 mg Tramadol HCl (Ultram) 100 mg PO Q6H PRN PRN Reason: Severe Pain (7-10)
[2018-02-26] MEDS ORDERED: Morphine 2 MG/ML SYRINGE SLOW IVP SCH (13:30)
[2018-02-26] MEDS: D5W-AA 4.25% with LYTES 1,000 ML BAG IV SCH (13:57)
[2018-02-27] MEDS: Ondansetron ODT 4 MG TAB PO PRN (00:57)
[2018-02-27] MEDS ORDERED: Phytonadione 10 MG/ML AMP SLOW IVP SCH (08:15)
[2018-02-27 08:32] LABS: Hemoglobin 9.9 g/dL (14.0-18.0); Mean Corpuscular HGB CONC 31.4 g/dL (32.0-36.0); Mean Corpuscular Hemoglobin 27.7 pg (27.0-31.0); Mean Corpuscular Volume 88.3 fL (78.0-98.0); RBC Distribution Width 17.2 % (11.5-14.5); Red Blood Cell (RBC) Count 3.57 mill/uL (4.70-6.10)
[2018-02-27 08:40] LABS: INR-International Normal Ratio 1.5; PTT 42.7 SEC (22.9-36.1)
[2018-02-27 08:45] LABS: ALT (SGPT) 9 U/L (8-55); AST (SGOT) 18 U/L (5-34); Alkaline Phosphatase 74 U/L (40-150); Anion Gap 13 mmol/L (10-20); BUN (Urea Nitrogen) 44 mg/dL (8.4-25.7); Bilirubin, Total 0.7 mg/dL (0.2-1.2); Calc. Creatinine Clearance 15 mL/min (70-130); Carbon Dioxide 26 mmol/L (23-31); Chloride 98 mmol/L (98-107); Estimated GFR-MDRD 18; Globulin 4.1 g/dL (2.4-3.5); Glucose 94 mg/dL (80-115); Potassium 4.4 mmol/L (3.5-5.1); Protein, Total 6.1 g/dL (5.8-8.1); Sodium 133 mmol/L (136-145)
[2018-02-27] MEDS ORDERED: Pantoprazole 80 MG in Sodium Chloride 0.9% 100 ML IVP SCH (08:45)
[2018-02-27 09:06] LABS: #Eosinphils 0.1 thou/uL (0.0-0.7); #Lymphocytes 0.9 thou/uL (1.20-3.40); #Monocytes 0.7 thou/uL (0.11-0.59); #Neutrophils 8.5 thou/uL (1.40-6.50); %Basophils 0.1 % (0.0-1.0); %Eosinophils 1.3 % (0.0-10.0); %Lymphocytes 8.6 % (21.0-51.0); %Monocytes 6.7 % (0.0-10.0); %Neutrophils 83.4 % (42.0-75.0); Acanthocytes SLIGHT = 1-5 cells (100X) (None Seen); Burr Cells MODERATE= 6-15 cells (100X) (0-1/hpf); Hypochromia SLIGHT = 6-15 cells (100X) (0-5/hpf); MDiff Complete? YES; Mean Platelet Volume 13.6 fL (7.4-10.4); Platelet Count 42 thou/uL (130-400); Platelet Morphology Comment Appears Decreased; Polychromasia SLIGHT = 2-3 cells (100X) (0-2/hpf); White Blood Cell (WBC) Count 10.1 thou/uL (4.8-10.8)
--- NOTE | 2018-02-27 09:37 | PRG ---
DATE OF SERVICE: 02/27/2018 SUBJECTIVE: I was asked to see Mr. Cruz for IV access. He has a history of thrombosed upper subclavian and internal jugular veins. He has a left groin dialysis graft. He has been refusing dialysis. He has had right below-knee amputation. He has had some coffee-ground coughing up this morning. He has been hemodynamically stable. OBJECTIVE: He has some obvious peripheral veins that are likely accessible for peripheral IVs in the bilateral upper extremities. He has bilateral upper extremity AV fistulas that appear clotted. His left groin AV graft does have a pulse. He has a palpable femoral pulse in the right groin. ASSESSMENT AND PLAN: History of diffuse venous thrombosis now with question of gastrointestinal bleed. Dr. Doshi is going to see. I think his upper extremities are not going to be amenable to any further dialysis procedures and so I think that his upper extremity peripheral veins are okay to use for peripheral IV access. I would save his right femoral vein for emergencies only because that is his last access site for central venous access. Please call us if needed. Job ID: [id number]
--- NOTE | 2018-02-27 10:17 | PRG ---
DATE OF SERVICE: 02/27/2018 SUBJECTIVE: The patient is throwing up some blood. I was asked to see the patient by the hospitalist. He was seen earlier in this hospitalization by Dr. Sim Claire and followed up by Dr. Gant. The patient complains of abdominal bloating and distention and discomfort. He has had no bowel movements. OBJECTIVE: VITAL SIGNS: Temperature 97.2, pulse 73, respiratory rate 18, and blood pressure 121/73. HEENT: Shows poor dentition. CHEST: Clear. CARDIOVASCULAR: Regular rate and rhythm. ABDOMEN: Distended, tympanitic, taut, and extremely tender. Bowel sounds are absent. RECTAL: Deferred. EXTREMITIES: Normal. LABORATORY DATA: Show a white blood cell count of 10.1, hemoglobin 9.9, hematocrit 31.5, and platelet count is 42,000. PT is 18.0 with an INR of 1.5. Chemistries significant for sodium 133, BUN 44, creatinine 4.06, and albumin of 2.0. DIAGNOSTIC DATA: The patient underwent a paracentesis ultrasound on 02/21/2018, which showed a technically successful sonographic-guided paracentesis. Chest x-ray from 02/20/2018, showed visualization of pleural effusions on 02/20/2018. The patient underwent a CTA which showed large left and moderate right layering pleural effusions. Mildly enlarged pericardial effusion. Flattened right hemicolon along with ascites. There is, on that report, a focus of extraluminal gas in the right anterior border of the liver. ASSESSMENT: 1. Hematemesis - the patient has had multiple workups in the past. For this, at the present time, I do not see a need for upper endoscopy. I would place the patient on continuous infusion PPI. 2. Abdominal distention and pain - the patient is very tympanitic and tender. Concern for surgical abdomen. 3. Ascites. 4. End-stage renal disease. 5. Peripheral vascular disease. RECOMMENDATIONS: 1. Continuous infusion PPI. 2. Serial H and H. 3. Stat 3-view of the abdomen. 4. These results will dictate further management. Job ID: [id number]
[2018-02-27] MEDS: Dicyclomine 10 MG CAP PO SCH ×2 (10:21→17:09)
[2018-02-27] MEDS: Metoprolol Tartrate 50 MG TAB PO SCH (10:21)
--- NOTE | 2018-02-27 10:37 | PDOC.PN ---
- Subjective Encounter Start Date: 02/27/18 Encounter Start Time: 07:45 Subjective: had hematemesis this am, nausea+ -: poor oral intake, passing stools -: had brief HD yesterday - Objective Resuscitation Status - Order Detail: 02/22/18 16:46 Resuscitation Status Routine Resuscitation Status: DNAR: NO Resuscitation Discussed with: as discussed with pt. & family MAR Reviewed: Yes Vital Signs & Weight: Vital Signs (12 hours) Temp Pulse Resp BP BP Pulse Ox 02/27/18 07:40 97.2 F L 73 18 121/63 100 02/27/18 04:00 97.7 F 74 18 122/69 99 02/27/18 00:08 97.8 F 70 18 110/56 L 100 Weight Admit Weight 127 lb Weight 123 lb 3 oz I&O: 02/26/18 02/27/18 02/28/18 06:59 06:59 06:59 Intake Total 2225 1350 Balance 2225 1350 Result Diagrams: 02/27/18 08:04 02/27/18 08:04 Phys Exam - Physical Examination HEENT: PERRLA, sclera anicteric Neck: no JVD, supple Respiratory: no wheezing, no rales Cardiovascular: RRR, no significant murmur Gastrointestinal: soft, positive bowel sounds ascites++ Musculoskeletal: pulses present left bka Neurological: non-focal, moves all 4 limbs Psychiatric: A&O x 3 Dx/Plan (1) Bacteremia Code(s): R78.81 - BACTEREMIA Status: Acute Comment: strep salivarius (2) Endocarditis Code(s): I38 - ENDOCARDITIS, VALVE UNSPECIFIED Status: Acute Qualifiers: Endocarditis type: infective Infective endocarditis organism: bacterial Chronicity: acute Qualified Code(s): I33.0 - Acute and subacute infective endocarditis Comment: with veg over aortic and tricuspid. Vanc till apr 01 (3) Ascites Code(s): R18.8 - OTHER ASCITES Status: Chronic Qualifiers: Ascites type: other type Qualified Code(s): R18.8 - Other ascites (4) Peripheral arterial occlusive disease Code(s): I77.9 - DISORDER OF ARTERIES AND ARTERIOLES, UNSPECIFIED Status: Acute Comment: s/p left bka (5) End stage renal disease on dialysis Code(s): N18.6 - END STAGE RENAL DISEASE; Z99.2 - DEPENDENCE ON RENAL DIALYSIS Status: Chronic (6) Severe malnutrition Code(s): E43 - UNSPECIFIED SEVERE PROTEIN-CALORIE MALNUTRITION Status: Chronic (7) Anemia of renal disease Code(s): D63.1 - ANEMIA IN CHRONIC KIDNEY DISEASE Status: Chronic (8) BPH (benign prostatic hyperplasia) Code(s): N40.0 - BENIGN PROSTATIC HYPERPLASIA WITHOUT LOWER URINRY TRACT SYMP Status: Chronic Qualifiers: Lower urinary tract symptom presence: symptoms absent Qualified Code(s): N40.0 - Benign prostatic hyperplasia without lower urinary tract symptoms Comment: Continue Terazosin. (9) Chronic hepatitis C Code(s): B18.2 - CHRONIC VIRAL HEPATITIS C Status: Chronic Qualifiers: Hepatic coma status: without hepatic coma Qualified Code(s): B18.2 - Chronic viral hepatitis C (10) Cirrhosis of liver Code(s): K74.60 - UNSPECIFIED CIRRHOSIS OF LIVER Status: Chronic Qualifiers: Hepatic cirrhosis type: other cirrhosis Qualified Code(s): K74.69 - Other cirrhosis of liver Comment: s/p paracentesis with removal of 2.65 lts on 02/21/2017 (11) ESRD (end stage renal disease) on dialysis Code(s): N18.6 - END STAGE RENAL DISEASE; Z99.2 - DEPENDENCE ON RENAL DIALYSIS Status: Chronic Comment: On MWF HD. Will dialyse per Renal recommendations. (12) GERD (gastroesophageal reflux disease) Code(s): K21.9 - GASTRO-ESOPHAGEAL REFLUX DISEASE WITHOUT ESOPHAGITIS Status: Chronic Qualifiers: Esophagitis presence: esophagitis presence not specified Qualified Code(s) : K21.9 - Gastro-esophageal reflux disease without esophagitis Comment: Continue PPI (13) Hypertension Code(s): I10 - ESSENTIAL (PRIMARY) HYPERTENSION Status: Chronic Qualifiers: Hypertension type: essential hypertension Qualified Code(s): I10 - Essential (primary) hypertension (14) GI bleed Code(s): K92.2 - GASTROINTESTINAL HEMORRHAGE, UNSPECIFIED Status: Acute - Plan npo, protonix drip, vit K iv x1 dose for coagulopathy from liver disease -: 2 u FFP's, Hb this am around 10g -: d/w about iv access, will use his tunneled cath for now -: d/w -: poor prognosis with multiple organ failures, is on ppn * . Will eventually go into hospice I believe, he is wanting to go home and in comfort, will d/w family (cant reach anyone on phone at present). On vanc with HD for endocarditis, bacteremia. Review of Systems - Medications/Allergies Allergies/Adverse Reactions: Allergies Allergy/AdvReac Type Severity Reaction Status Date / Time No Known Allergies Allergy Verified 08/26/17 03:38 Medications: Current Medications Acetaminophen (Tylenol) 1,000 mg PO Q6H PRN PRN Reason: Mild Pain (1-3) Amino Acids/Electrolytes/Dextrose (Clinimix E 4.25/5) 1,000 ml IV INF [facility] Last Admin: 02/26/18 13:57 Dose: 1,000 ml Dicyclomine HCl (Bentyl) 10 mg PO TID [facility] Last Admin: 02/27/18 10:21 Dose: Not Given Epoetin Zhang (Procrit) 5,000 units SC Fr@0900 [facility] Last Admin: 02/26/18 10:29 Dose: 5,000 units Fentanyl (Duragesic) 25 mcg TD NOW [facility] Stop: 03/01/18 18:31 Last Admin: 02/26/18 20:31 Dose: 25 mcg Vancomycin HCl 1 gm/ Device 200 mls @ 200 mls/hr IVPB WILLCALL [facility] Vancomycin HCl 750 mg/ Sodium (Chloride) 250 mls @ 250 mls/hr IVPB [facility] Last Admin: 02/26/18 16:13 Dose: 250 mls Vancomycin HCl 500 mg/ Sodium (Chloride) 100 mls @ 100 mls/hr IVPB [facility] Last Admin: 02/20/18 16:11 Dose: 100 mls Vancomycin HCl 250 mg/ Sodium (Chloride) 100 mls @ 100 mls/hr IVPB [facility] Pantoprazole Sodium 80 mg/ (Sodium Chloride) 100 mls @ 10 mls/hr IVP INF [facility] Lidocaine HCl (Xylocaine 2%) 0 ml TOP ASDIR [facility] Metoprolol Tartrate (Lopressor) 50 mg PO BID [facility] Last Admin: 02/27/18 10:21 Dose: Not Given Hold Vancomycin For (Level >20) 0 each FS .AT DIALYSIS [facility] Ondansetron HCl (Zofran Odt) 4 mg PO Q6H PRN PRN Reason: Nausea/Vomiting Last Admin: 02/27/18 00:57 Dose: 4 mg Sertraline HCl (Zoloft) 50 mg PO 1800 [facility] Last Admin: 02/26/18 19:33 Dose: Not Given Sodium Chloride (Flush - Normal Saline) 10 ml IVF Q12HR [facility] Last Admin: 02/27/18 10:21 Dose: 10 ml Sodium Chloride (Flush - Normal Saline) 10 ml IVF PRN PRN PRN Reason: Saline Flush Last Admin: 02/23/18 21:54 Dose: 10 ml Sodium Chloride (Flush - Normal Saline) 10 ml IVF PRN PRN PRN Reason: Saline Flush Tramadol HCl (Ultram) 50 mg PO Q6H PRN PRN Reason: Moderate Pain (4-6) Last Admin: 02/26/18 17:42 Dose: 50 mg Tramadol HCl (Ultram) 100 mg PO Q6H PRN PRN Reason: Severe Pain (7-10) Last Admin: 02/26/18 20:56 Dose: 100 mg
[2018-02-27 11:36] LABS: Hemoglobin 10.5 g/dL (14.0-18.0); Platelet Count 43 thou/uL (130-400)
--- NOTE | 2018-02-27 11:55 | RAD ---
ABDOMINAL SURVEY WITH UPRIGHT CHEST AND 2-VIEW ABDOMEN: INDICATION: Abdominal pain. Question free air. FINDINGS: The upright chest shows patchy infiltrate in the right mid lung field. There is no pneumothorax. Overlying extraneous artifact degrades the abdominal films. No evidence of free intraperitoneal air is seen on the upright views. There are gas-filled mildly dilated loops of small bowel. Scattered gas in the colon. Hepatic capsu lar calcification is again noted. IMPRESSION: There are gas-filled mildly dilated loops of small bowel. No evidence of free intraperitoneal air id entified. POS: [facility]
[2018-02-27] MEDS: Morphine 4 MG/ML VIAL SLOW IVP PRN ×3 (15:18→23:56)
[2018-02-28] MEDS: Morphine 4 MG/ML VIAL SLOW IVP PRN ×8 (03:58→23:24)
--- NOTE | 2018-02-28 10:21 | PDOC.PN ---
- Subjective Encounter Start Date: 02/28/18 Encounter Start Time: 09:00 Subjective: awake, not in distress, no sob or abd pain now -: family at bedside - Objective Resuscitation Status - Order Detail: 02/22/18 16:46 Resuscitation Status Routine Resuscitation Status: DNAR: NO Resuscitation Discussed with: as discussed with pt. & family MAR Reviewed: Yes Vital Signs & Weight: Vital Signs (12 hours) Temp Pulse Resp BP Pulse Ox 02/28/18 08:00 96.2 F L 85 16 119/69 100 Weight Admit Weight 127 lb Weight 123 lb 6.4 oz Most Recent Monitor Data NIBP 137/64 I&O: 02/27/18 02/28/18 03/01/18 06:59 06:59 06:59 Intake Total 1350 977 Output Total 0 Balance 1350 977 Result Diagrams: 02/27/18 11:12 02/27/18 08:04 Phys Exam - Physical Examination HEENT: PERRLA, sclera anicteric Neck: no JVD, supple Respiratory: no wheezing, no rales Cardiovascular: RRR, no significant murmur Gastrointestinal: soft, positive bowel sounds ascites++ Musculoskeletal: pulses present left bka Neurological: non-focal, moves all 4 limbs Dx/Plan (1) Bacteremia Code(s): R78.81 - BACTEREMIA Status: Acute Comment: strep salivarius (2) Endocarditis Code(s): I38 - ENDOCARDITIS, VALVE UNSPECIFIED Status: Acute Qualifiers: Endocarditis type: infective Infective endocarditis organism: bacterial Chronicity: acute Qualified Code(s): I33.0 - Acute and subacute infective endocarditis Comment: with veg over aortic and tricuspid. Vanc till apr 01 (3) Ascites Code(s): R18.8 - OTHER ASCITES Status: Chronic Qualifiers: Ascites type: other type Qualified Code(s): R18.8 - Other ascites (4) Peripheral arterial occlusive disease Code(s): I77.9 - DISORDER OF ARTERIES AND ARTERIOLES, UNSPECIFIED Status: Acute Comment: s/p left bka (5) End stage renal disease on dialysis Code(s): N18.6 - END STAGE RENAL DISEASE; Z99.2 - DEPENDENCE ON RENAL DIALYSIS Status: Chronic (6) Severe malnutrition Code(s): E43 - UNSPECIFIED SEVERE PROTEIN-CALORIE MALNUTRITION Status: Chronic (7) Anemia of renal disease Code(s): D63.1 - ANEMIA IN CHRONIC KIDNEY DISEASE Status: Chronic (8) BPH (benign prostatic hyperplasia) Code(s): N40.0 - BENIGN PROSTATIC HYPERPLASIA WITHOUT LOWER URINRY TRACT SYMP Status: Chronic Qualifiers: Lower urinary tract symptom presence: symptoms absent Qualified Code(s): N40.0 - Benign prostatic hyperplasia without lower urinary tract symptoms Comment: Continue Terazosin. (9) Chronic hepatitis C Code(s): B18.2 - CHRONIC VIRAL HEPATITIS C Status: Chronic Qualifiers: Hepatic coma status: without hepatic coma Qualified Code(s): B18.2 - Chronic viral hepatitis C (10) Cirrhosis of liver Code(s): K74.60 - UNSPECIFIED CIRRHOSIS OF LIVER Status: Chronic Qualifiers: Hepatic cirrhosis type: other cirrhosis Qualified Code(s): K74.69 - Other cirrhosis of liver Comment: s/p paracentesis with removal of 2.65 lts on 02/21/2017 (11) ESRD (end stage renal disease) on dialysis Code(s): N18.6 - END STAGE RENAL DISEASE; Z99.2 - DEPENDENCE ON RENAL DIALYSIS Status: Chronic Comment: On MWF HD. Will dialyse per Renal recommendations. (12) GERD (gastroesophageal reflux disease) Code(s): K21.9 - GASTRO-ESOPHAGEAL REFLUX DISEASE WITHOUT ESOPHAGITIS Status: Chronic Qualifiers: Esophagitis presence: esophagitis presence not specified Qualified Code(s) : K21.9 - Gastro-esophageal reflux disease without esophagitis Comment: Continue PPI (13) Hypertension Code(s): I10 - ESSENTIAL (PRIMARY) HYPERTENSION Status: Chronic Qualifiers: Hypertension type: essential hypertension Qualified Code(s): I10 - Essential (primary) hypertension (14) GI bleed Code(s): K92.2 - GASTROINTESTINAL HEMORRHAGE, UNSPECIFIED Status: Acute - Plan Patient and family have opted for inpt hospice and comfort care -: awaiting insurance authorization for the same with compassionate care hospi -: may dc anytime to inpt hospice if accepted -: morphine prn, has fentanyl patch -: no active treatment per family and patient adv * . Review of Systems - Medications/Allergies Allergies/Adverse Reactions: Allergies Allergy/AdvReac Type Severity Reaction Status Date / Time No Known Allergies Allergy Verified 08/26/17 03:38 Medications: Current Medications Lidocaine HCl (Xylocaine 2%) 0 ml TOP ASDIR [facility] Morphine Sulfate (Morphine) 2 mg SLOW IVP Q4H PRN PRN Reason: Chest Pain/BP ELEVATIONS Last Admin: 02/28/18 06:36 Dose: 2 mg
[2018-02-28] MEDS ORDERED: Morphine 2 MG/ML SYRINGE SLOW IVP SCH (15:15)
[2018-02-28] MEDS ORDERED: Lorazepam 2 MG/ML VIAL SLOW IVP PRN (19:53)
--- NOTE | 2018-02-28 19:57 | PDOC.EVN ---
Event Note - Event Note Event Note: Called by RN for this patient on comfort measures with pain/restlessness and morphine ordered q4h prn. Pt is awaiting inpatient hospice. Will change morphine to q1h prn 2 or 4 mg, add prn ativan and scopolamine patch.
[2018-02-28] MEDS ORDERED: Scopolamine 1.5 mg/72 hour Patch TD SCH (20:00)
[2018-03-01] MEDS: Morphine 4 MG/ML VIAL SLOW IVP PRN ×2 (03:36→06:20)
--- NOTE | 2018-03-01 07:16 | DIS ---
DATE OF ADMISSION: 02/17/2018 DATE OF DISCHARGE: 02/28/2018 ANTICIPATED DATE OF DISCHARGE: 02/28/2018. DISCHARGE DISPOSITION: To inpatient hospice under compassionate care. PRIMARY DISCHARGE DIAGNOSES: 1. Multiple organ failures. 2. Bacteremia with Strep salivarius. 3. Endocarditis with vegetation seen over aortic and tricuspid valve, on vancomycin. 4. Cirrhosis, hepatitis C with ascites. 5. Peripheral vascular disease with nonhealing ulcer in the left leg, status post below-knee amputation. 6. Severe malnutrition. 7. Chronic anemia. 8. End-stage renal disease, on hemodialysis. 9. Benign prostatic hypertrophy. 10. Gastroesophageal reflux disease. 11. Hypertension. 12. Gastrointestinal bleed. PROCEDURES DONE DURING HOSPITALIZATION: CT angiogram of the abdomen and pelvis with runoff to the feet done on the day of admission showed occlusion of left popliteal artery and proximal trifurcation with minimal flow in the left anterior tibial artery from collaterals for the first 5 cm. There is no flow distal to this. No flow within the left posterior tibial or peroneal arteries. Old left distal femur fracture with bone infarcts seen. CT of lumbar spine without contrast done showed degenerative disk and endplate changes seen throughout the lumbar spine. There is incidental finding of large amount of free fluid in the abdomen and deep pelvis consistent with ascites. CT of the abdomen and pelvis showed large volume ascites, [id number] size pericardial effusion, renal atrophy with multiple hypodense lesions seen in each kidney with areas of calcifications, stable from the prior study. Extensive peripheral calcifications involving liver and spleen. Mild thickened [place] of loops of small bowel, which may be related to edema with findings suggestive of renal osteodystrophy with multilevel degenerative changes of the lumbar spine. Bilateral venography done showed thrombosed bilateral internal jugular veins. Echo with 2D Doppler showed EF of 50% to 55%. There is inferolateral hypokinesis, grade 1/3 diastolic dysfunction, moderate mitral regurgitation, thickened mitral valve with flailing mass concerning for vegetation, RV systolic pressures of 44 mmHg, flailing mass on ventricular side of aortic wall concerning for vegetation in the right clinical setting, [id number] aortic regurgitation, small pericardial effusion without tamponade. Left below-knee amputation was done by Dr. Parker on 02/19/2018. CT angio of the abdomen and pelvis done showed proximal celiac trunk and superior mesenteric arteries were to be patent. Distal colonic branches of the superior mesenteric artery are very attenuated and may be sequel of mass effect on the large volume ascites. Paracentesis may be beneficial, stenosis of inferior mesenteric artery for a length of approximately 3 cm from the ostia and distal reconstitution. The distal left colonic branches and sigmoid branches are very attenuated. Ultrasound-guided paracentesis done on 02/21/2018 with removal of 2.65 L of slightly cloudy yellow fluid by Interventional Radiology. Blood cultures grew Streptococcus salivarius , sensitive to all antibiotics x2. He had a white count of 21 on the 4th with white count of 10,000 on the 12th. H and H on the 12th were 10 and 34, platelet count 43. BUN 44, creatinine 4.0, albumin was 2.0 on the 12th of this month. Total cholesterol 94, triglycerides 93, LDL 57, HDL 18. BNP 1736. Troponin I was indeterminate, peaking at 1.74; CK-MB 9.3. Bartonella henselae IgG and IgM, Bartonella braun IgG and IgM all four were negative. Hepatitis B surface antigen nonreactive. Q fever IgG phase 1 and phase 2 negative. Q fever IgM phase 1 and phase 2 negative. INPATIENT CONSULTATION: 1. Dr. Goodwin for Cardiothoracic Surgery. 2. Dr. Dakotah Montemayor for Gastroenterology. 3. Dr. Parker for General surgery. 4. Dr. Jack for Cardiology. 5. Dr. Rivas for Infectious Disease. DISCHARGE MEDICATIONS: 1. Morphine p.r.n. for pain. 2. Terazosin 5 mg daily. 3. Omeprazole 40 mg daily. BRIEF COURSE DURING HOSPITALIZATION: The patient initially was brought to emergency room on the with complaints of left leg pain and abdominal pain. The patient had a complete vascular workup due to cold extremities on the left lower extremity done. This showed poor vascular supply with occlusion and severe peripheral vascular disease. He had below-knee amputation done for the left leg. The patient had ascites with cirrhosis and chronic hep C. He had 2.6 L of fluid removed by paracentesis with Interventional Radiology. Post these procedures, the patient has had poor oral intake, and at the outset, the patient was cachetic and had multiple medical comorbidities. He had prolonged ileus and was placed on PPN. He was progressively getting worse and also developed GI bleed with hematemesis on the . The patient was wanting withdrawal of care and to go into hospice for quite some time. Initially, this was thought to be due to depression and he was placed on antidepressant. Finally on the , the patient said he did not want any further procedures, and in fact, stopped his hemodialysis 1 hour into it. He did not want an upper endoscopy, even though he had hematemesis. In view of multiple organ failures and the patient's request for comfort care, inpatient hospice evaluation was requested. The patient opted for compassionate care hospice and they are waiting for insurance approval for the same. No active treatment will be done per patient and his family's request. He can be discharged any time to inpatient hospice once it is approved. Please note I have and examined patient on the day of discharge. Job ID: [id number] [facility]
[2018-03-01 08:38] VITALS: BP 119/68; TEMP 96
[2018-03-01] MEDS ORDERED: Morphine 2 MG/ML SYRINGE SLOW IVP SCH (08:45)
[2018-03-01 11:21] VITALS: BMI 16.7
--- NOTE | 2018-03-01 12:58 | PDOC.PN ---
- Subjective Encounter Start Date: 03/01/18 Encounter Start Time: 11:00 Subjective: is resting comfortably -: family at bedside - Objective Resuscitation Status - Order Detail: 02/22/18 16:46 Resuscitation Status Routine Resuscitation Status: DNAR: NO Resuscitation Discussed with: as discussed with pt. & family MAR Reviewed: Yes Vital Signs & Weight: Vital Signs (12 hours) Temp Pulse Resp BP Pulse Ox 03/01/18 08:00 96.0 F L 91 20 119/68 100 Weight Admit Weight 127 lb Weight 123 lb 6.4 oz Most Recent Monitor Data NIBP 137/64 I&O: 02/28/18 03/01/18 03/02/18 06:59 06:59 06:59 Intake Total 977 0 Output Total 0 0 Balance 977 0 Result Diagrams: 02/27/18 11:12 02/27/18 08:04 Phys Exam - Physical Examination HEENT: PERRLA, sclera anicteric Neck: no JVD, supple Respiratory: no wheezing rales+ Cardiovascular: RRR, no significant murmur Gastrointestinal: soft, positive bowel sounds ascites++ left bka Neurological: non-focal, moves all 4 limbs Dx/Plan (1) Bacteremia Code(s): R78.81 - BACTEREMIA Status: Acute Comment: strep salivarius (2) Endocarditis Code(s): I38 - ENDOCARDITIS, VALVE UNSPECIFIED Status: Acute Qualifiers: Endocarditis type: infective Infective endocarditis organism: bacterial Chronicity: acute Qualified Code(s): I33.0 - Acute and subacute infective endocarditis Comment: with veg over aortic and tricuspid. (3) Ascites Code(s): R18.8 - OTHER ASCITES Status: Chronic Qualifiers: Ascites type: other type Qualified Code(s): R18.8 - Other ascites (4) Peripheral arterial occlusive disease Code(s): I77.9 - DISORDER OF ARTERIES AND ARTERIOLES, UNSPECIFIED Status: Acute Comment: s/p left bka (5) End stage renal disease on dialysis Code(s): N18.6 - END STAGE RENAL DISEASE; Z99.2 - DEPENDENCE ON RENAL DIALYSIS Status: Chronic (6) Severe malnutrition Code(s): E43 - UNSPECIFIED SEVERE PROTEIN-CALORIE MALNUTRITION Status: Chronic (7) Anemia of renal disease Code(s): D63.1 - ANEMIA IN CHRONIC KIDNEY DISEASE Status: Chronic (8) BPH (benign prostatic hyperplasia) Code(s): N40.0 - BENIGN PROSTATIC HYPERPLASIA WITHOUT LOWER URINRY TRACT SYMP Status: Chronic Qualifiers: Lower urinary tract symptom presence: symptoms absent Qualified Code(s): N40.0 - Benign prostatic hyperplasia without lower urinary tract symptoms Comment: Continue Terazosin. (9) Chronic hepatitis C Code(s): B18.2 - CHRONIC VIRAL HEPATITIS C Status: Chronic Qualifiers: Hepatic coma status: without hepatic coma Qualified Code(s): B18.2 - Chronic viral hepatitis C (10) Cirrhosis of liver Code(s): K74.60 - UNSPECIFIED CIRRHOSIS OF LIVER Status: Chronic Qualifiers: Hepatic cirrhosis type: other cirrhosis Qualified Code(s): K74.69 - Other cirrhosis of liver Comment: s/p paracentesis with removal of 2.65 lts on 02/21/2017 (11) ESRD (end stage renal disease) on dialysis Code(s): N18.6 - END STAGE RENAL DISEASE; Z99.2 - DEPENDENCE ON RENAL DIALYSIS Status: Chronic (12) GERD (gastroesophageal reflux disease) Code(s): K21.9 - GASTRO-ESOPHAGEAL REFLUX DISEASE WITHOUT ESOPHAGITIS Status: Chronic Qualifiers: Esophagitis presence: esophagitis presence not specified Qualified Code(s) : K21.9 - Gastro-esophageal reflux disease without esophagitis (13) Hypertension Code(s): I10 - ESSENTIAL (PRIMARY) HYPERTENSION Status: Chronic Qualifiers: Hypertension type: essential hypertension Qualified Code(s): I10 - Essential (primary) hypertension (14) GI bleed Code(s): K92.2 - GASTROINTESTINAL HEMORRHAGE, UNSPECIFIED Status: Acute - Plan mulitple organ failure for comfort and hospice care -: awaiting insurance approval for the same -: may dc anytime to inpt hospice -: has stopped HD and all active treatments -: currently obtunded but comfortable and not in pain * . Review of Systems - Medications/Allergies Allergies/Adverse Reactions: Allergies Allergy/AdvReac Type Severity Reaction Status Date / Time No Known Allergies Allergy Verified 08/26/17 03:38
== END 2018-03-01 12:55 | disposition hospice, inpatient (51) | DRG 239 ==
LOC: ERS 11:09 → ERHOLD 16:28 → 2NO 16:28 → ONC 02-25 21:04
PROVIDERS: ADMIT Thoracic Surgery (Cardiothoracic Vascular Surgery); ATTEND Thoracic Surgery (Cardiothoracic Vascular Surgery)
PROC: 0Y6J0Z1 Detachment at Left Lower Leg, High, Open Approach (ICD-10-PCS; principal; 2018-02-19)
PROC: 30233N1 Transfusion of Nonautologous Red Blood Cells into Peripheral Vein, Percutaneous Approach (ICD-10-PCS; 2018-02-19)
PROC: 5A1D70Z Performance of Urinary Filtration, Intermittent, Less than 6 Hours Per Day (ICD-10-PCS; 2018-02-20)
PROC: 0W9G3ZZ Drainage of Peritoneal Cavity, Percutaneous Approach (ICD-10-PCS; 2018-02-21)
PROC: 5A1D70Z Performance of Urinary Filtration, Intermittent, Less than 6 Hours Per Day (ICD-10-PCS; 2018-02-21)
PROC: 3E0336Z Introduction of Nutritional Substance into Peripheral Vein, Percutaneous Approach (ICD-10-PCS; 2018-02-23)
PROC: 5A1D70Z Performance of Urinary Filtration, Intermittent, Less than 6 Hours Per Day (ICD-10-PCS; 2018-02-24)
PROC: 5A1D70Z Performance of Urinary Filtration, Intermittent, Less than 6 Hours Per Day (ICD-10-PCS; 2018-02-26)
DX: I70.222 Atherosclerosis of native arteries of extremities with rest pain, left leg (principal); N18.6 End stage renal disease; I33.0 Acute and subacute infective endocarditis; E43 Unspecified severe protein-calorie malnutrition; K55.21 Angiodysplasia of colon with hemorrhage; I12.0 Hypertensive chronic kidney disease with stage 5 chronic kidney disease or end stage renal disease; R18.8 Other ascites; I82 Other venous embolism and thrombosis; K56.0 Paralytic ileus; R78.81 Bacteremia; Z68.1 Body mass index [BMI] 19.9 or less, adult; I70.92 Chronic total occlusion of artery of the extremities; I82.C23 Chronic embolism and thrombosis of internal jugular vein, bilateral; Z51.5 Encounter for palliative care; Z66 Do not resuscitate; F17.210 Nicotine dependence, cigarettes, uncomplicated; B18.2 Chronic viral hepatitis C; D63.1 Anemia in chronic kidney disease; N40.0 Benign prostatic hyperplasia without lower urinary tract symptoms; K21.9 Gastro-esophageal reflux disease without esophagitis; E87.5 Hyperkalemia; I48.0 Paroxysmal atrial fibrillation; R60.1 Generalized edema; K74.60 Unspecified cirrhosis of liver; B95.4 Other streptococcus as the cause of diseases classified elsewhere; Z99.2 Dependence on renal dialysis; Z53.29 Procedure and treatment not carried out because of patient's decision for other reasons; Z79.899 Other long term (current) drug therapy
CPT/HCPCS: 36005; 36415; 36416; 36430; 49083; 71045; 72131; 74022; 74174; 74176; 75635; 75860; 76942; 80048; 80053; 80061; 80202; 82042; 82274; 82553; 83605; 83880; 84484; 85025; 85610; 85730; 86611; 86850; 86900; 86901; 87040; 87070; 87077; 87149; 87186; 87205; 87324; 87340; 87449; 88307; 90935; 93306; 94760; 96374; 96375; C9113; G0257; J1100; J1644; J2001; J2270; J2405; J2543; J2704; J3010; J3370; J3430; J7050; L8440; P9016; P9059; Q0162; Q4081

== ENCOUNTER 2018-03-01 13:00 | Inpatient (IN) | payer OTHER ==
[2018-03-01] MEDS ORDERED: Ondansetron PF 4 MG/2 ML Vial IVP PRN (13:10)
[2018-03-01] MEDS ORDERED: Lorazepam 2 MG/ML VIAL SLOW IVP PRN (13:11)
[2018-03-01] MEDS ORDERED: Scopolamine 1.5 mg/72 hour Patch TOP SCH (14:00)
[2018-03-01 14:41] VITALS: BMI 16.4
[2018-03-01] MEDS: Morphine 10 MG/ML VIAL SLOW IVP SCH ×4 (15:29→23:52)
[2018-03-01 19:36] VITALS: BP 104/56; TEMP 97.6
[2018-03-02] MEDS: Morphine 10 MG/ML VIAL SLOW IVP SCH (03:00)
--- NOTE | 2018-03-03 14:57 | DIS ---
DATE OF ADMISSION: 03/01/2018 DATE OF DISCHARGE: 03/02/2018 SUMMARY TIME OF : 5:20 a.m. on 03/02/2018. HOSPITAL COURSE: This is a 62-year-old gentleman who was on hemodialysis. The patient had multiorgan failure and had bacteremia, sepsis, as well as hepatitis C. The patient opted to go on hospice and was at the time noted above. Family was aware of the patient's condition and the patient peacefully. [place] [facility] [place] No other complications reported. Job ID: [id number]
== END 2018-03-02 05:20 | disposition expired | DRG 951 ==
LOC: ONC 13:00
PROVIDERS: ADMIT Internal Medicine Nephrology; ATTEND Internal Medicine Nephrology
DX: Z51.5 Encounter for palliative care (principal); A41.9 Sepsis, unspecified organism; N18.6 End stage renal disease; K92.2 Gastrointestinal hemorrhage, unspecified; I70.202 Unspecified atherosclerosis of native arteries of extremities, left leg; B18.2 Chronic viral hepatitis C; K74.60 Unspecified cirrhosis of liver; K76.9 Liver disease, unspecified; Z99.2 Dependence on renal dialysis; R74.8 Abnormal levels of other serum enzymes; R91.1 Solitary pulmonary nodule; Z83.3 Family history of diabetes mellitus; Z80.9 Family history of malignant neoplasm, unspecified; Z82.49 Family history of ischemic heart disease and other diseases of the circulatory system
CPT/HCPCS: J2060; J2270